=== PATIENT | female | born 1970 | race Caucasian/White ===

== ENCOUNTER 2016-02-07 12:02 | Inpatient (IN) | payer MEDICARE, OTHER ==
[2016-02-07] VITALS (11 sets, daily range): BP systolic 103–125; BP diastolic 61–77; PULSE 104–144; RESP 18–30; TEMP 98.4–98.8; O2SAT 91–100
[~2016-02-07] VITALS: Ht 157.5 cm; Wt 61.4 kg
[~2016-02-07 12:02] MED LIST: BENZ100 PO; CLIN1CAP6 PO; FENO200C PO; GUAI100S5 PO; LEVO88TA2 PO; NEXI40CA PO; OXYGENTANK NAS.CANULA; PROM2INJ IVP; TOPA100T11 PO; XARE20TA PO
[2016-02-07] MEDS ORDERED: SODIUM CHLOR 0.9% 1000 ML INJ 100 ML IV ONE (12:12)
[2016-02-07] MEDS ORDERED: SODIUM CHLOR 0.9% 1000 ML INJ 1,000 ML IV ONE ×2 (12:12)
[2016-02-07] MEDS ORDERED: metroNIDAZOLE 500 MG INJ 100 ML IV STA (12:32)
[2016-02-07] MEDS ORDERED: VANCOMYCIN INJ 1,000 MG in SODIUM CHLOR 0.9% 250 ML INJ 250 ML IV STA (12:32)
[2016-02-07] MEDS ORDERED: AZTREONAM INJ 2,000 MG in SODIUM CHLORIDE 0.9% INJ 100 ML IV STA (12:32)
[2016-02-07] MEDS ORDERED: diphenhydrAMINE HCL 50 MG/ML VIAL IV PUSH ONE ×2 (12:45→16:15)
[2016-02-07 12:54] LABS: BLOOD GAS BASE EXCESS -4.5 mmol/L (-2-2); BLOOD GAS HCO3 19 mmol/L (22-26); BLOOD GAS METHEMOGLOBIN 1.6 % (0-2); BLOOD GAS O2 HGB SATURATION 95 % (90-100); BLOOD GAS OXYGEN CONTENT 16.7 Vol % (12.0-20.0); BLOOD GAS PCO2 29 mmHg (38-42); BLOOD GAS PO2 132 mmHG (61-120); BLOOD GAS TOTAL HGB 12.3 G/DL (12.0-16.0); CRITICAL VALUE NO; TEMP CORR TO 98.6
[2016-02-07 12:55] LABS: DRAW SITE RT RADIAL; LITER FLOW 15 L/M; NUMBER OF ARTERIAL PUNCTURES 1; OXYGEN DEVICE NON REBREATHER; STAT YES
[2016-02-07 13:16] LABS: AUTOMATED NEUTROPHIL # 6.9 TH/MM3 (1.8-7.7); BASOPHIL # 0.1 TH/MM3 (0-0.2); BASOPHIL % 0.6 % (0.0-2.0); EOSINOPHIL # 0.9 TH/MM3 (0-0.4); EOSINOPHIL % 9.3 % (0.0-4.0); HEMATOCRIT 36.6 % (35.0-46.0); HEMO FLAGS DIFF FINAL; LYMPH % 10.7 % (9.0-44.0); MEAN CORPUSCULAR HEMOGLOBIN 30.4 PG (27.0-34.0); MEAN CORPUSCULAR HGB CONC 33.7 % (32.0-36.0); MONO % 7.5 % (0.0-8.0); NEUT % 71.9 % (16.0-70.0); PLATELET COUNT 134 TH/MM3 (150-450); RED BLOOD COUNT 4.07 MIL/MM3 (4.00-5.30); RED CELL DISTRIBUTION WIDTH 15.7 % (11.6-17.2); WHITE BLOOD COUNT 9.6 TH/MM3 (4.0-11.0)
--- NOTE | 2016-02-07 13:21 | RADRPT ---
EXAM DATE/TIME: 02/07/2016 12:38 [facility] COMPARISON: CHEST SINGLE AP, January 11, 2016, 17:02. INDICATIONS : Shortness of breath, with sudden weakness MEDICAL HISTORY : Sepsis. Cardiovascular disease. Hypertension. Lupus SURGICAL HISTORY : Tonsillectomy. Tubal ligation. Hysterectomy ENCOUNTER: Initial ACUITY: 1 day PAIN SCORE: 4/10 LOCATION: Bilateral chest FINDINGS: Single portable frontal view of the chest were by breathing motion artifact. Groundglass parenchymal opacity is suspected within the left lung base. Right lung is clear. No effusions. Heart normal size. Right-sided PICC line observed. CONCLUSION: Limited study. Questionable left lower lobe infiltrate. Rogelio Bhakta Jr., MD on February 07, 2016 at 13:16 Board Certified Radiologist. This report was verified electronically.
[2016-02-07 13:26] LABS: ANION GAP 10 MEQ/L (5-15); AST (GOT) 16 U/L (15-37); BICARBONATE 18.8 MEQ/L (21.0-32.0); BLOOD UREA NITROGEN 9 MG/DL (7-18); CHLORIDE 110 MEQ/L (98-107); GLOMERULAR FILTRATION RATE 90 ML/MIN (>89); SODIUM (NA) 139 MEQ/L (136-145)
[2016-02-07 13:31] LABS: ALKALINE PHOSPHATASE 60 U/L (45-117); ALT (GPT) 16 U/L (10-53); TOTAL BILIRUBIN ADULT 0.6 MG/DL (0.2-1.0)
--- NOTE | 2016-02-07 14:15 | PD ---
HPI Chief Complaint: Respiratory Distress Time Seen by Provider: 12:10 Travel History International Travel<30 days: No Contact w/Intl Traveler<30days: No Traveled to known affect area: No History of Present Illness HPI Patient is a 45-year-old female with history of lupus, A. fib, DVT/PE with indwelling IVC filter, pneumonia, recent MSSA bacteremia, gastroparesis with PEG tube here with complaint of shortness of breath, generalized weakness and syncopal episode. Patient states that over the course the last several days she 's been increasingly generally weak and fatigued. More and more short of breath at her baseline. After her most recent hospital stay with MSSA bacteremia patient went on home O2. When paramedics arrived patient's O2 saturations were 70% on 2 L home O2. Patient also had a brief syncopal episode at home with some shaking, non-rhythmic that was brief. Patient notes chronic pain but nothing acute. She has been compliant with her anticoagulation for DVT /PE. She currently has a right upper extremity PICC line that she is using for Phenergan, is no longer on any antibiotics. Patient was seen here in our emergency department yesterday for a small pustule over her ex-planted left chest wall port. Given a dose of clindamycin and discharged her home after normal workup. PFSH Past Medical History Hx Anticoagulant Therapy: Yes Arthritis: Yes (RHEUMATOID) Asthma: No Atrial Fibrillation: Yes Autoimmune Disease: Yes (SHINGLES) Anxiety: Yes Depression: No Cancer: No Cardiovascular Problems: Yes (AFIB) High Cholesterol: Yes Chemotherapy: Yes (LUPUS) Chest Pain: Yes Congestive Heart Failure: No COPD: No Cerebrovascular Accident: Yes Diabetes: No Diminished Hearing: Yes ([facility]AR) Deep Vein Thrombosis: Yes Endocrine: No Fibromyalgia: Yes Gastrointestinal Disorders: Yes (BILIARY PROBLEMS, GASTROPARESIS) GERD: Yes Genitourinary: No Headaches: No Hepatitis: No Hiatal Hernia: No Hypertension: Yes Immune Disorder: Yes (LUPUS) Implanted Vascular Access Dvce: Yes (PORT REMOVED) Kidney Stones: No Medical other: Yes (sars, lupus) Musculoskeletal: Yes (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, ) Neurologic: Yes Psychiatric: Yes Reproductive: No Respiratory: Yes (sirs) Immunizations Current: Yes Migraines: Yes (TEMPORAL ARTHRITIS ) Renal Failure: No Seizures: No Sleep Apnea: No Thyroid Disease: Yes (GINA'S) PNEUMOCCOCAL Vaccine (Year): 3 ?: Not : 4 Para: 3 Miscarriage: 1 Ovarian Cysts: Yes ((R) REMOVED) Tubal Ligation: Yes Past Surgical History Abdominal Surgery: Yes (G-J TUBE INSERTION, ) AICD: No Body Medical Devices: IVC FILTER Cardiac Surgery: No Section: Yes Cholecystectomy: Yes Ear Surgery: No Eye Surgery: No Genitourinary Surgery: No Gynecologic Surgery: Yes (PARTIAL HYSTERECTOMY, BREAST REDUCTION) Hysterectomy: Yes Joint Replacement: No Neurologic Surgery: No Oral Surgery: No Pacemaker: No Thoracic Surgery: No Tonsillectomy: Yes (1981) Other Surgery: Yes ( RECTAL SURGERY, BREAST REDUCTION, GREENFILED FILTER) Social History Alcohol Use: No Tobacco Use: No Substance Use: No Allergies-Medications (Allergen,Severity, Reaction): Coded Allergies: Contrast Media (Verified Allergy, Severe, Swelling, 02/06/16) Demerol (Verified Allergy, Severe, Hives, 02/06/16) Keflex (Verified Allergy, Severe, hives, 02/06/16) Levaquin (Verified Allergy, Severe, ARM AT SITE RED AND THEN HIVES ALL OVER BODY, 02/06/16) Morphine (Verified Allergy, Severe, severe hives, 02/06/16) Bactrim (Verified Allergy, Intermediate, Hives, 02/06/16) Fentanyl (Verified Allergy, Intermediate, HIVES, 02/06/16) Zyvox (Verified Allergy, Intermediate, Itching, 02/06/16) develops hives and itching Ancef (Verified Allergy, Mild, HIVES, 02/06/16) Sulfa (Verified Allergy, Unknown, 02/06/16) SEVERE ITCHING Vancomycin (Verified Adverse Reaction, Severe, HIVES, 02/07/16) does ok with benadryl premedicaiton Reported Meds & Prescriptions Reported Meds & Active Scripts Active Clindamycin (Clindamycin HCl) 300 Mg Cap 300 Mg PO Q6H 7 Days Tessalon Perles (Benzonatate) 100 Mg Cap 100 Mg PO TID Guaifenesin-Codeine Liq 100-10 Mg/5 Ml Soln 10 Ml PO Q6H PRN Xarelto (Rivaroxaban) 20 Mg Tab 20 Mg PO DAILY 30 Days Oxygen tank (Oxygen) 1 Ea Tank 2 Liter BETSY.CANULA CONTINUOUS Oxygen Concentrator Portable Gaseous 2 L/min via Nasal Cannula Continuous For 3 months- for extention follow with PCP Reported Topamax (Topiramate) 100 Mg Tab 100 Mg PO BID Phenergan Inj (Promethazine HCl) 25 Mg/Ml Inj 25 Mg IVP Q6HR PRN Nexium (Esomeprazole DR) 40 Mg Capdr 40 Mg PO DAILY Levothyroxine (Levothyroxine Sodium) 88 Mcg Tab 88 Mcg PO DAILY Fenofibrate Micronized 200 Mg Cap 200 Mg PO DAILY Review of Systems Except as stated in HPI: all other systems reviewed are Neg Physical Exam Narrative GENERAL: Chronically ill appearing adult female in mild respiratory distress SKIN: Warm and dry. HEAD: Normocephalic. EYES: No scleral icterus. No injection or drainage. ENT: Mucous membranes pink and moist. NECK: Supple CARDIOVASCULAR: Tachycardic with heart rate in the 150s, regular rhythm. No murmur appreciated. RESPIRATORY: Mild respiratory distress with decreased breath sounds throughout, particularly in the right base. GASTROINTESTINAL: Abdomen soft, non-tender, nondistended. PEG tube left upper quadrant MUSCULOSKELETAL: No edema. NEUROLOGICAL: Awake and alert. Normal speech. PSYCHIATRIC: Slightly anxious Data Data Last Documented VS Vital Signs Date Time Temp Pulse Resp B/P Pulse Ox O2 Delivery O2 Flow Rate FiO2 02/07/16 14:52 100 Non-Rebreather 15 02/07/16 14:51 129 18 125/70 02/07/16 12:07 98.7 Orders Electrocardiogram (02/07/16 12:12) Complete Blood Count With Diff (02/07/16 12:12) Comprehensive Metabolic Panel (02/07/16 12:12) Lactic Acid Sepsis Protocol (02/07/16 12:12) Lipase (02/07/16 12:12) Troponin I (02/07/16 12:12) Urinalysis - C+S If Indicated (02/07/16 12:12) Blood Culture (02/07/16 12:12) Arterial Blood Gas (Abg) (02/07/16 12:12) Ecg Monitoring (02/07/16 12:12) Iv Access Insert/Monitor (02/07/16 12:12) Oximetry (02/07/16 12:12) Oxygen Administration (02/07/16 12:12) Sodium Chlor 0.9% 1000 Ml Inj (Ns 1000 M (02/07/16 12:12) Sodium Chlor 0.9% 1000 Ml Inj (Ns 1000 M (02/07/16 12:12) Sodium Chlor 0.9% 1000 Ml Inj (Ns 1000 M (02/07/16 12:12) B-Type Natriuretic Peptide (02/07/16 12:12) Chest, Single Ap (02/07/16 12:12) Ventilation & Perfusion Scan (02/07/16 12:12) Consult Infectious Disease (02/07/16 ) Vancomycin Inj (Vancomycin Inj) (02/07/16 12:32) Aztreonam Inj (Azactam Inj) (02/07/16 12:32) Metronidazole 500 Mg Inj (Flagyl 500 Mg (02/07/16 12:32) Diphenhydramine Inj (Benadryl Inj) (02/07/16 12:45) Echo 2d Comp W/Dopp(Routine) (02/07/16 ) Consult Vascular Access Team (02/07/16 ) Us Arm Venous Doppler (02/07/16 ) (Hub Use Only)Inp Phy Cons/Ref (02/07/16 ) Vascular Poc Ultrasound (02/07/16 ) Cathflo Activase Inj (Cathflo Activase I (02/07/16 14:45) Blood Culture (02/07/16 14:32) Labs Laboratory Tests Test 02/07/16 02/07/16 02/07/16 12:12 12:49 12:56 White Blood Count 9.6 TH/MM3 Red Blood Count 4.07 MIL/MM3 Hemoglobin 12.4 GM/DL Hematocrit 36.6 % Mean Corpuscular Volume 90.0 FL Mean Corpuscular Hemoglobin 30.4 PG Mean Corpuscular Hemoglobin 33.7 % Concent Red Cell Distribution Width 15.7 % Platelet Count 134 TH/MM3 Mean Platelet Volume 7.5 FL Neutrophils (%) (Auto) 71.9 % Lymphocytes (%) (Auto) 10.7 % Monocytes (%) (Auto) 7.5 % Eosinophils (%) (Auto) 9.3 % Basophils (%) (Auto) 0.6 % Neutrophils # (Auto) 6.9 TH/MM3 Lymphocytes # (Auto) 1.0 TH/MM3 Monocytes # (Auto) 0.7 TH/MM3 Eosinophils # (Auto) 0.9 TH/MM3 Basophils # (Auto) 0.1 TH/MM3 CBC Comment DIFF FINAL Differential Comment Blood Gas Puncture Site RT RADIAL Blood Gas Patient Temperature 98.6 Blood Gas HCO3 19 mmol/L Blood Gas Base Excess -4.5 mmol/L Blood Gas Oxygen Saturation 95 % Arterial Blood pH 7.43 Arterial Blood Partial 29 mmHg Pressure CO2 Arterial Blood Partial 132 mmHG Pressure O2 Arterial Blood Oxygen Content 16.7 Vol % Arterial Blood 3.0 % Carboxyhemoglobin Arterial Blood Methemoglobin 1.6 % Blood Gas Hemoglobin 12.3 G/DL Oxygen Delivery Device NON REBREATHER Blood Gas Liter Flow 15 L/M Sodium Level 139 MEQ/L Potassium Level 4.0 MEQ/L Chloride Level 110 MEQ/L Carbon Dioxide Level 18.8 MEQ/L Anion Gap 10 MEQ/L Blood Urea Nitrogen 9 MG/DL Creatinine 0.70 MG/DL Estimat Glomerular Filtration 90 ML/MIN Rate Random Glucose 137 MG/DL Lactic Acid Level 1.4 mmol/L Calcium Level 8.7 MG/DL Total Bilirubin 0.6 MG/DL Aspartate Amino Transf 16 U/L (AST/SGOT) Alanine Aminotransferase 16 U/L (ALT/SGPT) Alkaline Phosphatase 60 U/L Troponin I 0.75 NG/ML B-Type Natriuretic Peptide 394 PG/ML Total Protein 6.6 GM/DL Albumin 3.2 GM/DL Lipase 63 U/L MDM Medical Decision Making Medical Screen Exam Complete: Yes Emergency Medical Condition: Yes Medical Record Reviewed: Yes Differential Diagnosis 45-year-old female with history of lupus, A. fib, DVT/PE with indwelling IVC filter, pneumonia, recent MSSA bacteremia, gastroparesis with PEG tube here with several days of worsening shortness of breath, generalized weakness and presyncopal episode with significant hypoxia per EMS. Differential includes pulmonary embolism failed anticoagulation and IVC filter, pneumonia, septic pulmonary emboli, endocarditis, sepsis, methemoglobinemia, arrhythmia, symptomatic anemia, new onset heart failure, ACS. Narrative Course Patient placed on monitor, supplemental oxygen. Patient has difficult IV access that unfortunately her PICC line would not draw any blood. Given her respiratory symptoms my concern is that she could have a DVT surrounding her PICC line. Therefore blood culture could not be obtained from her PICC line. Peripheral IV was established, blood obtained. Told lead EKG shows sinus tachycardia, rate [address] abnormalities, normal intervals. Patient was given 30 mg/kg normal saline bolus. I spoke with infectious disease , Dr. Gabriel regarding antibiotic choices, who agrees with Azactam, Flagyl, vancomycin. Patient has a history of vancomycin allergy but states that she previously tolerated with Benadryl premedication without difficulty. This was ordered. Portable chest x-ray shows questionable left lower lobe infiltrate. Unfortunately given her contrast dye allergy we are not able to perform pulmonary angiogram, patient cites a true anaphylactic allergy. Therefore a VQ scan was ordered. ABG shows pH 7.43, PCO2 29, PO2 132, bicarbonate 19. CBC, CMP, lipase, lactate, troponin, urinalysis, blood cultures, BNP obtained and notable for troponin 0.75, BNP 394. Suspect that this is likely demand ischemia from her underlying presumably septic versus pulmonary embolism dysfunction. There again are not any ischemic changes on her EKG.. Dr. Gabriel also had concerns for endocarditis and wanted stat echocardiogram. I spoke with Dr. victoria of cardiology who approved this to be performed. Duplex ultrasound of the right upper extremity showed no evidence of DVT surrounding patient's PICC line. Cathflo Activase was ordered to unclog the PICC line as well as a third set of blood cultures to be drawn from the PICC line. VQ scan showed low probability for PE. Stat echocardiogram is pending. Patient will be admitted for further management with underwriting support manager. Critical Care Narrative Aggregate critical care time was 85 minutes. Time to perform other separately billable procedures was not included in the critical care time. My time did not include minutes spent treating any other patients simultaneously or on activities that did not directly contribute to the patient's treatment. The services I provided to this patient were to treat and/or prevent clinically significant deterioration that could result in: Cardiopulmonary decompensation, , disability I provided critical care services requiring my management, as noted below: Chart data review, documentation time, medication orders and management, vital sign assessments/reviewing monitor data, ordering and reviewing lab tests, ordering and interpreting/reviewing x-rays and diagnostic studies, care of the patient and discussion of the patient with the admitting physicians. Sepsis Criteria SIRS Criteria (2 or more): Heart rate over 90, RR > 20 or PaCO2 < 32 Sepsis Criteria (SIRS+source): Infect source susp/known Criteria Outcome: Meets SIRS criteria, Meets sepsis criteria Diagnosis Primary Impression: Sepsis Qualified Code: A41.9 - Sepsis, due to unspecified organism Additional Impressions: Acute respiratory failure with hypoxia Syncope Qualified Code: R55 - Syncope, unspecified syncope type Elevated troponin Admitting Information Admitting Physician Requests: Admit Mindi Laurent MD Feb 07, 2016 14:15
--- NOTE | 2016-02-07 14:28 | RADRPT ---
EXAM DATE/TIME: 02/07/2016 13:35 [facility] COMPARISON: No previous studies available for comparison. INDICATIONS : Right arm pain. MEDICAL HISTORY : Hypercholesterolemia. Hypertension. Deep venous thrombosis. Scott's thyroiditis. arthritis. antic oagulant therapy. atrial fibrillation. gastroparesis. gerd. lupus. SURGICAL HISTORY : Tonsillectomy. Cholecystectomy. Tubal ligation. G-J tube placement. Partial hysterectomy. Breast red uction. Hysterectomy. section. Left hand nerve repair. Spinal surgery. Rectal surgery. Green feild filter. ENCOUNTER: Initial ACUITY: 1 day PAIN SCORE: 1/10 LOCATION: Right arm. FINDINGS: There is spontaneous flow documented in the brachial, basilic, cephalic, axillary, and subclavian vei ns. The vessels are compressible and augmentation response is documented. No filling defects are se en. The flow is phasic with respiration. Direction of flow in the jugular vein is caudal. Left PIC C line is in place CONCLUSION: Left vascular catheter in place. No evidence of DVT Tremaine Dumont MD on February 07, 2016 at 14:26 Board Certified Radiologist. This report was verified electronically.
[2016-02-07] MEDS ORDERED: ALTEPLASE RECOMBINANT 2 MG VIAL INTRACATH PRN (14:45)
--- NOTE | 2016-02-07 14:45 | RADRPT ---
EXAM DATE/TIME: 02/07/2016 14:14 [facility] COMPARISON: CHEST SINGLE AP, February 07, 2016, 12:38. LUNG VENTILATION & PERFUSION SCAN, December 25, 2015, 8:3 1. INDICATIONS : Dyspnea with chest pain. DOSE: 7.4 mCi Tc99m MAA IV 0.7 mCi Tc99m DTPA aerosol MEDICAL HISTORY : Hypertension. Deep venous thrombosis. Hypercholesterolemia. Hashimotos, temporal arthritis, atrial fi brillation, and fibromyalgia. SURGICAL HISTORY : Cholecystectomy. Hysterectomy. Tonsillectomy. Back surgery and breast reduction. ENCOUNTER: Initial ACUITY: 1 day PAIN SCALE: 4/10 LOCATION: Left chest TECHNIQUE: Following five minutes of tidal breathing of DTPA aerosol, planar images of the lungs were performed in eight projections. The patient was then injected with MAA, and eight-view perfusion scan was perf ormed. FINDINGS: There is a homogeneous pattern of aerosol delivery to the periphery of both lungs. No focal ventilat ory defects are seen. The perfusion lung scan demonstrates a homogenous pattern of uptake in both lungs. No segmental or s ubsegmental defects are seen. The previously noted 2 wedge-shaped vascular perfusion defects on the p rior study have resolved. CONCLUSION: Unremarkable VQ scan. This is a low probability for PE. Yonatan Mccullough MD on February 07, 2016 at 14:42 Board Certified Radiologist. This report was verified electronically.
[2016-02-07] MEDS ORDERED: HYDROmorphone HCL PF 1 MG/ML VIAL IV PUSH ONE (15:15)
[2016-02-07] MEDS ORDERED: methylPREDNISolone SOD SUCC 125 MG/2 ML VIAL IV PUSH ONE (16:15)
--- NOTE | 2016-02-07 16:18 | PD.ID.CON ---
History of Present Illness Service Infectious Disease Consult Requested By Dr.Evens EDUARDA GARCIA. Reason for Consult Evaluation and Mment of patient with pt with possible septic emboli who was recently treated for MSSA endocarditis. Primary Care Physician Gregg Correia MD Diagnoses: History of Present Illness is a patient known to me from a prior visit for MSSA bacteremia when I was cross covering for . is a 45 y/o CF unfortunate young lady with a multitude of medical problems such as lupus, RA, Raynauds phenomenon, Afib, DVT/PE with indwelling IVC filter, pneumonia, recent MSSA pneumonia, gastroparesis with PEG tube. Patients PMHx is also significant for multiple admissions for sepsis since 2010. In 2010 she was admitted with port infection (Clary lambica and Staph epidermidis) she underwent removal of port and treatment with antimicrobials. More recently, in Nov 2015, patient was admitted with port related MSSA bacteremia possible endocarditis (TTE negative, but due to lung emboli was treated with IV Nafcillin for Probable Endocarditis, STEFANI not performed as low grade bacteremia and patient was clinically improving). Patient developed GI intolerance (nausea vomiting presumed to be due to Nafcillin and was readmitted and s/b ). Patient was switched to IV Teflaro which she tolerated well during hospitalization when I saw her and she was discharged home with PICC line RUE and Teflaro with home health. 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 With this background patient has been admitted with complaints of shortness of breath, generalized weakness and syncopal episode. Patient states that over the course the last several days she's been increasingly generally weak and fatigued with worsening shortness of breath compared to her baseline. After her most recent hospital stay with MSSA bacteremia patient went on home O2 2L. When paramedics arrived patient's O2 saturations were 70% on 2 L home O2. Patient also had a brief syncopal episode at home with some shaking, non- rhythmic that was brief. Patient notes chronic pain but nothing acute. She has been compliant with her anticoagulation for DVT/PE. She currently has a right upper extremity PICC line that she is using for Phenergan, is no longer on any antibiotics. Patient was seen here in our emergency department yesterday for a small pustule over her ex-planted left chest wall port. Given a dose of clindamycin and discharged her home after normal workup. Pertinent positives and negatives: Patient reports being compliant with meds. She reports ongoing nausea and vomiting. On further questioning she is not sure if she had any pills in her vomitus. She reports night sweats She reports increasing fatigue and worsening shortness of breath on minimal exertion. ID consulted for evaluation and Mment of possible septic emboli in patient recently treated for MSSA bacteremia. Review of Systems Constitutional: COMPLAINS OF: Diaphoretic episodes, Fatigue, Dizziness, Night Sweats, DENIES: Fever, Weight gain, Weight loss, Chills, Change in appetite Endocrine: DENIES: Abnorml menstrual pattern, Heat/cold intolerance, Polydipsia , Polyuria, Polyphagia Eyes: COMPLAINS OF: Blurred vision (during syncopal episode.), DENIES: Diplopia, Eye inflammation, Eye pain, Vision loss, Photosensitivity, Double Vision Ears, nose, mouth, throat: DENIES: Tinnitus, Hearing loss, Vertigo, Nasal discharge, Oral lesions, Throat pain, Hoarseness, Ear Pain, Running Nose, Epistaxis, Sinus Pain, Toothache, Odynophagia Respiratory: COMPLAINS OF: Shortness of breath, DENIES: Apneas, Cough, Snoring , Wheezing, Hemoptysis, Sputum production Cardiovascular: COMPLAINS OF: Chest pain, Dyspnea on Exertion, Orthopnea, DENIES: Palpitations, Syncope, PND, Lower Extremity Edema, Claudication Gastrointestinal: COMPLAINS OF: Nausea, Vomiting, DENIES: Abdominal pain, Black stools, Bloody stools, Constipation, Diarrhea, Difficulty Swallowing, Anorexia Genitourinary: DENIES: Abnormal vaginal bleeding, Dysmenorrhea, Dyspareunia, Sexual dysfunction, Urinary frequency, Urinary incontinence, Urgency, Hematuria , Dysuria, Nocturia, Vaginal discharge Musculoskeletal: DENIES: Joint pain, Muscle aches, Stiffness, Joint Swelling, Back pain, Neck pain Integumentary: DENIES: Abnormal pigmentation, Pruritus, Rash, Nail changes, Breast masses, Breast skin changes, Nipple discharge Hematologic/lymphatic: DENIES: Bruising, Lymphadenopathy Immunologic/allergic: DENIES: Eczema, Urticaria Neurologic: DENIES: Abnormal gait, Headache, Localized weakness, Paresthesias, Seizures, Speech Problems, Tremor, Poor Balance Psychiatric: DENIES: Anxiety, Confusion, Mood changes, Depression, Hallucinations, Agitation, Suicidal Ideation, Homicidal Ideation, Delusions Past Family Social History Allergies: Coded Allergies: Contrast Media (Verified Allergy, Severe, Swelling, 02/06/16) Demerol (Verified Allergy, Severe, Hives, 02/06/16) Keflex (Verified Allergy, Severe, hives, 02/07/16) Premedication does not cause hives. Levaquin (Verified Allergy, Severe, ARM AT SITE RED AND THEN HIVES ALL OVER BODY, 02/06/16) Morphine (Verified Allergy, Severe, severe hives, 02/06/16) Bactrim (Verified Allergy, Intermediate, Hives, 02/06/16) Fentanyl (Verified Allergy, Intermediate, HIVES, 02/06/16) Zyvox (Verified Allergy, Intermediate, Itching, 02/06/16) develops hives and itching Ancef (Verified Allergy, Mild, HIVES, 02/07/16) Premedication does not cause hives. Sulfa (Verified Allergy, Unknown, 02/06/16) SEVERE ITCHING Vancomycin (Verified Adverse Reaction, Severe, HIVES, 02/07/16) does ok with benadryl premedicaiton Past Medical History SLE. Rheumatoid arthritis. Raynaud's syndrome. Hypothyroidism. Irritable bowel syndrome. Gastroparesis. GERD Chronic nausea. Scott's thyroiditis. Fibromyalgia. History of DVT currently on Xarelto. Pneumonia. Endocarditis. Previous port infection 2010, and more recently in Nov 2015 s/p port removal. Past Surgical History IVC filter. Hand surgery. Back surgery for T11 through T12. Partial hysterectomy. 2 C-sections. Breast reduction. Rectal polyp removed. Previous port removal, removal 2010 New port placed Oct 2015 PICC RUE Nov 2015. Reported Medications Reported Meds & Active Scripts Active Clindamycin (Clindamycin HCl) 300 Mg Cap 300 Mg PO Q6H 7 Days Tessalon Perles (Benzonatate) 100 Mg Cap 100 Mg PO TID Guaifenesin-Codeine Liq 100-10 Mg/5 Ml Soln 10 Ml PO Q6H PRN Xarelto (Rivaroxaban) 20 Mg Tab 20 Mg PO DAILY 30 Days Oxygen tank (Oxygen) 1 Ea Tank 2 Liter BETSY.CANULA CONTINUOUS Oxygen Concentrator Portable Gaseous 2 L/min via Nasal Cannula Continuous For 3 months- for extention follow with PCP Reported Topamax (Topiramate) 100 Mg Tab 100 Mg PO BID Phenergan Inj (Promethazine HCl) 25 Mg/Ml Inj 25 Mg IVP Q6HR PRN Nexium (Esomeprazole DR) 40 Mg Capdr 40 Mg PO DAILY Levothyroxine (Levothyroxine Sodium) 88 Mcg Tab 88 Mcg PO DAILY Fenofibrate Micronized 200 Mg Cap 200 Mg PO DAILY Active Ordered Medications Current Medications Medications (Trade) Dose Ordered Sig/Ronny Route Start Time Stop Time Status Last Admin (Cathflo Activase Inj) 2 mg Q2H PRN INTRACATH 02/07/16 14:45 02/07/16 15:14 (D50w (Vial) Inj) 25 ml UNSCH PRN IV PUSH 02/07/16 16:30 Insulin Human Regular 1 1 Q6HR SQ 02/07/16 18:00 Epinephrine HCl 2 mg/Dextrose 250 ml @ 0 mls/hr TITRATE IV 02/07/16 18:30 Cefepime HCl 2000 mg/Sodium Chloride 100 ml @ 200 mls/hr Q8H IV 02/07/16 17:00 Pharmacy Profile Note 0 ml @ 0 mls/hr UNSCH OTHER 02/07/16 16:30 (Mycamine Inj/NS Inj) 100 ml @ 100 mls/hr Q24H IV 02/07/16 17:00 Family History Mother breast cancer Father DM2: adopted Sister with no medical problems. Social History Occ alcohol. Denies drugs or smoking. Physical Exam Vital Signs Vital Signs Date Time Temp Pulse Resp B/P Pulse Ox O2 Delivery O2 Flow Rate FiO2 02/07/16 15:46 125 18 121/66 100 Non-Rebreather 15 02/07/16 14:52 100 Non-Rebreather 15 02/07/16 14:51 129 18 125/70 100 Non-Rebreather 15 02/07/16 12:17 97 Non-Rebreather 15 02/07/16 12:11 144 24 103/61 95 Non-Rebreather 15 02/07/16 12:11 24 95 Non-Rebreather 15 02/07/16 12:07 98.7 144 24 103/61 91 Physical Exam GENERAL: This is a well-nourished, well-developed patient, in mild respiratory distress. SKIN: No rashes, ecchymoses or lesions. Cool and dry. HEAD: Atraumatic. Normocephalic. No temporal or scalp tenderness. EYES: Pupils equal round and reactive. Extraocular motions intact. No scleral icterus. No injection or drainage. ENT: non rebreather. NECK: Trachea midline. Supple, nontender, no meningeal signs. CARDIOVASCULAR: HS audible. No murmur appreciated. RESPIRATORY: Clear to auscultation. Breath sounds diminished bilaterally in bases. GASTROINTESTINAL: Abdomen soft, non-tender, nondistended. MUSCULOSKELETAL: Extremities without clubbing, cyanosis, or edema. No joint tenderness, effusion, or edema noted. No calf tenderness. Negative Homans sign bilaterally. NEUROLOGICAL: Awake and alert. Grossly non focal Psych: cooperative IV line sites with no e.o infection PICC RUE with no e/o infection. Prior port site with scab but no active discharge noted. Laboratory Laboratory Tests Test 02/07/16 02/07/16 02/07/16 12:12 12:49 12:56 White Blood Count 9.6 Red Blood Count 4.07 Hemoglobin 12.4 Hematocrit 36.6 Mean Corpuscular Volume 90.0 Mean Corpuscular Hemoglobin 30.4 Mean Corpuscular Hemoglobin 33.7 Concent Red Cell Distribution Width 15.7 Platelet Count 134 Mean Platelet Volume 7.5 Neutrophils (%) (Auto) 71.9 Lymphocytes (%) (Auto) 10.7 Monocytes (%) (Auto) 7.5 Eosinophils (%) (Auto) 9.3 Basophils (%) (Auto) 0.6 Neutrophils # (Auto) 6.9 Lymphocytes # (Auto) 1.0 Monocytes # (Auto) 0.7 Eosinophils # (Auto) 0.9 Basophils # (Auto) 0.1 CBC Comment DIFF FINAL Differential Comment Blood Gas Puncture Site RT RADIAL Blood Gas Patient Temperature 98.6 Blood Gas HCO3 19 Blood Gas Base Excess -4.5 Blood Gas Oxygen Saturation 95 Arterial Blood pH 7.43 Arterial Blood Partial 29 Pressure CO2 Arterial Blood Partial 132 Pressure O2 Arterial Blood Oxygen Content 16.7 Arterial Blood 3.0 Carboxyhemoglobin Arterial Blood Methemoglobin 1.6 Blood Gas Hemoglobin 12.3 Oxygen Delivery Device NON REBREATHER Blood Gas Liter Flow 15 Sodium Level 139 Potassium Level 4.0 Chloride Level 110 Carbon Dioxide Level 18.8 Anion Gap 10 Blood Urea Nitrogen 9 Creatinine 0.70 Estimat Glomerular Filtration 90 Rate Random Glucose 137 Lactic Acid Level 1.4 Calcium Level 8.7 Total Bilirubin 0.6 Aspartate Amino Transf 16 (AST/SGOT) Alanine Aminotransferase 16 (ALT/SGPT) Alkaline Phosphatase 60 Troponin I 0.75 B-Type Natriuretic Peptide 394 Total Protein 6.6 Albumin 3.2 Lipase 63 Date/Time Procedure Status Source Growth 02/07/16 12:58 Aerobic Blood Culture Received Blood Peripheral Pending 02/07/16 12:58 Anaerobic Blood Culture Received Blood Peripheral Pending Result Diagram: 02/07/16 1212 02/07/16 1256 Imaging Last Impressions Lung Scan-VQ Nuclear Medicine 02/07/16 1212 Signed Impressions: Service Date/Time: Sunday, February 07, 2016 14:14 - CONCLUSION: Unremarkable VQ scan. This is a low probability for PE. Yonatan Mccullough MD Chest X-Ray 02/07/16 1212 Signed Impressions: Service Date/Time: Sunday, February 07, 2016 12:38 - CONCLUSION: Limited study. Questionable left lower lobe infiltrate. Rogelio Bhakta Jr., MD Upper Extremity Ultrasound 02/07/16 0000 Signed Impressions: Service Date/Time: Sunday, February 07, 2016 13:35 - CONCLUSION: Left vascular catheter in place. No evidence of DVT Tremaine Dumont MD Assessment and Plan Assessment and Plan Possible Sepsis (recently treated with antibiotics and immune compromised status on steroids recently) Acute hypoxic respiratory failure: high probability clinically of acute PE on top of chronic pulm PE. Acute PE possible Pneumonia (atypical vs HCAP) Miliary pattern on CTA: DDX: Fungal/PCP, AFB, Hypersensitivity pneumonitis, Sarcoidosis. Immune compromised status (multiple rheumatological conditions) MSSA endocarditis recently completed treatment 1 week back s/p PICC left in place for chronic nausea related benadryl needs pending port placement. Suspect PICC line infection. Multiple antibiotic allergies (but reports tolerates them once premedicated, has tolerated Keflex and Teflaro with premedication) Contrast allergy: anaphylaxis. Recs: Start Cefepime IV (pt made aware that since she tolerated Vanco and Cefepime in past with premedication I would prefer this regimen over Azactam) Start Vanco IV (target 15-20 PNA and Bacteremia suspected) Start Micafungin IV (suspect PICC line infection) Start Pentamidine IV (possible PCP pending LDH test and fungal cultures) Check G6PD deficiency test (to consider primaquine as alternative with Clindamycin or Atovaquone). D./w need for monitoring blood glucose, electrolytes and QT interval while on Pentamidine IV) Start Doxy IV (Levaquin and Azithro have drug interactions with Pentamidine) Doppler RUE at PICC site negative. PICC line blocked non functional: DC PICC line and send PICC line tip for culture as blood cultures could not be drawn and suspected PICC line infection. 2D ECHO with bubble study to look for septal defects in view of syncopal episode. CTA with contrast with Holistic Nutritionist standby with Epinephrine to look for acute saddle PE to aid in medical management given high risk of bleed. MRI brain in next day or two depending on clinical progression to look for e/o septic emboli to brain. Suspect hypoxia related syncope at this time. Will get GI on board once resp issues stabilized given chronic nausea and vomiting as it could be affecting effective delivery of medications celia Xarelto from oral route. Sputum for bacterial, fungal and AFB cultures PPD test. Quantiferon gold TB test. If sputum collected will send MTB PCR. AFB blood culture Fungal blood cultures. Check CRP. Check HIV antibody (RN to consent prior to lab draw) d/w Dr.Aneja Mera he will see patient today. Lady.w and . 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 Time spent in excess of 80 mins, critical thinking, decision making, reviewed labs, micro, radiology from prior admissions. D.w Pharmacist about allergies and clarification with update of allergies tab. Shanta Gabriel MD Feb 07, 2016 16:18
[2016-02-07] MEDS ORDERED: EPINEPHrine HCL (1:1000) 1 MG/ML VIAL ONE (16:28)
[2016-02-07] MEDS ORDERED: EPINEPHrine HCL (1:10,000) 1 MG/10 ML SYRINGE ONE (16:29)
[2016-02-07] MEDS ORDERED: Vancomycin Consult Pharmacy 1 EA OTHER SCH (16:30)
[2016-02-07] MEDS ORDERED: DEXTROSE 50% IN WATER 50 ML VIAL(D50) IV PUSH PRN (16:30)
--- NOTE | 2016-02-07 16:47 | EC ---
Study Study Date:02/07/2016 STUDY CONCLUSIONS SUMMARY - Left ventricle: The cavity size was normal. Wall thickness was normal. Systolic function was normal. The estimated ejection fraction was 55%. Wall motion was normal; there were no regional wall motion abnormalities. - Right ventricle: The cavity size was dilated. Wall thickness was normal. RV hypokinesis. - Right atrium: The atrium was dilated. - Atrial septum: No defect or patent foramen ovale was identified. - Tricuspid valve: Moderate regurgitation. - Pulmonary arteries: Systolic pressure was severely increased. PA peak pressure: 80mm Hg (S). If LV function is below 40, please consider prescribing an ACEI or ARB or document rationale for non-use. PROCEDURE DATA STUDY STATUS: Elective. Procedure: Transthoracic echocardiography. Image quality was good. Scanning was performed from the parasternal, apical, and subcostal acoustic windows. Study completion: The patient tolerated the procedure well. Transthoracic echocardiography. M-mode, complete 2D, complete spectral Doppler, and color Doppler. Patient status: Inpatient. CARDIAC ANATOMY LEFT VENTRICLE: The cavity size was normal. Wall thickness was normal. Systolic function was normal. The estimated ejection fraction was 55%. Wall motion was normal; there were no regional wall motion abnormalities. AORTIC VALVE: Trileaflet; normal thickness leaflets. Doppler: Transvalvular velocity was within the normal range. There was no stenosis. No regurgitation. AORTA: Aortic root: The aortic root was normal in size. MITRAL VALVE: Structurally normal valve. Doppler: Transvalvular velocity was within the normal range. There was no evidence for stenosis. No regurgitation. LEFT ATRIUM: The atrium was normal in size. ATRIAL SEPTUM: No defect or patent foramen ovale was identified. RIGHT VENTRICLE: The cavity size was dilated. Wall thickness was normal. RV hypokinesis. PULMONIC VALVE: Doppler: Transvalvular velocity was within the normal range. There was no evidence for stenosis. No regurgitation. TRICUSPID VALVE: Structurally normal valve. Doppler: Transvalvular velocity was within the normal range. Moderate regurgitation. PULMONARY ARTERY: The main pulmonary artery was normal-sized. Systolic pressure was severely increased. RIGHT ATRIUM: The atrium was dilated. PERICARDIUM: There was no pericardial effusion. SYSTEMIC VEINS: Inferior vena cava: The vessel was normal in size. BASIC MEASUREMENTS ADULT NORMAL Left ventricle LV internal dimension, ED, chordal level, *35.1 mm 43-52 PLAX LV posterior wall thickness, ED 7.37 mm IVS/LVPW ratio, ED 1.19 <1.3 Ventricular septum Septal thickness, ED 8.74 mm Aortic valve Leaflet separation 19 mm 15-26 Right ventricle RV internal dimension, ED, PLAX 30 mm 19-38 BASIC MEASUREMENTS ADULT NORMAL Aortic valve Leaflet separation 19 mm 15-26 Aorta Root diameter, ED 27 mm 20-37 DOPPLER MEASUREMENTS ADULT NORMAL Main pulmonary artery Pressure, S *80 mm Hg =30 Mitral valve Peak E-wave velocity 42.4 cm/s Peak A-wave velocity 67.1 cm/s Peak E/A ratio 0.6 Tricuspid valve Regurgitant peak velocity 418 cm/s Peak RV-RA gradient, S 70 mm Hg Maximal regurgitant velocity 418 cm/s Systemic veins Estimated CVP 10 mm Hg Right ventricle RV pressure, S *80 mm Hg <30 LEGEND: Mean values are shown as u=mean value. Asterisk (*) ren values outside specified normal range. Amended Solange Agustin [id number]
[2016-02-07] MEDS ORDERED: CEFEPIME INJ 2,000 MG in SODIUM CHLORIDE 0.9% INJ 100 ML IV SCH (17:00)
[2016-02-07] MEDS ORDERED: IOHEXOL 350 MG/ML 10 ML VIAL (for RAD DIAG) IV ONE (17:09)
--- NOTE | 2016-02-07 17:26 | RADRPT ---
EXAM DATE/TIME: 02/07/2016 17:01 [facility] COMPARISON: No previous studies available for comparison. INDICATIONS : Increased shortness of breath; evaluate for pulmonary embolism. IV CONTRAST: 65 cc Omnipaque 350 (iohexol) IV RADIATION DOSE: 23.22 CTDIvol (mGy) MEDICAL HISTORY : Cardiovascular disease. Lupus. Deep venous thrombosis.Hypertension SURGICAL HISTORY : Hysterectomy. ENCOUNTER: Initial ACUITY: 1 day PAIN SCALE: 0/10 LOCATION: chest TECHNIQUE: Volumetric scanning of the chest was performed using a pulmonary embolism protocol MIP images were re constructed. Using automated exposure control and adjustment of the mA and/or kV according to patien t size, radiation dose was kept as low as reasonably achievable to obtain optimal diagnostic quality images. FINDINGS: PULMONARY ARTERIES: No filling defects are seen in the pulmonary arteries through the segmental level. LUNGS: Numerous tiny nodular densities are scattered throughout both lungs. These are less than 3 mm in diam eter respectively. An area of more dense consolidation is seen involving the posterior basilar segmen t of the right lower lobe. Central airways are patent. PLEURAE: There is no pleural thickening or pleural effusion. MEDIASTINUM: A few small lymph nodes are seen within the anterior mediastinum. The largest lymph node is subcarina l in nature within the middle mediastinum measuring 2.5 x 1.5 cm. The heart is normal in size. No per icardial effusion. Aorta and pulmonary arteries are normal in caliber. MUSCULOSKELETAL: Within normal limits for patient age. MISCELLANEOUS: The spleen is mildly enlarged measuring 12.4 cm. Bilateral breast implants noted. Right hemilaminecto my changes are seen involving one lower thoracic vertebra potentially T11 or T12. CONCLUSION: 1. No pulmonary emboli. 2. Miliary type pattern to the lung parenchyma. Differential diagnostic considerations are quite broa d. These include multiple infectious etiologies including atypical infection such as tuberculosis and fungal infections. It can also be seen in non-infectious etiology such as sarcoidosis and hypersensi tivity pneumonitis. 3. Splenomegaly. 4. Mildly enlarged mediastinal lymph nodes. Rogelio Bhakta Jr., MD on February 07, 2016 at 17:13 Board Certified Radiologist. This report was verified electronically.
[2016-02-07] MEDS: INSULIN NovoLIN REGULAR SUPPLEMENTAL SCALE SQ SCH ×2 (18:00→23:42)
[2016-02-07] MEDS ORDERED: CHLORHEXIDINE GLUCONATE 2 % 1 PACK (2 CLOTHS)(extra cloths) TOP PRN (18:15)
[2016-02-07] MEDS ORDERED: EPINEPHrine (1:1000) INJ 2 MG in DEXTROSE 5% IN WATER INJ 248 ML IV SCH ×2 (18:30)
[2016-02-07] MEDS ORDERED: RESP: ALBUTEROL 2.5 MG/IPRATROPIUM 0.5 MG NEB (PRN) INH (19:00)
[2016-02-07] MEDS ORDERED: ACETAMINOPHEN 325 MG TAB PO PRN (19:00)
[2016-02-07] MEDS ORDERED: MISCELLANEOUS NURSING INFORMATION XX SCH (19:00)
[2016-02-07] MEDS ORDERED: CHLORHEXIDINE GLUCONATE 2 % 1 PACK (2 CLOTHS) TOP PRN (19:00)
[2016-02-07] MEDS: HYDROmorphone HCL PF 1 MG/ML VIAL IV PRN ×2 (19:15→23:08)
[2016-02-07] MEDS: DOXYCYCLINE INJ 100 MG in SODIUM CHLORIDE 0.9% INJ 100 ML IV SCH (19:16)
[2016-02-07] MEDS: PENTAMIDINE INJ 300 MG in DEXTROSE 5% IN WATER INJ 250 ML IV SCH ×4 (19:16→20:30)
--- NOTE | 2016-02-07 19:28 | HHI.HP ---
[facility] Service Critical Care Medicine Primary Care Physician Gregg Correia MD Admission Diagnosis sepsis, pneumonia, rule out line infection, hypoxemia Diagnosis: Chief Complaint: syncope Travel History International Travel<30 Days: No Contact w/Intl Traveler <30 Da: No Traveled to Known Affected Are: No History of Present Illness This is a 45-year-old female with a very complex past medical history which includes lupus, 5 prior pulmonary embolisms with an IVC filter and on home Xarelto which she is compliant with, recent hospital admission for MSSA bacteremia which she completed a 6 week course of IV antibiotics. She presents with acute syncopal episode and hypoxia. She states she felt very dizzy at home today and passed out, a family member called 911 and she was brought in. When she went to the ED, her sats were in the 50s. She was placed on a partial nonrebreather mask. Of note, she was recently in the emergency department a few days prior for purulent drainage out of her small left anterior chest incision where her prior port was. She has a history of gastroparesis, but she' s been tolerating J-tube feeds without any increase in nausea. She denies fever , chills. She denies chest pain. In emergency department, labs were drawn which demonstrated an elevated troponin of 0.8, and elevated BNP of 300. Given her acute hypoxemia and history suggestive of recurrent pulmonary embolisms, critical care medicine consult to evaluate and management of her hypoxemic respiratory failure, her cardiac strain. Review of Systems ROS Limitations: Clinical Condition (dyspnea) Constitutional: COMPLAINS OF: Diaphoretic episodes, Fatigue, DENIES: Fever, Weight gain, Chills, Dizziness, Night Sweats Respiratory: COMPLAINS OF: Shortness of breath, DENIES: Apneas, Cough, Wheezing, Hemoptysis, Sputum production Cardiovascular: COMPLAINS OF: Syncope, Dyspnea on Exertion, DENIES: Chest pain , Palpitations, PND, Lower Extremity Edema, Orthopnea Gastrointestinal: DENIES: Abdominal pain, Constipation, Diarrhea, Nausea, Vomiting Neurologic: DENIES: Headache, Localized weakness Past Family Social History Allergies: Coded Allergies: Contrast Media (Verified Allergy, Severe, Swelling, 02/06/16) Demerol (Verified Allergy, Severe, Hives, 02/06/16) Keflex (Verified Allergy, Severe, hives, 02/07/16) Premedication does not cause hives. Levaquin (Verified Allergy, Severe, ARM AT SITE RED AND THEN HIVES ALL OVER BODY, 02/06/16) Morphine (Verified Allergy, Severe, severe hives, 02/06/16) Bactrim (Verified Allergy, Intermediate, Hives, 02/06/16) Fentanyl (Verified Allergy, Intermediate, HIVES, 02/06/16) Zyvox (Verified Allergy, Intermediate, Itching, 02/06/16) develops hives and itching Ancef (Verified Allergy, Mild, HIVES, 02/07/16) Premedication does not cause hives. Sulfa (Verified Allergy, Unknown, 02/06/16) SEVERE ITCHING Vancomycin (Verified Adverse Reaction, Severe, HIVES, 02/07/16) does ok with benadryl premedicaiton Past Medical History SLE. Rheumatoid arthritis. Raynaud's syndrome. Hypothyroidism. Irritable bowel syndrome. Gastroparesis. GERD Chronic nausea. Scott's thyroiditis. Fibromyalgia. History of DVT currently on Xarelto. Pneumonia. Endocarditis. Previous port infection 2010, and more recently in Nov 2015 s/p port removal. Past Surgical History IVC filter. Hand surgery. Back surgery for T11 through T12. Partial hysterectomy. 2 C-sections. Breast reduction. Rectal polyp removed. Previous port removal, removal 2010 New port placed Oct 2015 PICC RUE Nov 2015. Reported Medications Tessalon Perles (Benzonatate) 100 Mg Cap 100 Mg PO TID Guaifenesin-Codeine Liq 100-10 Mg/5 Ml Soln 10 Ml PO Q6H PRN Xarelto (Rivaroxaban) 20 Mg Tab 20 Mg PO DAILY 30 Days Topamax (Topiramate) 100 Mg Tab 100 Mg PO BID Phenergan Inj (Promethazine HCl) 25 Mg/Ml Inj 25 Mg IVP Q6HR PRN Nexium (Esomeprazole DR) 40 Mg Capdr 40 Mg PO DAILY Levothyroxine (Levothyroxine Sodium) 88 Mcg Tab 88 Mcg PO DAILY Fenofibrate Micronized 200 Mg Cap 200 Mg PO DAILY Active Ordered Medications See MAR Family History Patient's family history was reviewed and found to be noncontributory to her acute illness. Social History intermittent etoh. denies doa, tob. Physical Exam Vital Signs Vital Signs Date Time Temp Pulse Resp B/P Pulse Ox O2 Delivery O2 Flow Rate FiO2 02/07/16 16:19 133 18 125/77 99 Non-Rebreather 15 02/07/16 15:46 125 18 121/66 100 Non-Rebreather 15 02/07/16 14:52 100 Non-Rebreather 15 02/07/16 14:51 129 18 125/70 100 Non-Rebreather 15 02/07/16 12:17 97 Non-Rebreather 15 02/07/16 12:11 144 24 103/61 95 Non-Rebreather 15 02/07/16 12:11 24 95 Non-Rebreather 15 02/07/16 12:07 98.7 144 24 103/61 91 Physical Exam GENERAL: Middle-aged female, sitting up in bed, moderate distress due to dyspnea HEENT: Pupils equal, round, reactive, conjugate. Normocephalic. Atraumatic. Her mucous membranes are moist NECK: Trachea is midline. There is no JVD. CHEST: Tachypneic. Labored. Partial nonrebreather. SPO2 96%. No wheezing or rhonchi noted. Clear to auscultation. CARDIOVASCULAR: Cardiac rate, regular rhythm. Loud P2. Otherwise no murmurs. ABDOMEN: Obese, soft, nontender, nondistended. There is a gastric tube in the left upper quadrant without signs of erythema or drainage. No guarding. MUSCULOSKELETAL: Peripheral edema. There is a right arm PICC line site is clean without signs of erythema. Distal pulses are 2+. NEUROLOGICAL: RASS 0. Follows commands in all 4 extremities. Laboratory Laboratory Tests Test 02/07/16 02/07/16 02/07/16 12:12 12:49 12:56 White Blood Count 9.6 Red Blood Count 4.07 Hemoglobin 12.4 Hematocrit 36.6 Mean Corpuscular Volume 90.0 Mean Corpuscular Hemoglobin 30.4 Mean Corpuscular Hemoglobin 33.7 Concent Red Cell Distribution Width 15.7 Platelet Count 134 Mean Platelet Volume 7.5 Neutrophils (%) (Auto) 71.9 Lymphocytes (%) (Auto) 10.7 Monocytes (%) (Auto) 7.5 Eosinophils (%) (Auto) 9.3 Basophils (%) (Auto) 0.6 Neutrophils # (Auto) 6.9 Lymphocytes # (Auto) 1.0 Monocytes # (Auto) 0.7 Eosinophils # (Auto) 0.9 Basophils # (Auto) 0.1 CBC Comment DIFF FINAL Differential Comment Blood Gas Puncture Site RT RADIAL Blood Gas Patient Temperature 98.6 Blood Gas HCO3 19 Blood Gas Base Excess -4.5 Blood Gas Oxygen Saturation 95 Arterial Blood pH 7.43 Arterial Blood Partial 29 Pressure CO2 Arterial Blood Partial 132 Pressure O2 Arterial Blood Oxygen Content 16.7 Arterial Blood 3.0 Carboxyhemoglobin Arterial Blood Methemoglobin 1.6 Blood Gas Hemoglobin 12.3 Oxygen Delivery Device NON REBREATHER Blood Gas Liter Flow 15 Sodium Level 139 Potassium Level 4.0 Chloride Level 110 Carbon Dioxide Level 18.8 Anion Gap 10 Blood Urea Nitrogen 9 Creatinine 0.70 Estimat Glomerular Filtration 90 Rate Random Glucose 137 Lactic Acid Level 1.4 Calcium Level 8.7 Total Bilirubin 0.6 Aspartate Amino Transf 16 (AST/SGOT) Alanine Aminotransferase 16 (ALT/SGPT) Alkaline Phosphatase 60 Troponin I 0.75 C-Reactive Protein 2.47 B-Type Natriuretic Peptide 394 Total Protein 6.6 Albumin 3.2 Lipase 63 Date/Time Procedure Status Source Growth 02/07/16 17:20 Wound Culture Received Catheter Tip Other Pending 02/07/16 17:00 Fungal Culture Received Catheter Tip Other Pending 02/07/16 12:58 Aerobic Blood Culture Received Blood Peripheral Pending 02/07/16 12:58 Anaerobic Blood Culture Received Blood Peripheral Pending Result Diagram: 02/07/16 1212 02/07/16 1256 Assessment and Plan Assessment and Plan Assessment: This is a 45-year-old female with multiple medical problems including a recent admission for MSSA bacteremia and multiple prior pulmonary emboli who is been well-controlled on Xarelto until now presents with an acute syncopal episode and acute hypoxic respiratory failure. Certainly, her story is very significant for a possible acute PE. I performed a bedside critical care ultrasound which demonstrates hyperdynamic LV function, severe RV dysfunction, my RVSP estimated was proximally 60 based on the moderate TR I can see. This prompted me to order a stat formal echocardiogram which agrees with my findings of acute RV dysfunction. The official transthoracic echocardiogram estimates the RVSP at 80. I discussed this case at length with Dr. Gabriel and Dr. Bonilla in the emergency department. We believe that the patient is at very high risk for acute PE. In addition, her biomarker evidence of cardiac strain given elevated troponins and BNP as well as hypoxemia all. Not only very high risk for sudden cardiac in the next 2 weeks if she did have a PE, but also at very high risk of chronic thromboembolic pulmonary hypertension if left untreated with thrombolytics. However, the patient has been well-controlled on Xarelto it has been very compliant with this. The bleeding risk of thrombolytics in the setting of ongoing active full anticoagulation is also very high in this 45-year-old female. She has a documented anaphylactic reaction to IV contrast dye. We have spoken to radiology Department as far as options to confirm the diagnosis of PE. Together with the radiologist, almost agree that we feel that the risk of and appeared thrombolytics outweighs the risk of bleeding, however if we could confirm PE, the benefits of thrombolytics in this 45-year-old female for outweighs the risk of conservative management. We all agree that the best course of action is to proceed very cautiously with CT pulmonary angiography. I will remain at bedside with epinephrine for the duration of the CT pulmonary angiography, and we'll then follow the patient at bedside to the ICU where she will be monitored with an epinephrine drip on standby. In addition we will pretreat her with steroids, Benadryl. In addition to all this, infectious etiologies and endocarditis can also not be ruled out. Dr. Gabriel will assist in appropriate antibiotic therapy and cultures. Certainly her PICC line will be removed. For now, the patient remained that very high risk for decompensation . Her acute hypoxia is concerning, and if we needed to pursue intubation mechanical ventilation, in the setting of acute RV dysfunction, her mortality rate would be very high. She is critically ill this time. Active problems Acute hypoxic respiratory failure Acute right ventricular dysfunction Possible pulmonary embolism Acute right ventricular strain Acute protein calorie malnutritionmild Possible endocarditis Possible bacteremia Plan: CT pulmonary angiogram. Epinephrine on standby. Pretreat with Benadryl, steroids. We will hold off on thrombolytics until radiographic proof of PE Trend troponins every 8 hours Wean oxygen as tolerated for goal SPO2 greater than 92% Antibiotics per infectious disease. Remove PICC line. Culture tip of PICC line Sputum cultures, blood cultures, urine culture Restart home tube feeds: Jevity 1.5, 300cc bolus feeds q6h. Clear liquid diet --Daily BMP, CBC --Continue home Xarelto Xarelto, SCDs for DVT prophylaxis Omeprazole is a home med. We will use this for GI prophylaxis Home Synthroid This patient remains critically ill with one or more organ systems which are or may become a threat to life. I have spent in excess of 82 minutes discontinuously in the care and management of this patient. This time is exclusive of procedures, and includes, but is not limited to, evaluation of the patient, review of the medical record, discussions with family, consultants, nursing staff, or respiratory therapy, and documentation in the medical record. Code Status Full Code Discussed Condition With Dr. Bonilla (ER), Dr. Gabriel (ID), Dr. Bhakta (radiologist), ER bedside RN, ICU bedside RN, ICU charge nurse. Shaun Nguyễn MD Feb 07, 2016 19:28
[2016-02-07] MEDS ORDERED: AZITHROMYCIN INJ 500 MG in SODIUM CHLOR 0.9% 250 ML INJ 250 ML IV SCH (20:00)
[2016-02-07] MEDS: diphenhydrAMINE HCL 50 MG CAP PO PRN (20:29)
[2016-02-07] MEDS: MICAFUNGIN INJ 150 MG in SODIUM CHLORIDE 0.9% INJ 100 ML IV SCH (20:29)
[2016-02-07] MEDS: SODIUM CHLORIDE 0.9% FLUSH 5 ML FLUSH IV FLUSH SCH (20:30)
[2016-02-07] MEDS: TOPIRAMATE 100 MG TAB PO SCH (20:30)
[2016-02-07] MEDS: methylPREDNISolone SOD SUCC 125 MG/2 ML VIAL IV PUSH SCH (20:31)
[2016-02-07] MEDS: CEFEPIME INJ 2,000 MG in SODIUM CHLORIDE 0.9% INJ 100 ML IV SCH (20:31)
--- NOTE | 2016-02-07 20:33 | MB ---
cc: RADHA OBANDO DATE OF CONSULTATION 02/07/[address] Shanta Gabriel REASON FOR CONSULTATION Lung infiltrate. HISTORY OF THE PRESENT ILLNESS Ms. Michaels is a pleasant 45-year-old female with history of multiple rheumatologic problems including lupus, Raynaud's disease, rheumatoid arthritis. The patient was getting Imuran before. She follows with Dr. Miguelito Zuniga and her immunosuppressive therapy has been off. The patient has multiple admissions to the hospital. She was recently admitted in the hospital with MSSA pneumonia, endocarditis. She had a Clary and staph epi infection recently, she was taking nafcillin IV at home. The patient came to the hospital with generalized weakness and her heart rate was high at 140 and she passed out. She does not remember being transported to the hospital. She was evaluated in the hospital and she was found to be hypoxic. Now she is on partial rebreather mask and saturating well. She did have fever at home. Denies any cough or sputum production. No fever, chills. No night sweats. She had a workup done in the hospital. Her VQ scan is low probability for pulmonary embolism. She had a CTA of the chest which shows no pulmonary emboli. It shows medullary pattern in the lung parenchyma. Differential includes infectious disease, atypical infection, tuberculosis, fungal infection or sarcoidosis. Her CBC shows WBC count 9.6, hemoglobin 12.4, hematocrit 36.6, MCV 90, platelet count 134. Sodium 113, potassium 4.0, chloride 110, CO2 19, BUN 9, creatinine 0.70. Blood gas on non-rebreather mask pH 7.4, pCO2 29, pO2 132, bicarbonate 19. PAST MEDICAL HISTORY Significant for: 1. History of lupus. 2. Rheumatoid arthritis. 3. Raynaud's disease. 4. History of DVT and pulmonary embolism status post IVC filter placement. 5. History of atrial fibrillation. 6. History of multiple sclerosis. 7. History of pneumonia. 8. History of gastroparesis status post PEG tube placement. 9. History of endocarditis. 10. History of gastroesophageal reflux disease. 11. Scott's thyroiditis. 12. Fibromyalgia. 13. IVC filter placement. 14. Partial hysterectomy. 15. Back surgery. 16. Breast reduction. MEDICATIONS She is currently takin. Solu-Medrol 125 mg q.6 h. 2. Zithromax 500 milligrams a day. 3. Dilaudid p.r.n. 4. Cefepime 2 grams q.8-hour. 5. Micafungin 150 mcg q. 24-hour. ALLERGIES ALLERGIC TO ANCEF, BACTRIM, IV CONTRAST, DEMEROL, FENTANYL, KEFLEX, LEVAQUIN, MORPHINE, SULFA, VANCOMYCIN AND ZYVOX. SOCIAL HISTORY She is . She has a boyfriend. She lives with her mother. She has three children. 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 REVIEW OF SYSTEMS Normally she is up, around. Has been feeling very weak. Uses a wheelchair. Uses oxygen at home. No seizure, stroke or epilepsy. PHYSICAL EXAMINATION GENERAL: Well-developed, well-nourished female in mild to moderate short of breath. VITAL SIGNS: Blood pressure 125/77, heart rate 110, respirations 18, temperature 98.8. HEENT: Pupils are equal and reactive to light. Oral mucosa, nasal mucosa normal. NECK: Supple. JVP not raised. CHEST: Air entry equal bilaterally. She has a few scattered rales. CARDIOVASCULAR: S1, S2 normal. ABDOMEN: Soft, nondistended. Bowel sounds are present. She has a PEG tube in place. EXTREMITIES: No edema. No calf tenderness. CENTRAL NERVOUS SYSTEM: She is alert and oriented times three. No focal deficits. IMPRESSION 1. Milliary pattern infiltrate in the lung, possible infectious process, need to rule out sarcoidosis and other etiology. 2. History of endocarditis. 3. Rheumatologic disorders including rheumatoid arthritis, lupus and Raynaud's disease. 4. Gastroparesis status post PEG tube placement. 5. History of endocarditis. 6. DVT and pulmonary embolism status post IVC filter placement. 7. Pulmonary embolism. PLAN I discussed with the patient and her mother at the bedside we will wean her oxygen, put her on a simple mask. Continue antibiotics as per ID recommendation. When she is more stable she will need bronchoscopy and biopsy. Further treatment will depend on the course in the hospital. Thank you Dr. Shine for this consultation. MD NATHALIE Cornell/SHANTI /6:56 PM /7:58 PM NIRU
--- NOTE | 2016-02-07 22:33 | MB ---
cc: TELMA ARMSTRONG M.D. DATE OF CONSULTATION 02/07/[address] Gabriel REASON FOR CONSULTATION Hematology is consulted to render opinion regarding patient with history of recurrent thromboembolic episode and possible pulmonary embolism. HISTORY OF PRESENT ILLNESS The patient is a very pleasant 45-year-old female with complex medical history who presented with increased shortness of breath and syncopal episode. She had a history of recurrent lower extremity venous thrombosis and multiple pulmonary embolism in the past. She had IVC filter placement in 2007. She has been on Coumadin for a long time. It was difficult to titrate. She was then switched to Xarelto about a year and a half ago. On presentation, she was found to have O2 saturation around 70%. She was then admitted to the intensive care unit. Initial VQ scan showed low probability. Echocardiogram however showed LV dysfunction with increased pulmonary artery pressure suspicious for pulmonary embolism. Hematology was consulted for further evaluation. The patient stated she has been taking Xarelto and has been compliant with taking the drug. She denies any lower extremity edema. She had right upper extremity PICC line which was just removed today. She denies any fever or chill. She denies any hemoptysis. She has chronic nausea due to gastroparesis, denies any abdominal pain. PAST MEDICAL HISTORY 1. Lupus, 2. Rheumatoid arthritis, 3. Atrial fibrillation 4. Multiple right lower extremity DVT. 5. Multiple pulmonary embolism 6. Pneumonia. 7. MSSA bacteremia 8. Gastroparesis 9. Anxiety 10. Hyperlipidemia. 11. Gastroesophageal reflux disease. 12. Hypertension PAST SURGICAL HISTORY 1. IVC filter placement. 2. G tube placement 3. PICC line placement, 4. Cholecystectomy, 5. 6. Partial hysterectomy, 7. Breast reduction 8. Rectal surgery, 9. Tonsillectomy. SOCIAL HISTORY No tobacco or alcohol use. FAMILY HISTORY Noncontributory. ALLERGIES NSAIDs BACTRIM CONTRAST MEDIA DEMEROL FENTANYL KEFLEX LEVAQUIN MORPHINE SULFA VANCOMYCIN ZYVOX MEDICATIONS Current, 1. Tricor 2. Xarelto 3. Protonix 4. Synthroid. 5. Solu-Medrol. 6. Doxycycline. 7. Topamax 8. Pentamidine 9. Cefepime 10. Micafungin. REVIEW OF SYSTEMS CONSTITUTIONAL: Denies fever, chills, night sweat, weight loss. EYES: Denies any blurry vision, double vision. ENT: Denies mouth sores or voice changes. CARDIOVASCULAR: Denies chest pain or palpitation. RESPIRATORY: As above. GI: Has chronic nausea, denies abdominal pain. : Denies any dysuria, hematuria. MUSCULOSKELETAL: Denies any bone pain, muscle pain HEMATOLOGIC: As above. ENDOCRINE: Negative DERMATOLOGIC: Negative. PSYCHIATRIC: Negative. NEUROLOGIC: Negative. PHYSICAL EXAMINATION VITAL SIGNS: Temperature 98.7, blood pressure 125/77, pulse 133 O2 saturation 95% on non-rebreather mask. GENERAL: She is alert and oriented x3 in no acute distress. HEENT: Atraumatic, normocephalic. Pupils equal, round and reactive to light. Extraocular muscles intact. No scleral icterus. Oropharynx dry mucosa. No lesion. NECK: No thyromegaly. No palpable masses. LYMPHATIC: No palpable cervical, clavicular, axillary lymph node CARDIOVASCULAR: Regular S1-S2 no murmur. LUNGS: Clear to auscultation anteriorly. ABDOMEN: Soft, nontender. I could not palpate liver or spleen. EXTREMITIES: No cyanosis or clubbing or edema. No calf sounds. BACK: No paravertebral tenderness. SKIN: No rash or petechiae. NEUROLOGIC: Nonfocal. LABORATORY DATA Reviewed ASSESSMENT 1. Thrombophilia. She has history of multiple lower extremity deep venous thrombosis and pulmonary embolism. She had IVC filter placement in 2007. She has been on Coumadin for many years which was difficult to titrate. She was switched to Xarelto about a year and a half ago. She presented today with increased shortness of breath and hypoxemia with syncopal episode. Echocardiogram showed RV dysfunction with increased pulmonary artery pressure suspicious for pulmonary embolism. However, the VQ scan was low probability for pulmonary embolism. She also had a CT angiogram which did not show evidence of pulmonary embolism. She has no lower extremity edema. She had a PICC line in the right upper extremity but ultrasound of the right upper extremity did not show any deep venous thrombosis. She has no evidence of a thrombosis event at this time. I Recommend that she continue with Xarelto. 2. Respiratory distress. CT angiogram showed miliary type pattern in the lung parenchyma which could be an infectious etiology. She had been started on antibiotics per infectious disease. 3. Lupus and rheumatoid arthritis. She is currently being followed by rheumatology 4. Gastroparesis with chronic nausea RECOMMENDATIONS 1. Continue Xarelto as the patient has no evidence of recurrent thromboembolic event at this time. 2. Discussed with the patient and her family. Their questions were answered. Thank you Dr. Gabriel for asking me to see this patient. MD GABY Leal/ /7:40 PM /10:06 PM NIRU
[2016-02-08] VITALS (14 sets, daily range): BP systolic 99–133; BP diastolic 65–82; PULSE 80–109; RESP 16–31; TEMP 97.6–98.4; O2SAT 91–100
[2016-02-08] MEDS: CEFEPIME INJ 2,000 MG in SODIUM CHLORIDE 0.9% INJ 100 ML IV SCH ×3 (01:52→18:00)
[2016-02-08] MEDS: diphenhydrAMINE HCL 50 MG CAP PO PRN ×3 (01:52→16:36)
[2016-02-08 03:10] LABS: HEMATOCRIT 35.4 % (35.0-46.0); MEAN CELL VOLUME 90.5 FL (80.0-100.0); MEAN CORPUSCULAR HEMOGLOBIN 31.1 PG (27.0-34.0); MEAN CORPUSCULAR HGB CONC 34.3 % (32.0-36.0); PLATELET COUNT 165 TH/MM3 (150-450); RED BLOOD COUNT 3.91 MIL/MM3 (4.00-5.30); RED CELL DISTRIBUTION WIDTH 15.8 % (11.6-17.2); REVIEW FLAG FINAL; WHITE BLOOD COUNT 5.4 TH/MM3 (4.0-11.0)
[2016-02-08] MEDS: VANCOMYCIN INJ 850 MG in SODIUM CHLOR 0.9% 250 ML INJ 250 ML IV SCH ×2 (03:13→16:36)
[2016-02-08] MEDS: methylPREDNISolone SOD SUCC 125 MG/2 ML VIAL IV PUSH SCH ×4 (03:13→20:36)
[2016-02-08] MEDS: CHLORHEXIDINE GLUCONATE 2 % 1 PACK (2 CLOTHS) TOP SCH (04:00)
[2016-02-08] MEDS ORDERED: CHLORHEXIDINE GLUCONATE 2 % 1 PACK (2 CLOTHS)(taper/protocol) TOP SCH (04:00)
[2016-02-08 04:37] LABS: POTASSIUM 4.2 MEQ/L (3.5-5.1)
[2016-02-08 04:46] LABS: BICARBONATE 19.3 MEQ/L (21.0-32.0)
[2016-02-08] MEDS: LEVOTHYROXINE SODIUM 88 MCG TAB PO SCH (05:50)
[2016-02-08] MEDS: INSULIN NovoLIN REGULAR SUPPLEMENTAL SCALE SQ SCH ×4 (05:51→23:12)
[2016-02-08] MEDS: TOPIRAMATE 100 MG TAB PO SCH ×2 (08:10→20:36)
[2016-02-08] MEDS: FENOFIBRATE 145 MG TAB PO SCH (08:10)
[2016-02-08] MEDS: SODIUM CHLORIDE 0.9% FLUSH 5 ML FLUSH IV FLUSH SCH ×2 (08:10→20:35)
[2016-02-08] MEDS: PANTOPRAZOLE SOD 40 MG DELAYED RELEASE TAB PO SCH (08:10)
[2016-02-08] MEDS: RIVAROXABAN 20 MG TAB PO SCH (08:10)
[2016-02-08] MEDS: DOXYCYCLINE INJ 100 MG in SODIUM CHLORIDE 0.9% INJ 100 ML IV SCH ×2 (08:10→20:36)
[2016-02-08] MEDS: HYDROmorphone HCL PF 1 MG/ML VIAL IV PRN ×3 (08:12→18:45)
[2016-02-08] MEDS ORDERED: NON-FORMULARY DRUG (Esomeprazole DR (Nexium) 40 MG) PO SCH (09:00)
--- NOTE | 2016-02-08 12:37 | HHI.IDPN ---
Subjective Subjective Remarks is a 45 y/o CF unfortunate young lady with a multitude of medical problems such as lupus, RA, Raynauds phenomenon, Afib, DVT/PE with indwelling IVC filter, pneumonia, recent MSSA pneumonia and MSSA bacteremia, gastroparesis with PEG tube. Admitted with SOB, syncope. On admission ECHO showed PA pressures elevated. 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 Overnight events reviewed Now on PR. S/p Pentamidine and high dose steroids: pending LDH and review of steroid use and Immune suppressants. s/p PICC line removal, cultures and cath tip cultures pending/ No fever No rash No diarrhea Talking in complete sentences, reports breathing much better today. Antibiotics Pentamidine IV Steroids. Micafungin IV for possible PICC line infection. Cefepime IV Vanco IV Doxy IV. Lines Line sites with no e/o infection. Past Medical History reviewed Allergies: Coded Allergies: Contrast Media (Verified Allergy, Severe, Swelling, 02/06/16) Demerol (Verified Allergy, Severe, Hives, 02/06/16) Keflex (Verified Allergy, Severe, hives, 02/07/16) Premedication does not cause hives. Levaquin (Verified Allergy, Severe, ARM AT SITE RED AND THEN HIVES ALL OVER BODY, 02/06/16) Morphine (Verified Allergy, Severe, severe hives, 02/06/16) Bactrim (Verified Allergy, Intermediate, Hives, 02/06/16) Fentanyl (Verified Allergy, Intermediate, HIVES, 02/06/16) Zyvox (Verified Allergy, Intermediate, Itching, 02/06/16) develops hives and itching Ancef (Verified Allergy, Mild, HIVES, 02/07/16) Premedication does not cause hives. Sulfa (Verified Allergy, Unknown, 02/06/16) SEVERE ITCHING Vancomycin (Verified Adverse Reaction, Severe, HIVES, 02/07/16) does ok with benadryl premedicaiton Objective . Vital Signs Date Time Temp Pulse Resp B/P Pulse Ox O2 Delivery O2 Flow Rate FiO2 02/08/16 10:00 94 02/08/16 08:00 80 02/08/16 08:00 97.6 80 23 100/65 100 02/08/16 07:40 100 Nasal Cannula 3.00 02/08/16 06:00 83 02/08/16 04:00 98.1 87 20 99/67 91 02/08/16 04:00 87 02/08/16 02:00 89 02/08/16 00:00 98.2 109 31 104/74 98 02/08/16 00:00 109 02/07/16 22:46 97 Nasal Cannula 3.00 02/07/16 22:00 104 02/07/16 20:00 129 02/07/16 20:00 98.4 129 30 105/75 98 02/07/16 19:31 95 Venturi Mask 6.00 40 02/07/16 18:00 98.8 117 20 103/74 100 02/07/16 18:00 117 02/07/16 16:19 133 18 125/77 99 Non-Rebreather 15 02/07/16 15:46 125 18 121/66 100 Non-Rebreather 15 02/07/16 14:52 100 Non-Rebreather 15 02/07/16 14:51 129 18 125/70 100 Non-Rebreather 15 02/07/16 02/07/16 02/08/16 14:59 22:59 06:59 Intake Total 860 ml 1210 ml Output Total 900 ml 150 ml Balance -40 ml 1060 ml Intake Oral 480 ml 480 ml IV Total 380 ml 730 ml Output Urine Total 900 ml 150 ml # Voids 2 1 # Bowel Movements 0 0 . Laboratory Tests Test 02/07/16 02/08/16 12:12 02:49 White Blood Count 9.6 TH/MM3 5.4 TH/MM3 Red Blood Count 4.07 MIL/MM3 3.91 MIL/MM3 Hemoglobin 12.4 GM/DL 12.2 GM/DL Hematocrit 36.6 % 35.4 % Mean Corpuscular Volume 90.0 FL 90.5 FL Mean Corpuscular Hemoglobin 30.4 PG 31.1 PG Mean Corpuscular Hemoglobin 33.7 % 34.3 % Concent Red Cell Distribution Width 15.7 % 15.8 % Platelet Count 134 TH/MM3 165 TH/MM3 Mean Platelet Volume 7.5 FL 7.7 FL Neutrophils (%) (Auto) 71.9 % Lymphocytes (%) (Auto) 10.7 % Monocytes (%) (Auto) 7.5 % Eosinophils (%) (Auto) 9.3 % Basophils (%) (Auto) 0.6 % Neutrophils # (Auto) 6.9 TH/MM3 Lymphocytes # (Auto) 1.0 TH/MM3 Monocytes # (Auto) 0.7 TH/MM3 Eosinophils # (Auto) 0.9 TH/MM3 Basophils # (Auto) 0.1 TH/MM3 CBC Comment DIFF FINAL Differential Comment Laboratory Tests Test 02/07/16 02/07/16 02/08/16 02/08/16 12:56 22:40 02:49 11:17 Sodium Level 139 MEQ/L 141 MEQ/L Potassium Level 4.0 MEQ/L 4.2 MEQ/L Chloride Level 110 MEQ/L 110 MEQ/L Carbon Dioxide Level 18.8 MEQ/L 19.3 MEQ/L Anion Gap 10 MEQ/L 12 MEQ/L Blood Urea Nitrogen 9 MG/DL 9 MG/DL Creatinine 0.70 MG/DL 0.92 MG/DL Estimat Glomerular Filtration 90 ML/MIN 66 ML/MIN Rate Random Glucose 137 MG/DL 164 MG/DL Lactic Acid Level 1.4 mmol/L Calcium Level 8.7 MG/DL 8.5 MG/DL Total Bilirubin 0.6 MG/DL Aspartate Amino Transf 16 U/L (AST/SGOT) Alanine Aminotransferase 16 U/L (ALT/SGPT) Alkaline Phosphatase 60 U/L Troponin I 0.75 NG/ML 1.17 NG/ML 0.92 NG/ML C-Reactive Protein 2.47 MG/DL B-Type Natriuretic Peptide 394 PG/ML Total Protein 6.6 GM/DL Albumin 3.2 GM/DL Lipase 63 U/L Lactate Dehydrogenase 230 U/L Microbiology Date/Time Procedure Status Source Growth 02/07/16 12:48 Aerobic Blood Culture - Preliminary Resulted Blood Peripheral NO GROWTH IN 1 DAY 02/07/16 12:48 Anaerobic Blood Culture - Preliminary Resulted Blood Peripheral NO GROWTH IN 1 DAY 02/07/16 12:58 Aerobic Blood Culture - Preliminary Resulted Blood Peripheral NO GROWTH IN 1 DAY 02/07/16 12:58 Anaerobic Blood Culture - Preliminary Resulted Blood Peripheral NO GROWTH IN 1 DAY 02/07/16 17:00 Fungal Culture Received Catheter Tip Other Pending 02/07/16 17:20 Wound Culture Received Catheter Tip Other Pending 02/07/16 22:10 Mycobacterial Culture Received Blood Peripheral Pending 02/07/16 22:40 Blood Fungal Culture Received Blood Peripheral Pending 02/07/16 22:40 Blood Fungal Culture Received Blood Peripheral Pending 02/07/16 22:45 Aerobic Blood Culture - Preliminary Resulted Blood Line NO GROWTH IN 1 DAY 02/07/16 22:45 Anaerobic Blood Culture - Preliminary Resulted Blood Line NO GROWTH IN 1 DAY Imaging Last Impressions CT Angiography 02/07/16 1604 Signed Impressions: Service Date/Time: Sunday, February 07, 2016 17:01 - CONCLUSION: 1. No pulmonary emboli. 2. Miliary type pattern to the lung parenchyma. Differential diagnostic considerations are quite broad. These include multiple infectious etiologies including atypical infection such as tuberculosis and fungal infections. It can also be seen in non-infectious etiology such as sarcoidosis and hypersensitivity pneumonitis. 3. Splenomegaly. 4. Mildly enlarged mediastinal lymph nodes. Rogelio Bhakta Jr., MD Lung Scan-VQ Nuclear Medicine 02/07/16 1212 Signed Impressions: Service Date/Time: Sunday, February 07, 2016 14:14 - CONCLUSION: Unremarkable VQ scan. This is a low probability for PE. Yonatan Mccullough MD Chest X-Ray 02/07/16 1212 Signed Impressions: Service Date/Time: Sunday, February 07, 2016 12:38 - CONCLUSION: Limited study. Questionable left lower lobe infiltrate. Rogelio Bhakta Jr., MD Upper Extremity Ultrasound 02/07/16 0000 Signed Impressions: Service Date/Time: Sunday, February 07, 2016 13:35 - CONCLUSION: Left vascular catheter in place. No evidence of DVT Tremaine Dumont MD Physical Exam GENERAL: This is a well-nourished, well-developed patient, in mild respiratory distress. SKIN: No rashes, ecchymoses or lesions. Cool and dry. HEAD: Atraumatic. Normocephalic. No temporal or scalp tenderness. EYES: Pupils equal round and reactive. Extraocular motions intact. No scleral icterus. No injection or drainage. ENT: non rebreather. NECK: Trachea midline. Supple, nontender, no meningeal signs. CARDIOVASCULAR: HS audible. No murmur appreciated. RESPIRATORY: Clear to auscultation. Breath sounds diminished bilaterally in bases. GASTROINTESTINAL: Abdomen soft, non-tender, nondistended. MUSCULOSKELETAL: Extremities without clubbing, cyanosis, or edema. No joint tenderness, effusion, or edema noted. No calf tenderness. Negative Homans sign bilaterally. NEUROLOGICAL: Awake and alert. Grossly non focal Psych: cooperative IV line sites with no e.o infection PICC RUE with no e/o infection. Prior port site with scab but no active discharge noted. Assessment & Plan Remarks Possible Sepsis (recently treated with antibiotics and immune compromised status on steroids recently) Acute hypoxic respiratory failure: high probability clinically of acute PE on top of chronic pulm PE. Acute PE possible Pneumonia (atypical vs HCAP) Miliary pattern on CTA: DDX: Fungal/PCP, AFB, Hypersensitivity pneumonitis, Sarcoidosis. Immune compromised status (multiple rheumatological conditions) MSSA endocarditis recently completed treatment 1 week back s/p PICC left in place for chronic nausea related benadryl needs pending port placement. Suspect PICC line infection. Multiple antibiotic allergies (but reports tolerates them once premedicated, has tolerated Keflex and Teflaro with premedication) Contrast allergy: anaphylaxis. Recs: Continue Cefepime IV Continue Vanco IV (target 15-20 PNA and Bacteremia suspected) Continue Micafungin IV (suspect PICC line infection, once regular blood cultures back as negative ok to stop. No need to wait for fungal blood cultures as those are for other fungi such as Blasto histo etc.) Patient lived in [place] in the past which is a fungal belt. Continue Doxy IV (once able to tolerate ok to change to oral) DC Pentamidine IV (reviewed steroid use for 1 week or so, no prolonged use, not on any other immune suppressing agents) Follow G6PD test in case PCP needs to be treated after bronch results. Doppler RUE at PICC site negative. MRI brain in next day or two depending on clinical progression to look for e/o septic emboli to brain. Suspect hypoxia related syncope at this time. Follow PPD and Quantiferon gold TB test. If sputum collected will send MTB PCR. Follow AFB blood culture and Fungal blood cultures. Follow HIV antibody Would recommend keeping her in ICU overnight off pentamidine and follow clinically. d/w Shanta Morton MD Feb 08, 2016 12:37
--- NOTE | 2016-02-08 17:08 | PD.ONC.PN ---
Subjective Subjective Remarks Feeling better. SOB improved. Objective Data Date Time Temp Pulse Resp B/P Pulse Ox O2 Delivery O2 Flow Rate FiO2 02/08/16 16:00 93 02/08/16 16:00 97.6 93 16 113/72 98 02/08/16 14:00 93 02/08/16 12:00 98.2 80 21 111/70 97 02/08/16 12:00 80 02/08/16 10:00 94 02/08/16 08:00 80 02/08/16 08:00 97.6 80 23 100/65 100 02/08/16 07:40 100 Nasal Cannula 3.00 02/08/16 06:00 83 02/08/16 04:00 98.1 87 20 99/67 91 02/08/16 04:00 87 02/08/16 02:00 89 02/08/16 00:00 98.2 109 31 104/74 98 02/08/16 00:00 109 02/07/16 22:46 97 Nasal Cannula 3.00 02/07/16 22:00 104 02/07/16 20:00 129 02/07/16 20:00 98.4 129 30 105/75 98 02/07/16 19:31 95 Venturi Mask 6.00 40 02/07/16 18:00 98.8 117 20 103/74 100 02/07/16 18:00 117 02/08/16 02/08/16 02/08/16 07:00 15:00 23:00 Intake Total 1210 ml 903 ml Output Total 150 ml 900 ml Balance 1060 ml 3 ml Result Diagram: 02/08/16 0249 02/08/16 0249 Laboratory Results Laboratory Tests Test 02/07/16 02/07/16 02/08/16 02/08/16 20:00 22:40 02:49 11:17 Nasal Screen MRSA (PCR) NEGATIVE Lactate Dehydrogenase 230 U/L HIV (1&2) Antibody NEGATIVE White Blood Count 5.4 TH/MM3 Red Blood Count 3.91 MIL/MM3 Hemoglobin 12.2 GM/DL Hematocrit 35.4 % Mean Corpuscular Volume 90.5 FL Mean Corpuscular Hemoglobin 31.1 PG Mean Corpuscular Hemoglobin 34.3 % Concent Red Cell Distribution Width 15.8 % Platelet Count 165 TH/MM3 Mean Platelet Volume 7.7 FL Sodium Level 141 MEQ/L Potassium Level 4.2 MEQ/L Chloride Level 110 MEQ/L Carbon Dioxide Level 19.3 MEQ/L Anion Gap 12 MEQ/L Blood Urea Nitrogen 9 MG/DL Creatinine 0.92 MG/DL Estimat Glomerular Filtration 66 ML/MIN Rate Random Glucose 164 MG/DL Calcium Level 8.5 MG/DL Troponin I 1.17 NG/ML 0.92 NG/ML Culture Results Microbiology Date/Time Procedure Status Source Growth 02/07/16 12:48 Aerobic Blood Culture - Preliminary Resulted Blood Peripheral NO GROWTH IN 1 DAY 02/07/16 12:48 Anaerobic Blood Culture - Preliminary Resulted Blood Peripheral NO GROWTH IN 1 DAY 02/07/16 12:58 Aerobic Blood Culture - Preliminary Resulted Blood Peripheral NO GROWTH IN 1 DAY 02/07/16 12:58 Anaerobic Blood Culture - Preliminary Resulted Blood Peripheral NO GROWTH IN 1 DAY 02/07/16 17:00 Fungal Culture Received Catheter Tip Other Pending 02/07/16 17:20 Wound Culture - Preliminary Resulted Catheter Tip Other NO GROWTH IN 24 HOURS. 02/07/16 22:10 Mycobacterial Culture Received Blood Peripheral Pending 02/07/16 22:40 Blood Fungal Culture Received Blood Peripheral Pending 02/07/16 22:40 Blood Fungal Culture Received Blood Peripheral Pending 02/07/16 22:45 Aerobic Blood Culture - Preliminary Resulted Blood Line NO GROWTH IN 1 DAY 02/07/16 22:45 Anaerobic Blood Culture - Preliminary Resulted Blood Line NO GROWTH IN 1 DAY Administered Medications Medications (Trade) Dose Ordered Sig/Ronny Route PRN Reason Start Time Stop Time Status Last Admin Dose Admin Alteplase, Recombinant (Cathflo Activase Inj) 2 mg Q2H PRN INTRACATH CLOGGED LINE 02/07/16 14:45 02/07/16 15:14 Insulin Human Regular 1 1 Q6HR SQ 02/07/16 18:00 02/08/16 05:51 Micafungin Sodium 150 mg/Sodium Chloride 100 ml @ 100 mls/hr Q24H IV 02/07/16 17:00 02/07/16 20:29 Cefepime HCl/ Sodium Chloride (Maxipime Inj/NS Inj) 100 ml @ 200 mls/hr Q8H IV 02/07/16 18:00 02/08/16 09:57 Hydromorphone HCl (Dilaudid Pf Inj) 0.5 mg Q4H PRN IV PAIN SCALE GREATER THAN 3 02/07/16 18:15 02/08/16 13:14 Methylprednisolone Sodium Succinate 125 mg 125 mg Q6H IV PUSH 02/07/16 22:00 02/08/16 16:36 Doxycycline Hyclate/Sodium Chloride (Vibramycin Inj/ NS Inj) 100 ml @ 100 mls/hr Q12H IV 02/07/16 21:00 02/08/16 08:10 IV Flush (NS Flush) 2 ml BID IV FLUSH 02/07/16 21:00 02/08/16 08:10 Chlorhexidine Gluconate (Chlorhexidine 2% Cloth) 3 pack Taper DAILY@04 TOP 02/08/16 04:00 02/03/17 03:59 02/08/16 04:00 Fenofibrate (Tricor) 145 mg DAILY PO 02/08/16 09:00 02/08/16 08:10 Levothyroxine Sodium (Synthroid) 88 mcg DAILY@06 PO 02/08/16 06:00 02/08/16 05:50 Rivaroxaban (Xarelto) 20 mg DAILY PO 02/08/16 09:00 02/08/16 08:10 Topiramate (Topamax) 100 mg BID PO 02/07/16 21:00 02/08/16 08:10 Pantoprazole Sodium (Protonix) 40 mg DAILY PO 02/08/16 09:00 02/08/16 08:10 Diphenhydramine HCl 50 mg 50 mg Q6H PRN PO Allergy 02/07/16 20:15 02/08/16 16:36 Vancomycin HCl/ Sodium Chloride (Vancomycin Inj/ NS 250 ml Inj) 258.5 ml @ 250 mls/hr Q12H IV 02/08/16 04:00 02/08/16 16:36 Objective Remarks GENERAL: Well-nourished, well-developed patient. SKIN: Warm and dry. HEAD: Normocephalic. EYES: No scleral icterus. No injection or drainage. NECK: Supple, trachea midline. No JVD or lymphadenopathy. LYMPHATIC: No adenopathy. CARDIOVASCULAR: Regular rate and rhythm without murmurs. RESPIRATORY: Breath sounds equal bilaterally. No accessory muscle use. GASTROINTESTINAL: Abdomen soft, non-tender, nondistended. EXTREMITIES: No cyanosis, or edema. MUSCULOSKELETAL: Adequate muscle tone. NEUROLOGICAL: No obvious focal deficit. Awake, alert, and oriented x3. PSYCHIATRIC: Appropriate mood and affect; insight and judgment normal. Assessment/Plan Assessment 1. Thrombophilia. She has history of multiple lower extremity deep venous thrombosis and pulmonary embolism. She had IVC filter placement in 2007. She has been on Coumadin for many years which was difficult to titrate. She was switched to Xarelto about a year and a half ago. She presented with increased shortness of breath and hypoxemia with syncopal episode. Echocardiogram showed RV dysfunction with increased pulmonary artery pressure suspicious for pulmonary embolism. However, the VQ scan was low probability for pulmonary embolism. CT angiogram which did not show evidence of pulmonary embolism. She has no lower extremity edema. She had a PICC line in the right upper extremity but ultrasound of the right upper extremity did not show any deep venous thrombosis. She has no evidence of a thrombosis event at this time. She will continue Xarelto. 2. Respiratory distress. CT angiogram showed miliary type pattern in the lung parenchyma which could be an infectious etiology. She had been started on antibiotics per infectious disease. 3. Lupus and rheumatoid arthritis. She is currently being followed by rheumatology 4. Gastroparesis with chronic nausea Plan Plan: 1. Continue Xarelto. 2. No further hematology recommendation at this time. I will sign off. Jerry Huizar MD Feb 08, 2016 17:08
[2016-02-08] MEDS: MICAFUNGIN INJ 150 MG in SODIUM CHLORIDE 0.9% INJ 100 ML IV SCH (18:36)
[2016-02-08 19:54] LABS: POTASSIUM 3.9 MEQ/L (3.5-5.1)
--- NOTE | 2016-02-08 20:28 | HHI.PR ---
Subjective Remarks 45 YOWF with RA,Lupus,Endocarditis, has bilt Milliary infilt Feels much better Weaned to NC Had Pentemidine treatment Objective Vital Signs Vital Signs Date Time Temp Pulse Resp B/P Pulse Ox O2 Delivery O2 Flow Rate FiO2 02/08/16 18:00 91 02/08/16 16:00 93 02/08/16 16:00 97.6 93 16 113/72 98 02/08/16 14:00 93 02/08/16 12:00 98.2 80 21 111/70 97 02/08/16 12:00 80 02/08/16 10:00 94 02/08/16 08:00 80 02/08/16 08:00 97.6 80 23 100/65 100 02/08/16 07:40 100 Nasal Cannula 3.00 02/08/16 06:00 83 02/08/16 04:00 98.1 87 20 99/67 91 02/08/16 04:00 87 02/08/16 02:00 89 02/08/16 00:00 98.2 109 31 104/74 98 02/08/16 00:00 109 02/07/16 22:46 97 Nasal Cannula 3.00 02/07/16 22:00 104 I/O 02/07/16 02/07/16 02/07/16 02/08/16 02/08/16 02/08/16 07:00 15:00 23:00 07:00 15:00 23:00 Intake Total 860 ml 1210 ml 903 ml Output Total 900 ml 150 ml 900 ml Balance -40 ml 1060 ml 3 ml Intake Oral 480 ml 480 ml 320 ml IV Total 380 ml 730 ml 583 ml Output Urine Total 900 ml 150 ml 900 ml # Voids 2 1 2 # Bowel Movements 0 0 0 Result Diagram: 02/08/16 0249 02/08/16 1827 Objective Remarks GENERAL: MBMN WF, weak, mild sob SKIN: Warm and dry. HEAD: Normocephalic. EYES: No scleral icterus. No injection or drainage. NECK: Supple, trachea midline. No JVD or lymphadenopathy. CARDIOVASCULAR: Regular rate and rhythm without murmurs, gallops, or rubs. RESPIRATORY: Breath sounds equal bilaterally. No accessory muscle use. GASTROINTESTINAL: Abdomen soft, non-tender, nondistended. MUSCULOSKELETAL: No cyanosis, or edema. BACK: Nontender without obvious deformity. No CVA tenderness. A/P Assessment and Plan Bilat Milliary infilt, ? Etiology Resp insuff and Hypoxia PE and DVT RA Lupus Gastroparesis H/O Endocarditis PHTN PLAN Abx Per ID Wean 02 Check Sp AFB IV Solumedrol Cont Xarelto If not albina, will need bronch Richard Phillips MD Feb 08, 2016 20:28
--- NOTE | 2016-02-08 21:08 | HHI.CCPN ---
Subjective Remarks/Hospital Course Hospital Course: This is a 45-year-old female with a very complex past medical history which includes lupus, 5 prior pulmonary embolisms with an IVC filter and on home Xarelto which she is compliant with, recent hospital admission for MSSA bacteremia which she completed a 6 week course of IV antibiotics. She presents with acute syncopal episode and hypoxia. She states she felt very dizzy at home today and passed out, a family member called 911 and she was brought in. When she went to the ED, her sats were in the 50s. She was placed on a partial nonrebreather mask. Of note, she was recently in the emergency department a few days prior for purulent drainage out of her small left anterior chest incision where her prior port was. She has a history of gastroparesis, but she' s been tolerating J-tube feeds without any increase in nausea. She denies fever , chills. She denies chest pain. In emergency department, labs were drawn which demonstrated an elevated troponin of 0.8, and elevated BNP of 300. Given her acute hypoxemia and history suggestive of recurrent pulmonary embolisms, critical care medicine consult to evaluate and management of her hypoxemic respiratory failure, her cardiac strain. Subjective: 02/07: subjectively feels much better. wants to add some oral pain meds. tolerating clear liquid diet and home tube feed regimen. o2 down to 4L NC. Objective Vital Signs Date Time Temp Pulse Resp B/P Pulse Ox O2 Delivery O2 Flow Rate FiO2 02/08/16 18:00 91 02/08/16 16:00 97.6 16 113/72 98 02/08/16 07:40 Nasal Cannula 3.00 02/07/16 19:31 40 Intake and Output 02/07/16 02/07/16 02/08/16 08:00 16:00 00:00 Intake Total 860 ml Output Total 900 ml Balance -40 ml Result Diagram: 02/08/16 0249 02/08/16 1827 Objective Remarks GENERAL: Middle-aged female, sitting up in bed HEENT: Pupils equal, round, reactive, conjugate. Normocephalic. Atraumatic. Her mucous membranes are moist NECK: Trachea is midline. There is no JVD. CHEST: equal chest rise. NC o2. No wheezing or rhonchi noted. Clear to auscultation. CARDIOVASCULAR: tachycardic rate, regular rhythm. Loud P2. Otherwise no murmurs. ABDOMEN: soft, nontender, nondistended. There is a gastric tube in the left upper quadrant without signs of erythema or drainage. No guarding. MUSCULOSKELETAL: Peripheral edema. Distal pulses are 2+. NEUROLOGICAL: RASS 0. Follows commands in all 4 extremities. A/P Assessment and Plan Assessment: This is a 45-year-old female with acute syncope and acute hypoxic respiratory failure, found to have miliary interstitial pulmonary infiltrates and acute RV dysfunction with near-systemic pulmonary hypertension. Plan by systems: Neurologic: Acute on chronic pain Continue Dilaudid 0.5 mg IV every 4 hours when necessary Add oxycodone 10 mg by mouth every 4 hours when necessary Respiratory: Acute hypoxic respiratory failure Miliary pulmonary infiltrates Pulmonary, Dr. Phillips, following --Likely will need diagnostic bronch soon --wean o2 for goal spo2 > 92%. Cardiovascular: Sinus tachycardia Near systemic pulmonary hypertension Acute RV dysfunction Pulmonary hypertension is likely secondary to her acute or subacute lung disease in a WHO class III manner. If we find a reversible causes for her lung disease, she will need repeat echo in 3 months. She will likely need follow-up at a tertiary referral center for her pulmonary hypertension long-term She is a good candidate for sildenafil, however her systemic pressures are borderline hypotensive, and I do not think she is ready hemodynamically for sildenafil. Renal: Strict I's and O's Does not require a García at this time FEN/GI: Gastroparesis Continue home tube feed regimens: Jevity 1.5, 300cc q6h bolus Tube feeds --advance to full liquid diet as tolerated (this is her home diet regimen) --daily BMP --bowel reg with colace (this works well for her) Heme/ID: Miliary pulmonary infiltrates History of pulmonary embolism ID on board --Continue methyl Pred 125 every 6 for now. Await culture data --Abx per ID. Continue Xarelto Endocrine: Hyperglycemia of critical illness Possible hypoglycemia associated with pentamadine --Initially was on every 2 hours Accu-Cheks. We will liberalize this to every 6 now. Prophylaxis: GI Prophylaxis Protonix 40 mg daily. Home meds DVT Prophylaxis -- SCDs Xarelto, home med for history of DVT/PE Lines: Peripheral IVs Dispo: Remain in the ICU. She is still a very high risk for acute decompensation given her lung disease and right ventricular dysfunction. Given her degree of hypoxia, any worsening hypoxia could acutely worsen her right ventricular dysfunction and lead to cardiovascular collapse. She remains critically ill despite modest improvements in hemodynamics and hypoxemia. This patient remains critically ill with one or more organ systems which are or may become a threat to life. I have spent in excess of 31 minutes discontinuously in the care and management of this patient. This time is exclusive of procedures, and includes, but is not limited to, evaluation of the patient, review of the medical record, discussions with family, consultants, nursing staff, or respiratory therapy, and documentation in the medical record. Shaun Nguyễn MD Feb 08, 2016 21:08
--- NOTE | 2016-02-08 23:26 | EKG ---
Date Performed: 02/07/2016 Time Performed: 13:57:10 PTAGE: 45 years EKG: SINUS TACHYCARDIA BORDERLINE LEFT AXIS DEVIATION INCOMPLETE RIGHT BUNDLE BRANCH BLOCK NONSP ECIFIC ST & T-WAVE ABNORMALITY ABNORMAL RHYTHM ECG PREVIOUS TRACING : 01/11/2016 18.07 DOCTOR: Teresa Wolff Interpretating Date/Time 02/08/2016 23:18:18
[2016-02-09] VITALS (12 sets, daily range): BP systolic 114–150; BP diastolic 59–87; PULSE 70–121; RESP 16–25; TEMP 97.9–98.4; O2SAT 97–99
[2016-02-09] MEDS: diphenhydrAMINE HCL 50 MG CAP PO PRN ×3 (01:44→20:41)
[2016-02-09] MEDS: HYDROmorphone HCL PF 1 MG/ML VIAL IV PRN ×6 (01:44→17:58)
[2016-02-09] MEDS: CEFEPIME INJ 2,000 MG in SODIUM CHLORIDE 0.9% INJ 100 ML IV SCH ×2 (01:44→10:00)
[2016-02-09] MEDS: CHLORHEXIDINE GLUCONATE 2 % 1 PACK (2 CLOTHS) TOP SCH (03:25)
[2016-02-09] MEDS: methylPREDNISolone SOD SUCC 125 MG/2 ML VIAL IV PUSH SCH ×3 (03:26→20:42)
[2016-02-09] MEDS ORDERED: PHARMACY ORDERED LAB XX ONE (03:45)
[2016-02-09] MEDS: VANCOMYCIN INJ 850 MG in SODIUM CHLOR 0.9% 250 ML INJ 250 ML IV SCH (05:14)
[2016-02-09] MEDS: LEVOTHYROXINE SODIUM 88 MCG TAB PO SCH (05:14)
[2016-02-09] MEDS: INSULIN NovoLIN REGULAR SUPPLEMENTAL SCALE SQ SCH ×3 (05:24→17:56)
[2016-02-09 06:08] LABS: HEMATOCRIT 32.6 % (35.0-46.0); MEAN CELL VOLUME 91.2 FL (80.0-100.0); MEAN CORPUSCULAR HEMOGLOBIN 29.8 PG (27.0-34.0); MEAN CORPUSCULAR HGB CONC 32.7 % (32.0-36.0); PLATELET COUNT 186 TH/MM3 (150-450); RED BLOOD COUNT 3.57 MIL/MM3 (4.00-5.30); RED CELL DISTRIBUTION WIDTH 15.9 % (11.6-17.2); REVIEW FLAG FINAL; WHITE BLOOD COUNT 15.9 TH/MM3 (4.0-11.0)
[2016-02-09 06:21] LABS: BICARBONATE 20.3 MEQ/L (21.0-32.0); POTASSIUM 4.1 MEQ/L (3.5-5.1)
[2016-02-09 06:22] LABS: VANCOMYCIN TROUGH 7.9 MCG/ML (5.0-10.0)
[2016-02-09] MEDS: TOPIRAMATE 100 MG TAB PO SCH ×2 (08:16→20:39)
[2016-02-09] MEDS: PANTOPRAZOLE SOD 40 MG DELAYED RELEASE TAB PO SCH (08:16)
[2016-02-09] MEDS: RIVAROXABAN 20 MG TAB PO SCH (08:16)
[2016-02-09] MEDS: DOCUSATE SODIUM 100 MG/10 ML UDC PO SCH (08:16)
[2016-02-09] MEDS: FENOFIBRATE 145 MG TAB PO SCH (08:16)
[2016-02-09] MEDS: DOXYCYCLINE INJ 100 MG in SODIUM CHLORIDE 0.9% INJ 100 ML IV SCH ×2 (09:00→20:42)
[2016-02-09] MEDS: SODIUM CHLORIDE 0.9% FLUSH 5 ML FLUSH IV FLUSH SCH ×2 (09:00→20:42)
--- NOTE | 2016-02-09 11:12 | HHI.IDPN ---
Subjective Subjective Remarks is a 45 y/o CF unfortunate young lady with a multitude of medical problems such as lupus, RA, Raynauds phenomenon, Afib, DVT/PE with indwelling IVC filter, pneumonia, recent MSSA pneumonia and MSSA bacteremia, gastroparesis with PEG tube. Admitted with SOB, syncope. On admission ECHO showed PA pressures elevated. 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 Overnight events reviewed Now on NC. No fever No diarrhea Complains of rash after cefepime infusion. Antibiotics Steroids. Micafungin IV for possible PICC line infection. Cefepime IV Vanco IV Doxy IV. Lines Line sites with no e/o infection. Past Medical History reviewed Allergies: Coded Allergies: Contrast Media (Verified Allergy, Severe, Swelling, 02/06/16) Demerol (Verified Allergy, Severe, Hives, 02/06/16) Keflex (Verified Allergy, Severe, hives, 02/07/16) Premedication does not cause hives. Levaquin (Verified Allergy, Severe, ARM AT SITE RED AND THEN HIVES ALL OVER BODY, 02/06/16) Morphine (Verified Allergy, Severe, severe hives, 02/06/16) Bactrim (Verified Allergy, Intermediate, Hives, 02/06/16) Fentanyl (Verified Allergy, Intermediate, HIVES, 02/06/16) Zyvox (Verified Allergy, Intermediate, Itching, 02/06/16) develops hives and itching Ancef (Verified Allergy, Mild, HIVES, 02/07/16) Premedication does not cause hives. Sulfa (Verified Allergy, Unknown, 02/06/16) SEVERE ITCHING Vancomycin (Verified Adverse Reaction, Severe, HIVES, 02/07/16) does ok with benadryl premedicaiton Objective . Vital Signs Date Time Temp Pulse Resp B/P Pulse Ox O2 Delivery O2 Flow Rate FiO2 02/09/16 10:00 77 02/09/16 08:00 77 02/09/16 08:00 98.4 82 22 150/87 98 02/09/16 06:00 77 02/09/16 04:00 98.2 76 25 114/72 98 02/09/16 04:00 76 02/09/16 02:00 79 02/09/16 00:00 98.0 76 16 118/68 97 02/09/16 00:00 70 02/08/16 22:00 82 02/08/16 20:00 85 02/08/16 20:00 98.4 85 26 133/82 98 02/08/16 19:30 97 Nasal Cannula 3.00 02/08/16 18:00 91 02/08/16 16:00 93 02/08/16 16:00 97.6 93 16 113/72 98 02/08/16 14:00 93 02/08/16 12:00 98.2 80 21 111/70 97 02/08/16 12:00 80 02/08/16 02/08/16 02/09/16 15:00 23:00 07:00 Intake Total 903 ml 1210 ml 795 ml Output Total 900 ml 350 ml 450 ml Balance 3 ml 860 ml 345 ml Intake Oral 320 ml 480 ml 240 ml IV Total 583 ml 320 ml 230 ml Tube Feeding 350 ml 325 ml Other 60 ml Output Urine Total 900 ml 350 ml 450 ml # Voids 2 1 # Bowel Movements 0 0 0 . Laboratory Tests Test 02/07/16 02/08/16 02/09/16 12:12 02:49 04:28 White Blood Count 9.6 TH/MM3 5.4 TH/MM3 15.9 TH/MM3 Red Blood Count 4.07 MIL/MM3 3.91 MIL/MM3 3.57 MIL/MM3 Hemoglobin 12.4 GM/DL 12.2 GM/DL 10.7 GM/DL Hematocrit 36.6 % 35.4 % 32.6 % Mean Corpuscular Volume 90.0 FL 90.5 FL 91.2 FL Mean Corpuscular Hemoglobin 30.4 PG 31.1 PG 29.8 PG Mean Corpuscular Hemoglobin 33.7 % 34.3 % 32.7 % Concent Red Cell Distribution Width 15.7 % 15.8 % 15.9 % Platelet Count 134 TH/MM3 165 TH/MM3 186 TH/MM3 Mean Platelet Volume 7.5 FL 7.7 FL 8.2 FL Neutrophils (%) (Auto) 71.9 % Lymphocytes (%) (Auto) 10.7 % Monocytes (%) (Auto) 7.5 % Eosinophils (%) (Auto) 9.3 % Basophils (%) (Auto) 0.6 % Neutrophils # (Auto) 6.9 TH/MM3 Lymphocytes # (Auto) 1.0 TH/MM3 Monocytes # (Auto) 0.7 TH/MM3 Eosinophils # (Auto) 0.9 TH/MM3 Basophils # (Auto) 0.1 TH/MM3 CBC Comment DIFF FINAL Differential Comment Laboratory Tests Test 02/07/16 02/07/16 02/08/16 02/08/16 12:56 22:40 02:49 11:17 Sodium Level 139 MEQ/L 141 MEQ/L Potassium Level 4.0 MEQ/L 4.2 MEQ/L Chloride Level 110 MEQ/L 110 MEQ/L Carbon Dioxide Level 18.8 MEQ/L 19.3 MEQ/L Anion Gap 10 MEQ/L 12 MEQ/L Blood Urea Nitrogen 9 MG/DL 9 MG/DL Creatinine 0.70 MG/DL 0.92 MG/DL Estimat Glomerular Filtration 90 ML/MIN 66 ML/MIN Rate Random Glucose 137 MG/DL 164 MG/DL Lactic Acid Level 1.4 mmol/L Calcium Level 8.7 MG/DL 8.5 MG/DL Total Bilirubin 0.6 MG/DL Aspartate Amino Transf 16 U/L (AST/SGOT) Alanine Aminotransferase 16 U/L (ALT/SGPT) Alkaline Phosphatase 60 U/L Troponin I 0.75 NG/ML 1.17 NG/ML 0.92 NG/ML C-Reactive Protein 2.47 MG/DL B-Type Natriuretic Peptide 394 PG/ML Total Protein 6.6 GM/DL Albumin 3.2 GM/DL Lipase 63 U/L Lactate Dehydrogenase 230 U/L Test 02/08/16 02/09/16 18:27 04:28 Sodium Level 141 MEQ/L 142 MEQ/L Potassium Level 3.9 MEQ/L 4.1 MEQ/L Chloride Level 111 MEQ/L 112 MEQ/L Carbon Dioxide Level 21.0 MEQ/L 20.3 MEQ/L Anion Gap 9 MEQ/L 10 MEQ/L Blood Urea Nitrogen 11 MG/DL 12 MG/DL Creatinine 0.78 MG/DL 0.68 MG/DL Estimat Glomerular Filtration 80 ML/MIN 93 ML/MIN Rate Random Glucose 172 MG/DL 155 MG/DL Calcium Level 8.8 MG/DL 8.6 MG/DL Troponin I 0.82 NG/ML Microbiology Date/Time Procedure Status Source Growth 02/07/16 12:48 Aerobic Blood Culture - Preliminary Resulted Blood Peripheral NO GROWTH IN 1 DAY 02/07/16 12:48 Anaerobic Blood Culture - Preliminary Resulted Blood Peripheral NO GROWTH IN 1 DAY 02/07/16 12:58 Aerobic Blood Culture - Preliminary Resulted Blood Peripheral NO GROWTH IN 1 DAY 02/07/16 12:58 Anaerobic Blood Culture - Preliminary Resulted Blood Peripheral NO GROWTH IN 1 DAY 02/07/16 17:00 Fungal Culture Received Catheter Tip Other Pending 02/07/16 17:20 Wound Culture - Preliminary Resulted Catheter Tip Other NO GROWTH IN 24 HOURS. 02/07/16 22:10 Mycobacterial Culture Received Blood Peripheral Pending 02/07/16 22:40 Blood Fungal Culture Received Blood Peripheral Pending 02/07/16 22:40 Blood Fungal Culture Received Blood Peripheral Pending 02/07/16 22:45 Aerobic Blood Culture - Preliminary Resulted Blood Line NO GROWTH IN 1 DAY 02/07/16 22:45 Anaerobic Blood Culture - Preliminary Resulted Blood Line NO GROWTH IN 1 DAY Imaging Last Impressions CT Angiography 02/07/16 1604 Signed Impressions: Service Date/Time: Sunday, February 07, 2016 17:01 - CONCLUSION: 1. No pulmonary emboli. 2. Miliary type pattern to the lung parenchyma. Differential diagnostic considerations are quite broad. These include multiple infectious etiologies including atypical infection such as tuberculosis and fungal infections. It can also be seen in non-infectious etiology such as sarcoidosis and hypersensitivity pneumonitis. 3. Splenomegaly. 4. Mildly enlarged mediastinal lymph nodes. Rogelio Bhakta Jr., MD Lung Scan-VQ Nuclear Medicine 02/07/16 1212 Signed Impressions: Service Date/Time: Sunday, February 07, 2016 14:14 - CONCLUSION: Unremarkable VQ scan. This is a low probability for PE. Yonatan Mccullough MD Chest X-Ray 02/07/16 1212 Signed Impressions: Service Date/Time: Sunday, February 07, 2016 12:38 - CONCLUSION: Limited study. Questionable left lower lobe infiltrate. Rogelio Bhakta Jr., MD Upper Extremity Ultrasound 02/07/16 0000 Signed Impressions: Service Date/Time: Sunday, February 07, 2016 13:35 - CONCLUSION: Left vascular catheter in place. No evidence of DVT Tremaine Dumont MD Physical Exam GENERAL: This is a well-nourished, well-developed patient, in mild respiratory distress. SKIN: No rashes, ecchymoses or lesions. Cool and dry. HEAD: Atraumatic. Normocephalic. No temporal or scalp tenderness. EYES: Pupils equal round and reactive. Extraocular motions intact. No scleral icterus. No injection or drainage. ENT: non rebreather. NECK: Trachea midline. Supple, nontender, no meningeal signs. CARDIOVASCULAR: HS audible. No murmur appreciated. RESPIRATORY: Clear to auscultation. Breath sounds diminished bilaterally in bases. Occ creps right base. GASTROINTESTINAL: Abdomen soft, non-tender, nondistended. MUSCULOSKELETAL: Extremities without clubbing, cyanosis, or edema. No joint tenderness, effusion, or edema noted. No calf tenderness. Negative Homans sign bilaterally. NEUROLOGICAL: Awake and alert. Grossly non focal Psych: cooperative IV line sites with no e.o infection PICC RUE with no e/o infection. Prior port site with scab but no active discharge noted. Assessment & Plan Remarks Possible Sepsis (recently treated with antibiotics and immune compromised status on steroids recently) Acute hypoxic respiratory failure: high probability clinically of acute PE on top of chronic pulm PE. Acute PE possible Pneumonia (atypical vs HCAP) Miliary pattern on CTA: DDX: Fungal/PCP, AFB, Hypersensitivity pneumonitis, Sarcoidosis. Immune compromised status (multiple rheumatological conditions) MSSA endocarditis recently completed treatment 1 week back s/p PICC left in place for chronic nausea related benadryl needs pending port placement. Suspect PICC line infection. Multiple antibiotic allergies (but reports tolerates them once premedicated, has tolerated Keflex and Teflaro with premedication) Contrast allergy: anaphylaxis. Recs: Continue Doxy IV (once able to tolerate ok to change to oral) DC Cefepime IV DC Vanco IV (target 15-20 PNA and Bacteremia suspected) DC Micafungin IV Follow PPD and Quantiferon gold TB test. If sputum collected will send MTB PCR. Follow AFB blood culture and Fungal blood cultures. Follow HIV antibody d/w d/w patient that due her excellent overnight response to steroids suspect this is a hypersensitivity pneumonitis or Sarcoidosis or chronic infections likely not acute bacterial. I will be OOT 02/10/16 to 02/29/16. and other ID MDs to cover this patient. Shanta Gabriel MD Feb 09, 2016 11:12
--- NOTE | 2016-02-09 12:05 | HHI.CCPN ---
Subjective Remarks/Hospital Course Hospital Course: This is a 45-year-old female with a very complex past medical history which includes lupus, 5 prior pulmonary embolisms with an IVC filter and on home Xarelto which she is compliant with, recent hospital admission for MSSA bacteremia which she completed a 6 week course of IV antibiotics. She presents with acute syncopal episode and hypoxia. She states she felt very dizzy at home today and passed out, a family member called 911 and she was brought in. When she went to the ED, her sats were in the 50s. She was placed on a partial nonrebreather mask. Of note, she was recently in the emergency department a few days prior for purulent drainage out of her small left anterior chest incision where her prior port was. She has a history of gastroparesis, but she' s been tolerating J-tube feeds without any increase in nausea. She denies fever , chills. She denies chest pain. In emergency department, labs were drawn which demonstrated an elevated troponin of 0.8, and elevated BNP of 300. Given her acute hypoxemia and history suggestive of recurrent pulmonary embolisms, critical care medicine consult to evaluate and management of her hypoxemic respiratory failure, her cardiac strain. Subjective: 02/07: subjectively feels much better. wants to add some oral pain meds. tolerating clear liquid diet and home tube feed regimen. o2 down to 4L NC. 02/08: stable overnight. bp improved. pain better controlled. wbc elevated to 15 today, but afebrile. did experience some night sweats overnight. Objective Vital Signs Date Time Temp Pulse Resp B/P Pulse Ox O2 Delivery O2 Flow Rate FiO2 02/09/16 10:00 77 02/09/16 08:00 98.4 22 150/87 98 02/08/16 19:30 Nasal Cannula 3.00 02/07/16 19:31 40 Intake and Output 02/08/16 02/08/16 02/08/16 07:59 15:59 23:59 Intake Total 1210 ml 903 ml 1210 ml Output Total 150 ml 900 ml 350 ml Balance 1060 ml 3 ml 860 ml Result Diagram: 02/09/16 0428 02/09/16 0428 Other Results Microbiology Date/Time Procedure Status Source Growth 02/07/16 17:20 Wound Culture - Final Complete Catheter Tip Other NO GROWTH IN 48 HOURS. Objective Remarks GENERAL: Middle-aged female, sitting up in bed HEENT: Pupils equal, round, reactive, conjugate. Normocephalic. Atraumatic. Her mucous membranes are moist NECK: Trachea is midline. There is no JVD. CHEST: equal chest rise. NC o2. No wheezing or rhonchi noted. Clear to auscultation. CARDIOVASCULAR: tachycardic rate, regular rhythm. Loud P2. Otherwise no murmurs. ABDOMEN: soft, nontender, nondistended. There is a gastric tube in the left upper quadrant without signs of erythema or drainage. No guarding. MUSCULOSKELETAL: Peripheral edema. Distal pulses are 2+. NEUROLOGICAL: RASS 0. Follows commands in all 4 extremities. A/P Assessment and Plan Assessment: This is a 45-year-old female with acute syncope and acute hypoxic respiratory failure, found to have miliary interstitial pulmonary infiltrates and acute RV dysfunction with near-systemic pulmonary hypertension. Plan by systems: Neurologic: Acute on chronic pain History of seizures Continue Dilaudid 0.5 mg IV every 4 hours when necessary oxycodone 10 mg by mouth every 4 hours when necessary --continue home Topamax Respiratory: Acute hypoxic respiratory failure Miliary pulmonary infiltrates Pulmonary, Dr. Phillips, following --Likely will need diagnostic bronch soon --wean o2 for goal spo2 > 92%. Cardiovascular: Sinus tachycardia Near systemic pulmonary hypertension Acute RV dysfunction Pulmonary hypertension is likely secondary to her acute or subacute lung disease in a WHO class III manner. If we find a reversible causes for her lung disease, she will need repeat echo in 3 months. She will likely need follow-up at a tertiary referral center for her pulmonary hypertension long-term will start low-dose sildenafil 10mg po q8h. we will continue to follow her in the ICU while we start sildenafil to make sure she remains hemodynamically stable with this. Renal: Strict I's and O's Does not require a García at this time FEN/GI: Gastroparesis Continue home tube feed regimens: Jevity 1.5, 300cc q6h bolus Tube feeds --advance to full liquid diet as tolerated (this is her home diet regimen) --daily BMP --bowel reg with colace (this works well for her) Heme/ID: Miliary pulmonary infiltrates History of pulmonary embolism ID on board --Continue methyl Pred 125 every 6 for now. Await culture data --Abx per ID. discontinuing cefepime. keeping doxycycline for now. Continue Xarelto Endocrine: Hyperglycemia of critical illness Possible hypoglycemia associated with pentamadine- resolved. --continue accuchecks q6h. Prophylaxis: GI Prophylaxis Protonix 40 mg daily. Home meds DVT Prophylaxis -- SCDs Xarelto, home med for history of DVT/PE Lines: Peripheral IVs Dispo: Remain in the ICU. I want to monitor her closely while we start and titrate her sildenafil. if she remains stable, she could be discharged to floor possibly tomorrow. Her near systemic PA pressures are still quite life- threatening right now, and with her active pulmonary problem, she is at risk of decompensation. Shaun Nguyễn MD Feb 09, 2016 12:05
[2016-02-09] MEDS: SILDENAFIL CITRATE 20 MG TAB PO SCH ×2 (12:40→20:39)
[2016-02-09] MEDS ORDERED: PILL SPLITTER OTHER PRN (14:00)
--- NOTE | 2016-02-09 18:25 | HHI.PR ---
Subjective Remarks 45 YOWF with RA,Lupus,Endocarditis, has bilt Milliary infilt Feels much better Weaned to NC Denies sob Objective Vital Signs Vital Signs Date Time Temp Pulse Resp B/P Pulse Ox O2 Delivery O2 Flow Rate FiO2 02/09/16 16:00 77 02/09/16 14:00 77 02/09/16 12:00 98.4 72 22 148/76 98 02/09/16 12:00 77 02/09/16 10:00 77 02/09/16 08:00 77 02/09/16 08:00 98.4 82 22 150/87 98 02/09/16 06:00 77 02/09/16 04:00 98.2 76 25 114/72 98 02/09/16 04:00 76 02/09/16 02:00 79 02/09/16 00:00 98.0 76 16 118/68 97 02/09/16 00:00 70 02/08/16 22:00 82 02/08/16 20:00 85 02/08/16 20:00 98.4 85 26 133/82 98 02/08/16 19:30 97 Nasal Cannula 3.00 I/O 02/08/16 02/08/16 02/08/16 02/09/16 02/09/16 02/09/16 06:59 14:59 22:59 06:59 14:59 22:59 Intake Total 1210 ml 903 ml 1210 ml 795 ml 1285 ml Output Total 150 ml 900 ml 350 ml 450 ml 425 ml Balance 1060 ml 3 ml 860 ml 345 ml 860 ml Intake Oral 480 ml 320 ml 480 ml 240 ml 480 ml IV Total 730 ml 583 ml 320 ml 230 ml 150 ml Tube Feeding 350 ml 325 ml 535 ml Other 60 ml 120 ml Output Urine Total 150 ml 900 ml 350 ml 450 ml 425 ml # Voids 1 2 1 # Bowel Movements 0 0 0 0 Result Diagram: 02/09/1642702/09/16427 Objective Remarks GENERAL: MBMN WF, weak, mild sob SKIN: Warm and dry. HEAD: Normocephalic. EYES: No scleral icterus. No injection or drainage. NECK: Supple, trachea midline. No JVD or lymphadenopathy. CARDIOVASCULAR: Regular rate and rhythm without murmurs, gallops, or rubs. RESPIRATORY: Breath sounds equal bilaterally. No accessory muscle use. GASTROINTESTINAL: Abdomen soft, non-tender, nondistended. MUSCULOSKELETAL: No cyanosis, or edema. BACK: Nontender without obvious deformity. No CVA tenderness. A/P Assessment and Plan Bilat Milliary infilt, ? Etiology Resp insuff and Hypoxia PE and DVT RA Lupus Gastroparesis H/O Endocarditis PHTN PLAN Abx Per ID Wean 02 Check Sp AFB IV Solumedrol Cont Xarelto Improving clinically Richard Phillips MD Feb 09, 2016 18:25
[2016-02-09] MEDS: diphenhydrAMINE HCL 50 MG/ML VIAL IV PRN (22:34)
[2016-02-09 23:54] LABS: G-6-PD 10.8 U/g Hgb (4.6-13.5)
[2016-02-10] VITALS (13 sets, daily range): BP systolic 103–131; BP diastolic 61–79; PULSE 64–87; RESP 14–28; TEMP 98–98.8; O2SAT 96–98
[2016-02-10] MEDS: CHLORHEXIDINE GLUCONATE 2 % 1 PACK (2 CLOTHS) TOP SCH (04:00)
[2016-02-10] MEDS: SILDENAFIL CITRATE 20 MG TAB PO SCH ×3 (05:02→21:33)
[2016-02-10] MEDS: HYDROmorphone HCL PF 1 MG/ML VIAL IV PRN ×6 (05:03→21:34)
[2016-02-10] MEDS: methylPREDNISolone SOD SUCC 125 MG/2 ML VIAL IV PUSH SCH ×4 (05:03→21:33)
[2016-02-10] MEDS: LEVOTHYROXINE SODIUM 88 MCG TAB PO SCH (05:31)
[2016-02-10] MEDS: INSULIN NovoLIN REGULAR SUPPLEMENTAL SCALE SQ SCH ×4 (06:00→18:45)
[2016-02-10 06:14] LABS: MEAN CELL VOLUME 90.4 FL (80.0-100.0); MEAN CORPUSCULAR HEMOGLOBIN 30.1 PG (27.0-34.0); MEAN CORPUSCULAR HGB CONC 33.3 % (32.0-36.0); PLATELET COUNT 212 TH/MM3 (150-450); RED BLOOD COUNT 3.65 MIL/MM3 (4.00-5.30); RED CELL DISTRIBUTION WIDTH 15.3 % (11.6-17.2); REVIEW FLAG FINAL; WHITE BLOOD COUNT 10.4 TH/MM3 (4.0-11.0)
[2016-02-10 06:46] LABS: BICARBONATE 24.7 MEQ/L (21.0-32.0); POTASSIUM 4.2 MEQ/L (3.5-5.1)
--- NOTE | 2016-02-10 08:40 | HHI.CCPN ---
Subjective Remarks/Hospital Course Hospital Course: This is a 45-year-old female with a very complex past medical history which includes lupus, 5 prior pulmonary embolisms with an IVC filter and on home Xarelto which she is compliant with, recent hospital admission for MSSA bacteremia which she completed a 6 week course of IV antibiotics. She presents with acute syncopal episode and hypoxia. She states she felt very dizzy at home today and passed out, a family member called 911 and she was brought in. When she went to the ED, her sats were in the 50s. She was placed on a partial nonrebreather mask. Of note, she was recently in the emergency department a few days prior for purulent drainage out of her small left anterior chest incision where her prior port was. She has a history of gastroparesis, but she' s been tolerating J-tube feeds without any increase in nausea. She denies fever , chills. She denies chest pain. In emergency department, labs were drawn which demonstrated an elevated troponin of 0.8, and elevated BNP of 300. Given her acute hypoxemia and history suggestive of recurrent pulmonary embolisms, critical care medicine consult to evaluate and management of her hypoxemic respiratory failure, her cardiac strain. Subjective: 02/07: subjectively feels much better. wants to add some oral pain meds. tolerating clear liquid diet and home tube feed regimen. o2 down to 4L NC. 02/08: stable overnight. bp improved. pain better controlled. wbc elevated to 15 today, but afebrile. did experience some night sweats overnight. 02/09: stable overnight. tolerated sildenafil 10 q8 without any side effects. wbc downtrending to 10. afebrile. asked for PICC line because she has had 3 ivs by iv therapy, is a known difficult stick. Objective Vital Signs Date Time Temp Pulse Resp B/P Pulse Ox O2 Delivery O2 Flow Rate FiO2 02/10/16 07:51 98 Nasal Cannula 2.00 02/10/16 06:00 67 02/10/16 05:31 16 02/10/16 04:00 98.2 103/63 02/07/16 19:31 40 Intake and Output 02/09/16 02/09/16 02/09/16 07:59 15:59 23:59 Intake Total 795 ml 1285 ml 1029 ml Output Total 450 ml 425 ml 1000 ml Balance 345 ml 860 ml 29 ml Result Diagram: 02/10/16 0443 02/10/16 0443 Other Results Microbiology Date/Time Procedure Status Source Growth 02/07/16 17:00 Fungal Culture - Final Complete Catheter Tip Other 02/07/16 17:20 Wound Culture - Final Complete Catheter Tip Other NO GROWTH IN 48 HOURS. Objective Remarks GENERAL: Middle-aged female, sitting up in bed HEENT: Pupils equal, round, reactive, conjugate. Normocephalic. Atraumatic. Her mucous membranes are moist NECK: Trachea is midline. There is no JVD. CHEST: equal chest rise. NC o2. No wheezing or rhonchi noted. Clear to auscultation. CARDIOVASCULAR: tachycardic rate, regular rhythm. Loud P2. Otherwise no murmurs. ABDOMEN: soft, nontender, nondistended. There is a gastric tube in the left upper quadrant without signs of erythema or drainage. No guarding. MUSCULOSKELETAL: Peripheral edema. Distal pulses are 2+. NEUROLOGICAL: RASS 0. Follows commands in all 4 extremities. A/P Assessment and Plan Assessment: This is a 45-year-old female with acute syncope and acute hypoxic respiratory failure, found to have miliary interstitial pulmonary infiltrates and acute RV dysfunction with near-systemic pulmonary hypertension. Plan by systems: Neurologic: Acute on chronic pain History of seizures Continue Dilaudid 0.5 mg IV every 4 hours when necessary oxycodone 10 mg by mouth every 4 hours when necessary --continue home Topamax Respiratory: Acute hypoxic respiratory failure Miliary pulmonary infiltrates Pulmonary, Dr. Phillips, following --Likely will need diagnostic bronch soon --wean o2 for goal spo2 > 92%. Cardiovascular: Sinus tachycardia Near systemic pulmonary hypertension Acute RV dysfunction Pulmonary hypertension is likely secondary to her acute or subacute lung disease in a WHO class III manner. If we find a reversible causes for her lung disease, she will need repeat echo in 3 months. She will likely need follow-up at a tertiary referral center for her pulmonary hypertension long-term increase sildenafil to 20mg po q8h. if she tolerates this well, we can transfer her out of the ICU. --will dose lasix 10mg iv x 1 to maintain euvolemia and prevent right ventricular failure/cor pulmonale. Renal: Strict I's and O's Does not require a García at this time --single dose lasix 10mg iv x 1 for net euvolemia. FEN/GI: Gastroparesis Continue home tube feed regimens: Jevity 1.5, 300cc q6h bolus Tube feeds --advance to full liquid diet as tolerated (this is her home diet regimen) --daily BMP --bowel reg with colace (this works well for her) Heme/ID: Miliary pulmonary infiltrates History of pulmonary embolism ID on board --Continue methyl Pred 125 every 6 for now. Await culture data --Abx per ID. doxycycline for now. Hold Xarelto, Lovenox 1.5mg/kg as bridging. Endocrine: Hyperglycemia of critical illness Possible hypoglycemia associated with pentamadine- resolved. --continue accuchecks q6h. Prophylaxis: GI Prophylaxis Protonix 40 mg daily. Home meds DVT Prophylaxis -- SCDs Lovenox 1.5mg/kg (100mg) for h/o DVT/PE, bridging for bronch. home Xarelto on hold. Lines: Peripheral IVs Dispo: will consult hospitalist group. likely can transition out of ICU if she tolerates her increased dose of sildenafil. Shaun Nguyễn MD Feb 10, 2016 08:40
[2016-02-10] MEDS ORDERED: FUROSEMIDE 20 MG/2 ML VIAL IV PUSH ONE (08:45)
[2016-02-10] MEDS: DOCUSATE SODIUM 100 MG/10 ML UDC PO SCH (09:08)
[2016-02-10] MEDS: diphenhydrAMINE HCL 50 MG/ML VIAL IV PRN ×2 (09:09→21:33)
[2016-02-10] MEDS: SODIUM CHLORIDE 0.9% FLUSH 5 ML FLUSH IV FLUSH SCH ×2 (09:10→11:27)
[2016-02-10] MEDS: TOPIRAMATE 100 MG TAB PO SCH ×2 (09:10→21:46)
[2016-02-10] MEDS: ENOXAPARIN SODIUM 100 MG/ML SYRINGE SQ SCH (09:10)
[2016-02-10] MEDS: PANTOPRAZOLE SOD 40 MG DELAYED RELEASE TAB PO SCH (09:10)
[2016-02-10] MEDS: FENOFIBRATE 145 MG TAB PO SCH (09:10)
--- NOTE | 2016-02-10 10:41 | HHI.IDPN ---
Subjective Subjective Remarks ID COVERAGE Chart reviewed is a 45 y/o CF unfortunate young lady with a multitude of medical problems such as lupus, RA, Raynauds phenomenon, Afib, DVT/PE with indwelling IVC filter, pneumonia, recent MSSA pneumonia and MSSA bacteremia, gastroparesis with PEG tube. Admitted with SOB, syncope. On admission ECHO showed PA pressures elevated. 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 No fever Breathing continues to improve Has cough, but not able to bring up any phlegm No CP No N/V No diarrhea HIV negative TB quantiferon pending Rash better Venous access has been a problem Antibiotics Steroids. Doxy IV. Lines Line sites with no e/o infection. Past Medical History reviewed Allergies: Coded Allergies: Contrast Media (Verified Allergy, Severe, Swelling, 02/06/16) Demerol (Verified Allergy, Severe, Hives, 02/06/16) Keflex (Verified Allergy, Severe, hives, 02/07/16) Premedication does not cause hives. Levaquin (Verified Allergy, Severe, ARM AT SITE RED AND THEN HIVES ALL OVER BODY, 02/06/16) Morphine (Verified Allergy, Severe, severe hives, 02/06/16) Bactrim (Verified Allergy, Intermediate, Hives, 02/06/16) Fentanyl (Verified Allergy, Intermediate, HIVES, 02/06/16) Zyvox (Verified Allergy, Intermediate, Itching, 02/06/16) develops hives and itching Ancef (Verified Allergy, Mild, HIVES, 02/07/16) Premedication does not cause hives. Sulfa (Verified Allergy, Unknown, 02/06/16) SEVERE ITCHING Vancomycin (Verified Adverse Reaction, Severe, HIVES, 02/07/16) does ok with benadryl premedicaiton Objective . Vital Signs Date Time Temp Pulse Resp B/P Pulse Ox O2 Delivery O2 Flow Rate FiO2 02/10/16 07:51 98 Nasal Cannula 2.00 02/10/16 06:00 67 02/10/16 05:31 16 02/10/16 04:00 98.2 80 20 103/63 98 02/10/16 04:00 80 02/10/16 02:00 68 02/10/16 00:00 72 02/10/16 00:00 98.0 72 15 125/74 98 02/09/16 22:00 73 02/09/16 21:33 98 Nasal Cannula 3.00 02/09/16 20:00 97.9 121 17 114/59 99 02/09/16 20:00 121 02/09/16 16:00 77 02/09/16 14:00 77 02/09/16 12:00 98.4 72 22 148/76 98 02/09/16 12:00 77 02/09/16 02/09/16 02/10/16 15:00 23:00 07:00 Intake Total 1285 ml 1029 ml 680 ml Output Total 425 ml 1000 ml Balance 860 ml 29 ml 680 ml Intake Oral 480 ml 500 ml 240 ml IV Total 150 ml 105 ml Tube Feeding 535 ml 424 ml 440 ml Other 120 ml Output Urine Total 425 ml 1000 ml # Voids 0 # Bowel Movements 0 0 . Laboratory Tests Test 02/09/16 02/10/16 04:28 04:43 White Blood Count 15.9 TH/MM3 10.4 TH/MM3 Red Blood Count 3.57 MIL/MM3 3.65 MIL/MM3 Hemoglobin 10.7 GM/DL 11.0 GM/DL Hematocrit 32.6 % 33.0 % Mean Corpuscular Volume 91.2 FL 90.4 FL Mean Corpuscular Hemoglobin 29.8 PG 30.1 PG Mean Corpuscular Hemoglobin 32.7 % 33.3 % Concent Red Cell Distribution Width 15.9 % 15.3 % Platelet Count 186 TH/MM3 212 TH/MM3 Mean Platelet Volume 8.2 FL 7.7 FL Laboratory Tests Test 02/08/16 02/08/16 02/09/16 02/10/16 11:17 18:27 04:28 04:43 Troponin I 0.92 NG/ML 0.82 NG/ML Sodium Level 141 MEQ/L 142 MEQ/L 142 MEQ/L Potassium Level 3.9 MEQ/L 4.1 MEQ/L 4.2 MEQ/L Chloride Level 111 MEQ/L 112 MEQ/L 108 MEQ/L Carbon Dioxide Level 21.0 MEQ/L 20.3 MEQ/L 24.7 MEQ/L Anion Gap 9 MEQ/L 10 MEQ/L 9 MEQ/L Blood Urea Nitrogen 11 MG/DL 12 MG/DL 14 MG/DL Creatinine 0.78 MG/DL 0.68 MG/DL 0.69 MG/DL Estimat Glomerular Filtration 80 ML/MIN 93 ML/MIN 92 ML/MIN Rate Random Glucose 172 MG/DL 155 MG/DL 157 MG/DL Calcium Level 8.8 MG/DL 8.6 MG/DL 9.0 MG/DL Microbiology Date/Time Procedure Status Source Growth 02/07/16 12:48 Aerobic Blood Culture - Preliminary Resulted Blood Peripheral NO GROWTH IN 2 DAYS 02/07/16 12:48 Anaerobic Blood Culture - Preliminary Resulted Blood Peripheral NO GROWTH IN 2 DAYS 02/07/16 12:58 Aerobic Blood Culture - Preliminary Resulted Blood Peripheral NO GROWTH IN 2 DAYS 02/07/16 12:58 Anaerobic Blood Culture - Preliminary Resulted Blood Peripheral NO GROWTH IN 2 DAYS 02/07/16 17:00 Fungal Culture - Final Complete Catheter Tip Other 02/07/16 17:20 Wound Culture - Final Complete Catheter Tip Other NO GROWTH IN 48 HOURS. 02/07/16 22:10 Mycobacterial Culture Received Blood Peripheral Pending 02/07/16 22:40 Blood Fungal Culture Received Blood Peripheral Pending 02/07/16 22:40 Blood Fungal Culture Received Blood Peripheral Pending 02/07/16 22:45 Aerobic Blood Culture - Preliminary Resulted Blood Line NO GROWTH IN 2 DAYS 02/07/16 22:45 Anaerobic Blood Culture - Preliminary Resulted Blood Line NO GROWTH IN [address] Angiography 02/07/16 1604 Signed Impressions: Service Date/Time: Sunday, February 07, 2016 17:01 - CONCLUSION: 1. No pulmonary emboli. 2. Miliary type pattern to the lung parenchyma. Differential diagnostic considerations are quite broad. These include multiple infectious etiologies including atypical infection such as tuberculosis and fungal infections. It can also be seen in non-infectious etiology such as sarcoidosis and hypersensitivity pneumonitis. 3. Splenomegaly. 4. Mildly enlarged mediastinal lymph nodes. Rogelio Bhakta Jr., MD Lung Scan-VQ Nuclear Medicine 02/07/16 1212 Signed Impressions: Service Date/Time: Sunday, February 07, 2016 14:14 - CONCLUSION: Unremarkable VQ scan. This is a low probability for PE. Yonatan Mccullough MD Chest X-Ray 02/07/16 1212 Signed Impressions: Service Date/Time: Sunday, February 07, 2016 12:38 - CONCLUSION: Limited study. Questionable left lower lobe infiltrate. Rogelio Bhakta Jr., MD Upper Extremity Ultrasound 02/07/16 0000 Signed Impressions: Service Date/Time: Sunday, February 07, 2016 13:35 - CONCLUSION: Left vascular catheter in place. No evidence of DVT Tremaine Dumont MD Physical Exam GENERAL: Awake and alert, comfortable at rest SKIN: No rashes, ecchymoses or lesions. Cool and dry. HEAD: Atraumatic. Normocephalic. No temporal or scalp tenderness. EYES: [place] conjunctiva, no petechia or hemorrhage. No scleral icterus. No injection or drainage. ENT: Moist oral mucosa, no nasal dsicharge, no sinus tenderness NECK: Trachea midline. Supple, nontender, no meningeal signs. CARDIOVASCULAR: HS audible. No murmur appreciated. RESPIRATORY: Clear to auscultation. Breath sounds diminished bilaterally in bases. GASTROINTESTINAL: Abdomen soft, non-tender, nondistended. PEG site ok MUSCULOSKELETAL: Extremities without clubbing, cyanosis, or edema. No joint tenderness, effusion, or edema noted. No calf tenderness. Negative Homans sign bilaterally. NEUROLOGICAL: Awake and alert. Grossly non focal Psych: cooperative IV line sites with no evidence infection Assessment & Plan Remarks Possible Sepsis (recently treated with antibiotics and immune compromised status on steroids recently) Acute hypoxic respiratory failure: high probability clinically of acute PE on top of chronic pulm PE. Acute PE possible Pneumonia (atypical vs HCAP) Miliary pattern on CTA: DDX: Fungal/PCP, AFB, Hypersensitivity pneumonitis, Sarcoidosis. Immune compromised status (multiple rheumatological conditions) MSSA endocarditis recently completed treatment 1 week back s/p PICC left in place for chronic nausea related benadryl needs pending port placement. Suspect PICC line infection. Multiple antibiotic allergies (but reports tolerates them once premedicated, has tolerated Keflex and Teflaro with premedication) Contrast allergy: anaphylaxis. Recs: Continue Doxy IV (once able to tolerate ok to change to oral) Follow PPD and Quantiferon gold TB test. If sputum collected will send MTB PCR. Follow AFB blood culture and Fungal blood cultures. Monitor progress Dr Hickman available if needed this weekend I will check patient again on Saturday Diya Malhotra MD Feb 10, 2016 10:41
[2016-02-10] MEDS: DOXYCYCLINE INJ 100 MG in SODIUM CHLORIDE 0.9% INJ 100 ML IV SCH ×2 (11:27→21:34)
[2016-02-10 14:08] LABS: MITOGEN MINUS NIL RESULT 3.73 IU/mL (()); NIL RESULT 0.02 IU/mL (()); QUANTIFERON TB GOLD RESULT Negative (Negative)
--- NOTE | 2016-02-10 19:01 | HHI.PR ---
Subjective Remarks 45 YOWF with RA,Lupus,Endocarditis, has bilt Milliary infilt Feels much better Weaned to NC Denies sob Takes clear liq and G_tube feeding Objective Vital Signs Vital Signs Date Time Temp Pulse Resp B/P Pulse Ox O2 Delivery O2 Flow Rate FiO2 02/10/16 16:00 98.8 82 22 115/68 96 02/10/16 16:00 82 02/10/16 14:00 87 02/10/16 12:00 98.5 80 14 131/79 96 02/10/16 12:00 64 02/10/16 10:00 74 02/10/16 08:00 98.3 69 17 127/61 97 02/10/16 08:00 69 02/10/16 07:51 98 Nasal Cannula 2.00 02/10/16 06:00 67 02/10/16 05:31 16 02/10/16 04:00 98.2 80 20 103/63 98 02/10/16 04:00 80 02/10/16 02:00 68 02/10/16 00:00 72 02/10/16 00:00 98.0 72 15 125/74 98 02/09/16 22:00 73 02/09/16 21:33 98 Nasal Cannula 3.00 02/09/16 20:00 97.9 121 17 114/59 99 02/09/16 20:00 121 I/O 02/09/16 02/09/16 02/09/16 02/10/16 02/10/16 02/10/16 06:59 14:59 22:59 06:59 14:59 22:59 Intake Total 795 ml 1285 ml 1029 ml 680 ml 755 ml Output Total 450 ml 425 ml 1000 ml Balance 345 ml 860 ml 29 ml 680 ml 755 ml Intake Oral 240 ml 480 ml 500 ml 240 ml 240 ml IV Total 230 ml 150 ml 105 ml 115 ml Tube Feeding 325 ml 535 ml 424 ml 440 ml 400 ml Other 120 ml Output Urine Total 450 ml 425 ml 1000 ml # Voids 0 3 # Bowel Movements 0 0 0 0 Result Diagram: 02/10/1644202/10/16442 Objective Remarks GENERAL: MBMN WF, weak, mild sob SKIN: Warm and dry. HEAD: Normocephalic. EYES: No scleral icterus. No injection or drainage. NECK: Supple, trachea midline. No JVD or lymphadenopathy. CARDIOVASCULAR: Regular rate and rhythm without murmurs, gallops, or rubs. RESPIRATORY: Breath sounds equal bilaterally. No accessory muscle use. GASTROINTESTINAL: Abdomen soft, non-tender, nondistended. MUSCULOSKELETAL: No cyanosis, or edema. BACK: Nontender without obvious deformity. No CVA tenderness. A/P Assessment and Plan Bilat Milliary infilt, ? Etiology Resp insuff and Hypoxia PE and DVT RA Lupus Gastroparesis H/O Endocarditis PHTN PLAN Abx Per ID Wean 02 Check Sp AFB IV Solumedrol Improving clinically DW , will need bronch, Cardiology clearance due to severe PHTN Richard Phillips MD Feb 10, 2016 19:01
[2016-02-11] VITALS (12 sets, daily range): BP systolic 106–130; BP diastolic 63–80; PULSE 67–88; RESP 18–23; TEMP 98.1–98.5; O2SAT 96–100
[2016-02-11] MEDS: INSULIN NovoLIN REGULAR SUPPLEMENTAL SCALE SQ SCH ×5 (00:30→23:41)
[2016-02-11] MEDS: SODIUM CHLORIDE 0.9% FLUSH 5 ML FLUSH IV FLUSH PRN (02:15)
[2016-02-11] MEDS: HYDROmorphone HCL PF 1 MG/ML VIAL IV PRN ×5 (02:15→21:21)
[2016-02-11] MEDS: CHLORHEXIDINE GLUCONATE 2 % 1 PACK (2 CLOTHS) TOP SCH (04:00)
[2016-02-11] MEDS: SILDENAFIL CITRATE 20 MG TAB PO SCH ×3 (04:06→21:21)
[2016-02-11] MEDS: methylPREDNISolone SOD SUCC 125 MG/2 ML VIAL IV PUSH SCH ×4 (04:06→21:21)
[2016-02-11 05:27] LABS: HEMATOCRIT 36.4 % (35.0-46.0); MEAN CELL VOLUME 89.9 FL (80.0-100.0); MEAN CORPUSCULAR HEMOGLOBIN 29.9 PG (27.0-34.0); MEAN CORPUSCULAR HGB CONC 33.3 % (32.0-36.0); PLATELET COUNT 224 TH/MM3 (150-450); RED BLOOD COUNT 4.05 MIL/MM3 (4.00-5.30); RED CELL DISTRIBUTION WIDTH 15.2 % (11.6-17.2); REVIEW FLAG FINAL; WHITE BLOOD COUNT 9.6 TH/MM3 (4.0-11.0)
[2016-02-11 05:40] LABS: BICARBONATE 27.8 MEQ/L (21.0-32.0); POTASSIUM 3.9 MEQ/L (3.5-5.1)
[2016-02-11] MEDS: LEVOTHYROXINE SODIUM 88 MCG TAB PO SCH (06:14)
[2016-02-11] MEDS: diphenhydrAMINE HCL 50 MG/ML VIAL IV PRN ×2 (08:58→21:19)
[2016-02-11] MEDS: DOCUSATE SODIUM 100 MG/10 ML UDC PO SCH (08:59)
[2016-02-11] MEDS: SODIUM CHLORIDE 0.9% FLUSH 5 ML FLUSH IV FLUSH SCH ×2 (09:00→21:22)
[2016-02-11] MEDS: PANTOPRAZOLE SOD 40 MG DELAYED RELEASE TAB PO SCH (09:00)
[2016-02-11] MEDS: FENOFIBRATE 145 MG TAB PO SCH (09:05)
[2016-02-11] MEDS: TOPIRAMATE 100 MG TAB PO SCH ×2 (09:05→21:21)
[2016-02-11] MEDS: ENOXAPARIN SODIUM 100 MG/ML SYRINGE SQ SCH (09:06)
[2016-02-11] MEDS: DOXYCYCLINE INJ 100 MG in SODIUM CHLORIDE 0.9% INJ 100 ML IV SCH ×2 (09:44→21:21)
--- NOTE | 2016-02-11 11:18 | HHI.PR ---
Subjective Remarks This is a 45-year-old female transferred from the intensive care service on , with a very complex past medical history which includes lupus, 5 prior pulmonary embolisms with an IVC filter and on home Xarelto which she is compliant with, recent hospital admission for MSSA bacteremia which she completed a 6 week course of IV antibiotics. She presents with acute syncopal episode and hypoxia. She states she felt very dizzy at home today and passed out, a family member called 911 and she was brought in. When she went to the ED , her sats were in the 50s. She was placed on a partial nonrebreather mask. Of note, she was recently in the emergency department a few days prior for purulent drainage out of her small left anterior chest incision where her prior port was. She has a history of gastroparesis, but she's been tolerating J-tube feeds without any increase in nausea. She denies fever, chills. She denies chest pain. In emergency department, labs were drawn which demonstrated an elevated troponin of 0.8, and elevated BNP of 300. Given her acute hypoxemia and history suggestive of recurrent pulmonary embolisms, critical care medicine consult to evaluate and management of her hypoxemic respiratory failure, her cardiac strain. Today 02/10: patient laying comfortably in bed, denied chest pain , breathing is stable, afebrile Objective Vitals Vital Signs Date Time Temp Pulse Resp B/P Pulse Ox O2 Delivery O2 Flow Rate FiO2 02/11/16 06:00 67 02/11/16 04:00 85 02/11/16 04:00 98.4 85 23 117/71 96 02/11/16 02:00 75 02/11/16 00:00 98.5 73 21 125/69 97 02/11/16 00:00 73 02/10/16 22:00 80 02/10/16 21:13 98 Nasal Cannula 2.00 02/10/16 20:00 86 02/10/16 20:00 98.3 86 28 118/69 97 02/10/16 16:00 98.8 82 22 115/68 96 02/10/16 16:00 82 02/10/16 14:00 87 02/10/16 12:00 98.5 80 14 131/79 96 02/10/16 12:00 64 I/O 12/30/16 1202/10/16 02/11/16 02/11/16 02/11/16 07:00 15:00 23:00 07:00 15:00 23:00 Intake Total 680 ml 2232 ml 914 ml Balance 680 ml 2232 ml 914 ml Intake Oral 240 ml 480 ml 300 ml IV Total 388 ml 220 ml Tube Feeding 440 ml 1364 ml 394 ml # Voids 0 5 1 # Bowel Movements 0 1 0 Result Diagram: 02/11/16 0401 02/11/[address] Angiography 02/07/16 1604 Signed Impressions: Service Date/Time: Sunday, February 07, 2016 17:01 - CONCLUSION: 1. No pulmonary emboli. 2. Miliary type pattern to the lung parenchyma. Differential diagnostic considerations are quite broad. These include multiple infectious etiologies including atypical infection such as tuberculosis and fungal infections. It can also be seen in non-infectious etiology such as sarcoidosis and hypersensitivity pneumonitis. 3. Splenomegaly. 4. Mildly enlarged mediastinal lymph nodes. Rogelio Bhakta Jr., MD Lung Scan-VQ Nuclear Medicine 02/07/16 1212 Signed Impressions: Service Date/Time: Sunday, February 07, 2016 14:14 - CONCLUSION: Unremarkable VQ scan. This is a low probability for PE. Yonatan Mccullough MD Chest X-Ray 02/07/162 Signed Impressions: Service Date/Time: Sunday, February 07, 2016 12:38 - CONCLUSION: Limited study. Questionable left lower lobe infiltrate. Rogelio Bhakta Jr., MD Upper Extremity Ultrasound 02/07/16 0000 Signed Impressions: Service Date/Time: Sunday, February 07, 2016 13:35 - CONCLUSION: Left vascular catheter in place. No evidence of DVT Tremaine Dumont MD Objective Remarks GENERAL: Middle-aged y/o female, in nad in bed HEENT: Pupils equal, round, reactive, conjugate. Normocephalic. Atraumatic. Her mucous membranes are moist NECK: Trachea is midline. There is no JVD. CHEST: No wheezing or rhonchi noted. fair air entry CARDIOVASCULAR: tachycardic rate, regular rhythm. Loud P2. no murmurs. ABDOMEN: soft, nt, nd. G tube in place MUSCULOSKELETAL: LEs +Peripheral edema. Distal pulses are 2+. NEUROLOGICAL: AA Follows commands , moved all extremities. A/P Assessment and Plan Assessment: This is a 45-year-old female with acute syncope and acute hypoxic respiratory failure, found to have miliary interstitial pulmonary infiltrates and acute RV dysfunction with near-systemic pulmonary hypertension. Acute on chronic pain History of seizures Continue Dilaudid 0.5 mg IV every 4 hours when necessary oxycodone 10 mg by mouth every 4 hours when necessary --continue home Topamax Acute hypoxic respiratory failure Miliary pulmonary infiltrates Pulmonary, Dr. Phillips, following --Likely will need diagnostic bronch soon --wean o2 for goal spo2 > 92%. Sinus tachycardia Near systemic pulmonary hypertension Acute RV dysfunction Pulmonary hypertension is likely secondary to her acute or subacute lung disease in a WHO class III manner. If we find a reversible causes for her lung disease, she will need repeat echo in 3 months. She will likely need follow-up at a tertiary referral center for her pulmonary hypertension long-term increase sildenafil to 20mg po q8h. if she tolerates this well, we can transfer her out of the ICU. Strict I's and O's Does not require a García at this time --single dose lasix 10mg iv x 1 for net euvolemia. Gastroparesis Continue home tube feed regimens: Jevity 1.5, 300cc q6h bolus Tube feeds --advance to full liquid diet as tolerated (this is her home diet regimen) --daily BMP --bowel reg with colace (this works well for her) Miliary pulmonary infiltrates History of pulmonary embolism ID on board --Continue methyl Pred 125 every 6 for now. Await culture data --Abx per ID. doxycycline for now. Hold Xarelto, Lovenox 1.5mg/kg as bridging. Hyperglycemia of critical illness Possible hypoglycemia associated with pentamadine- resolved. --continue accuchecks q6h. Prophylaxis: GI Prophylaxis Protonix 40 mg daily. Home meds DVT Prophylaxis -- SCDs Lovenox 1.5mg/kg (100mg) for h/o DVT/PE, bridging for bronch. home Xarelto on hold. Lines: Peripheral IVs Nano Bales MD Feb 11, 2016 11:18
--- NOTE | 2016-02-11 16:09 | HHI.PR ---
Subjective Remarks 45 YOWF with RA,Lupus,Endocarditis, has bilt Milliary infilt Feels much better Weaned to NC Denies sob Takes clear liq and G_tube feeding Seen by Dr.Minor INES Harris, rpt Echo showes decresed RVSP 45 Objective Vital Signs Vital Signs Date Time Temp Pulse Resp B/P Pulse Ox O2 Delivery O2 Flow Rate FiO2 02/11/16 07:41 98 Nasal Cannula 2.00 02/11/16 06:00 67 02/11/16 04:00 85 02/11/16 04:00 98.4 85 23 117/71 96 02/11/16 02:00 75 02/11/16 00:00 98.5 73 21 125/69 97 02/11/16 00:00 73 02/10/16 22:00 80 02/10/16 21:13 98 Nasal Cannula 2.00 02/10/16 20:00 86 02/10/16 20:00 98.3 86 28 118/69 97 I/O 02/10/16 02/10/16 02/10/16 02/11/16 02/11/16 02/11/16 07:00 15:00 23:00 07:00 15:00 23:00 Intake Total 680 ml 2232 ml 914 ml Balance 680 ml 2232 ml 914 ml Intake Oral 240 ml 480 ml 300 ml IV Total 388 ml 220 ml Tube Feeding 440 ml 1364 ml 394 ml # Voids 0 5 1 # Bowel Movements 0 1 0 Result Diagram: 02/11/16 0401 02/11/16 0401 Objective Remarks GENERAL: MBMN WF, weak, mild sob SKIN: Warm and dry. HEAD: Normocephalic. EYES: No scleral icterus. No injection or drainage. NECK: Supple, trachea midline. No JVD or lymphadenopathy. CARDIOVASCULAR: Regular rate and rhythm without murmurs, gallops, or rubs. RESPIRATORY: Breath sounds equal bilaterally. No accessory muscle use. GASTROINTESTINAL: Abdomen soft, non-tender, nondistended. MUSCULOSKELETAL: No cyanosis, or edema. BACK: Nontender without obvious deformity. No CVA tenderness. A/P Assessment and Plan Bilat Milliary infilt, ? Etiology Resp insuff and Hypoxia PE and DVT RA Lupus Gastroparesis H/O Endocarditis PHTN PLAN Abx Per ID Wean 02 Check Sp AFB IV Solumedrol Improving clinically DW , will need bronch,prob Saturday Richard Phillips MD Feb 11, 2016 16:09
--- NOTE | 2016-02-11 17:14 | MB ---
cc: GURPREET PERRY MD DATE OF CONSULTATION 02/11/16 REASON FOR CONSULTATION Preoperative clearance HISTORY OF PRESENT ILLNESS This is a very nice 45-year-old female who has a complicated past medical history with prior venous thrombosis and multiple pulmonary emboli status post IVC filter back in 2007 on long-term anticoagulation. On presentation, she was quite short of breath. Oxygen saturation was severely depressed. She was admitted directly to the intensive care unit. They did do a workup for pulmonary embolism including a VQ scan and CT scan which did not reveal recurrent embolus. Echocardiogram showed significant pulmonary hypertension with RV dilatation and hypokinesis. This appeared to be a relatively new finding. Pulmonology was involved. She was started on a pulmonary vasodilator with improvement in the pulmonary pressures. She is anticipating bronchoscopy for tissue diagnosis as it is felt that her pulmonary hypertension is secondary to some sort of interstitial lung process which may be related to her inflammatory disease. PAST MEDICAL HISTORY 1. Lupus, 2. Rheumatoid arthritis 3. Atrial fibrillation 4. Right lower extremity DVT 5. Multiple pulmonary emboli 6. Gastroparesis 7. Hyperlipidemia, 8. Gastroesophageal reflux disease, 9. Hypertension SOCIAL HISTORY Denies any alcohol, tobacco or drug use. FAMILY HISTORY Denies any family history of early coronary disease or sudden cardiac . ALLERGIES Multiple, see med reconciliation. MEDICATIONS See med reconciliation. REVIEW OF SYSTEMS A 12-point review of systems was performed negative unless otherwise noted in history of present illness. PHYSICAL EXAMINATION VITAL SIGNS: Pulse 67, blood pressure is 117/71 mmHg. GENERAL: Alert and oriented x3 in no acute distress. HEENT: Pupils reactive to light and accommodation. Extraocular movements are intact. No elevation in jugular venous distension. No thyromegaly or lymphadenopathy. No carotid bruits. LUNGS: Clear to auscultation bilaterally with fine coarse crackles at the bases. CARDIOVASCULAR: Regular rate and rhythm without murmurs, rubs or gallops. ABDOMEN: Nontender, nondistended. Good bowel sounds, no hepatosplenomegaly. EXTREMITIES: No clubbing, cyanosis or edema. Good peripheral pulses. Cranial nerves intact. 2/6 systolic murmur. LABORATORY DATA WBC 9.6, hemoglobin 12.1, platelet count 224, INR is 142, potassium 2.9, chloride 106, bicarb 27, BUN 15, creatinine 0.71, troponin 0.82. ASSESSMENT 1. Severe pulmonary hypertension 2. Atrial fibrillation, DVT, pulmonary embolism, elevated troponin. PLAN The patient otherwise prior to this had good functional capacity with greater than four metabolic equivalents. Pulmonary pressures and right-sided function is improved. From a cardiovascular perspective, I do not feel strongly that we need to proceed with an ischemic workup given her relative lack of symptoms. I think her intermediate to mildly elevated troponin is probably due to right heart strain. Although she is intermediate risk perioperatively due to her current respiratory condition, she is cleared from a cardiovascular perspective to proceed. Risks, benefits and alternatives were discussed. The patient understands. Please call with any further questions. MD GENOVEVA Sandoval/ /2:53 PM /5:00 PM
[2016-02-12] VITALS (14 sets, daily range): BP systolic 99–135; BP diastolic 58–75; PULSE 56–87; RESP 14–22; TEMP 97.9–98.9; O2SAT 95–98
[2016-02-12] MEDS: HYDROmorphone HCL PF 1 MG/ML VIAL IV PRN ×3 (00:50→08:57)
[2016-02-12] MEDS: CHLORHEXIDINE GLUCONATE 2 % 1 PACK (2 CLOTHS) TOP SCH (04:00)
[2016-02-12] MEDS: LEVOTHYROXINE SODIUM 88 MCG TAB PO SCH (05:07)
[2016-02-12] MEDS: methylPREDNISolone SOD SUCC 125 MG/2 ML VIAL IV PUSH SCH ×2 (05:08→09:55)
[2016-02-12] MEDS: INSULIN NovoLIN REGULAR SUPPLEMENTAL SCALE SQ SCH ×2 (05:08→12:00)
[2016-02-12] MEDS: SILDENAFIL CITRATE 20 MG TAB PO SCH ×3 (05:08→21:10)
[2016-02-12 06:43] LABS: BICARBONATE 28.2 MEQ/L (21.0-32.0)
[2016-02-12 07:10] LABS: HEMATOCRIT 34.5 % (35.0-46.0); MEAN CELL VOLUME 89.7 FL (80.0-100.0); MEAN CORPUSCULAR HEMOGLOBIN 30.6 PG (27.0-34.0); MEAN CORPUSCULAR HGB CONC 34.1 % (32.0-36.0); PLATELET COUNT 250 TH/MM3 (150-450); RED BLOOD COUNT 3.85 MIL/MM3 (4.00-5.30); REVIEW FLAG FINAL; WHITE BLOOD COUNT 11.2 TH/MM3 (4.0-11.0)
[2016-02-12] MEDS: ENOXAPARIN SODIUM 100 MG/ML SYRINGE SQ SCH (08:10)
[2016-02-12] MEDS: PANTOPRAZOLE SOD 40 MG DELAYED RELEASE TAB PO SCH (08:10)
[2016-02-12] MEDS: FENOFIBRATE 145 MG TAB PO SCH (08:10)
[2016-02-12] MEDS: DOCUSATE SODIUM 100 MG/10 ML UDC PO SCH (08:10)
[2016-02-12] MEDS: TOPIRAMATE 100 MG TAB PO SCH ×2 (08:10→21:10)
[2016-02-12] MEDS: SODIUM CHLORIDE 0.9% FLUSH 5 ML FLUSH IV FLUSH SCH ×2 (08:11→21:00)
--- NOTE | 2016-02-12 08:47 | HHI.PR ---
Subjective Remarks Follow-up for respiratory failure, pulmonary hypertension. Ms. Michaels is currently doing well on nasal cannula. Denies any chest pain, shortness of breath, fever or chills. She is tolerating tube feed well. Objective Vitals Vital Signs Date Time Temp Pulse Resp B/P Pulse Ox O2 Delivery O2 Flow Rate FiO2 02/12/16 06:00 56 02/12/16 04:00 63 02/12/16 04:00 98.2 63 15 135/75 96 02/12/16 02:00 74 02/12/16 00:05 97 Nasal Cannula 2.00 02/12/16 00:00 98.2 76 22 108/64 97 02/12/16 00:00 76 02/11/16 22:00 73 02/11/16 20:00 98.3 70 21 130/75 100 02/11/16 20:00 70 02/11/16 18:00 73 02/11/16 16:00 86 02/11/16 16:00 86 21 117/75 99 02/11/16 12:00 98.1 87 22 115/80 97 02/11/16 12:00 87 02/11/16 10:00 88 I/O 02/11/16 02/11/16 02/11/16 02/12/16 02/12/16 02/12/16 07:00 15:00 23:00 07:00 15:00 23:00 Intake Total 914 ml 360 ml 354 ml 612 ml Balance 914 ml 360 ml 354 ml 612 ml Intake Oral 300 ml 360 ml 240 ml 100 ml IV Total 220 ml 10 ml 62 ml Tube Feeding 394 ml 104 ml 450 ml # Voids 1 2 3 1 # Bowel Movements 0 1 0 Result Diagram: 02/12/16 0457 02/12/16 [address] Angiography 02/07/16 1604 Signed Impressions: Service Date/Time: Sunday, February 07, 2016 17:01 - CONCLUSION: 1. No pulmonary emboli. 2. Miliary type pattern to the lung parenchyma. Differential diagnostic considerations are quite broad. These include multiple infectious etiologies including atypical infection such as tuberculosis and fungal infections. It can also be seen in non-infectious etiology such as sarcoidosis and hypersensitivity pneumonitis. 3. Splenomegaly. 4. Mildly enlarged mediastinal lymph nodes. Rogelio Bhakta Jr., MD Lung Scan-VQ Nuclear Medicine 02/07/16 1212 Signed Impressions: Service Date/Time: Sunday, February 07, 2016 14:14 - CONCLUSION: Unremarkable VQ scan. This is a low probability for PE. Yonatan Mccullough MD Chest X-Ray 02/07/16 1212 Signed Impressions: Service Date/Time: Sunday, February 07, 2016 12:38 - CONCLUSION: Limited study. Questionable left lower lobe infiltrate. Rogelio Bhakta Jr., MD Upper Extremity Ultrasound 02/07/16 0000 Signed Impressions: Service Date/Time: Sunday, February 07, 2016 13:35 - CONCLUSION: Left vascular catheter in place. No evidence of DVT Tremaine Dumont MD Objective Remarks GENERAL: Alert, oriented 3, NAD. SKIN: Warm and dry. HEAD: Normocephalic. EYES: No scleral icterus. No injection or drainage. NECK: Supple, trachea midline. No JVD or lymphadenopathy. CARDIOVASCULAR: Regular rate and rhythm without murmurs, gallops, or rubs. RESPIRATORY: Breath sounds equal bilaterally. No accessory muscle use. GASTROINTESTINAL: Abdomen soft, non-tender, nondistended. MUSCULOSKELETAL: No cyanosis, or edema. BACK: Nontender without obvious deformity. No CVA tenderness. Procedures Echo Study Date:02/07/2016 - Left ventricle: The cavity size was normal. Wall thickness was normal. Systolic function was normal. The estimated ejection fraction was 55%. Wall motion was normal; there were no regional wall motion abnormalities. - Right ventricle: The cavity size was dilated. Wall thickness was normal. RV hypokinesis. - Right atrium: The atrium was dilated. - Atrial septum: No defect or patent foramen ovale was identified. - Tricuspid valve: Moderate regurgitation. - Pulmonary arteries: Systolic pressure was severely increased. PA peak pressure: 80mm Hg (S). A/P Problem List: (1) Acute respiratory failure with hypoxia ICD Code: J96.01 Status: Acute (2) Pulmonary hypertension ICD Code: I27.2 Status: Acute (3) Miliary lesions present on imaging of chest ICD Code: R91.8 Status: Acute (4) SLE (systemic lupus erythematosus) ICD Code: M32.9 Status: Chronic (5) Gastroparesis ICD Code: K31.84 Status: Acute Assessment and Plan Ms. Michaels is a 45 year old female with a history of lupus, PE with IVC filter placement, on Xarelto, recent MSSA bacteremia who was admitted to the hospital on 02/07/2016 due to acute hypoxic respiratory failure and syncope. In the ED, her O2 sat was in the 50s. Her troponin was 0.8 and BNP was 300. Critical care was consulted. Echo shows RV dysfunction and significant pulmonary hypertension. CT PE was performed which showed no PE but showed milliary infiltrates in the lung parenchyma. Infectious disease started patient on Cefepime, Vancomycin, micafungin, Pentamidine as well as IV Doxycycline. ID later discontinued Cefepime, Vanco and micafungin and continued Doxycycline. Acute respiratory failure with hypoxia Bilateral pulmonary Milliary lesions on chest CT Continue supplemental oxygen via nasal cannula to keep oxygen saturation above 90% Continue DuoNeb, doxycycline Continue Solu Medrol 125 mg IV every 6 hours. Pulmonary and infectious disease following. Possible bronchoscopy on 2016. Blood cultures negative so far. Blood fungal culture and mycobacterial culture pending. Quantiferon Gold TB test, HIV negative. Pulmonary hypertension Elevated troponins Continue sildenafil 20 mg by mouth every 8 hours. Elevated troponins likely due to right heart strain. Cardiology evaluated patient and no ischemic workup was recommended at this point SLE Gastroparesis Patient has been on to feeding for a long time. Continue Jevity 1.5. Continue full liquid diet as tolerated. History of multiple pulmonary embolism status post IVC filter and was on Xarelto Full code. Lovenox 1.5 mg/mg (100mg) [id number]. Oscar Martinez DO Feb 12, 2016 08:47
[2016-02-12] MEDS: DOXYCYCLINE INJ 100 MG in SODIUM CHLORIDE 0.9% INJ 100 ML IV SCH (08:51)
[2016-02-12] MEDS: diphenhydrAMINE HCL 50 MG/ML VIAL IV PRN ×2 (09:55→21:15)
--- NOTE | 2016-02-12 14:02 | HHI.PR ---
Subjective Remarks 45 YOWF with RA,Lupus,Endocarditis, has bilt Milliary infilt Feels much better Weaned to NC Denies sob Takes clear liq and G_tube feeding Seen by DW , Rpt Echo showes decresed RVSP 49 Objective Vital Signs Vital Signs Date Time Temp Pulse Resp B/P Pulse Ox O2 Delivery O2 Flow Rate FiO2 02/12/16 09:00 97 Nasal Cannula 2.00 02/12/16 06:00 56 02/12/16 04:00 63 02/12/16 04:00 98.2 63 15 135/75 96 02/12/16 02:00 74 02/12/16 00:05 97 Nasal Cannula 2.00 02/12/16 00:00 98.2 76 22 108/64 97 02/12/16 00:00 76 02/11/16 22:00 73 02/11/16 20:00 98.3 70 21 130/75 100 02/11/16 20:00 70 02/11/16 18:00 73 02/11/16 16:00 86 02/11/16 16:00 86 21 117/75 99 I/O 02/11/16 02/11/16 02/11/16 02/12/16 02/12/16 02/12/16 07:00 15:00 23:00 07:00 15:00 23:00 Intake Total 914 ml 360 ml 354 ml 612 ml Balance 914 ml 360 ml 354 ml 612 ml Intake Oral 300 ml 360 ml 240 ml 100 ml IV Total 220 ml 10 ml 62 ml Tube Feeding 394 ml 104 ml 450 ml # Voids 1 2 3 1 # Bowel Movements 0 1 0 Result Diagram: 02/12/16 0457 02/12/16 0451 Objective Remarks GENERAL: MBMN WF, weak, mild sob SKIN: Warm and dry. HEAD: Normocephalic. EYES: No scleral icterus. No injection or drainage. NECK: Supple, trachea midline. No JVD or lymphadenopathy. CARDIOVASCULAR: Regular rate and rhythm without murmurs, gallops, or rubs. RESPIRATORY: Breath sounds equal bilaterally. No accessory muscle use. GASTROINTESTINAL: Abdomen soft, non-tender, nondistended. MUSCULOSKELETAL: No cyanosis, or edema. BACK: Nontender without obvious deformity. No CVA tenderness. A/P Assessment and Plan Bilat Milliary infilt, ? Etiology Resp insuff and Hypoxia PE and DVT RA Lupus Gastroparesis H/O Endocarditis PHTN PLAN Abx Per ID Wean 02 Check Sp AFB IV Solumedrol Improving clinically DW , Hold Lovenox Bronch tommorrow Richard Phillips MD Feb 12, 2016 14:02
[2016-02-12 15:19] LABS: APTT (PATIENT) 23.8 SEC (24.3-30.1)
[2016-02-12] MEDS: HYDROmorphone HCL 4 MG TAB PO PRN ×2 (15:37→21:10)
--- NOTE | 2016-02-12 17:16 | ECHLIM ---
Study Study Date:02/12/2016 STUDY CONCLUSIONS SUMMARY Pulmonary arteries: PA peak pressure: 49mm Hg (S). If LV function is below 40, please consider prescribing an ACEI or ARB or document rationale for non-use. PROCEDURE DATA Procedure: Transthoracic echocardiography. Image quality was good. Scanning was performed from the parasternal, apical, and subcostal acoustic windows. Study completion: The patient tolerated the procedure well. Transthoracic echocardiography. M-mode, limited 2D, limited spectral Doppler, and color Doppler. CARDIAC ANATOMY DOPPLER MEASUREMENTS ADULT NORMAL Main pulmonary artery Pressure, S *49 mm Hg =30 Tricuspid valve Regurgitant peak velocity 287 cm/s Peak RV-RA gradient, S 33 mm Hg Maximal regurgitant velocity 287 cm/s Systemic veins Estimated CVP 10 mm Hg Right ventricle RV pressure, S *49 mm Hg <30 LEGEND: Mean values are shown as u=mean value. Asterisk (*) ren values outside specified normal range. Prepared and signed by Zuly Del Cid [id number]
[2016-02-12] MEDS: predniSONE 10 MG TAB PO SCH (21:11)
[2016-02-12] MEDS: DOXYCYCLINE HYCLATE 100 MG CAP PO SCH (21:11)
[2016-02-13] VITALS (13 sets, daily range): BP systolic 95–127; BP diastolic 52–81; PULSE 58–80; RESP 13–24; TEMP 98–98.4; O2SAT 97–99
[2016-02-13] MEDS: HYDROmorphone HCL 4 MG TAB PO PRN ×5 (00:54→19:43)
[2016-02-13] MEDS: CHLORHEXIDINE GLUCONATE 2 % 1 PACK (2 CLOTHS) TOP SCH (04:00)
[2016-02-13] MEDS: LEVOTHYROXINE SODIUM 88 MCG TAB PO SCH (05:13)
[2016-02-13] MEDS: SILDENAFIL CITRATE 20 MG TAB PO SCH ×3 (05:13→19:44)
[2016-02-13] MEDS: INSULIN NovoLIN REGULAR SUPPLEMENTAL SCALE SQ SCH ×4 (06:00→17:50)
[2016-02-13 06:50] LABS: HEMATOCRIT 38.3 % (35.0-46.0); MEAN CELL VOLUME 89.9 FL (80.0-100.0); MEAN CORPUSCULAR HEMOGLOBIN 29.6 PG (27.0-34.0); MEAN CORPUSCULAR HGB CONC 32.9 % (32.0-36.0); PLATELET COUNT 273 TH/MM3 (150-450); RED BLOOD COUNT 4.26 MIL/MM3 (4.00-5.30); RED CELL DISTRIBUTION WIDTH 15.2 % (11.6-17.2); REVIEW FLAG FINAL; WHITE BLOOD COUNT 9.7 TH/MM3 (4.0-11.0)
[2016-02-13 06:53] LABS: BICARBONATE 25.9 MEQ/L (21.0-32.0)
[2016-02-13] MEDS: SODIUM CHLORIDE 0.9% FLUSH 5 ML FLUSH IV FLUSH SCH ×2 (09:00→19:41)
[2016-02-13] MEDS: ENOXAPARIN SODIUM 100 MG/ML SYRINGE SQ SCH (10:28)
[2016-02-13] MEDS: predniSONE 10 MG TAB PO SCH ×2 (10:28→19:43)
[2016-02-13] MEDS: DOCUSATE SODIUM 100 MG/10 ML UDC PO SCH (10:29)
[2016-02-13] MEDS: TOPIRAMATE 100 MG TAB PO SCH ×2 (10:29→19:42)
[2016-02-13] MEDS: FENOFIBRATE 145 MG TAB PO SCH (10:29)
[2016-02-13] MEDS: PANTOPRAZOLE SOD 40 MG DELAYED RELEASE TAB PO SCH (10:29)
[2016-02-13] MEDS: DOXYCYCLINE HYCLATE 100 MG CAP PO SCH ×2 (10:30→19:42)
--- NOTE | 2016-02-13 10:35 | HHI.PR ---
Subjective Remarks Follow-up for respiratory failure, pulmonary hypertension. Ms. Michaels is doing well. Denies any chest pain, shortness of breath, fever or chills. She is scheduled for bronch today. Tolerating tube feed well. Objective Vitals Vital Signs Date Time Temp Pulse Resp B/P Pulse Ox O2 Delivery O2 Flow Rate FiO2 02/13/16 08:04 98 Nasal Cannula 2.00 02/13/16 08:00 65 02/13/16 06:00 61 02/13/16 04:00 58 02/13/16 04:00 98.1 61 14 117/70 98 02/13/16 02:00 65 02/13/16 00:00 98.2 62 13 127/72 97 02/13/16 00:00 62 02/12/16 22:00 68 02/12/16 20:00 75 02/12/16 20:00 98.1 75 17 110/62 98 02/12/16 18:00 74 02/12/16 16:00 97.9 87 19 99/58 95 02/12/16 16:00 82 02/12/16 14:00 75 02/12/16 12:00 67 02/12/16 12:00 98.1 67 22 121/74 97 I/O 02/12/16 02/12/16 02/12/16 02/13/16 02/13/16 02/13/16 06:59 14:59 22:59 06:59 14:59 22:59 Intake Total 612 ml 630 ml 240 ml 480 ml Balance 612 ml 630 ml 240 ml 480 ml Intake Oral 100 ml 300 ml 240 ml 480 ml IV Total 62 ml 120 ml Tube Feeding 450 ml 210 ml # Voids 1 1 1 2 # Bowel Movements 0 0 Result Diagram: 02/13/16 0605 02/13/16 [address] Angiography 02/07/16 1604 Signed Impressions: Service Date/Time: Sunday, February 07, 2016 17:01 - CONCLUSION: 1. No pulmonary emboli. 2. Miliary type pattern to the lung parenchyma. Differential diagnostic considerations are quite broad. These include multiple infectious etiologies including atypical infection such as tuberculosis and fungal infections. It can also be seen in non-infectious etiology such as sarcoidosis and hypersensitivity pneumonitis. 3. Splenomegaly. 4. Mildly enlarged mediastinal lymph nodes. Rogelio Bhakta Jr., MD Lung Scan-VQ Nuclear Medicine 02/07/16 1212 Signed Impressions: Service Date/Time: Sunday, February 07, 2016 14:14 - CONCLUSION: Unremarkable VQ scan. This is a low probability for PE. Yonatan Mccullough MD Chest X-Ray 02/07/16 1212 Signed Impressions: Service Date/Time: Sunday, February 07, 2016 12:38 - CONCLUSION: Limited study. Questionable left lower lobe infiltrate. Rogelio Bhakta Jr., MD Upper Extremity Ultrasound 02/07/16 0000 Signed Impressions: Service Date/Time: Sunday, February 07, 2016 13:35 - CONCLUSION: Left vascular catheter in place. No evidence of DVT Tremaine Dumont MD Objective Remarks GENERAL: Alert, oriented 3, NAD. SKIN: Warm and dry. HEAD: Normocephalic. EYES: No scleral icterus. No injection or drainage. NECK: Supple, trachea midline. No JVD or lymphadenopathy. CARDIOVASCULAR: Regular rate and rhythm without murmurs, gallops, or rubs. RESPIRATORY: Breath sounds equal bilaterally. No accessory muscle use. GASTROINTESTINAL: Abdomen soft, non-tender, nondistended. MUSCULOSKELETAL: No cyanosis, or edema. BACK: Nontender without obvious deformity. No CVA tenderness. Procedures Echo Study Date:02/07/2016 - Left ventricle: The cavity size was normal. Wall thickness was normal. Systolic function was normal. The estimated ejection fraction was 55%. Wall motion was normal; there were no regional wall motion abnormalities. - Right ventricle: The cavity size was dilated. Wall thickness was normal. RV hypokinesis. - Right atrium: The atrium was dilated. - Atrial septum: No defect or patent foramen ovale was identified. - Tricuspid valve: Moderate regurgitation. - Pulmonary arteries: Systolic pressure was severely increased. PA peak pressure: 80mm Hg (S). A/P Problem List: (1) Acute respiratory failure with hypoxia ICD Code: J96.01 Status: Acute (2) Pulmonary hypertension ICD Code: I27.2 Status: Acute (3) Miliary lesions present on imaging of chest ICD Code: R91.8 Status: Acute (4) SLE (systemic lupus erythematosus) ICD Code: M32.9 Status: Chronic (5) Gastroparesis ICD Code: K31.84 Status: Acute Assessment and Plan Ms. Michaels is a 45 year old female with a history of lupus, PE with IVC filter placement, on Xarelto, recent MSSA bacteremia who was admitted to the hospital on 02/07/2016 due to acute hypoxic respiratory failure and syncope. In the ED, her O2 sat was in the 50s. Her troponin was 0.8 and BNP was 300. Critical care was consulted. Echo shows RV dysfunction and significant pulmonary hypertension. CT PE was performed which showed no PE but showed milliary infiltrates in the lung parenchyma. Infectious disease started patient on Cefepime, Vancomycin, micafungin, Pentamidine as well as IV Doxycycline. ID later discontinued Cefepime, Vanco and micafungin and continued Doxycycline. Acute respiratory failure with hypoxia Bilateral pulmonary Milliary lesions on chest CT Continue supplemental oxygen via nasal cannula to keep oxygen saturation above 90% Continue DuoNeb, doxycycline Continue Solu Medrol 125 mg IV every 6 hours. Pulmonary and infectious disease following. bronchoscopy on 02/13/2016. Blood cultures negative so far. Blood fungal culture and mycobacterial culture pending. Quantiferon Gold TB test, HIV negative. If patient remains stable after bronchoscopy we can transfer her to the floor today or tomorrow. Will discuss with Dr. Phillips (Pulm) regarding long-term plan and possible discharge. Pulmonary hypertension Elevated troponins Continue sildenafil 20 mg by mouth every 8 hours. Elevated troponins likely due to right heart strain. Cardiology evaluated patient and no ischemic workup was recommended at this point SLE Gastroparesis Patient has been on to feeding for a long time. Currently NPO for the anticipated bronch. History of multiple pulmonary embolism status post IVC filter and was on Xarelto Full code. Lovenox 1.5 mg/mg (100mg) [id number]. Oscar Martinez DO Feb 13, 2016 10:35 am
[2016-02-13] MEDS ORDERED: SODIUM CHLORIDE 0.9% 20 ML VIAL ONE (14:25)
[2016-02-13] MEDS ORDERED: EPINEPHrine HCL (1:1000) 1 MG/ML VIAL ONE (14:25)
[2016-02-13] MEDS ORDERED: LIDOCAINE HCL 2% PF SOLN 10 ML VIAL ONE (14:26)
[2016-02-13] MEDS: diphenhydrAMINE HCL 50 MG/ML VIAL IV PRN (17:02)
[2016-02-13] MEDS: SODIUM CHLORIDE 0.9% FLUSH 5 ML FLUSH IV FLUSH PRN (17:03)
--- NOTE | 2016-02-13 17:19 | HHI.PR ---
Subjective Remarks 45 YOWF with RA,Lupus,Endocarditis, has bilt Milliary infilt Feels much better Weaned to NC Denies sob Takes clear liq and G_tube feeding bronch cancelled as pt had Lovenox Objective Vital Signs Vital Signs Date Time Temp Pulse Resp B/P Pulse Ox O2 Delivery O2 Flow Rate FiO2 02/13/16 11:29 14 02/13/16 10:00 69 02/13/16 08:04 98 Nasal Cannula 2.00 02/13/16 08:00 98.4 65 14 113/71 97 02/13/16 08:00 65 02/13/16 06:00 61 02/13/16 04:00 58 02/13/16 04:00 98.1 61 14 117/70 98 02/13/16 02:00 65 02/13/16 00:00 98.2 62 13 127/72 97 02/13/16 00:00 62 02/12/16 22:00 68 02/12/16 20:00 75 02/12/16 20:00 98.1 75 17 110/62 98 02/12/16 18:00 74 I/O 02/12/16 02/12/16 02/12/16 02/13/16 02/13/16 02/13/16 07:00 15:00 23:00 07:00 15:00 23:00 Intake Total 612 ml 630 ml 240 ml 480 ml Balance 612 ml 630 ml 240 ml 480 ml Intake Oral 100 ml 300 ml 240 ml 480 ml IV Total 62 ml 120 ml Tube Feeding 450 ml 210 ml # Voids 1 1 1 2 # Bowel Movements 0 0 Result Diagram: 02/13/16 0605 02/13/16 0605 Objective Remarks GENERAL: MBMN WF, weak, mild sob SKIN: Warm and dry. HEAD: Normocephalic. EYES: No scleral icterus. No injection or drainage. NECK: Supple, trachea midline. No JVD or lymphadenopathy. CARDIOVASCULAR: Regular rate and rhythm without murmurs, gallops, or rubs. RESPIRATORY: Breath sounds equal bilaterally. No accessory muscle use. GASTROINTESTINAL: Abdomen soft, non-tender, nondistended. MUSCULOSKELETAL: No cyanosis, or edema. BACK: Nontender without obvious deformity. No CVA tenderness. A/P Assessment and Plan Bilat Milliary infilt, ? Etiology Resp insuff and Hypoxia PE and DVT RA Lupus Gastroparesis H/O Endocarditis PHTN PLAN Abx Per ID Wean 02 Check Sp AFB Improving clinically DW , Hold Lovenox PO pred Bronch tommorrow Richard Phillips MD Feb 13, 2016 17:19
[2016-02-13 18:11] LABS: COCCIDIOIDES COMPLEMENT Negative (Negative); COCCIDIOIDES IMMUNO IGG Negative (Negative); COCCIDIOIDES IMMUNO IGM Negative (Negative)
[2016-02-13] MEDS: ONDANSETRON HCL 4 MG/2 ML VIAL IV PRN (21:35)
[2016-02-14] VITALS (13 sets, daily range): BP systolic 100–117; BP diastolic 58–79; PULSE 57–88; RESP 13–22; TEMP 97.6–98.7; O2SAT 98–100
[2016-02-14] MEDS: HYDROmorphone HCL 4 MG TAB PO PRN ×4 (00:41→20:14)
[2016-02-14] MEDS: diphenhydrAMINE HCL 50 MG/ML VIAL IV PRN ×2 (02:52→20:43)
[2016-02-14] MEDS: ONDANSETRON HCL 4 MG/2 ML VIAL IV PRN (02:52)
[2016-02-14] MEDS: CHLORHEXIDINE GLUCONATE 2 % 1 PACK (2 CLOTHS) TOP SCH (04:00)
[2016-02-14] MEDS: LEVOTHYROXINE SODIUM 88 MCG TAB PO SCH (04:40)
[2016-02-14] MEDS: SILDENAFIL CITRATE 20 MG TAB PO SCH ×3 (04:40→20:13)
[2016-02-14] MEDS: INSULIN NovoLIN REGULAR SUPPLEMENTAL SCALE SQ SCH ×4 (06:00→18:00)
[2016-02-14 06:49] LABS: HEMATOCRIT 38.9 % (35.0-46.0); MEAN CORPUSCULAR HEMOGLOBIN 30.6 PG (27.0-34.0); PLATELET COUNT 318 TH/MM3 (150-450); RED BLOOD COUNT 4.32 MIL/MM3 (4.00-5.30); RED CELL DISTRIBUTION WIDTH 14.9 % (11.6-17.2); REVIEW FLAG FINAL; WHITE BLOOD COUNT 9.2 TH/MM3 (4.0-11.0)
[2016-02-14 06:58] LABS: BICARBONATE 28.6 MEQ/L (21.0-32.0); POTASSIUM 3.6 MEQ/L (3.5-5.1)
[2016-02-14] MEDS: DOXYCYCLINE HYCLATE 100 MG CAP PO SCH ×2 (09:00→20:13)
[2016-02-14] MEDS: SODIUM CHLORIDE 0.9% FLUSH 5 ML FLUSH IV FLUSH SCH ×2 (09:00→20:12)
[2016-02-14] MEDS: predniSONE 10 MG TAB PO SCH ×2 (09:00→20:13)
[2016-02-14] MEDS: FENOFIBRATE 145 MG TAB PO SCH (09:00)
[2016-02-14] MEDS: DOCUSATE SODIUM 100 MG/10 ML UDC PO SCH (09:00)
[2016-02-14] MEDS: TOPIRAMATE 100 MG TAB PO SCH ×2 (09:00→20:13)
[2016-02-14] MEDS: PANTOPRAZOLE SOD 40 MG DELAYED RELEASE TAB PO SCH (09:00)
[2016-02-14] MEDS ORDERED: ONDANSETRON HCL 4 MG/2 ML VIAL IV PUSH ONE (09:18)
[2016-02-14] MEDS ORDERED: PROPOFOL 200 MG/20 ML AMP IV ONE (09:18)
[2016-02-14] MEDS ORDERED: LIDOCAINE HCL 2% PF SOLN 10 ML VIAL ONE (09:57)
[2016-02-14] MEDS ORDERED: EPINEPHrine HCL (1:1000) 30 MG/30 ML VIAL ONE (09:57)
[2016-02-14] MEDS ORDERED: LIDOCAINE 2% JELLY 30 ML TUBE ONE (09:58)
[2016-02-14] MEDS ORDERED: SODIUM CHLORIDE 0.9% 20 ML VIAL ONE (09:59)
[2016-02-14] MEDS ORDERED: MIDAZOLAM HCL 2 MG/2 ML VIAL ONE ×2 (10:21→11:51)
[2016-02-14] MEDS ORDERED: RESP: LIDOCAINE HCL 4% PF 5 ML NEB ONE (10:39)
[2016-02-14] MEDS ORDERED: RESP: ALBUTEROL CONC 2.5 MG/0.5 ML NEB ONE (10:39)
[2016-02-14] MEDS ORDERED: RESP: ALBUTEROL 2.5 MG/3 ML NEB (PRN) NEB (11:45)
[2016-02-14] MEDS ORDERED: DO NOT ADM ANY ANTICOAGULANT DRUGS XX PRN (12:15)
--- NOTE | 2016-02-14 12:17 | RADRPT ---
EXAM DATE/TIME: 02/14/2016 11:51 [facility] COMPARISON: CHEST SINGLE AP, February 07, 2016, 12:38. INDICATIONS : Post bronchoscopy. MEDICAL HISTORY : hx of blood clots, hypertension SURGICAL HISTORY : Hysterectomy. IVC filter placement. ENCOUNTER: Initial ACUITY: 1 week PAIN SCORE: 0/10 LOCATION: Bilateral chest FINDINGS: Status post bronchoscopy. No evidence of pneumothorax. Mild bibasilar atelectasis. Heart size is stab le. No definite pleural effusions. The bony structures are grossly intact. CONCLUSION: No pneumothorax. Yonatan Mccullough MD on February 14, 2016 at 12:15 Board Certified Radiologist. This report was verified electronically.
--- NOTE | 2016-02-14 15:13 | HHI.IDPN ---
Subjective Subjective Remarks ID COVERAGE Notes reviewed Had bronch done today Temps ok Breathing is good TB quantiferon negative HIV negative Cocci negative Blasto pending No CP No N/V No diarrhea is a 45 y/o CF unfortunate young lady with a multitude of medical problems such as lupus, RA, Raynauds phenomenon, Afib, DVT/PE with indwelling IVC filter, pneumonia, recent MSSA pneumonia and MSSA bacteremia, gastroparesis with PEG tube. Admitted with SOB, syncope. On admission ECHO showed PA pressures elevated. 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 Antibiotics Steroids. Doxy IV. Lines Line sites with no e/o infection. Past Medical History reviewed Allergies: Coded Allergies: Contrast Media (Verified Allergy, Severe, Swelling, 02/06/16) Demerol (Verified Allergy, Severe, Hives, 02/06/16) Keflex (Verified Allergy, Severe, hives, 02/07/16) Premedication does not cause hives. Levaquin (Verified Allergy, Severe, ARM AT SITE RED AND THEN HIVES ALL OVER BODY, 02/06/16) Morphine (Verified Allergy, Severe, severe hives, 02/06/16) Bactrim (Verified Allergy, Intermediate, Hives, 02/06/16) Fentanyl (Verified Allergy, Intermediate, HIVES, 02/06/16) Zyvox (Verified Allergy, Intermediate, Itching, 02/06/16) develops hives and itching Ancef (Verified Allergy, Mild, HIVES, 02/07/16) Premedication does not cause hives. Sulfa (Verified Allergy, Unknown, 02/06/16) SEVERE ITCHING Vancomycin (Verified Adverse Reaction, Severe, HIVES, 02/07/16) does ok with benadryl premedicaiton Objective . Vital Signs Date Time Temp Pulse Resp B/P Pulse Ox O2 Delivery O2 Flow Rate FiO2 02/14/16 12:00 98.0 88 16 127/88 99 Nasal Cannula 3 02/14/16 11:49 98.0 98 16 92/56 90 Nasal Cannula 3 02/14/16 07:17 97.8 57 14 109/75 99 02/14/16 06:00 61 02/14/16 04:00 98.2 62 13 112/74 99 02/14/16 04:00 62 02/14/16 02:00 61 02/14/16 00:00 75 02/14/16 00:00 98.2 75 22 100/58 98 02/13/16 22:00 74 02/13/16 20:00 80 02/13/16 20:00 98.3 80 23 97/63 97 02/13/16 19:35 99 Nasal Cannula 2.00 02/13/16 18:00 67 02/13/16 16:00 71 24 115/81 99 02/13/16 16:00 71 02/13/16 02/13/16 02/14/16 15:00 23:00 07:00 Intake Total 60 ml Balance 60 ml Intake Oral 60 ml # Voids 2 1 2 # Bowel Movements 0 . Laboratory Tests Test 02/13/16 02/14/16 06:05 05:31 White Blood Count 9.7 TH/MM3 9.2 TH/MM3 Red Blood Count 4.26 MIL/MM3 4.32 MIL/MM3 Hemoglobin 12.6 GM/DL 13.2 GM/DL Hematocrit 38.3 % 38.9 % Mean Corpuscular Volume 89.9 FL 90.0 FL Mean Corpuscular Hemoglobin 29.6 PG 30.6 PG Mean Corpuscular Hemoglobin 32.9 % 34.0 % Concent Red Cell Distribution Width 15.2 % 14.9 % Platelet Count 273 TH/MM3 318 TH/MM3 Mean Platelet Volume 7.4 FL 7.4 FL Laboratory Tests Test 02/13/16 02/14/16 06:05 05:31 Sodium Level 140 MEQ/L 137 MEQ/L Potassium Level 4.0 MEQ/L 3.6 MEQ/L Chloride Level 103 MEQ/L 99 MEQ/L Carbon Dioxide Level 25.9 MEQ/L 28.6 MEQ/L Anion Gap 11 MEQ/L 9 MEQ/L Blood Urea Nitrogen 21 MG/DL 22 MG/DL Creatinine 0.82 MG/DL 0.81 MG/DL Estimat Glomerular Filtration 75 ML/MIN 76 ML/MIN Rate Random Glucose 112 MG/DL 111 MG/DL Calcium Level 9.4 MG/DL 9.1 MG/DL Microbiology Date/Time Procedure Status Source Growth 02/14/16 11:35 Gram Stain Received Bronchial Washings Right Lower Lobe Pending 02/14/16 11:35 Bronchial Culture Received Bronchial Washings Right Lower Lobe Pending 02/14/16 11:35 Acid Fast Stain Received Bronchial Washings Right Lower Lobe Pending 02/14/16 11:35 Mycobacterial Culture Received Bronchial Washings Right Lower Lobe Pending 02/14/16 11:35 Fungal Smear Received Bronchial Washings Right Lower Lobe Pending 02/14/16 11:35 Fungal Culture Received Bronchial Washings Right Lower Lobe Pending Imaging CT Angiography 02/07/16 1604 Signed Impressions: Service Date/Time: Sunday, February 07, 2016 17:01 - CONCLUSION: 1. No pulmonary emboli. 2. Miliary type pattern to the lung parenchyma. Differential diagnostic considerations are quite broad. These include multiple infectious etiologies including atypical infection such as tuberculosis and fungal infections. It can also be seen in non-infectious etiology such as sarcoidosis and hypersensitivity pneumonitis. 3. Splenomegaly. 4. Mildly enlarged mediastinal lymph nodes. Rogelio Bhakta Jr., MD Lung Scan-VQ Nuclear Medicine 02/07/16 1212 Signed Impressions: Service Date/Time: Sunday, February 07, 2016 14:14 - CONCLUSION: Unremarkable VQ scan. This is a low probability for PE. Yonatan Mccullough MD Chest X-Ray 02/07/16 1212 Signed Impressions: Service Date/Time: Sunday, February 07, 2016 12:38 - CONCLUSION: Limited study. Questionable left lower lobe infiltrate. Rogelio Bhakta Jr., MD Upper Extremity Ultrasound 02/07/16 0000 Signed Impressions: Service Date/Time: Sunday, February 07, 2016 13:35 - CONCLUSION: Left vascular catheter in place. No evidence of DVT Tremaien Dumont MD Physical Exam GENERAL: Awake and alert, comfortable at rest SKIN: No rashes. Cool and dry. HEENT: [place] conjunctiva, no petechia or hemorrhage. No scleral icterus. No injection or drainage. Moist oral mucosa, no nasal discharge, no sinus tenderness NECK: Trachea midline. Supple, nontender, no meningeal signs. CARDIOVASCULAR: HS audible. No murmur appreciated. RESPIRATORY: Clear to auscultation. Breath sounds diminished bilaterally in bases. GASTROINTESTINAL: Abdomen soft, non-tender, nondistended. PEG site ok MUSCULOSKELETAL: Extremities without clubbing, cyanosis, or edema. No joint tenderness, effusion, or edema noted. No calf tenderness. NEUROLOGICAL: Awake and alert. Grossly non focal Psych: cooperative IV line sites with no evidence infection Assessment & Plan Remarks Possible Sepsis (recently treated with antibiotics and immune compromised status on steroids recently) Acute hypoxic respiratory failure: high probability clinically of acute PE on top of chronic pulm PE. Acute PE possible Pneumonia (atypical vs HCAP) Miliary pattern on CTA: DDX: Fungal/PCP, AFB, Hypersensitivity pneumonitis, Sarcoidosis. Immune compromised status (multiple rheumatological conditions) MSSA endocarditis recently completed treatment 1 week back s/p PICC left in place for chronic nausea related benadryl needs pending port placement. Suspect PICC line infection. Multiple antibiotic allergies (but reports tolerates them once premedicated, has tolerated Keflex and Teflaro with premedication) Contrast allergy: anaphylaxis. Recs: Continue Doxy Follow bronch results Monitor progress D/W Diya Dugan MD Feb 14, 2016 15:13
--- NOTE | 2016-02-14 15:55 | HHI.PR ---
Subjective Remarks Follow-up for respiratory failure, pulmonary hypertension. Ms. Michaels is doing well. Denies any chest pain, shortness of breath, fever or chills. Her G-tube is not functional at this point. She underwent bronchoscopy today. Objective Vitals Vital Signs Date Time Temp Pulse Resp B/P Pulse Ox O2 Delivery O2 Flow Rate FiO2 02/14/16 12:00 98.0 88 16 127/88 99 Nasal Cannula 3 02/14/16 11:49 98.0 98 16 92/56 90 Nasal Cannula 3 02/14/16 07:17 97.8 57 14 109/75 99 02/14/16 06:00 61 02/14/16 04:00 98.2 62 13 112/74 99 02/14/16 04:00 62 02/14/16 02:00 61 02/14/16 00:00 75 02/14/16 00:00 98.2 75 22 100/58 98 02/13/16 22:00 74 02/13/16 20:00 80 02/13/16 20:00 98.3 80 23 97/63 97 02/13/16 19:35 99 Nasal Cannula 2.00 02/13/16 18:00 67 02/13/16 16:00 71 24 115/81 99 02/13/16 16:00 71 I/O 02/13/16 02/13/16 02/13/16 02/14/16 02/14/16 02/14/16 07:00 15:00 23:00 07:00 15:00 23:00 Intake Total 480 ml 60 ml 850 ml Balance 480 ml 60 ml 850 ml Intake Oral 480 ml 60 ml IV Total 50 ml Other 800 ml # Voids 2 2 1 2 # Bowel Movements 0 Result Diagram: 02/14/16 0531 02/14/16 0531 Imaging Last Impressions Chest X-Ray 02/14/16 0000 Signed Impressions: Service Date/Time: Sunday, February 14, 2016 11:51 - CONCLUSION: No pneumothorax. Yonatan Mccullough MD CT Angiography 02/07/16 1604 Signed Impressions: Service Date/Time: Sunday, February 07, 2016 17:01 - CONCLUSION: 1. No pulmonary emboli. 2. Miliary type pattern to the lung parenchyma. Differential diagnostic considerations are quite broad. These include multiple infectious etiologies including atypical infection such as tuberculosis and fungal infections. It can also be seen in non-infectious etiology such as sarcoidosis and hypersensitivity pneumonitis. 3. Splenomegaly. 4. Mildly enlarged mediastinal lymph nodes. Rogelio Bhakta Jr., MD Lung Scan-VQ Nuclear Medicine 02/07/16 1212 Signed Impressions: Service Date/Time: Sunday, February 07, 2016 14:14 - CONCLUSION: Unremarkable VQ scan. This is a low probability for PE. Yonatan Mccullough MD Upper Extremity Ultrasound 02/07/16 0000 Signed Impressions: Service Date/Time: Sunday, February 07, 2016 13:35 - CONCLUSION: Left vascular catheter in place. No evidence of DVT Tremaine Dumont MD Objective Remarks GENERAL: Alert, oriented 3, NAD. SKIN: Warm and dry. HEAD: Normocephalic. EYES: No scleral icterus. No injection or drainage. NECK: Supple, trachea midline. No JVD or lymphadenopathy. CARDIOVASCULAR: Regular rate and rhythm without murmurs, gallops, or rubs. RESPIRATORY: Breath sounds equal bilaterally. No accessory muscle use. GASTROINTESTINAL: Abdomen soft, non-tender, nondistended. MUSCULOSKELETAL: No cyanosis, or edema. BACK: Nontender without obvious deformity. No CVA tenderness. Procedures Echo Study Date:02/07/2016 - Left ventricle: The cavity size was normal. Wall thickness was normal. Systolic function was normal. The estimated ejection fraction was 55%. Wall motion was normal; there were no regional wall motion abnormalities. - Right ventricle: The cavity size was dilated. Wall thickness was normal. RV hypokinesis. - Right atrium: The atrium was dilated. - Atrial septum: No defect or patent foramen ovale was identified. - Tricuspid valve: Moderate regurgitation. - Pulmonary arteries: Systolic pressure was severely increased. PA peak pressure: 80mm Hg (S). A/P Problem List: (1) Acute respiratory failure with hypoxia ICD Code: J96.01 Status: Acute (2) Pulmonary hypertension ICD Code: I27.2 Status: Acute (3) Miliary lesions present on imaging of chest ICD Code: R91.8 Status: Acute (4) SLE (systemic lupus erythematosus) ICD Code: M32.9 Status: Chronic (5) Gastroparesis ICD Code: K31.84 Status: Acute Assessment and Plan Ms. Michaels is a 45 year old female with a history of lupus, PE with IVC filter placement, on Xarelto, recent MSSA bacteremia who was admitted to the hospital on 02/07/2016 due to acute hypoxic respiratory failure and syncope. In the ED, her O2 sat was in the 50s. Her troponin was 0.8 and BNP was 300. Critical care was consulted. Echo shows RV dysfunction and significant pulmonary hypertension. CT PE was performed which showed no PE but showed milliary infiltrates in the lung parenchyma. Infectious disease started patient on Cefepime, Vancomycin, micafungin, Pentamidine as well as IV Doxycycline. ID later discontinued Cefepime, Vanco and micafungin and continued Doxycycline. Acute respiratory failure with hypoxia Bilateral pulmonary Milliary lesions on chest CT Continue supplemental oxygen via nasal cannula to keep oxygen saturation above 90% Continue DuoNeb, doxycycline Continue Prednisone PO Pulmonary and infectious disease following. Status post bronchoscopy on 2016. Blood cultures negative so far. Blood fungal culture and mycobacterial culture pending. Quantiferon Gold TB test, HIV negative. Pulmonary hypertension Elevated troponins Continue sildenafil 20 mg by mouth every 8 hours. Elevated troponins likely due to right heart strain. Cardiology evaluated patient and no ischemic workup was recommended at this point SLE Gastroparesis Patient has been on to feeding for a long time. Currently NPO for the anticipated bronch. Discussed with interventional radiologist Dr. Ivan Martin regarding patient's G-tube. Dr. Martin's family with this patient and was kind enough to send a nurse to check on the G-tube. If needed he will evaluate patient's G-tube tomorrow. We also talked about port placement. Currently patient does not need any intravenous access. Since a port placement would pose a risk for bacteremia or line infection, we agreed not to proceed with port placement at this point in time. History of multiple pulmonary embolism status post IVC filter and was on Xarelto Transfer patient to the floor. Likely discharge home on 02/15/2016. Full code. Lovenox 1.5 mg/mg (100mg) [id number]. Oscar Martinez DO Feb 14, 2016 3:54 pm
[2016-02-14 16:11] LABS: HISTOPLASMA ANTIGEN UR RESULT Negative (Negative)
--- NOTE | 2016-02-14 19:27 | HHI.PR ---
Subjective Remarks 45 YOWF with RA,Lupus,Endocarditis, has bilt Milliary infilt Feels much better Weaned to NC Denies sob Takes clear liq and G_tube feeding had bronch, no secretions or inflamation Objective Vital Signs Vital Signs Date Time Temp Pulse Resp B/P Pulse Ox O2 Delivery O2 Flow Rate FiO2 02/14/16 16:00 83 02/14/16 16:00 98.7 81 20 115/71 100 02/14/16 14:00 79 02/14/16 13:00 76 02/14/16 12:00 98.0 88 16 127/88 99 Nasal Cannula 3 02/14/16 11:49 98.0 98 16 92/56 90 Nasal Cannula 3 02/14/16 09:30 65 02/14/16 07:17 97.8 57 14 109/75 99 02/14/16 06:00 61 02/14/16 04:00 98.2 62 13 112/74 99 02/14/16 04:00 62 02/14/16 02:00 61 02/14/16 00:00 75 02/14/16 00:00 98.2 75 22 100/58 98 02/13/16 22:00 74 02/13/16 20:00 80 02/13/16 20:00 98.3 80 23 97/63 97 02/13/16 19:35 99 Nasal Cannula 2.00 I/O 02/13/16 02/13/16 02/13/16 02/14/16 02/14/16 02/14/16 07:00 15:00 23:00 07:00 15:00 23:00 Intake Total 480 ml 60 ml 970 ml Balance 480 ml 60 ml 970 ml Intake Oral 480 ml 60 ml 120 ml IV Total 50 ml Other 800 ml # Voids 2 2 1 2 2 # Bowel Movements 0 Result Diagram: 02/14/16 0531 02/14/16 0531 Objective Remarks GENERAL: MBMN WF, weak, mild sob SKIN: Warm and dry. HEAD: Normocephalic. EYES: No scleral icterus. No injection or drainage. NECK: Supple, trachea midline. No JVD or lymphadenopathy. CARDIOVASCULAR: Regular rate and rhythm without murmurs, gallops, or rubs. RESPIRATORY: Breath sounds equal bilaterally. No accessory muscle use. GASTROINTESTINAL: Abdomen soft, non-tender, nondistended. MUSCULOSKELETAL: No cyanosis, or edema. BACK: Nontender without obvious deformity. No CVA tenderness. A/P Assessment and Plan Bilat Milliary infilt, ? Etiology Resp insuff and Hypoxia PE and DVT RA Lupus Gastroparesis H/O Endocarditis PHTN PLAN Abx Per ID Wean 02 Check Sp AFB Improving clinically PO pred Check bronch results Richard Phillips MD Feb 14, 2016 19:27
[2016-02-14] MEDS: diphenhydrAMINE HCL 50 MG CAP PO PRN (21:37)
[2016-02-15] VITALS (7 sets, daily range): BP systolic 100–155; BP diastolic 52–96; PULSE 68–100; RESP 16–18; TEMP 96.5–98.1; O2SAT 88–99
[2016-02-15] MEDS: HYDROmorphone HCL 4 MG TAB PO PRN ×4 (00:33→22:32)
[2016-02-15] MEDS: CHLORHEXIDINE GLUCONATE 2 % 1 PACK (2 CLOTHS) TOP SCH (04:00)
[2016-02-15] MEDS: SILDENAFIL CITRATE 20 MG TAB PO SCH ×3 (04:52→20:35)
[2016-02-15] MEDS: LEVOTHYROXINE SODIUM 88 MCG TAB PO SCH (04:53)
[2016-02-15] MEDS: INSULIN NovoLIN REGULAR SUPPLEMENTAL SCALE SQ SCH ×3 (06:00→11:13)
[2016-02-15] MEDS: PANTOPRAZOLE SOD 40 MG DELAYED RELEASE TAB PO SCH (08:04)
[2016-02-15] MEDS: predniSONE 10 MG TAB PO SCH ×2 (08:04→20:35)
[2016-02-15] MEDS: FENOFIBRATE 145 MG TAB PO SCH (08:04)
[2016-02-15] MEDS: DOCUSATE SODIUM 100 MG/10 ML UDC PO SCH (08:04)
[2016-02-15] MEDS: DOXYCYCLINE HYCLATE 100 MG CAP PO SCH (08:04)
[2016-02-15] MEDS: SODIUM CHLORIDE 0.9% FLUSH 5 ML FLUSH IV FLUSH SCH ×2 (08:05→20:29)
[2016-02-15] MEDS: TOPIRAMATE 100 MG TAB PO SCH ×2 (08:10→20:29)
[2016-02-15] MEDS: diphenhydrAMINE HCL 50 MG/ML VIAL IV PRN (08:11)
--- NOTE | 2016-02-15 09:07 | HHI.PR ---
Subjective Remarks Follow-up for respiratory failure, pulmonary hypertension. Patient is currently doing well. No fever or chills. Denies any chest pain, shortness of breath. She is very oriented to go home without any IV access due to any need for acute treatment. Patient reports she is allergic to multiple medications including multiple antibiotics. In fact while she has been on doxycycline she started to develop pruritus. Objective Vitals Vital Signs Date Time Temp Pulse Resp B/P Pulse Ox O2 Delivery O2 Flow Rate FiO2 02/15/16 05:00 96.5 72 16 115/74 99 02/15/16 01:00 97.9 74 16 112/72 99 02/14/16 22:30 97.6 88 16 117/79 98 02/14/16 22:18 98 Nasal Cannula 2.00 02/14/16 22:00 82 02/14/16 20:00 82 02/14/16 20:00 97.7 82 18 112/68 100 02/14/16 16:00 83 02/14/16 16:00 98.7 81 20 115/71 100 02/14/16 14:00 79 02/14/16 13:00 76 02/14/16 12:00 98.0 88 16 127/88 99 Nasal Cannula 3 02/14/16 11:49 98.0 98 16 92/56 90 Nasal Cannula 3 02/14/16 09:30 65 I/O 02/14/16 02/14/16 02/14/16 02/15/16 02/15/16 02/15/16 07:00 15:00 23:00 07:00 15:00 23:00 Intake Total 970 ml 240 ml Balance 970 ml 240 ml Intake Oral 120 ml 240 ml IV Total 50 ml 0 ml Tube Feeding 0 ml Other 800 ml # Voids 2 2 1 2 # Bowel Movements 0 Result Diagram: 02/14/16 0531 02/14/16 0531 Imaging Last Impressions Chest X-Ray 02/14/16 0000 Signed Impressions: Service Date/Time: Sunday, February 14, 2016 11:51 - CONCLUSION: No pneumothorax. Yonatan Mccullough MD CT Angiography 02/07/16 1604 Signed Impressions: Service Date/Time: Sunday, February 07, 2016 17:01 - CONCLUSION: 1. No pulmonary emboli. 2. Miliary type pattern to the lung parenchyma. Differential diagnostic considerations are quite broad. These include multiple infectious etiologies including atypical infection such as tuberculosis and fungal infections. It can also be seen in non-infectious etiology such as sarcoidosis and hypersensitivity pneumonitis. 3. Splenomegaly. 4. Mildly enlarged mediastinal lymph nodes. Rogelio Bhakta Jr., MD Lung Scan-VQ Nuclear Medicine 02/07/16 1212 Signed Impressions: Service Date/Time: Sunday, February 07, 2016 14:14 - CONCLUSION: Unremarkable VQ scan. This is a low probability for PE. Yonatan Mccullough MD Upper Extremity Ultrasound 02/07/16 0000 Signed Impressions: Service Date/Time: Sunday, February 07, 2016 13:35 - CONCLUSION: Left vascular catheter in place. No evidence of DVT Tremaine Dumont MD Objective Remarks GENERAL: Alert, oriented 3, NAD. SKIN: Warm and dry. HEAD: Normocephalic. EYES: No scleral icterus. No injection or drainage. NECK: Supple, trachea midline. No JVD or lymphadenopathy. CARDIOVASCULAR: Regular rate and rhythm without murmurs, gallops, or rubs. RESPIRATORY: Breath sounds equal bilaterally. No accessory muscle use. GASTROINTESTINAL: Abdomen soft, non-tender, nondistended. MUSCULOSKELETAL: No cyanosis, or edema. BACK: Nontender without obvious deformity. No CVA tenderness. Procedures Echo Study Date:02/07/2016 - Left ventricle: The cavity size was normal. Wall thickness was normal. Systolic function was normal. The estimated ejection fraction was 55%. Wall motion was normal; there were no regional wall motion abnormalities. - Right ventricle: The cavity size was dilated. Wall thickness was normal. RV hypokinesis. - Right atrium: The atrium was dilated. - Atrial septum: No defect or patent foramen ovale was identified. - Tricuspid valve: Moderate regurgitation. - Pulmonary arteries: Systolic pressure was severely increased. PA peak pressure: 80mm Hg (S). A/P Problem List: (1) Acute respiratory failure with hypoxia ICD Code: J96.01 Status: Acute (2) Pulmonary hypertension ICD Code: I27.2 Status: Acute (3) Miliary lesions present on imaging of chest ICD Code: R91.8 Status: Acute (4) SLE (systemic lupus erythematosus) ICD Code: M32.9 Status: Chronic (5) Gastroparesis ICD Code: K31.84 Status: Acute Assessment and Plan Ms. Michaels is a 45 year old female with a history of lupus, PE with IVC filter placement, on Xarelto, recent MSSA bacteremia who was admitted to the hospital on 02/07/2016 due to acute hypoxic respiratory failure and syncope. In the ED, her O2 sat was in the 50s. Her troponin was 0.8 and BNP was 300. Critical care was consulted. Echo shows RV dysfunction and significant pulmonary hypertension. CT PE was performed which showed no PE but showed milliary infiltrates in the lung parenchyma. Infectious disease started patient on Cefepime, Vancomycin, micafungin, Pentamidine as well as IV Doxycycline. ID later discontinued Cefepime, Vanco and micafungin and continued Doxycycline. Acute respiratory failure with hypoxia Bilateral pulmonary Milliary lesions on chest CT Continue supplemental oxygen via nasal cannula to keep oxygen saturation above 90% Continue DuoNeb. Doxycycline discontinued today 02/15/2016. Continue Prednisone PO Pulmonary and infectious disease following. Status post bronchoscopy on 2016. Blood cultures negative so far. Blood fungal culture and mycobacterial culture pending. Quantiferon Gold TB test, HIV negative. Right upper extremity superficial vein (Basillic Vein) Patient was found to have right upper extremity swelling noticed by patient' s RN. Ultrasound shows occlusive basilic vein And location has been on hold due to procedures. Will give patient 1 dose of 65 mg of Lovenox today. - Patient will be continued on Xarelto on discharge for other indication, not for right upper extremity superficial vein thrombosis. Pulmonary hypertension Elevated troponins Continue sildenafil 20 mg by mouth every 8 hours. Elevated troponins likely due to right heart strain. Cardiology evaluated patient and no ischemic workup was recommended at this point SLE Gastroparesis Patient has been on to feeding for a long time. Currently NPO for the anticipated bronch. Discussed with interventional radiologist Dr. Ivan Martin regarding patient's G-tube. Dr. Martin's family with this patient and was kind enough to send a nurse to check on the G-tube. If needed he will evaluate patient's G-tube tomorrow. We also talked about port placement. Currently patient does not need any intravenous access. Since a port placement would pose a risk for bacteremia or line infection, we agreed not to proceed with port placement at this point in time. History of multiple pulmonary embolism status post IVC filter and was on Xarelto which will be continued on discharge. Full code. Received Lovenox 65mg today. Oscar Martinez DO Feb 15, 2016 9:07 am
[2016-02-15] MEDS ORDERED: IOHEXOL 350 MG/ML 50 ML BTL (for RAD DIAG) G-TUBE ONE (10:15)
--- NOTE | 2016-02-15 10:22 | PD.RAD ---
Post Procedure Progress Note Pre Procedure Diagnosis: (1) Gastroparesis (2) GJ tube damaged Post Procedure Diagnosis: (1) GJ tube damaged (2) Gastroparesis Procedure Date: Feb 15, 2016 Supervising Radiologist: David Martin Anesthesia: Local Plan of Activity Patient to Unit: Nursing Unit Patient Condition: Poor Additional Comments: Transgastric J tube exchanged without difficulty. New tube in good position and OK for use. See PACS Report for procedural detail/treatment David Martin MD Feb 15, 2016 10:22
--- NOTE | 2016-02-15 11:28 | MR ---
cc: RADHA OBANDO MD DATE 02/14/2016 PROCEDURE PERFORMED Bronchoscopy PREOPERATIVE DIAGNOSIS Miliary lung infiltrate POSTOPERATIVE DIAGNOSIS No endobronchial lesions seen. PROCEDURE Informed consent was obtained from the patient. The procedure and the complications including complication of anesthesia, pneumothorax requiring chest tube, bleeding complication due to blood vessels, lungs, nerves, arrhythmia, hypoxia explained. She consented for the procedure. Patient was brought to the operating room and under MAC anesthesia bronchoscopy was done. Vocal cords are normal. Trachea is normal. The main gabrielle is sharp. Bronchoscope advanced to the left upper lingula, lower lobe orifices visualized. There was no endobronchial mucosal lesion seen. Then the bronchoscope pulled back and advanced to the right lung, right upper, middle and lower lobes were visualized. No endobronchial lesion was seen. No secretions were seen. Right lower lobe brushing, washing and biopsy was done and biopsy was sent for pathology, brushings sent for cytology. Washing sent for routine culture, AFB fungal culture and cytology. She tolerated the procedure well. Postprocedure chest x-ray was ordered. MD NATHALIE Cornell/MARIELLA /11:36 AM /11:27 AM
[2016-02-15 13:11] LABS: BLASTOMYCES ABS NEGATIVE
--- NOTE | 2016-02-15 15:54 | RADRPT ---
EXAM DATE/TIME: 02/15/2016 09:49 [facility] COMPARISON: CHANGE OF GJ-TUBE CATHETER, January 07, 2012, 11:07. CHANGE OF GJ-TUBE CATHETER, December 02, 2015, 8:30. INDICATIONS : Occluded transgastric J-tube. 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 Fluoroscopically guided gastrojejunostomy tube exchange. 2. Conscious sedation with continuous EKG and oximetry monitoring. The risks, benefits and alternatives to the procedure were explained and verbal and written consent w as obtained. The site was prepped in sterile fashion. Full sterile technique was used, including ca p, mask, sterile gloves and gown and a large sterile sheet. Hand hygiene and 2% chlorhexidine and/or betadine/alcohol prep was utilized per protocol for cutaneous antisepsis. The site around the cathet er insertion site was treated with a copious amount of viscous lidocaine. This was allowed to dwell f or approximately 15 minutes. With fluoroscopic guidance a guidewire was passed through the previous gastrojejunostomy tube and a f resh tube was placed over the guidewire. The balloon was inflated with appropriate volume of saline. Injection of positive contrast demonstrates good position of the gastric and jejunal lumens of the tube. Conscious sedation was performed with the prescribed dosages and duration as above. The patient rachel ated the procedure well and there were no complications. EKG and oximetry remained stable throughout the procedure. The patient was sent to post anesthesia recovery in stable condition. CONCLUSION: Uncomplicated gastrojejunostomy tube exchange as above. David Martin MD on February 15, 2016 at 15:50 Board Certified Radiologist. This report was verified electronically.
[2016-02-15] MEDS ORDERED: ENOXAPARIN SODIUM 80 MG/0.8 ML SYRINGE SQ ONE (18:00)
[2016-02-15] MEDS: diphenhydrAMINE HCL 50 MG CAP PO PRN (18:03)
--- NOTE | 2016-02-15 18:32 | RADRPT ---
EXAM DATE/TIME: 02/15/2016 16:04 [facility] COMPARISON: US ARM RIGHT VENOUS DOPPLER, February 07, 2016, 13:35. INDICATIONS : Right upper extremity edema. MEDICAL HISTORY : Hypercholesterolemia. Hypertension. Deep venous thrombosis. Scott's. cerebrovascular accident. sy ncope. migraines. temporal arteritis. afib. leg numbness. hyperlipidemia. dyspnea. sirs. gastroparesi s. gerd. ovarian cysts. c6-c7 bulging discs. fibromyalgia. rheumatoid arthritis. hypothyroidism. lup us. shingles. substance use. anticoagulant therapy. SURGICAL HISTORY : Tonsillectomy. Cholecystectomy. Tubal ligation. GJ tube. Partial hysterectomy. Breast reduction. C/S . Left hand digital nerve repair. Orthopedic surgery, T11-T12 impingement. Rectal surgery. Blood cortez sfusions. Chemotherapy. ENCOUNTER: Subsequent ACUITY: 1 day PAIN SCORE: 2/10 LOCATION: Right arm. FINDINGS: There is spontaneous flow documented in the brachial, cephalic, axillary, and subclavian veins. Occlu sive thrombus in the basilic vein extending distally. CONCLUSION: Occlusive thrombus in the basilic vein. Anthony Syed MD on February 15, 2016 at 18:30 Board Certified Radiologist. This report was verified electronically.
--- NOTE | 2016-02-15 18:37 | HHI.PR ---
Subjective Remarks 45 YOWF with RA,Lupus,Endocarditis, has bilt Milliary infilt Feels much better Weaned to NC Denies sob Takes clear liq and G_tube feeding had bronch, no secretions or inflamation Had Feeeding tube changed Bronchial cultures neg Objective Vital Signs Vital Signs Date Time Temp Pulse Resp B/P Pulse Ox O2 Delivery O2 Flow Rate FiO2 02/15/16 18:17 98 Nasal Cannula 21 02/15/16 16:00 98.1 79 16 122/78 98 02/15/16 13:08 Nasal Cannula 2.00 02/15/16 12:00 97.4 74 18 101/71 99 02/15/16 08:00 98.1 68 18 100/52 99 02/15/16 05:00 96.5 72 16 115/74 99 02/15/16 01:00 97.9 74 16 112/72 99 02/14/16 22:30 97.6 88 16 117/79 98 02/14/16 22:18 98 Nasal Cannula 2.00 02/14/16 22:00 82 02/14/16 20:00 82 02/14/16 20:00 97.7 82 18 112/68 100 I/O 02/14/16 02/14/16 02/14/16 02/15/16 02/15/16 02/15/16 07:00 15:00 23:00 07:00 15:00 23:00 Intake Total 970 ml 240 ml 240 ml Balance 970 ml 240 ml 240 ml Intake Oral 120 ml 240 ml 240 ml IV Total 50 ml 0 ml Tube Feeding 0 ml Other 800 ml # Voids 2 2 1 2 3 # Bowel Movements 0 Result Diagram: 02/14/16 0531 02/14/16 0531 Objective Remarks GENERAL: MBMN WF, weak, mild sob SKIN: Warm and dry. HEAD: Normocephalic. EYES: No scleral icterus. No injection or drainage. NECK: Supple, trachea midline. No JVD or lymphadenopathy. CARDIOVASCULAR: Regular rate and rhythm without murmurs, gallops, or rubs. RESPIRATORY: Breath sounds equal bilaterally. No accessory muscle use. GASTROINTESTINAL: Abdomen soft, non-tender, nondistended. MUSCULOSKELETAL: No cyanosis, or edema. BACK: Nontender without obvious deformity. No CVA tenderness. A/P Assessment and Plan Bilat Milliary infilt, ? Etiology Resp insuff and Hypoxia PE and DVT RA Lupus Gastroparesis H/O Endocarditis PHTN PLAN Abx Per ID Wean 02 Check Sp AFB Improving clinically PO pred Check bronch results On Lovenox Check Path, cytology Richard Phillips MD Feb 15, 2016 18:37
[2016-02-16] VITALS (11 sets, daily range): BP systolic 113–146; BP diastolic 64–88; PULSE 68–105; RESP 16–20; TEMP 96.5–98.1; O2SAT 94–99
[2016-02-16] MEDS: CHLORHEXIDINE GLUCONATE 2 % 1 PACK (2 CLOTHS) TOP SCH (03:23)
[2016-02-16] MEDS: HYDROmorphone HCL 4 MG TAB PO PRN ×3 (03:24→23:59)
[2016-02-16] MEDS: diphenhydrAMINE HCL 50 MG CAP PO PRN ×2 (03:24→15:09)
[2016-02-16] MEDS: SILDENAFIL CITRATE 20 MG TAB PO SCH ×3 (05:17→20:25)
[2016-02-16] MEDS: LEVOTHYROXINE SODIUM 88 MCG TAB PO SCH (05:18)
[2016-02-16] MEDS: DOCUSATE SODIUM 100 MG/10 ML UDC PO SCH (07:45)
[2016-02-16] MEDS: FENOFIBRATE 145 MG TAB PO SCH (07:45)
[2016-02-16] MEDS: predniSONE 10 MG TAB PO SCH ×2 (07:45→20:24)
[2016-02-16] MEDS: SODIUM CHLORIDE 0.9% FLUSH 5 ML FLUSH IV FLUSH SCH ×2 (07:45→20:24)
[2016-02-16] MEDS: PANTOPRAZOLE SOD 40 MG DELAYED RELEASE TAB PO SCH (07:45)
[2016-02-16] MEDS: TOPIRAMATE 100 MG TAB PO SCH ×2 (07:45→20:25)
[2016-02-16] MEDS ORDERED: ceFAZolin 2 GM PREMIX 50 ML IV SCH (09:15)
[2016-02-16] MEDS ORDERED: diphenhydrAMINE HCL 50 MG/ML VIAL IV ONE (09:15)
[2016-02-16] MEDS ORDERED: HYDROmorphone HCL PF 2 MG/ML VIAL ONE ×2 (09:27→11:09)
[2016-02-16] MEDS ORDERED: MIDAZOLAM HCL 5 MG/5 ML VIAL ONE (09:27)
[2016-02-16] MEDS ORDERED: LIDOCAINE 1%/EPINEPHrine 1:100,000 SOLN 20 ML VIAL ONE (10:44)
--- NOTE | 2016-02-16 11:24 | PD.RAD ---
Post Procedure Progress Note Pre Procedure Diagnosis: (1) SLE (systemic lupus erythematosus) (2) Pulmonary hypertension Post Procedure Diagnosis: (1) SLE (systemic lupus erythematosus) (2) Pulmonary hypertension Procedure Date: Feb 16, 2016 Supervising Radiologist: David Martin Plan of Activity Patient to Unit: [facility] Patient Condition: Good Additional Comments: Port placed via the right IJ. catheter in good position OK for use See PACS Report for procedural detail/treatment David Martin MD Feb 16, 2016 11:24
[2016-02-16] MEDS ORDERED: SODIUM CHLORIDE 0.9% FLUSH 5 ML FLUSH IVF PRN (11:30)
[2016-02-16] MEDS: diphenhydrAMINE HCL 50 MG/ML VIAL IV PRN (11:46)
--- NOTE | 2016-02-16 16:49 | RADRPT ---
EXAM DATE/TIME: 02/16/2016 09:37 [facility] COMPARISON: CHANGE OF GJ-TUBE CATHETER, February 15, 2016, 9:49. INDICATIONS : Patient is in need of placement of an Infusaport for venous access for medication administration. MEDICAL HISTORY : History of lupus, port pocket infection, gastroparesis, recurrent PE, DVT, hypothyroidism, Scott' s thyroiditis, rheumatoid arthritis, IBS, pulmonary hypertension, endocarditis, pneumonia, CVA, shing les, CVA, hyperlipidemia. SURGICAL HISTORY : History of left port placement, and removal, G-J tube exchanges, IVC filter, hand surgery, T11/T12 cullen rgery, c-sections, rectal polyp removal, breast reduction, tubal ligation, partial hysterectomy, ovar lauren cyst removal, cholecystectomy. ENCOUNTER: Initial ACUITY: 1 week PAIN SCORE: 0/10 FLUORO TIME: 0.6 minutes SEDATION TIME: 30 minutes ACCESS: Left basilic vein SEDATION: 1.) 5 mg midazolam (Versed) IV 2.) 3 mg hydromorphone (Dilaudid) IV Prophylactic antibiotics were administered with appropriate pre-procedure timing. Vancomycin within 2 hours of procedure, Ancef (or alternative) within 1 hour of procedure. DEVICE: 1. 8 Tuvaluan Bard Power Port PROCEDURE : 1. Continuous pulse oximetry and EKG monitoring. 2. Intravenous conscious sedation. 3. Ultrasound guidance for venous access. 4. Fluoroscopic guided implantable central venous port placement. The patient was placed supine. The neck was prepped in sterile fashion. Full sterile technique was u sed, including cap, mask, sterile gloves and gown, and a large sterile sheet. Hand hygiene and 2% ch lorhexidine Betadine was utilized per protocol for cutaneous antisepsis with appropriate dry time for site. The skin and subcutaneous tissues were infiltrated with local anesthetic solution. Under direct ultrasound guidance, central venous access was accomplished in the targeted vessel. The ultrasound images depicting access guidance were stored and saved to PACS for permanent record. A s ubcutaneous pocket was created using blunt dissection. The port was introduced to the pocket. The c atheter tubing was fed through a subcutaneous tunnel to the venotomy site. The catheter tubing was c ut to a suitable length and then was introduced through a valved Peel-Away sheath and positioned with catheter tubing tip at the cavo-atrial junction level. The pocket incision was closed with subcutic ular Vicryl suture. Steri-Strips were applied. The port was flushed and locked with heparin solutio n per protocol. Sterile dressing was applied to the site. The patient tolerated the procedure well. Conscious sedation was performed with the prescribed dosages and duration as above. The patient rachel ated the procedure well and there were no complications. EKG and oximetry remained stable throughout the procedure. The patient was sent to post anesthesia recovery in stable condition. CONCLUSION: Uncomplicated ultrasound and fluoroscopic guided implanted central venous port catheter placement as described in detail above. An 8 Tuvaluan Power port was placed. David Martin MD on February 16, 2016 at 16:47 Board Certified Radiologist. This report was verified electronically.
--- NOTE | 2016-02-16 16:49 | RADRPT ---
EXAM DATE/TIME: 02/16/2016 09:53 [facility] COMPARISON: [id number] PLCMT, POWERPORT, W US, RIGHT, February 16, 2016, 9:37. INDICATIONS : Patient is in need of placement of a 3/4 dilator for IV access due to infiltration of existing right arm IV site. MEDICAL HISTORY : History of lupus, port pocket infection, gastroparesis, recurrent PE, DVT, hypothyropidism, Scott 's thyroiditis, rheumatoid arthritis, IBS, pulmonary hypertension, endocarditis, pneumonia, CVA, page gles, CVA, hyperlipidemia. SURGICAL HISTORY : History of left port placement, and removal, G-J tube exchanges, IVC filter, hand surgery, T11/T12 cullen rgery, c-sections, rectal polyp removal, breast reduction, tubal ligation, partial hysterectomy, ovar lauren cyst removal, cholecystectomy. ENCOUNTER: Initial ACUITY: 1 week PAIN SCORE: 0/10 ACCESS: Left basilic vein DEVICE(S): 1.) 3/4 Faroese Dilator PROCEDURE : 1. Ultrasound guided venous access. The risks, benefits and alternatives to the procedure were explained and verbal and written consent w as obtained. The site was prepped in sterile fashion. Full sterile technique was used, including ca p, mask, sterile gloves and gown and a large sterile sheet. Hand hygiene and 2% chlorhexidine and/or betadine/alcohol prep was utilized per protocol for cutaneous antisepsis. The skin and subcutaneous tissues were infiltrated with local anesthetic solution. With ultrasound guidance the prescribed vein was punctured for venous access. A 4 Faroese dilator was placed and was flushed and locked with heparin. The patient tolerated procedure well and there were n o complications. CONCLUSION: Uncomplicated ultrasound guided venous access. David Martin MD on February 16, 2016 at 16:47 Board Certified Radiologist. This report was verified electronically.
--- NOTE | 2016-02-16 18:26 | HHI.PR ---
Subjective Remarks 45 YOWF with RA,Lupus,Endocarditis, has bilt Milliary infilt Feels much better Weaned to NC had bronch, no secretions or inflamation Had Feeeding tube changed Bronchial cultures neg Br bx and Cytology negative, denuded cells Objective Vital Signs Vital Signs Date Time Temp Pulse Resp B/P Pulse Ox O2 Delivery O2 Flow Rate FiO2 02/16/16 15:30 98.0 91 20 146/86 97 02/16/16 13:15 77 18 116/72 96 02/16/16 12:45 82 18 117/72 97 02/16/16 12:15 90 18 121/71 95 02/16/16 11:45 105 16 113/67 94 02/16/16 11:30 98.1 104 16 121/64 99 02/16/16 07:42 99 Nasal Cannula 2.00 02/16/16 07:18 96.6 78 20 136/80 99 02/16/16 04:00 97.1 68 16 119/65 99 02/16/16 00:00 97.1 84 16 124/70 99 02/15/16 20:30 96.9 100 18 155/96 88 I/O 02/15/16 02/15/16 02/15/16 02/16/16 02/16/16 02/16/16 07:00 15:00 23:00 07:00 15:00 23:00 Intake Total 240 ml 240 ml 0 ml Balance 240 ml 240 ml 0 ml Intake Oral 240 ml 240 ml 0 ml # Voids 2 3 2 1 1 # Bowel Movements 0 Result Diagram: 02/14/1631 02/14/16 0531 Objective Remarks GENERAL: MBMN WF, weak, mild sob SKIN: Warm and dry. HEAD: Normocephalic. EYES: No scleral icterus. No injection or drainage. NECK: Supple, trachea midline. No JVD or lymphadenopathy. CARDIOVASCULAR: Regular rate and rhythm without murmurs, gallops, or rubs. RESPIRATORY: Breath sounds equal bilaterally. No accessory muscle use. GASTROINTESTINAL: Abdomen soft, non-tender, nondistended. MUSCULOSKELETAL: No cyanosis, or edema. BACK: Nontender without obvious deformity. No CVA tenderness. A/P Assessment and Plan Bilat Milliary infilt, ? Etiology Resp insuff and Hypoxia PE and DVT RA Lupus Gastroparesis H/O Endocarditis PHTN PLAN Abx Per ID Wean 02 Check Sp AFB Improving clinically PO pred On Lovenox DW Pt bronch results Will need Rpt CT chest in 4 weeks and monitor lung infilterates Richard Phillips MD Feb 16, 2016 18:26
--- NOTE | 2016-02-16 18:30 | HHI.PR ---
Subjective Remarks Follow-up for respiratory failure, pulmonary hypertension. Ms. Michaels is doing well. She returned from IR after a port placement. Denies any fever, chills. Discussed at length regarding use of port. Advised patient that typically only healthcare professionals should access her port for any appropriate need. She understands that accessing the port exposes her to the possibility of infection. Objective Vitals Vital Signs Date Time Temp Pulse Resp B/P Pulse Ox O2 Delivery O2 Flow Rate FiO2 02/16/16 15:30 98.0 91 20 146/86 97 02/16/16 13:15 77 18 116/72 96 02/16/16 12:45 82 18 117/72 97 02/16/16 12:15 90 18 121/71 95 02/16/16 11:45 105 16 113/67 94 02/16/16 11:30 98.1 104 16 121/64 99 02/16/16 07:42 99 Nasal Cannula 2.00 02/16/16 07:18 96.6 78 20 136/80 99 02/16/16 04:00 97.1 68 16 119/65 99 02/16/16 00:00 97.1 84 16 124/70 99 02/15/16 20:30 96.9 100 18 155/96 88 I/O 02/15/16 02/15/16 02/15/16 02/16/16 02/16/16 02/16/16 07:00 15:00 23:00 07:00 15:00 23:00 Intake Total 240 ml 240 ml 0 ml Balance 240 ml 240 ml 0 ml Intake Oral 240 ml 240 ml 0 ml # Voids 2 3 2 1 1 # Bowel Movements 0 Result Diagram: 02/14/16 0531 02/14/16 0531 Imaging Last Impressions Port Line Insertion 02/16/16 0000 Signed Impressions: Service Date/Time: February 09:37 - CONCLUSION: Uncomplicated ultrasound and fluoroscopic guided implanted central venous port catheter placement as described in detail above. An 8 Polish Power port was placed. David Martin MD [facility] Interventional Procedure 02/16/16 0000 Signed Impressions: Service Date/Time: February 09:53 - CONCLUSION: Uncomplicated ultrasound guided venous access. David Martin MD Upper Extremity Ultrasound 02/15/16 0000 Signed Impressions: Service Date/Time: Monday, February 15, 2016 16:04 - CONCLUSION: Occlusive thrombus in the basilic vein. Anthony Syed MD Tube Change 02/15/16 0000 Signed Impressions: Service Date/Time: Monday, February 15, 2016 09:49 - CONCLUSION: Uncomplicated gastrojejunostomy tube exchange as above. David Martin MD Chest X-Ray 02/14/16 0000 Signed Impressions: Service Date/Time: Sunday, February 14, 2016 11:51 - CONCLUSION: No pneumothorax. Yonatan Mccullough MD CT Angiography 02/07/16 1604 Signed Impressions: Service Date/Time: Sunday, February 07, 2016 17:01 - CONCLUSION: 1. No pulmonary emboli. 2. Miliary type pattern to the lung parenchyma. Differential diagnostic considerations are quite broad. These include multiple infectious etiologies including atypical infection such as tuberculosis and fungal infections. It can also be seen in non-infectious etiology such as sarcoidosis and hypersensitivity pneumonitis. 3. Splenomegaly. 4. Mildly enlarged mediastinal lymph nodes. Rogelio Bhakta Jr., MD Lung Scan-VQ Nuclear Medicine 02/07/16 1212 Signed Impressions: Service Date/Time: Sunday, February 07, 2016 14:14 - CONCLUSION: Unremarkable VQ scan. This is a low probability for PE. Yonatan Mccullough MD Objective Remarks GENERAL: Alert, oriented 3, NAD. SKIN: Warm and dry. HEAD: Normocephalic. EYES: No scleral icterus. No injection or drainage. NECK: Supple, trachea midline. No JVD or lymphadenopathy. CARDIOVASCULAR: Regular rate and rhythm without murmurs, gallops, or rubs. RESPIRATORY: Breath sounds equal bilaterally. No accessory muscle use. GASTROINTESTINAL: Abdomen soft, non-tender, nondistended. MUSCULOSKELETAL: No cyanosis, or edema. BACK: Nontender without obvious deformity. No CVA tenderness. Procedures Echo Study Date:02/07/2016 - Left ventricle: The cavity size was normal. Wall thickness was normal. Systolic function was normal. The estimated ejection fraction was 55%. Wall motion was normal; there were no regional wall motion abnormalities. - Right ventricle: The cavity size was dilated. Wall thickness was normal. RV hypokinesis. - Right atrium: The atrium was dilated. - Atrial septum: No defect or patent foramen ovale was identified. - Tricuspid valve: Moderate regurgitation. - Pulmonary arteries: Systolic pressure was severely increased. PA peak pressure: 80mm Hg (S). A/P Problem List: (1) Acute respiratory failure with hypoxia ICD Code: J96.01 Status: Acute (2) Pulmonary hypertension ICD Code: I27.2 Status: Acute (3) Miliary lesions present on imaging of chest ICD Code: R91.8 Status: Acute (4) SLE (systemic lupus erythematosus) ICD Code: M32.9 Status: Chronic (5) Gastroparesis ICD Code: K31.84 Status: Acute Assessment and Plan Ms. Michaels is a 45 year old female with a history of lupus, PE with IVC filter placement, on Xarelto, recent MSSA bacteremia who was admitted to the hospital on 02/07/2016 due to acute hypoxic respiratory failure and syncope. In the ED, her O2 sat was in the 50s. Her troponin was 0.8 and BNP was 300. Critical care was consulted. Echo shows RV dysfunction and significant pulmonary hypertension. CT PE was performed which showed no PE but showed milliary infiltrates in the lung parenchyma. Infectious disease started patient on Cefepime, Vancomycin, micafungin, Pentamidine as well as IV Doxycycline. ID later discontinued Cefepime, Vanco and micafungin and continued Doxycycline. Acute respiratory failure with hypoxia Bilateral pulmonary Milliary lesions on chest CT Continue supplemental oxygen via nasal cannula to keep oxygen saturation above 90% Continue DuoNeb. Doxycycline discontinued on 02/15/2016. Continue Prednisone PO Pulmonary and infectious disease following. Status post bronchoscopy on 2016. Blood cultures negative so far. AFB negative. Quantiferon Gold TB test, HIV negative. Right upper extremity superficial vein (Basillic Vein) Patient was found to have right upper extremity swelling noticed by patient' s RN. Ultrasound shows occlusive basilic vein And location has been on hold due to procedures. Will give patient 1 dose of 65 mg of Lovenox today 02/16/2016 - Start Xarelto on 02/17/2016. Pulmonary hypertension Elevated troponins Continue sildenafil 20 mg by mouth every 8 hours. Elevated troponins likely due to right heart strain. Cardiology evaluated patient and no ischemic workup was recommended at this point SLE Gastroparesis - Continue tube feed. History of multiple pulmonary embolism status post IVC filter and was on Xarelto which will be continued on discharge. Full code. Received Lovenox 65mg today. sOcar Martinez DO Feb 16, 2016 18:30
[2016-02-16] MEDS ORDERED: ENOXAPARIN SODIUM 80 MG/0.8 ML SYRINGE SQ ONE (19:00)
[2016-02-17] VITALS: BP 123/71; PULSE 75; RESP 18; TEMP 96.5; O2SAT 99
[2016-02-17] MEDS: diphenhydrAMINE HCL 50 MG CAP PO PRN ×2 (03:06→09:35)
[2016-02-17 04:00] VITALS: BP 136/69; PULSE 73; RESP 18; TEMP 97.5; O2SAT 99
[2016-02-17] MEDS: CHLORHEXIDINE GLUCONATE 2 % 1 PACK (2 CLOTHS) TOP SCH (04:00)
[2016-02-17] MEDS: LEVOTHYROXINE SODIUM 88 MCG TAB PO SCH (07:32)
[2016-02-17] MEDS: SILDENAFIL CITRATE 20 MG TAB PO SCH (07:33)
[2016-02-17] MEDS: PANTOPRAZOLE SOD 40 MG DELAYED RELEASE TAB PO SCH (07:36)
[2016-02-17] MEDS: FENOFIBRATE 145 MG TAB PO SCH (07:36)
[2016-02-17] MEDS: SODIUM CHLORIDE 0.9% FLUSH 5 ML FLUSH IV FLUSH SCH (07:37)
[2016-02-17] MEDS: predniSONE 10 MG TAB PO SCH (07:38)
[2016-02-17] MEDS: TOPIRAMATE 100 MG TAB PO SCH (07:50)
[2016-02-17 08:00] VITALS: BP 133/78; PULSE 70; RESP 18; TEMP 96.8; O2SAT 99
[2016-02-17] MEDS ORDERED: RIVAROXABAN 20 MG TAB PO SCH (09:00)
[2016-02-17] MEDS: DOCUSATE SODIUM 100 MG/10 ML UDC PO SCH (09:42)
[2016-02-17] MEDS ORDERED: DOCUSATE SODIUM 100 MG CAP PO SCH (10:00)
--- NOTE | 2016-02-17 11:34 | HHI.FF ---
Face to Face Verification Diagnosis: (1) Miliary lesions present on imaging of chest (2) Acute respiratory failure with hypoxia (3) SLE (systemic lupus erythematosus) (4) GJ tube damaged (5) Gastroparesis (6) DVT (deep venous thrombosis) Physical Therapy Order: Evaluate and Treat, Improve ambulation, Strength and gait training Home Health Nursing Order: Medical education Signs/symptoms of disease process Oxygen administration education Nursing assessment with vital signs I have seen patient Nevaeh Michaels on 02/17/16. My clinical findings support the need for the requested home health care services because: Ltd mobility - disease progression Patient has SOB Deconditioned w/ increased weakness Limited ability to care for self Need for psychosocial assistance High risk of falls Infection w/ risk of complications I certify that my clinical findings support that this patient is homebound because: Impaired cognitive ability/safety Unsteady gait/balance Unsafe to leave home unassisted Unable to use public transportation Oscar Martinez DO Feb 17, 2016 11:34 am
[2016-02-17] MEDS ORDERED: EPIP0.3I IM (11:46)
[2016-02-17] MEDS ORDERED: PRED10PA2 PO (11:46)
--- NOTE | 2016-02-17 11:51 | HHI.DS ---
Discharge Summary Admission Date Feb 07, 2016 at 3:08 pm Discharge Date: Feb 17, 2016 Admitting Diagnosis sepsis, pneumonia, rule out line infection, hypoxemia (1) Acute respiratory failure with hypoxia ICD Code: J96.01 Diagnosis: Principal (2) Pulmonary hypertension ICD Code: I27.2 Diagnosis: Principal (3) Miliary lesions present on imaging of chest ICD Code: R91.8 (4) SLE (systemic lupus erythematosus) ICD Code: M32.9 (5) Gastroparesis ICD Code: K31.84 Procedures Echo Study Date:02/07/2016 - Left ventricle: The cavity size was normal. Wall thickness was normal. Systolic function was normal. The estimated ejection fraction was 55%. Wall motion was normal; there were no regional wall motion abnormalities. - Right ventricle: The cavity size was dilated. Wall thickness was normal. RV hypokinesis. - Right atrium: The atrium was dilated. - Atrial septum: No defect or patent foramen ovale was identified. - Tricuspid valve: Moderate regurgitation. - Pulmonary arteries: Systolic pressure was severely increased. PA peak pressure: 80mm Hg (S). Brief History - From Admission This is a 45-year-old female with a very complex past medical history which includes lupus, 5 prior pulmonary embolisms with an IVC filter and on home Xarelto which she is compliant with, recent hospital admission for MSSA bacteremia which she completed a 6 week course of IV antibiotics. She presents with acute syncopal episode and hypoxia. She states she felt very dizzy at home today and passed out, a family member called 911 and she was brought in. When she went to the ED, her sats were in the 50s. She was placed on a partial nonrebreather mask. Of note, she was recently in the emergency department a few days prior for purulent drainage out of her small left anterior chest incision where her prior port was. She has a history of gastroparesis, but she' s been tolerating J-tube feeds without any increase in nausea. She denies fever , chills. She denies chest pain. In emergency department, labs were drawn which demonstrated an elevated troponin of 0.8, and elevated BNP of 300. Given her acute hypoxemia and history suggestive of recurrent pulmonary embolisms, critical care medicine consult to evaluate and management of her hypoxemic respiratory failure, her cardiac strain. CBC/BMP: 02/14/16 0531 02/14/16 0531 Imaging Last Impressions Port Line Insertion 02/16/16 0000 Signed Impressions: Service Date/Time: February 09:37 - CONCLUSION: Uncomplicated ultrasound and fluoroscopic guided implanted central venous port catheter placement as described in detail above. An 8 Irish Power port was placed. David Martin MD [facility] [place] 02/16/16 0000 Signed Impressions: Service Date/Time: February 09:53 - CONCLUSION: Uncomplicated ultrasound guided venous access. David Martin MD Upper Extremity Ultrasound 02/15/16 0000 Signed Impressions: Service Date/Time: Monday, February 15, 2016 16:04 - CONCLUSION: Occlusive thrombus in the basilic vein. Anthony Syed MD Tube Change 02/15/16 0000 Signed Impressions: Service Date/Time: Monday, February 15, 2016 09:49 - CONCLUSION: Uncomplicated gastrojejunostomy tube exchange as above. David Martin MD Chest X-Ray 02/14/16 0000 Signed Impressions: Service Date/Time: Sunday, February 14, 2016 11:51 - CONCLUSION: No pneumothorax. Yonatan Mccullough MD CT Angiography 02/07/16 1604 Signed Impressions: Service Date/Time: Sunday, February 07, 2016 17:01 - CONCLUSION: 1. No pulmonary emboli. 2. Miliary type pattern to the lung parenchyma. Differential diagnostic considerations are quite broad. These include multiple infectious etiologies including atypical infection such as tuberculosis and fungal infections. It can also be seen in non-infectious etiology such as sarcoidosis and hypersensitivity pneumonitis. 3. Splenomegaly. 4. Mildly enlarged mediastinal lymph nodes. Rogelio Bhakta Jr., MD Lung Scan-VQ Nuclear Medicine 02/07/16 1212 Signed Impressions: Service Date/Time: Sunday, February 07, 2016 14:14 - CONCLUSION: Unremarkable VQ scan. This is a low probability for PE. Yonatan Mccullough MD PE at Discharge GENERAL: Alert, oriented 3, NAD. SKIN: Warm and dry. HEAD: Normocephalic. EYES: No scleral icterus. No injection or drainage. NECK: Supple, trachea midline. No JVD or lymphadenopathy. CARDIOVASCULAR: Regular rate and rhythm without murmurs, gallops, or rubs. RESPIRATORY: Breath sounds equal bilaterally. No accessory muscle use. GASTROINTESTINAL: Abdomen soft, non-tender, nondistended. MUSCULOSKELETAL: No cyanosis, or edema. BACK: Nontender without obvious deformity. No CVA tenderness. Pt update on day of discharge Ms. Michaels is doing well. No acute concerns. Denies any CP, SOB, fever, chills. Hospital Course Ms. Michaels is a 45 year old female with a history of lupus, PE with IVC filter placement, on Xarelto, recent MSSA bacteremia who was admitted to the hospital on 02/07/2016 due to acute hypoxic respiratory failure and syncope. In the ED, her O2 sat was in the 50s. Her troponin was 0.8 and BNP was 300. Critical care was consulted. Echo shows RV dysfunction and significant pulmonary hypertension. CT PE was performed which showed no PE but showed milliary infiltrates in the lung parenchyma. Infectious disease started patient on Cefepime, Vancomycin, micafungin, Pentamidine as well as IV Doxycycline. ID later discontinued Cefepime, Vanco and micafungin and continued Doxycycline which was later discontinued. Acute respiratory failure with hypoxia Bilateral pulmonary Milliary lesions on chest CT Continue supplemental oxygen via nasal cannula to keep oxygen saturation above 90% Continue DuoNeb. Doxycycline discontinued on 02/15/2016. Continue Prednisone PO. Taper off on discharge Pulmonary and infectious disease following. Status post bronchoscopy on 2016. Blood cultures negative so far. AFB negative. Quantiferon Gold TB test, HIV negative. Right upper extremity superficial vein (Basillic Vein) Patient was found to have right upper extremity swelling noticed by patient' s RN. Ultrasound shows occlusive basilic vein - Start Xarelto on 02/17/2016. Pulmonary hypertension Elevated troponins Continue sildenafil 20 mg by mouth every 8 hours. Elevated troponins likely due to right heart strain. Cardiology evaluated patient and no ischemic workup was recommended at this point SLE Gastroparesis - Continue tube feed. History of multiple pulmonary embolism status post IVC filter and was on Xarelto which will be continued on discharge. A port was placed on 02/16/2016. Patient continued to do well clinically. We discharged patient on 02/17/2016. Patient was advised to follow up with PCP and Senior Accounting Clerk. Pt Condition on Discharge: Good Discharge Disposition: Disch w/ Home Health Serv Discharge Time: > 30 minutes Discharge Instructions DIET: Follow Instructions for: On Tube Feeding Activities you can perform: Regular-No Restrictions Follow up Referrals: PCP Follow-up - 1 Week Pulmonology - 2 Weeks with Richard Phillips MD New Medications: Epinephrine Inj (Epipen 2-Irvin Inj) 0.3 Mg/0.3 Ml Pfpen 0.3 MG IM ONCE PRN ALLERGIC REACTION #1 Ref 0 PACK Prednisone (48) 10 mg tab Dose Pack (Prednisone (48) 10 mg tab Dose Pack) 10 Mg Dspk 10 MG PO DIRECTED Inflammation #1 Ref 0 DSPK Hydromorphone (Dilaudid) 4 Mg Tab 4 MG PO Q6HR PRN Pain #12 TAB Continued Medications: Benzonatate (Tessalon Perles) 100 Mg Cap 100 MG PO TID cough #[address] (Nexium) 40 Mg Capdr 40 MG PO DAILY Ref 0 CAP Fenofibrate Micronized (Fenofibrate Micronized) 200 Mg Cap 200 MG PO DAILY #30 Ref 0 CAP Guaifenesin-Codeine Liq (Guaifenesin-Codeine Liq) 100-10 Mg/5 Ml Soln 10 ML PO Q6H PRN COUGH #200 ML Levothyroxine (Levothyroxine) 88 Mcg Tab 88 MCG PO DAILY Thyroid #30 Ref 0 TAB Promethazine Inj (Phenergan Inj) 25 Mg/Ml Inj 25 MG IVP Q6HR PRN NAUSEA OR VOMITING #1 VIAL Rivaroxaban (Xarelto) 20 Mg Tab 20 MG PO DAILY pulmonary emboli Days 30 TAB Topiramate (Topamax) 100 Mg Tab 100 MG PO BID Control Seizures #60 Ref 0 TAB Discontinued Medications: Clindamycin (Clindamycin) 300 Mg Cap 300 MG PO Q6H Infection Days 7 Ref 0 CAP Oscar Martinez DO Feb 17, 2016 11:51
[2016-02-17 12:00] VITALS: BP 140/65; PULSE 75; RESP 16; TEMP 98.9; O2SAT 99
[2016-02-17] MEDS ORDERED: DILA4TAB2 PO (13:06)
[2016-03-20] MEDS ORDERED: CEPH-460 PO (13:48)
[2016-03-21] MEDS ORDERED: SILD20TA11 PO (14:12)
[2016-03-21] MEDS ORDERED: DILT120T PO (14:12)
[2016-03-21] MEDS ORDERED: OXYC1CAP PO (15:43)
[2016-03-23] MEDS ORDERED: CLIN1CAP6 PO (16:11)
[2016-07-10] MEDS ORDERED: PROM1SUP9 RECTAL (13:14)
[2016-07-10] MEDS ORDERED: NITR0.4S SL (13:14)
[2016-07-10] MEDS ORDERED: CHOL4POW3 PO (13:14)
[2016-07-10] MEDS ORDERED: HEPA100I16 IV (13:14)
[2016-07-10] MEDS ORDERED: NORM0.9I4 IV (13:14)
[2016-07-10] MEDS ORDERED: SYNT88TA PO (13:14)
[2016-07-10] MEDS ORDERED: PROM6.254 PO (13:14)
[2016-07-10] MEDS ORDERED: PROTPAK PO (13:14)
== END 2016-02-17 14:36 | disposition home health service (06) | DRG 871 ==
LOC: NEPA 12:02 → NEDA 15:08 → HIME 17:15 → HOCB 02-14 22:28
PROVIDERS: ADMIT Hospitalist; ATTEND Hospitalist
PROC: 0BB68ZX Excision of Right Lower Lobe Bronchus, Via Natural or Artificial Opening Endoscopic, Diagnostic (ICD-10-PCS; principal; 2016-02-14 10:53)
PROC: 0D2DXUZ Change Feeding Device in Lower Intestinal Tract, External Approach (ICD-10-PCS; 2016-02-15)
PROC: 02HV33Z Insertion of Infusion Device into Superior Vena Cava, Percutaneous Approach (ICD-10-PCS; 2016-02-16)
DX: A41.9 Sepsis, unspecified organism (principal); J96.01 Acute respiratory failure with hypoxia; E44.1 Mild protein-calorie malnutrition; I27.2 Other secondary pulmonary hypertension; I82.611 Acute embolism and thrombosis of superficial veins of right upper extremity; K94.13 Enterostomy malfunction; I48.91 Unspecified atrial fibrillation; R55 Syncope and collapse; I10 Essential (primary) hypertension; L03.818 Cellulitis of other sites; J98.4 Other disorders of lung; M32.9 Systemic lupus erythematosus, unspecified; R56.9 Unspecified convulsions; K31.84 Gastroparesis; M06.9 Rheumatoid arthritis, unspecified; I73.00 Raynaud's syndrome without gangrene; E06.3 Autoimmune thyroiditis; E78.5 Hyperlipidemia, unspecified; G89.29 Other chronic pain; R73.9 Hyperglycemia, unspecified; K21.9 Gastro-esophageal reflux disease without esophagitis; M79.7 Fibromyalgia; Z86.711 Personal history of pulmonary embolism; Z86.718 Personal history of other venous thrombosis and embolism; Z79.01 Long term (current) use of anticoagulants; Z86.73 Personal history of transient ischemic attack (TIA), and cerebral infarction without residual deficits; Z88.5 Allergy status to narcotic agent; Z88.2 Allergy status to sulfonamides; Z88.8 Allergy status to other drugs, medicaments and biological substances; Z88.1 Allergy status to other antibiotic agents; Z91.041 Radiographic dye allergy status; Z68.24 Body mass index [BMI] 24.0-24.9, adult
CPT/HCPCS: 36410; 36561; 36600; 49452; 71010; 71101; 71275; 76937; 77001; 78582; 80048; 80053; 80202; 82164; 82805; 82948; 82955; 83605; 83615; 83690; 83880; 84484; 85025; 85027; 85610; 85730; 86140; 86480; 86612; 86635; 86703; 87015; 87040; 87070; 87071; 87102; 87103; 87116; 87205; 87206; 87385; 87641; 88112; 88305; 93005; 93306; 93308; 93971; 94664; 96361; 96365; 96374; 96375; 99152; 99153; 99292; A9540; A9567; C1769; C1788; J0171; J0690; J0692; J1170; J1200; J1642; J1650; J1885; J1940; J2248; J2250; J2405; J2930; J2997; J3370; J7030; J7050; J7060; J7512; J7611; Q0163; Q9967

== ENCOUNTER 2016-03-19 16:02 | Emergency (ER) | payer MEDICARE, OTHER ==
[~2016-03-19] VITALS: Ht 157.5 cm; Wt 67.0 kg
[~2016-03-19 16:02] MED LIST changes: -CLIN1CAP6 PO; +DILA4TAB2 PO; +EPIP0.3I IM; +PRED10PA2 PO
[2016-03-19 16:32] VITALS: BP 131/79; PULSE 98; RESP 16; TEMP 98.7; O2SAT 99
--- NOTE | 2016-03-19 17:09 | RADHPO ---
EXAM DATE/TIME: 03/19/2016 16:54 [facility] COMPARISON: No previous studies available for comparison. INDICATIONS : Slammed first digit right hand in door. Complains of pain. MEDICAL HISTORY : None. SURGICAL HISTORY : None. ENCOUNTER: Initial ACUITY: 1 day PAIN SCORE: 6/10 LOCATION: Right hand, first digit FINDINGS: There is no fracture of the distal TUFT of the first digit that does not extend intra-articular. CONCLUSION: Fracture as described above. Micky Martin MD FACR on March 19, 2016 at 17:07 Board Certified Radiologist. This report was verified electronically.
--- NOTE | 2016-03-19 18:26 | PD ---
HPI Chief Complaint: Injury Time Seen by Provider: 18:22 Travel History International Travel<30 days: No Contact w/Intl Traveler<30days: No Traveled to known affect area: No History of Present Illness HPI Patient is a 45-year-old female who presents emergency department for evaluation of right thumb pain. Patient states she slammed her right thumb in the car door, she states she was unable to get her finger out and had to throw the groceries at the garage door to get her kids attention. She rates her pain a 6 out of 10. She denies any numbness or tingling. Patient has lupus, sarcoidosis, pulmonary embolisms, MSSA bacteremia recently treated. PFSH Past Medical History Hx Anticoagulant Therapy: Yes (Xarelto) Arthritis: Yes (RHEUMATOID) Asthma: No Atrial Fibrillation: Yes Autoimmune Disease: Yes (Lupus, sarcoidosis) Anxiety: Yes Depression: No Cancer: No Cardiovascular Problems: Yes (AF, RVH) High Cholesterol: Yes Chemotherapy: Yes Chest Pain: Yes Congestive Heart Failure: No COPD: No Cerebrovascular Accident: Yes Diabetes: No Diminished Hearing: Yes ([place] RIGHT EAR) Deep Vein Thrombosis: Yes Endocrine: No Fibromyalgia: Yes Gastrointestinal Disorders: Yes (BILIARY PROBLEMS, GASTROPARESIS) GERD: Yes Genitourinary: No Headaches: No Hepatitis: No Hiatal Hernia: No Hypertension: Yes Implanted Vascular Access Dvce: Yes Kidney Stones: No Musculoskeletal: Yes (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, ) Neurologic: Yes Psychiatric: Yes Reproductive: No Respiratory: Yes (Sarcoidosis ) Immunizations Current: Yes Migraines: Yes (TEMPORAL ARTHRITIS ) Renal Failure: No Seizures: No Sleep Apnea: No Thyroid Disease: Yes (GINA'S) PNEUMOCCOCAL Vaccine (Year): 3 ?: Not : 4 Para: 3 Miscarriage: 1 Ovarian Cysts: Yes ((R) REMOVED) Tubal Ligation: Yes Past Surgical History Abdominal Surgery: Yes (G-J TUBE INSERTION, ) AICD: No Body Medical Devices: IVC FILTER Cardiac Surgery: No Section: Yes Cholecystectomy: Yes Ear Surgery: No Eye Surgery: No Genitourinary Surgery: No Gynecologic Surgery: Yes (PARTIAL HYSTERECTOMY, BREAST REDUCTION) Hysterectomy: Yes (Partial) Joint Replacement: No Neurologic Surgery: No Oral Surgery: No Pacemaker: No Thoracic Surgery: No Tonsillectomy: Yes (1981) Other Surgery: Yes ( RECTAL SURGERY, BREAST REDUCTION, GREENFILED FILTER) Social History Alcohol Use: No Tobacco Use: No Substance Use: Yes Allergies-Medications (Allergen,Severity, Reaction): Coded Allergies: Contrast Media (Verified Allergy, Severe, Swelling, 03/19/16) Demerol (Verified Allergy, Severe, Hives, 03/19/16) Keflex (Verified Allergy, Severe, hives, 03/19/16) Premedication does not cause hives. Levaquin (Verified Allergy, Severe, ARM AT SITE RED AND THEN HIVES ALL OVER BODY, 03/19/16) Morphine (Verified Allergy, Severe, severe hives, 03/19/16) Bactrim (Verified Allergy, Intermediate, Hives, 03/19/16) Fentanyl (Verified Allergy, Intermediate, HIVES, 03/19/16) Zyvox (Verified Allergy, Intermediate, Itching, 03/19/16) develops hives and itching Ancef (Verified Allergy, Mild, HIVES, 03/19/16) Premedication does not cause hives. Sulfa (Verified Allergy, Unknown, 03/19/16) SEVERE ITCHING Vancomycin (Verified Adverse Reaction, Severe, HIVES, 03/19/16) does ok with benadryl premedicaiton Reported Meds & Prescriptions Reported Meds & Active Scripts Active Percocet (Oxycodone-Acetaminophen) 5-325 mg Tab 1 Tab PO Q4H PRN Dilaudid (Hydromorphone HCl) 4 Mg Tab 4 Mg PO Q6HR PRN Epipen 2-Irvin Inj (Epinephrine) 0.3 Mg/0.3 Ml Pfpen 0.3 Mg IM ONCE PRN Guaifenesin-Codeine Liq 100-10 Mg/5 Ml Soln 10 Ml PO Q6H PRN Xarelto (Rivaroxaban) 20 Mg Tab 20 Mg PO DAILY 30 Days Oxygen tank (Oxygen) 1 Ea Tank 2 Liter BETSY.CANULA CONTINUOUS Oxygen Concentrator Portable Gaseous 2 L/min via Nasal Cannula Continuous For 3 months- for extention follow with PCP Reported Topamax (Topiramate) 100 Mg Tab 100 Mg PO BID Phenergan Inj (Promethazine HCl) 25 Mg/Ml Inj 25 Mg IVP Q6HR PRN Nexium (Esomeprazole DR) 40 Mg Capdr 40 Mg PO DAILY Levothyroxine (Levothyroxine Sodium) 88 Mcg Tab 88 Mcg PO DAILY Fenofibrate Micronized 200 Mg Cap 200 Mg PO DAILY Review of Systems Except as stated in HPI: all other systems reviewed are Neg Musculoskeletal: Positive: Myalgias, Arthralgias, Pain Physical Exam Narrative GENERAL: Well-nourished, well-developed patient. SKIN: Warm and dry. HEAD: Normocephalic. EYES: No scleral icterus. No injection or drainage. NECK: Supple, trachea midline. No JVD or lymphadenopathy. CARDIOVASCULAR: Regular rate and rhythm without murmurs, gallops, or rubs. RESPIRATORY: Breath sounds equal bilaterally. No accessory muscle use. GASTROINTESTINAL: Abdomen soft, non-tender, nondistended. MUSCULOSKELETAL: No cyanosis, edema and ecchymosis noted to the right thumb from the DIP joint distally. Positive radial pulse, brisk less than 3 second capillary refill. Full range of motion with flexion and extension of finger. The nail of the right thumb was pushed/crushed into the nailbed, the tissue under the nailbed pushed over the top of the nail itself. BACK: Nontender without obvious deformity. No CVA tenderness. Data Data Last Documented VS Vital Signs Date Time Temp Pulse Resp B/P Pulse Ox O2 Delivery O2 Flow Rate FiO2 03/19/16 16:32 98.7 98 16 131/79 99 Orders Finger ([id number]) (03/19/16 ) Bupivacaine Pf 0.5% Inj (Marcaine Pf 0.5 (03/19/16 18:30) Diphenhydramine (Benadryl) (03/19/16 19:45) Cephalexin (Keflex) (03/19/16 19:45) Finger ([id number]) (03/19/16 ) Povidone Iodine 10% Oint (Betadine 10% O (03/19/16 21:45) MDM Medical Decision Making Medical Screen Exam Complete: Yes Emergency Medical Condition: Yes Interpretation(s) Vital Signs Date Time Temp Pulse Resp B/P Pulse Ox O2 Delivery O2 Flow Rate FiO2 03/19/16 16:32 98.7 98 16 131/79 99 Differential Diagnosis Fracture versus contusion versus open fracture versus dislocation versus nail avulsion versus other Narrative Course Patient is a 45 old female who presented to him for evaluation of right thumb pain after closing in her truck door this afternoon. Imaging revealed a distal tuft fracture, the nail of the right thumb was pushed into the nailbed, the tissue under the nailbed pushed over the top of the nail itself. Digital block was performed to the right first finger with 0.5% bupivacaine after finger was thoroughly cleaned with Betadine and normal saline. When finger was adequately anesthetized, the fingernail was dislodged from the nailbed with tweezers and scissors. Swelling improved almost immediately after nail was dislodged. Patient remains neurovascularly intact. Patient tolerated the procedure well, sterile dressing applied. Imaging we ordered to assess for further placement of fracture after nail manipulation. Patient has multiple medication allergies. I spoke with her mother who is a nurse regarding her reactions. I also reviewed her medical records, per her last admission note she was able to tolerate Keflex if it was given with Benadryl. Keflex did cause hives but did not cause an anaphylactic reaction. She was given Benadryl and Keflex in the emergency department, we will monitor for any adverse reaction. Patient had no adverse reaction to Keflex. Attending physician assessed finger after the nail was debrided. Patient remains neurovascularly intact with brisk capillary refill. Wound was dressed with povidone iodine, nonadherent dressing, and sterile gauze. Patient was referred to Dr. Eli for follow-up, she was advised to call the office in the morning to schedule a follow-up appointment. She was encouraged to return to emergency department immediately for any new or worsening symptoms of infection. She verbalized understanding of these instructions. Patient stable for discharge. Diagnosis Primary Impression: Open fracture of tuft of distal phalanx of thumb Qualified Code: S62.521B - Open fracture of tuft of distal phalanx of thumb, right, initial encounter Additional Impression: Traumatic avulsion of nail plate of finger Qualified Code: S61.309A - Traumatic avulsion of nail plate of finger, initial encounter Referrals: Philippe Eli III, MD 1 day Call for appointment in the morning Patient Instructions: Finger Fracture (ED), General Instructions, Nail Avulsion (ED) Additional Instructions: Follow-up with Dr. Eli in 1 day Return to emergency department medially for any new or worsening symptoms or concerns or signs of infection Take medications as directed Follow-up with her primary doctor Med/Other Pt SpecificInfo: Prescription(s) given Scripts Diphenhydramine 25 Mg Cap50 Mg PO Q12H 10 Days Ref 0 take 30 minutes prior to keflex Prov:Concepción Duran 03/19/16 Cephalexin (Keflex)500 Mg Sth356 Mg PO Q12H 10 Days Ref 0 Prov:Concepción Duran 03/19/16 Oxycodone-Acetaminophen (Percocet)5-325 mg Tab1 Tab PO Q4H PRN (PAIN) #20 TAB Ref 0 Prov:Sylvester Jay MD 03/19/16 Disposition: 01 DISCHARGE HOME Condition: Stable Concepción Duran Mar 19, 2016 18:26
[2016-03-19] MEDS ORDERED: BUPIVACAINE HCL PF 0.5% 10 ML VIAL INFIL ONE (18:30)
[2016-03-19] MEDS ORDERED: CEPHALEXIN MONOHYDRATE 500 MG CAP PO ONE (19:45)
[2016-03-19] MEDS ORDERED: diphenhydrAMINE HCL 50 MG CAP PO ONE (19:45)
--- NOTE | 2016-03-19 20:45 | RADHPO ---
EXAM DATE/TIME: 03/19/2016 20:11 [facility] COMPARISON: No previous studies available for comparison. INDICATIONS : Slammed thumb in car door, post image due to holding pressure on thumb to stop bleeding. MEDICAL HISTORY : None. SURGICAL HISTORY : None. ENCOUNTER: Subsequent ACUITY: 1 day PAIN SCORE: 6/10 LOCATION: Right hand, first digit FINDINGS: There is a mildly displaced fracture of the distal phalanx of the thumb. No dislocation. No other fra ctures are seen. CONCLUSION: 1. Mildly displaced fracture of distal phalanx right thumb. Solomon Lowery MD on March 19, 2016 at 20:42 Board Certified Radiologist. This report was verified electronically.
[2016-03-19] MEDS ORDERED: PERC5TAB12 PO (21:26)
[2016-03-19] MEDS ORDERED: POVIDONE IODINE 10% OINT 30 GM TUBE TOPICAL ONE (21:45)
[2016-03-19] MEDS ORDERED: DIPH25CA PO (22:02)
[2016-03-19] MEDS ORDERED: CEPH-460 PO (22:02)
[2016-03-19 22:20] VITALS: BP 120/88
[2016-03-20] MEDS ORDERED: CEPH-460 PO (13:48)
[2016-03-21] MEDS ORDERED: DILT120T PO (14:12)
[2016-03-21] MEDS ORDERED: SILD20TA11 PO (14:12)
[2016-03-21] MEDS ORDERED: OXYC1CAP PO (15:43)
[2016-03-23] MEDS ORDERED: CLIN1CAP6 PO (16:11)
[2016-07-10] MEDS ORDERED: NORM0.9I4 IV (13:14)
[2016-07-10] MEDS ORDERED: SYNT88TA PO (13:14)
[2016-07-10] MEDS ORDERED: PROM6.254 PO (13:14)
[2016-07-10] MEDS ORDERED: PROM1SUP9 RECTAL (13:14)
[2016-07-10] MEDS ORDERED: HEPA100I16 IV (13:14)
[2016-07-10] MEDS ORDERED: PROTPAK PO (13:14)
[2016-07-10] MEDS ORDERED: CHOL4POW3 PO (13:14)
[2016-07-10] MEDS ORDERED: NITR0.4S SL (13:14)
== END 2016-03-19 22:23 | disposition home or self-care (01) ==
LOC: PHED 16:02 → PHEFT 22:23
DX: S62.521B Displaced fracture of distal phalanx of right thumb, initial encounter for open fracture (principal); S61.111A Laceration without foreign body of right thumb with damage to nail, initial encounter; I48.91 Unspecified atrial fibrillation; E78.00 Pure hypercholesterolemia, unspecified; I10 Essential (primary) hypertension; E06.3 Autoimmune thyroiditis; M79.7 Fibromyalgia; Z79.01 Long term (current) use of anticoagulants; Z86.718 Personal history of other venous thrombosis and embolism; W23.0XXA Caught, crushed, jammed, or pinched between moving objects, initial encounter; Y93.89 Activity, other specified; Y92.007 Garden or yard of unspecified non-institutional (private) residence as the place of occurrence of the external cause
CPT/HCPCS: 11730; 73140; 99283; Q0163

== ENCOUNTER → 2016-03-21 | Day surgery (SDC) | payer MEDICARE, OTHER ==
[~2016-03-21] VITALS: Ht 157.5 cm; Wt 66.0 kg
[~2016-03-21] MED LIST changes: +*HYDROmorphone PF 1 MG VIAL PERIprocedural Use ONLY ONE; +*diphenhydrAMINE HCL 50 MG/ML VIAL PERIprocedural Use ONLY ONE; +BACITRACIN TOP OINT 15 GM TUBE ONE; -BENZ100 PO; +BUPIVACAINE HCL PF 0.5% 30 ML VIAL ONE; +CEPH-460 PO; +CHOL4POW3 PO; +CLIN1CAP5 PO; +CLIN1CAP6 PO; +CLINDAMYCIN PHOS 600 MG/4 ML VIAL ONE; +DILT120T PO; +DIPH25CA PO; +HEPA100I16 IV; +HYDR-3533 PO; +INSULIN HUMAN REGULAR 1,000 UNITS/10 ML VIAL SQ PRN; +Infusaport/Implanted VAD PRN NS Lock Flush IVF; +LACTATED RINGER'S 1000 ML IV SCH; +LIDOCAINE HCL 2% 50 ML VIAL ONE; +METOPROLOL TARTRATE 25 MG TAB PO PRN; +MIDAZOLAM HCL 5 MG/5 ML VIAL ONE; +NALOXONE HCL 0.4 MG/ML AMP IV ONE; +NEOMYCIN/POLYMYXIN 1 ML G.U. IRRIGANT IR ONE; +NITR0.4S SL; +NORM0.9I4 IV; +ONDANSETRON HCL 4 MG/2 ML VIAL IV PUSH ONE; +OXYC1CAP PO; +PERC5TAB12 PO; +PHENYLEPH/NS 1000 MCG/10 ML SYR IV ONE; -PRED10PA2 PO; +PROM1SUP9 RECTAL; +PROM6.254 PO; +PROPOFOL 200 MG/20 ML AMP IV ONE; +PROTPAK PO; +SILD20TA11 PO; +SODIUM CHLORID 0.9% 500 ML IV SCH; +SODIUM CHLORIDE 0.9% INJ 100 ML ONE; +SUFentanil INJ 250 MCG/5 ML AMP ONE; +SYNT88TA PO
[2016-03-21 14:15] VITALS: BP 118/93; PULSE 88; RESP 20; TEMP 98.1; O2SAT 96
[2016-03-21 14:49] LABS: AUTOMATED NEUTROPHIL # 2.8 TH/MM3 (1.8-7.7); BASOPHIL # 0.1 TH/MM3 (0-0.2); BASOPHIL % 0.9 % (0.0-2.0); EOSINOPHIL # 0.1 TH/MM3 (0-0.4); EOSINOPHIL % 2.3 % (0.0-4.0); HEMO FLAGS DIFF FINAL; LYMPHOCYTE # 2.3 TH/MM3 (1.0-4.8); MEAN CELL VOLUME 87.3 FL (80.0-100.0); MEAN CORPUSCULAR HEMOGLOBIN 29.8 PG (27.0-34.0); MEAN CORPUSCULAR HGB CONC 34.2 % (32.0-36.0); MONO % 9.9 % (0.0-8.0); NEUT % 47.9 % (16.0-70.0); PLATELET COUNT 230 TH/MM3 (150-450); RED BLOOD COUNT 4.24 MIL/MM3 (4.00-5.30); RED CELL DISTRIBUTION WIDTH 13.5 % (11.6-17.2); WHITE BLOOD COUNT 5.9 TH/MM3 (4.0-11.0)
--- NOTE | 2016-03-21 16:09 | HHI.PR ---
Immediate Post Op Note Procedure Date: Mar 21, 2016 Pre Op Diagnosis: (1) Open fracture of tuft of distal phalanx of thumb Post Op Diagnosis: Surgeon: Philippe Eli III [place] Naturalist(s): doretha Procedure: Right thumb open reduction and pinning distal phalanx Debridement of skin and bone w open fracture, right thumb Right thumb nailbed repair Use of image intensifier Specimen(s) removed: cultures right thumb Anesthesia: General, Local Drains: None IVF Patient to: PACU Patient Condition: Good Philippe Eli III, MD Mar 21, 2016 16:09
[2016-03-21 18:05] VITALS: BP 121/69; PULSE 85; RESP 16; TEMP 97.7; O2SAT 97
--- NOTE | 2016-03-22 12:18 | MP ---
cc: PHILIPPE ELI III, M.D. DATE OF SURGERY 03/21/2016 PREOPERATIVE DIAGNOSIS Right thumb open fracture. PROCEDURE 1. Right thumb distal phalanx open reduction and pinning. 2. Debridement of skin, subcutaneous tissue, nail bed and bone associated with open fracture. 3. Right thumb nail bed repair. 4. Use of image intensifier. SURGEON Philippe Eli III, MD PROCEDURE The patient was brought to the operating room and placed supine on the operating room table. After the correct site and side of the surgery were verified by members of each team in the room multiple times including the patient and myself and after adequate preoperative markings and preoperative written consent were verified by everyone and after adequate preoperative time-out was performed to everyone's satisfaction, after adequate general anesthesia had been achieved, the right upper extremity was prepped and draped in the traditional sterile surgical fashion. A 50/50 mixture of 2% plain lidocaine and 0.5% plain Marcaine was infiltrated into the skin and deep to create a first digital block at the metacarpal level. The limb was then elevated and a highly placed, well-padded axillary tourniquet was inflated to 200 mmHg for a total of 21 minutes. The fingernail of the thumb was examined. The fingernail was found to be elevated off and the nail bed was found be injured deep to this. The fingernail was debrided and then ultimately removed. The bone was cultured, passed off the field as a specimen. Clot within the open fracture was then thoroughly irrigated and debrided. Any devitalized tissue was debrided sharply. Using two separate 0.035-cm K-wires under mini C-arm fluoroscopic guidance, they were advanced, securing complete reduction of the distal phalanx. The pins were tailored to length, cut and bent. Jurgan's balls were applied. Thorough irrigation was performed again. The nail bed was then repaired using interrupted 5-0 chromic sutures. The fingernail plate was used as a nail bed splint. Bacitracin ointment was applied. The splint was held in place with 5-0 chromic sutures. Xeroform was applied around the pin sites and over the nail bed. The hand and arm were thoroughly cleansed and dried. The well-molded thumb spica splint was made in the usual fashion. The axillary tourniquet was released prior to the placement of any splint. There was no evidence of any bleeding. Hemostasis was present. The patient tolerated the procedure well. Splint was made. She was awakened from anesthesia and transported to the Post-Anesthesia Care Unit awake and in stable condition. Sponge, needle and instrument counts were correct at the end of the case as reported by the nurses in the room. MD SANJEEV Roman III/GARY /4:56 PM /12:00 PM
== END | disposition home or self-care (01) ==
LOC: HSDC 13:15
PROVIDERS: ATTEND Orthopaedic Surgery Hand Surgery
DX: S62.522B Displaced fracture of distal phalanx of left thumb, initial encounter for open fracture (principal); W23.1XXA Caught, crushed, jammed, or pinched between stationary objects, initial encounter
CPT/HCPCS: 01830; 11012; 11760; 26765; 76000; 85025; J1170; J1200; J2250; J2310; J2370; J2405; L3808

== ENCOUNTER 2016-03-26 13:54 | Emergency (ER) | payer MEDICARE, MEDICAID ==
[~2016-03-26] VITALS: Ht 157.5 cm; Wt 66.0 kg
[~2016-03-26 13:54] MED LIST changes: -*HYDROmorphone PF 1 MG VIAL PERIprocedural Use ONLY ONE; -*diphenhydrAMINE HCL 50 MG/ML VIAL PERIprocedural Use ONLY ONE; -BACITRACIN TOP OINT 15 GM TUBE ONE; -BUPIVACAINE HCL PF 0.5% 30 ML VIAL ONE; -CHOL4POW3 PO; -CLIN1CAP5 PO; -CLINDAMYCIN PHOS 600 MG/4 ML VIAL ONE; -DILA4TAB2 PO; -GUAI100S5 PO; -HEPA100I16 IV; -HYDR-3533 PO; -INSULIN HUMAN REGULAR 1,000 UNITS/10 ML VIAL SQ PRN; -Infusaport/Implanted VAD PRN NS Lock Flush IVF; -LACTATED RINGER'S 1000 ML IV SCH; -LIDOCAINE HCL 2% 50 ML VIAL ONE; -METOPROLOL TARTRATE 25 MG TAB PO PRN; -MIDAZOLAM HCL 5 MG/5 ML VIAL ONE; -NALOXONE HCL 0.4 MG/ML AMP IV ONE; -NEOMYCIN/POLYMYXIN 1 ML G.U. IRRIGANT IR ONE; -NITR0.4S SL; -NORM0.9I4 IV; -ONDANSETRON HCL 4 MG/2 ML VIAL IV PUSH ONE; -PHENYLEPH/NS 1000 MCG/10 ML SYR IV ONE; -PROM1SUP9 RECTAL; -PROM6.254 PO; -PROPOFOL 200 MG/20 ML AMP IV ONE; -PROTPAK PO; -SODIUM CHLORID 0.9% 500 ML IV SCH; -SODIUM CHLORIDE 0.9% INJ 100 ML ONE; -SUFentanil INJ 250 MCG/5 ML AMP ONE; -SYNT88TA PO
[2016-03-26 14:28] VITALS: BP 116/79; PULSE 103; RESP 16; TEMP 99.4; O2SAT 97
--- NOTE | 2016-03-26 16:16 | PD ---
HPI Chief Complaint: Injury Time Seen by Provider: 16:16 Travel History International Travel<30 days: No Contact w/Intl Traveler<30days: No Traveled to known affect area: No History of Present Illness HPI 45-year-old female presents to the emergency department for evaluation of right thumb pain. The patient sustained a distal phalanx fracture of her right thumb one week ago and was seen in our emergency department. She also had a nail bed injury. She followed up with hand surgeon Dr. lEi in office and had open reduction and pinning of the fracture 5 days ago. States that she's had pain in the right hand surgery and she tried to take the Percocet she was prescribed but had an allergic reaction to this medication. States that she took all of her antibiotics as prescribed finishing them yesterday. States that this weekend she felt as though she might of had a fever and then this morning when her home health nurse came she took her temperature and noted that her temperature was 100.6F. She denies any cough or cold symptoms, nausea, vomiting, diarrhea, dysuria. She has appointment with Dr. Eli in office tomorrow but was concerned about having worsening pain and fever. No other complaints. PFSH Past Medical History Hx Anticoagulant Therapy: Yes Arthritis: Yes (RHEUMATOID) Asthma: No Atrial Fibrillation: Yes Autoimmune Disease: Yes (Lupus, sarcoidosis) Anxiety: Yes Depression: No Cancer: No Cardiovascular Problems: Yes High Cholesterol: Yes Chemotherapy: Yes Chest Pain: Yes Congestive Heart Failure: No COPD: No Diabetes: No Diminished Hearing: Yes ([place] RIGHT EAR) Deep Vein Thrombosis: Yes Endocrine: No Fibromyalgia: Yes Gastrointestinal Disorders: Yes (BILIARY PROBLEMS, GASTROPARESIS) GERD: Yes Genitourinary: No Headaches: No Hepatitis: No Hiatal Hernia: No Hypertension: Yes Implanted Vascular Access Dvce: Yes Kidney Stones: No Musculoskeletal: Yes (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, ) Neurologic: Yes Psychiatric: Yes Reproductive: No Respiratory: Yes (pulmonary htn) Immunizations Current: Yes Migraines: Yes (TEMPORAL ARTHRITIS ) Renal Failure: No Seizures: No Sleep Apnea: No Thyroid Disease: Yes (GINA'S) PNEUMOCCOCAL Vaccine (Year): 3 ?: Not : 4 Para: 3 Miscarriage: 1 Ovarian Cysts: Yes ((R) REMOVED) Tubal Ligation: Yes Past Surgical History Abdominal Surgery: Yes (G-J TUBE INSERTION, cholecystectomy) AICD: No Body Medical Devices: IVC FILTER Cardiac Surgery: No Section: Yes Cholecystectomy: Yes Ear Surgery: No Eye Surgery: No Genitourinary Surgery: No Gynecologic Surgery: Yes (PARTIAL HYSTERECTOMY, BREAST REDUCTION;csection) Hysterectomy: Yes Joint Replacement: No Neurologic Surgery: No Oral Surgery: No Pacemaker: No Thoracic Surgery: No Tonsillectomy: Yes (1981) Other Surgery: Yes ( RECTAL SURGERY, BREAST REDUCTION, GREENFILED FILTER) Social History Alcohol Use: No Tobacco Use: No Substance Use: Yes Allergies-Medications (Allergen,Severity, Reaction): Coded Allergies: Contrast Media (Verified Allergy, Severe, Swelling, 03/26/16) Demerol (Verified Allergy, Severe, Hives, 03/26/16) Keflex (Verified Allergy, Severe, hives, 03/26/16) Premedication does not cause hives. Levaquin (Verified Allergy, Severe, ARM AT SITE RED AND THEN HIVES ALL OVER BODY, 03/26/16) Morphine (Verified Allergy, Severe, severe hives, 03/26/16) Percocet (Verified Allergy, Severe, Hives, 03/26/16) Bactrim (Verified Allergy, Intermediate, Hives, 03/26/16) Fentanyl (Verified Allergy, Intermediate, HIVES, 03/26/16) Zyvox (Verified Allergy, Intermediate, Itching, 03/26/16) develops hives and itching Ancef (Verified Allergy, Mild, HIVES, 03/26/16) Premedication does not cause hives. Sulfa (Verified Allergy, Unknown, 03/26/16) SEVERE ITCHING Vancomycin (Verified Adverse Reaction, Severe, HIVES, 03/26/16) does ok with benadryl premedicaiton Reported Meds & Prescriptions Reported Meds & Active Scripts Active Lortab (Hydrocodone-Acetaminophen) 5-325 Mg Tab 1 Tab PO Q4-6H PRN Keflex (Cephalexin) 500 Mg Cap 500 Mg PO Q6H 3 Days Diphenhydramine (Diphenhydramine HCl) 25 Mg Cap 50 Mg PO Q12H 10 Days take 30 minutes prior to keflex Epipen 2-Irvin Inj (Epinephrine) 0.3 Mg/0.3 Ml Pfpen 0.3 Mg IM ONCE PRN Xarelto (Rivaroxaban) 20 Mg Tab 20 Mg PO DAILY 30 Days Oxygen tank (Oxygen) 1 Ea Tank 2 Liter BETSY.CANULA CONTINUOUS Oxygen Concentrator Portable Gaseous 2 L/min via Nasal Cannula Continuous For 3 months- for extention follow with PCP Reported Sildenafil 20 Mg Tab 20 Mg PO TID Diltiazem (Diltiazem HCl) 120 Mg Tab 120 Mg PO DAILY Topamax (Topiramate) 100 Mg Tab 100 Mg PO BID Phenergan Inj (Promethazine HCl) 25 Mg/Ml Inj 25 Mg IVP Q6HR PRN Nexium (Esomeprazole DR) 40 Mg Capdr 40 Mg PO DAILY Levothyroxine (Levothyroxine Sodium) 88 Mcg Tab 88 Mcg PO DAILY Fenofibrate Micronized 200 Mg Cap 200 Mg PO DAILY Review of Systems Except as stated in HPI: all other systems reviewed are Neg Physical Exam Narrative GENERAL: Well-nourished and well-developed pleasant female patient in no acute distress who is nontoxic appearing. SKIN: Warm and dry. HEAD: Normocephalic and atraumatic. EYES: No injection, drainage, or hyphema noted. PERRLA. EOMI. ENT: No nasal drainage noted. Oropharynx is clear. NECK: Supple and the trachea is midline. CARDIOVASCULAR: Regular rate and rhythm. RESPIRATORY: Breath sounds are equal bilaterally with no accessory muscle use, wheezing, rhonchi, or crackles. EXTREMITY: Right hand thumb with post-op pins, nail bed with nail removed. There is no erythema, warmth, discharge or drainage, swelling of the finger. Distal extremity neurovascularly intact with intact two point discrimination. NEUROLOGICAL: Awake, alert, and oriented. Normal speech and gait. Cranial nerves are grossly intact. Data Data Last Documented VS Vital Signs Date Time Temp Pulse Resp B/P Pulse Ox O2 Delivery O2 Flow Rate FiO2 03/26/16 14:28 99.4 103 16 116/79 97 Orders Splint Or Brace Apply/Monitor (03/26/16 16:38) MDM Medical Decision Making Medical Screen Exam Complete: Yes Emergency Medical Condition: Yes Differential Diagnosis Postop infection versus postop wound versus wound recheck versus wound care Narrative Course 45-year-old female presents to the emergency department for evaluation of right hand thumb pain status post open reduction and fixation of distal phalanx fracture 5 days ago. Patient has a low-grade temperature of 99.4F. Otherwise vital signs are stable. I did remove the splint and the dressing to look at the wound which appears to be healing well with no signs of infection. The patient has not been taking her pain medicine because she had an allergic reaction to it. She has multiple allergies listed on her chart. I asked her if she has taken hydrocodone in the past and she states it has been along time but she does not recall any allergic reaction to hydrocodone and it is not listed on her allergies. We'll give the patient 3 more days of Keflex as she has only taken a week of Keflex and will give her prescription for Lortab. She has an appointment with her hand surgeon tomorrow in office and is instructed to keep his appointment as scheduled. We replaced the splint. Patient verbalizes understanding and agreement with treatment plan. I discussed the case with my attending physician Dr. Flower who is aware of the patients history, physical examination findings, and treatment plan. Diagnosis Primary Impression: Open fracture of tuft of distal phalanx of thumb Qualified Code: S62.521D - Open fracture of tuft of distal phalanx of thumb, right, with routine healing, subsequent encounter Referrals: Philippe Eli III, MD Patient Instructions: Finger Fracture (ED), General Instructions Additional Instructions: Take medications as prescribed. Follow-up with Dr. Eli in office tomorrow. Return to the ED for any acute worsening of symptoms. Med/Other Pt SpecificInfo: Prescription(s) given Scripts Hydrocodone-Acetaminophen (Lortab)5-325 Mg Tab1 Tab PO Q4-6H PRN (PAIN) #15 TAB Ref 0 Prov:Lowell Flower MD 03/26/16 Cephalexin (Keflex)500 Mg [id number] Mg PO Q6H 3 Days Ref 0 Prov:Lowell Flower MD 03/26/16 Disposition: 01 DISCHARGE HOME Condition: Stable Anna Mendez Mar 26, 2016 16:16
[2016-03-26] MEDS ORDERED: CEPH-460 PO (16:37)
[2016-03-26] MEDS ORDERED: HYDR-3533 PO (16:38)
[2016-07-10] MEDS ORDERED: PROM6.254 PO (13:14)
[2016-07-10] MEDS ORDERED: PROM1SUP9 RECTAL (13:14)
[2016-07-10] MEDS ORDERED: SYNT88TA PO (13:14)
[2016-07-10] MEDS ORDERED: NITR0.4S SL (13:14)
[2016-07-10] MEDS ORDERED: PROTPAK PO (13:14)
[2016-07-10] MEDS ORDERED: CHOL4POW3 PO (13:14)
[2016-07-10] MEDS ORDERED: HEPA100I16 IV (13:14)
[2016-07-10] MEDS ORDERED: NORM0.9I4 IV (13:14)
== END 2016-03-26 17:07 | disposition home or self-care (01) ==
LOC: PHED 13:54 → PHEFT 17:07
DX: S62.521D Displaced fracture of distal phalanx of right thumb, subsequent encounter for fracture with routine healing (principal); R50.9 Fever, unspecified; I48.91 Unspecified atrial fibrillation; I10 Essential (primary) hypertension; E07.9 Disorder of thyroid, unspecified; E78.00 Pure hypercholesterolemia, unspecified; X58.XXXD Exposure to other specified factors, subsequent encounter; Z79.01 Long term (current) use of anticoagulants; Z87.39 Personal history of other diseases of the musculoskeletal system and connective tissue; Z86.2 Personal history of diseases of the blood and blood-forming organs and certain disorders involving the immune mechanism; Z86.59 Personal history of other mental and behavioral disorders; Z86.718 Personal history of other venous thrombosis and embolism; Z87.19 Personal history of other diseases of the digestive system; Z86.69 Personal history of other diseases of the nervous system and sense organs; Z87.09 Personal history of other diseases of the respiratory system
CPT/HCPCS: 99283; L3808

== ENCOUNTER 2016-04-04 19:50 | Emergency (ER) | payer MEDICARE, OTHER ==
[~2016-04-04] VITALS: Ht 157.5 cm; Wt 65.0 kg
[~2016-04-04 19:50] MED LIST changes: -CLIN1CAP6 PO; +HYDR-3533 PO; -OXYC1CAP PO; -PERC5TAB12 PO
[2016-04-04 19:54] VITALS: BP 128/88; PULSE 98; RESP 14; TEMP 98.1; O2SAT 94
--- NOTE | 2016-04-04 20:09 | PD ---
HPI Chief Complaint: Skin Problem Time Seen by Provider: 20:09 Travel History International Travel<30 days: No Contact w/Intl Traveler<30days: No Traveled to known affect area: No History of Present Illness HPI 45 year-old female history of lupus, migraine headaches, hypertension, A. fib, and multiple allergies, presents to emergency department at the recommendation of Dr. Correia. Patient states that he has faxed over admission orders. On March 18, patient sustained an open distal tuft fracture of the right thumb. She underwent surgical debridement and pinning by Dr. Eli on the . She was seen and evaluated in the emergency department on the at her Keflex was extended for 3 days. Patient has been experiencing increased pain, subjective fever, chills. She states the pain is now down to the MCP joint of the thumb. Dr. Eli is out of town per the patient and his office recommended she follow-up with her primary care provider and they would go along with whatever her primary care provider recommended. She states after seeing her primary care provider, he advised she come to the emergency department. PFSH Past Medical History Hx Anticoagulant Therapy: Yes Arthritis: Yes (RHEUMATOID) Asthma: No Atrial Fibrillation: Yes Autoimmune Disease: Yes (Lupus, sarcoidosis) Anxiety: Yes Depression: No Cancer: No Cardiovascular Problems: Yes (A FIB) High Cholesterol: Yes Chemotherapy: Yes Chest Pain: Yes Congestive Heart Failure: No COPD: No Diabetes: No Diminished Hearing: Yes ([place] RIGHT EAR) Deep Vein Thrombosis: Yes Endocrine: No Fibromyalgia: Yes Gastrointestinal Disorders: Yes (BILIARY PROBLEMS, GASTROPARESIS) GERD: Yes Genitourinary: No Headaches: No Hepatitis: No Hiatal Hernia: No Hypertension: Yes Implanted Vascular Access Dvce: Yes Kidney Stones: No Musculoskeletal: Yes (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, ) Neurologic: Yes Psychiatric: Yes Reproductive: No Respiratory: Yes (NODULES) Immunizations Current: Yes Migraines: Yes (TEMPORAL ARTHRITIS ) Renal Failure: No Seizures: No Sleep Apnea: No Thyroid Disease: Yes (GINA'S) PNEUMOCCOCAL Vaccine (Year): 3 ?: Not : 4 Para: 3 Miscarriage: 1 Ovarian Cysts: Yes ((R) REMOVED) Tubal Ligation: Yes Past Surgical History Abdominal Surgery: Yes (G-J TUBE INSERTION, cholecystectomy) AICD: No Body Medical Devices: IVC FILTER Cardiac Surgery: No Section: Yes Cholecystectomy: Yes Ear Surgery: No Eye Surgery: No Genitourinary Surgery: No Gynecologic Surgery: Yes (PARTIAL HYSTERECTOMY, BREAST REDUCTION;csection) Hysterectomy: Yes Joint Replacement: No Neurologic Surgery: No Oral Surgery: No Pacemaker: No Thoracic Surgery: No Tonsillectomy: Yes (1981) Other Surgery: Yes ( RECTAL SURGERY, BREAST REDUCTION, GREENFILED FILTER) Social History Alcohol Use: No Tobacco Use: No Substance Use: Yes Allergies-Medications (Allergen,Severity, Reaction): Coded Allergies: Contrast Media (Verified Allergy, Severe, Swelling, 03/27/16) Demerol (Verified Allergy, Severe, Hives, 03/27/16) Keflex (Verified Allergy, Severe, hives, 03/27/16) Premedication does not cause hives. Levaquin (Verified Allergy, Severe, ARM AT SITE RED AND THEN HIVES ALL OVER BODY, 03/27/16) Morphine (Verified Allergy, Severe, severe hives, 03/27/16) Percocet (Verified Allergy, Severe, Hives, 03/27/16) Bactrim (Verified Allergy, Intermediate, Hives, 03/27/16) Fentanyl (Verified Allergy, Intermediate, HIVES, 03/27/16) Zyvox (Verified Allergy, Intermediate, Itching, 03/27/16) develops hives and itching Ancef (Verified Allergy, Mild, HIVES, 03/27/16) Premedication does not cause hives. Augmentin (Verified Allergy, Mild, HIVES AND TONGUE SWELLING, 04/04/16) Nafcillin (Verified Allergy, Mild, HIVES, 04/04/16) Sulfa (Verified Allergy, Unknown, 03/27/16) SEVERE ITCHING Vancomycin (Verified Adverse Reaction, Severe, HIVES, 03/27/16) does ok with benadryl premedicaiton Reported Meds & Prescriptions Reported Meds & Active Scripts Active Lortab (Hydrocodone-Acetaminophen) 5-325 Mg Tab 1 Tab PO Q4-6H PRN Keflex (Cephalexin) 500 Mg Cap 500 Mg PO Q6H 3 Days Diphenhydramine (Diphenhydramine HCl) 25 Mg Cap 50 Mg PO Q12H 10 Days take 30 minutes prior to keflex Epipen 2-Irvin Inj (Epinephrine) 0.3 Mg/0.3 Ml Pfpen 0.3 Mg IM ONCE PRN Xarelto (Rivaroxaban) 20 Mg Tab 20 Mg PO DAILY 30 Days Oxygen tank (Oxygen) 1 Ea Tank 2 Liter BETSY.CANULA CONTINUOUS Oxygen Concentrator Portable Gaseous 2 L/min via Nasal Cannula Continuous For 3 months- for extention follow with PCP Reported Sildenafil 20 Mg Tab 20 Mg PO TID Diltiazem (Diltiazem HCl) 120 Mg Tab 120 Mg PO DAILY Topamax (Topiramate) 100 Mg Tab 100 Mg PO BID Phenergan Inj (Promethazine HCl) 25 Mg/Ml Inj 25 Mg IVP Q6HR PRN Nexium (Esomeprazole DR) 40 Mg Capdr 40 Mg PO DAILY Levothyroxine (Levothyroxine Sodium) 88 Mcg Tab 88 Mcg PO DAILY Fenofibrate Micronized 200 Mg Cap 200 Mg PO DAILY Review of Systems Except as stated in HPI: all other systems reviewed are Neg Physical Exam Narrative GENERAL: Well-nourished female patient, ambulatory and in no acute distress SKIN: Warm and dry. HEAD: Atraumatic. Normocephalic. EYES: Pupils equal and round. No scleral icterus. No injection or drainage. ENT: No nasal bleeding or discharge. Mucous membranes pink and moist. NECK: Trachea midline. No JVD. CARDIOVASCULAR: Elevated rate and rhythm. No murmur appreciated. RESPIRATORY: No accessory muscle use. Clear to auscultation. Breath sounds equal bilaterally. GASTROINTESTINAL: Abdomen soft, non-tender, nondistended. Hepatic and splenic margins not palpable. MUSCULOSKELETAL: No obvious deformities. No clubbing. No cyanosis. No edema. Right upper extremity splint in place. NEUROLOGICAL: Awake and alert. No obvious cranial nerve deficits. Motor grossly within normal limits. Normal speech. PSYCHIATRIC: Appropriate mood and affect; insight and judgment normal. Data Data Last Documented VS Vital Signs Date Time Temp Pulse Resp B/P Pulse Ox O2 Delivery O2 Flow Rate FiO2 04/04/16 19:54 98.1 98 14 128/88 94 Room Air Orders Iv Access Insert/Monitor (04/04/16 20:15) Complete Blood Count With Diff (04/04/16 20:15) Comprehensive Metabolic Panel (04/04/16 20:15) Coag Profile (04/04/16 20:15) Lactic Acid (04/04/16 20:15) Westergren Sedimentation Rate (04/04/16 20:15) Blood Culture (04/04/16 20:15) MDM Medical Decision Making Medical Screen Exam Complete: Yes Emergency Medical Condition: Yes Medical Record Reviewed: Yes Differential Diagnosis Infected wound versus healing wound versus instrumentation rejection versus osteomyelitis versus sepsis Narrative Course 45 year-old female presents to emergency department for evaluation. Workup was initiated in triage. Once a medical bed becomes available, patient will be transferred and care assumed by that provider. Condition: Stable Syeda Kirkpatrick Apr 04, 2016 20:09 Syeda Kirkpatrick Apr 04, 2016 20:09
[2016-04-04 21:34] LABS: AUTOMATED NEUTROPHIL # 4.9 TH/MM3 (1.8-7.7); BASOPHIL # 0.1 TH/MM3 (0-0.2); BASOPHIL % 1.2 % (0.0-2.0); EOSINOPHIL # 0.5 TH/MM3 (0-0.4); EOSINOPHIL % 5.7 % (0.0-4.0); HEMATOCRIT 38.9 % (35.0-46.0); HEMO FLAGS DIFF FINAL; LYMPHOCYTE # 2.6 TH/MM3 (1.0-4.8); MEAN CELL VOLUME 84.8 FL (80.0-100.0); MEAN CORPUSCULAR HEMOGLOBIN 29.1 PG (27.0-34.0); MEAN CORPUSCULAR HGB CONC 34.3 % (32.0-36.0); MONO % 7.8 % (0.0-8.0); NEUT % 56.3 % (16.0-70.0); PLATELET COUNT 298 TH/MM3 (150-450); RED BLOOD COUNT 4.59 MIL/MM3 (4.00-5.30); RED CELL DISTRIBUTION WIDTH 13.2 % (11.6-17.2); WHITE BLOOD COUNT 8.8 TH/MM3 (4.0-11.0)
[2016-04-04 21:40] VITALS: BP 119/58; PULSE 85; RESP 18; O2SAT 97
[2016-04-04 21:45] LABS: APTT (PATIENT) 22.4 SEC (24.3-30.1); INTERNATIONAL NORMALIZED RATIO 0.9 RATIO; PROTHROMBIN TIME - PATIENT 10.2 SEC (9.8-11.6)
[2016-04-04 21:54] LABS: ANION GAP 9 MEQ/L (5-15); AST (GOT) 12 U/L (15-37); BICARBONATE 24.9 MEQ/L (21.0-32.0); BLOOD UREA NITROGEN 21 MG/DL (7-18); CHLORIDE 104 MEQ/L (98-107); GLOMERULAR FILTRATION RATE 84 ML/MIN (>89); POTASSIUM 3.8 MEQ/L (3.5-5.1); SODIUM (NA) 138 MEQ/L (136-145)
[2016-04-04 21:57] LABS: ALKALINE PHOSPHATASE 44 U/L (45-117); ALT (GPT) 20 U/L (10-53); TOTAL BILIRUBIN ADULT 0.2 MG/DL (0.2-1.0)
--- NOTE | 2016-04-04 22:53 | PD ---
Data Data Last Documented VS Vital Signs Date Time Temp Pulse Resp B/P Pulse Ox O2 Delivery O2 Flow Rate FiO2 04/04/16 21:40 85 18 119/58 97 Room Air 04/04/16 19:54 98.1 Orders Iv Access Insert/Monitor (04/04/16 20:15) Complete Blood Count With Diff (04/04/16 20:15) Comprehensive Metabolic Panel (04/04/16 20:15) Coag Profile (04/04/16 20:15) Lactic Acid (04/04/16 20:15) Westergren Sedimentation Rate (04/04/16 20:15) Blood Culture (04/04/16 20:15) Acetamin-Hydrocod 325-5 Mg (Craig 5-325 (04/04/16 23:15) Clindamycin (Cleocin) (04/04/16 23:15) Heparin Central Flush (Heparin Central F (04/04/16 23:15) Heparin Central Flush (Heparin Central F (04/04/16 23:15) Labs Laboratory Tests Test 04/04/16 21:05 White Blood Count 8.8 TH/MM3 Red Blood Count 4.59 MIL/MM3 Hemoglobin 13.4 GM/DL Hematocrit 38.9 % Mean Corpuscular Volume 84.8 FL Mean Corpuscular Hemoglobin 29.1 PG Mean Corpuscular Hemoglobin 34.3 % Concent Red Cell Distribution Width 13.2 % Platelet Count 298 TH/MM3 Mean Platelet Volume 7.1 FL Neutrophils (%) (Auto) 56.3 % Lymphocytes (%) (Auto) 29.0 % Monocytes (%) (Auto) 7.8 % Eosinophils (%) (Auto) 5.7 % Basophils (%) (Auto) 1.2 % Neutrophils # (Auto) 4.9 TH/MM3 Lymphocytes # (Auto) 2.6 TH/MM3 Monocytes # (Auto) 0.7 TH/MM3 Eosinophils # (Auto) 0.5 TH/MM3 Basophils # (Auto) 0.1 TH/MM3 CBC Comment DIFF FINAL Differential Comment Erythrocyte Sedimentation Rate 5 mm/hr Prothrombin Time 10.2 SEC Prothromb Time International 0.9 RATIO Ratio Activated Partial 22.4 SEC Thromboplast Time Sodium Level 138 MEQ/L Potassium Level 3.8 MEQ/L Chloride Level 104 MEQ/L Carbon Dioxide Level 24.9 MEQ/L Anion Gap 9 MEQ/L Blood Urea Nitrogen 21 MG/DL Creatinine 0.74 MG/DL Estimat Glomerular Filtration 84 ML/MIN Rate Random Glucose 103 MG/DL Lactic Acid Level 1.2 mmol/L Calcium Level 9.2 MG/DL Total Bilirubin 0.2 MG/DL Aspartate Amino Transf 12 U/L (AST/SGOT) Alanine Aminotransferase 20 U/L (ALT/SGPT) Alkaline Phosphatase 44 U/L Total Protein 7.3 GM/DL Albumin 3.9 GM/DL [facility] Medical Record Reviewed: Yes Supervised Visit with LISA: Yes Narrative Course CBC & BMP Diagram 04/04/16 21:05 LFTs normal Lactic acid 1.2 Coags 10.2 / 0.9 / 10.2 The case was discussed with Dr. Eli. Presentation is reassuring overall as there is appropriate erythema about the thumb without discharge or any sign of a flexor tenosynovitis or infection otherwise. Per recommendation of Dr. Eli Will apply Xeroform and a clean dressing. Follow-up with him in the office on Saturday. Fortunately the provider who saw the patient about one week ago was able to evaluate the thumb at bedside; appropriate interval healing and no worsening of possible cellulitis/post-op wound infection. Pt states she has follow up in office in two days. I can appreciate no sign of flexor tenosynovitis or potentially digit threatening post-operative wound infection. Diagnosis Primary Impression: Open fracture of tuft of distal phalanx of thumb Qualified Code: S62.521D - Open fracture of tuft of distal phalanx of thumb, right, with routine healing, subsequent encounter Referrals: Philippe Eli III, MD Call office of Dr Eli tomorrow and say Dr Eli wants you to be seen by him in the office on Saturday. Additional Instruction: You have a choice when it comes to health care, and we are glad that you chose [facility]. Hopefully, we have met your expectations on today's visit. You are welcome to return to [facility] at any time, as we are committed to meeting the health care needs of our community. Med/Other Pt SpecificInfo: Prescription(s) given Scripts Clindamycin 150 Mg Vab539 Mg PO Q8HR 10 Days Ref 0 Prov:David Oneill MD 04/04/16 Hydrocodone-Acetaminophen (Lortab)5-325 Mg Tab1-2 Tab PO Q8HR PRN (PAIN) #20 TAB Ref 0 Prov:David Oneill MD 04/04/16 Disposition: 01 DISCHARGE HOME Condition: Stable David Oneill MD Apr 04, 2016 22:53
[2016-04-04] MEDS ORDERED: HYDR-3533 PO (23:08)
[2016-04-04] MEDS ORDERED: CLIN1CAP5 PO (23:08)
[2016-04-04] MEDS ORDERED: ACETAMINOPHEN/HYDROcodone 325 MG/5 MG TAB PO ONE (23:15)
[2016-04-04] MEDS ORDERED: CLINDAMYCIN 150 MG CAP PO ONE (23:15)
[2016-07-10] MEDS ORDERED: PROM1SUP9 RECTAL (13:14)
[2016-07-10] MEDS ORDERED: PROM6.254 PO (13:14)
[2016-07-10] MEDS ORDERED: CHOL4POW3 PO (13:14)
[2016-07-10] MEDS ORDERED: SYNT88TA PO (13:14)
[2016-07-10] MEDS ORDERED: HEPA100I16 IV (13:14)
[2016-07-10] MEDS ORDERED: NITR0.4S SL (13:14)
[2016-07-10] MEDS ORDERED: NORM0.9I4 IV (13:14)
[2016-07-10] MEDS ORDERED: PROTPAK PO (13:14)
== END 2016-04-04 23:50 | disposition home or self-care (01) ==
LOC: NETRI 19:50 → NEPC 23:50
DX: S62.521A Displaced fracture of distal phalanx of right thumb, initial encounter for closed fracture (principal); M32.9 Systemic lupus erythematosus, unspecified; M79.7 Fibromyalgia; I10 Essential (primary) hypertension; I48.91 Unspecified atrial fibrillation; X58.XXXA Exposure to other specified factors, initial encounter; Z79.01 Long term (current) use of anticoagulants
CPT/HCPCS: 80053; 83605; 85025; 85610; 85652; 85730; 87040; 99283; J1642

== ENCOUNTER 2016-04-19 08:29 | Day surgery (SDC) | payer MEDICARE, OTHER ==
[~2016-04-19] VITALS: Ht 157.5 cm; Wt 63.6 kg
[2016-04-19] VITALS (7 sets, daily range): BP systolic 106–146; BP diastolic 59–96; PULSE 59–85; RESP 16–20; TEMP 97.6–98.2; O2SAT 93–99
[~2016-04-19 08:29] MED LIST changes: -CEPH-460 PO; +CLIN1CAP5 PO; -DIPH25CA PO; -HYDR-3533 PO
[2016-04-19] MEDS ORDERED: SILD20TA11 PO (08:49)
[2016-04-19] MEDS ORDERED: HYDROmorphone HCL PF 2 MG/ML VIAL ONE (09:40)
[2016-04-19] MEDS ORDERED: MIDAZOLAM HCL 5 MG/5 ML VIAL ONE (09:40)
[2016-04-19] MEDS ORDERED: IOHEXOL 350 MG/ML 50 ML BTL (for RAD DIAG) G-TUBE ONE (10:32)
[2016-04-19] MEDS ORDERED: diphenhydrAMINE HCL 50 MG/ML VIAL ONE (10:40)
[2016-04-19] MEDS ORDERED: Infusaport/Implanted VAD PRN NS Lock Flush IVF (10:45)
--- NOTE | 2016-04-19 10:45 | PD.RAD ---
Post Procedure Progress Note Pre Procedure Diagnosis: (1) GJ tube dislodgement Post Procedure Diagnosis: (1) GJ tube dislodgement Procedure Date: Apr 19, 2016 Supervising Radiologist: Jaden Land Proceduralist/Assist: Marina Gonzalez, RT(R), Celi Michel RT(R)() Anesthesia: Conscious Sedation Plan of Activity Patient to Unit: ROPU Patient Condition: Good See PACS Report for procedural detail/treatment Feeding Tube Gastro/Jejunostomy Exchange Jaden Ladn MD Apr 19, 2016 10:45
--- NOTE | 2016-04-19 10:48 | RADRPT ---
EXAM DATE/TIME: 04/19/2016 09:48 [facility] COMPARISON: CHANGE OF GJ-TUBE CATHETER, February 15, 2016, 9:49. INDICATIONS : Patient with history of gastroparesis in need of GJ tube exchange. MEDICAL HISTORY : Systemic lupus, HTN, A-Fib, Scott, Migraines, DVT's, Anemia SURGICAL HISTORY : IVC Filter, Gtube, Cholecystectomy, Port placement, Bronchoscopy, Back surgery ENCOUNTER: Subsequent ACUITY: >1 year PAIN SCORE: 0/10 FLUORO TIME: 0.6 minutes IMAGE SERIES: 2 SEDATION TIME: 30 minutes CONTRAST: 10 cc Omnipaque (iohexol) 350 MEDICATION(S): 1.) 3.5 mg midazolam (Versed) IV 2.) 2 mg hydromorphone (Dilaudid) IV DEVICE(S): 1.) 22 Polish Transgastric tube PROCEDURE : 1. Fluoroscopically guided gastrojejunostomy tube exchange. 2. Conscious sedation with continuous EKG and oximetry monitoring. The risks, benefits and alternatives to the procedure were explained and verbal and written consent w as obtained. The site was prepped in sterile fashion. Full sterile technique was used, including ca p, mask, sterile gloves and gown and a large sterile sheet. Hand hygiene and 2% chlorhexidine and/or betadine/alcohol prep was utilized per protocol for cutaneous antisepsis. The skin and subcutaneous tissues were infiltrated with local anesthetic solution. With fluoroscopic guidance a guidewire was passed through the previous gastrojejunostomy tube and a f resh tube was placed over the guidewire. The balloon was inflated with appropriate volume of saline. Injection of positive contrast demonstrates good position of the gastric and jejunal lumens of the tube. Conscious sedation was performed with the prescribed dosages and duration as above in the presence of an independent trained radiology nurse to assist in the monitoring of the patient. EKG and oximetry remained stable throughout the procedure. The patient tolerated the procedure well and there were n o complications. The patient was sent to post anesthesia recovery in stable condition. CONCLUSION: Uncomplicated gastrojejunostomy tube exchange as above. Jaden Land MD on April 19, 2016 at 10:46 Board Certified Radiologist. This report was verified electronically.
[2016-04-19] MEDS ORDERED: diphenhydrAMINE HCL 50 MG/ML VIAL IV ONE ×2 (11:15→11:30)
[2016-04-19] MEDS ORDERED: RESP: RACEPINEPHRINE 2.25% 0.5 ML NEB NEB ONE (12:30)
[2016-04-19] MEDS ORDERED: methylPREDNISolone SOD SUCC 125 MG/2 ML VIAL ONE ×2 (13:07)
[2016-04-19] MEDS ORDERED: methylPREDNISolone SOD SUCC 125 MG/2 ML VIAL IV ONE (13:45)
[2016-07-10] MEDS ORDERED: PROM6.254 PO (13:14)
[2016-07-10] MEDS ORDERED: CHOL4POW3 PO (13:14)
[2016-07-10] MEDS ORDERED: NORM0.9I4 IV (13:14)
[2016-07-10] MEDS ORDERED: SYNT88TA PO (13:14)
[2016-07-10] MEDS ORDERED: NITR0.4S SL (13:14)
[2016-07-10] MEDS ORDERED: HEPA100I16 IV (13:14)
[2016-07-10] MEDS ORDERED: PROM1SUP9 RECTAL (13:14)
[2016-07-10] MEDS ORDERED: PROTPAK PO (13:14)
== END 2016-04-19 14:30 | disposition home or self-care (01) ==
LOC: HROP 08:29 → HRIP 08:30 → HROP 14:30
DX: K94.23 Gastrostomy malfunction (principal); K31.84 Gastroparesis; I48.91 Unspecified atrial fibrillation; I10 Essential (primary) hypertension; M32.9 Systemic lupus erythematosus, unspecified
CPT/HCPCS: 49452; 94664; 99152; 99153; C1769; C1874; J1170; J1200; J1642; J2250; J2930; Q9967

== ENCOUNTER 2016-06-25 08:32 | Day surgery (SDC) | payer MEDICARE, OTHER ==
[~2016-06-25] VITALS: Ht 157.5 cm; Wt 63.2 kg
[~2016-06-25 08:32] MED LIST changes: -CLIN1CAP5 PO
[2016-06-25 08:56] VITALS: BP 125/89; PULSE 65; RESP 20; TEMP 98.2; O2SAT 97
[2016-06-25] MEDS ORDERED: diphenhydrAMINE HCL 50 MG/ML VIAL IV STA (09:27)
[2016-06-25] MEDS ORDERED: HYDROmorphone HCL PF 2 MG/ML VIAL ONE (09:53)
[2016-06-25] MEDS ORDERED: MIDAZOLAM HCL 5 MG/5 ML VIAL ONE (09:53)
--- NOTE | 2016-06-25 10:26 | PD.RAD ---
Post Procedure Progress Note Pre Procedure Diagnosis: (1) GJ tube damaged Post Procedure Diagnosis: (1) GJ tube damaged Procedure Date: June 25, 2016 Supervising Radiologist: Rogelio Bhakta JR Proceduralist/Assist: Trav Wilson RT(R), Velvet Villagomez RT(R)(CV) Anesthesia: Conscious Sedation Plan of Activity Patient to Unit: ROPU Patient Condition: Good See PACS Report for procedural detail/treatment Feeding Tube Gastro/Jejunostomy Exchange Yi: 22 Findings: Original GJ tube replaced secondary to cracked tube. Jr. Yony,Rogelio Salvador MD June 25, 2016 10:26
[2016-06-25 10:30] VITALS: BP 102/67; PULSE 65; RESP 16; TEMP 98; O2SAT 98
[2016-06-25] MEDS ORDERED: IOHEXOL 350 MG/ML 50 ML BTL (for RAD DIAG) OTHER ONE (10:41)
[2016-06-25 10:45] VITALS: BP 115/79; PULSE 56; RESP 18; O2SAT 94
[2016-06-25 11:45] VITALS: BP 109/78; PULSE 74; RESP 18; O2SAT 98
[2016-06-25 12:15] VITALS: BP 126/79; PULSE 62; RESP 16; O2SAT 94
[2016-06-25 12:45] VITALS: BP 129/86; PULSE 56; RESP 18; O2SAT 95
--- NOTE | 2016-06-25 15:28 | RADRPT ---
EXAM DATE/TIME: 06/25/2016 09:36 [facility] COMPARISON: No previous studies available for comparison. INDICATIONS : Patient presents with gastroparesis in need of transgastric tube exchange for nutrition. MEDICAL HISTORY : SLE. Rheumatoid arthritis. Raynaud's syndrome. Hypothyroidism. Irritable bowel syndrome. Gastroparesis. GERD Chronic nausea. Scott's thyroiditis. Fibromyalgia. History of DVT currently on Xarelto. Pneumonia. Endocarditis. Previous port infection 2010, and more recently in Nov 2015 s/p port removal. SURGICAL HISTORY : IVC filter. Hand surgery. Back surgery for T11 through T12. Partial hysterectomy. 2 C-sections. Breast reduction. Rectal polyp removed. Previous port removal, removal 2010 New port placed Oct 2015 PICC RUE Nov 2015. ENCOUNTER: Subsequent ACUITY: >1 year PAIN SCORE: 0/10 LOCATION: N/A FLUORO TIME: 1.1 minutes IMAGE SERIES: 3 SEDATION TIME: 30 minutes CONTRAST: 30 cc Omnipaque (iohexol) 350 MEDICATION(S): 1.) 5 mg midazolam (Versed) IV 2.) 2 mg hydromorphone (Dilaudid) IV DEVICE(S): 1.) 22 Amharic Transgastric tube PROCEDURE : 1. Fluoroscopically guided gastrojejunostomy tube exchange. 2. Conscious sedation with continuous EKG and oximetry monitoring. The risks, benefits and alternatives to the procedure were explained and verbal and written consent w as obtained. The site was prepped in sterile fashion. Full sterile technique was used, including ca p, mask, sterile gloves and gown and a large sterile sheet. Hand hygiene and 2% chlorhexidine and/or betadine/alcohol prep was utilized per protocol for cutaneous antisepsis. The skin and subcutaneous tissues were infiltrated with local anesthetic solution. Fluoroscopic evaluation of the existing GJ tube shows it to be fractured. With fluoroscopic guidance a guidewire was passed through the previous gastrojejunostomy tube and a fresh tube was placed over t he guidewire. The balloon was inflated with appropriate volume of saline. Injection of positive con trast demonstrates good position of the gastric and jejunal lumens of the tube. Conscious sedation was performed with the prescribed dosages and duration as above in the presence of an independent trained radiology nurse to assist in the monitoring of the patient. EKG and oximetry remained stable throughout the procedure. The patient tolerated the procedure well and there were n o complications. The patient was sent to post anesthesia recovery in stable condition. CONCLUSION: Uncomplicated gastrojejunostomy tube exchange as above. The patient has experienced significant itchi ng following the most recent gastrojejunostomy tube exchanges. The presumption is that she is allergi c to some medication although we have systematically stopped using certain medications with no change in her response. Most patients with a mature tract are able to tolerate exchanges of the GJ tube is without conscious sedation. I discussed this with her. She states that she may attempt this at her ne xt visit. Rogelio Bhakta Jr., MD on June 25, 2016 at 15:24 Board Certified Radiologist. This report was verified electronically.
[2016-07-10] MEDS ORDERED: NITR0.4S SL (13:14)
[2016-07-10] MEDS ORDERED: SYNT88TA PO (13:14)
[2016-07-10] MEDS ORDERED: CHOL4POW3 PO (13:14)
[2016-07-10] MEDS ORDERED: PROTPAK PO (13:14)
[2016-07-10] MEDS ORDERED: NORM0.9I4 IV (13:14)
[2016-07-10] MEDS ORDERED: HEPA100I16 IV (13:14)
[2016-07-10] MEDS ORDERED: PROM6.254 PO (13:14)
[2016-07-10] MEDS ORDERED: PROM1SUP9 RECTAL (13:14)
== END 2016-06-25 13:25 | disposition home or self-care (01) ==
LOC: HROP 08:32 → HRIP 08:33 → HROP 13:25
DX: K94.29 Other complications of gastrostomy (principal); K31.84 Gastroparesis; M32.9 Systemic lupus erythematosus, unspecified; M06.9 Rheumatoid arthritis, unspecified; E03.9 Hypothyroidism, unspecified; I73.00 Raynaud's syndrome without gangrene; K58.9 Irritable bowel syndrome, unspecified; K21.9 Gastro-esophageal reflux disease without esophagitis; I48.91 Unspecified atrial fibrillation; I10 Essential (primary) hypertension; M79.7 Fibromyalgia; Z86.718 Personal history of other venous thrombosis and embolism; Y83.1 Surgical operation with implant of artificial internal device as the cause of abnormal reaction of the patient, or of later complication, without mention of misadventure at the time of the procedure; Z79.01 Long term (current) use of anticoagulants
CPT/HCPCS: 49452; 99152; 99153; C1769; C1874; J1170; J1200; J2250; Q9967

== ENCOUNTER 2016-08-27 07:37 | Day surgery (SDC) | payer MEDICARE, OTHER ==
[~2016-08-27] VITALS: Ht 157.5 cm; Wt 63.6 kg
[~2016-08-27 07:37] MED LIST changes: +CHOL4POW3 PO; -EPIP0.3I IM; +HEPA100I16 IV; -LEVO88TA2 PO; +MACR100C2 PO; -NEXI40CA PO; +NITR0.4S SL; +NORM0.9I4 IV; -OXYGENTANK NAS.CANULA; +PROM1SUP9 RECTAL; -PROM2INJ IVP; +PROM6.254 PO; +PROTPAK PO; +SYNT88TA PO
[2016-08-27 07:50] VITALS: BP 138/91; PULSE 79; RESP 20; TEMP 98.6; O2SAT 94
[2016-08-27] MEDS ORDERED: SODIUM CHLORIDE 0.9% 1000 ML IV SCH (08:00)
[2016-08-27] MEDS ORDERED: SODIUM CHLORIDE 0.9% FLUSH 10 ML FLUSH IV FLUSH PRN (08:15)
[2016-08-27] MEDS ORDERED: diphenhydrAMINE HCL 50 MG/ML VIAL ONE (08:26)
[2016-08-27] MEDS ORDERED: MIDAZOLAM HCL 5 MG/5 ML VIAL ONE (08:26)
[2016-08-27 09:15] VITALS: BP 118/77; PULSE 69; RESP 20; TEMP 97.5; O2SAT 94
--- NOTE | 2016-08-27 09:21 | PD.RAD ---
Post Procedure Progress Note Pre Procedure Diagnosis: (1) Gastroparesis (2) GJ tube damaged Post Procedure Diagnosis: (1) Gastroparesis (2) GJ tube damaged Procedure Date: Aug 27, 2016 Supervising Radiologist: Rogelio Bhakta JR Proceduralist/Assist: Trav Wilson, RT(R), Sylvester England, RT(R) Anesthesia: Conscious Sedation Plan of Activity Patient to Unit: ROPU Patient Condition: Good See PACS Report for procedural detail/treatment Feeding Tube Gastro/Jejunostomy Exchange Polish: 22 Findings: Original tube with weakening of the wall and impending rupture of tube. Replaced with new GJ tube. In good position. Plan F/U PRN Jr. Yony,Rogelio Salvador MD Aug 27, 2016 09:21
[2016-08-27] MEDS ORDERED: IOHEXOL 350 MG/ML 100 ML BTL (for RAD DIAG) G-TUBE ONE (09:23)
[2016-08-27 09:30] VITALS: BP 117/84; PULSE 64; RESP 20; O2SAT 95
[2016-08-27 10:00] VITALS: BP 118/83; PULSE 65; RESP 20; O2SAT 95
[2016-08-27 10:30] VITALS: BP 129/70; PULSE 64; RESP 20; O2SAT 95
[2016-08-27] MEDS ORDERED: FAMOTIDINE 20 MG TAB NG ONE (10:30)
[2016-08-27] MEDS ORDERED: PROMETHAZINE INJ 25 MG/ML VIAL IV-CENTRAL ONE (11:30)
--- NOTE | 2016-08-27 11:38 | RADRPT ---
EXAM DATE/TIME: 08/27/2016 08:33 [facility] COMPARISON: No previous studies available for comparison. INDICATIONS : Patient presents with gastroparesis in need of transgastric tube exchange for nutrition. The current tube has a weakening in the wall with ballooning of the tube and impending rupture of the tube. MEDICAL HISTORY : SLE. Rheumatoid arthritis. Raynaud's syndrome. Hypothyroidism. Irritable bowel syndrome. Gastroparesis. GERD Chronic nausea. Scott's thyroiditis. Fibromyalgia. History of DVT currently on Xarelto. Pneumonia. Endocarditis. Previous port infection 2010, and more recently in Nov 2015 s/p port removal. SURGICAL HISTORY : IVC filter. Hand surgery. Back surgery for T11 through T12. Partial hysterectomy. 2 C-sections. Breast reduction. Rectal polyp removed. Previous port removal, removal 2010 New port placed Oct 2015 PIC RUE Nov 2015. ENCOUNTER: Subsequent ACUITY: >1 year PAIN SCORE: 0/10 LOCATION: N/A FLUORO TIME: 1.0 minutes IMAGE SERIES: 4 SEDATION TIME: 15 minutes CONTRAST: 25 cc Omnipaque (iohexol) 350 MEDICATION(S): 1.) 50 mg BENADRYL IV 2.) 4 mg midazolam (Versed) IV DEVICE(S): 1.) 22 Congolese Transgastric tube PROCEDURE : 1. Fluoroscopically guided gastrojejunostomy tube exchange. 2. Conscious sedation with continuous EKG and oximetry monitoring. The risks, benefits and alternatives to the procedure were explained and verbal and written consent w as obtained. The site was prepped in sterile fashion. Full sterile technique was used, including ca p, mask, sterile gloves and gown and a large sterile sheet. Hand hygiene and 2% chlorhexidine and/or betadine/alcohol prep was utilized per protocol for cutaneous antisepsis. The skin and subcutaneous tissues were infiltrated with local anesthetic solution. With fluoroscopic guidance a guidewire was passed through the previous gastrojejunostomy tube and a f resh tube was placed over the guidewire. The balloon was inflated with appropriate volume of saline. Injection of positive contrast demonstrates good position of the gastric and jejunal lumens of the tube. Conscious sedation was performed with the prescribed dosages and duration as above in the presence of an independent trained radiology nurse to assist in the monitoring of the patient. EKG and oximetry remained stable throughout the procedure. The patient tolerated the procedure well and there were n o complications. The patient was sent to post anesthesia recovery in stable condition. CONCLUSION: Uncomplicated gastrojejunostomy tube exchange as above. Rogelio Bhakta Jr., MD on August 27, 2016 at 11:36 Board Certified Radiologist. This report was verified electronically.
== END 2016-08-27 12:10 | disposition home or self-care (01) ==
LOC: HROP 07:37 → HRIP 07:40 → HROP 12:10
DX: Z46.59 Encounter for fitting and adjustment of other gastrointestinal appliance and device (principal); K31.84 Gastroparesis
CPT/HCPCS: 49452; 99152; C1769; C1874; J1200; J1642; J2250; J2550; J7030; Q9967

== ENCOUNTER → 2016-09-18 | Outpatient (CLI) | payer MEDICARE, OTHER ==
[2016-09-18 13:47] LABS: AUTOMATED NEUTROPHIL # 3.8 TH/MM3 (1.8-7.7); BASOPHIL % 0.6 % (0.0-2.0); EOSINOPHIL # 0.3 TH/MM3 (0-0.4); HEMATOCRIT 40.4 % (35.0-46.0); HEMO FLAGS DIFF FINAL; LYMPHOCYTE # 2.1 TH/MM3 (1.0-4.8); MEAN CELL VOLUME 87.3 FL (80.0-100.0); MEAN CORPUSCULAR HGB CONC 33.3 % (32.0-36.0); MONO % 5.4 % (0.0-8.0); PLATELET COUNT 217 TH/MM3 (150-450); RED BLOOD COUNT 4.63 MIL/MM3 (4.00-5.30); WHITE BLOOD COUNT 6.6 TH/MM3 (4.0-11.0)
[2016-09-18 14:15] LABS: WESTERGREN SEDIMENTATION RATE 2 mm/hr (0-20)
[2016-09-18 14:16] LABS: ALT (GPT) 29 U/L (10-53); ANION GAP 6 MEQ/L (5-15); AST (GOT) 21 U/L (15-37); BICARBONATE 29.1 MEQ/L (21.0-32.0); BLOOD UREA NITROGEN 31 MG/DL (7-18); CHLORIDE 105 MEQ/L (98-107); GLOMERULAR FILTRATION RATE 62 ML/MIN (>89); GLUCOSE,FASTING 87 MG/DL (74-99); POTASSIUM 3.5 MEQ/L (3.5-5.1); SODIUM (NA) 140 MEQ/L (136-145)
[2016-09-18 14:18] LABS: ALKALINE PHOSPHATASE 41 U/L (45-117); TOTAL BILIRUBIN ADULT 0.4 MG/DL (0.2-1.0)
== END ==
LOC: CLAB 12:58
PROVIDERS: ATTEND Family Medicine
DX: M32.9 Systemic lupus erythematosus, unspecified (principal); M06.9 Rheumatoid arthritis, unspecified; E67.8 Other specified hyperalimentation; K59.8 Other specified functional intestinal disorders; E86.0 Dehydration
CPT/HCPCS: 36415; 80053; 84207; 85025; 85652; 86140; 96366; 96523; J1642

== ENCOUNTER 2016-10-25 08:03 | Day surgery (SDC) | payer MEDICARE, OTHER ==
[~2016-10-25] VITALS: Ht 157.5 cm; Wt 63.2 kg
[2016-10-25 08:20] VITALS: BP 127/82; PULSE 71; RESP 20; TEMP 98.7; O2SAT 95
[2016-10-25] MEDS ORDERED: SODIUM CHLOR 0.9% 1000 ML INJ 1,000 ML IV SCH (09:00)
[2016-10-25] MEDS ORDERED: DIAZEPAM 5 MG TAB PO ONE (09:45)
[2016-10-25] MEDS ORDERED: INSULIN HUMAN REGULAR 1,000 UNITS/10 ML VIAL SQ PRN (10:15)
[2016-10-25] MEDS ORDERED: CHLORHEXIDINE GLUCONATE 2 % 1 PACK (2 CLOTHS) TOPICAL PRN (10:15)
[2016-10-25] MEDS ORDERED: LACTATED RINGER'S 1000 ML IV PRN (10:15)
[2016-10-25] MEDS ORDERED: LIDOCAINE VISCOUS 2% SOLN 15 ML UDC OTHER ONE (10:15)
[2016-10-25] MEDS ORDERED: POVIDONE IODINE 5% (ANTISEPSIS KIT) 4 APPLICATIONS EACH NARE PRN (10:15)
[2016-10-25] MEDS ORDERED: SODIUM CHLORID 0.9% 500 ML IV PRN (10:15)
[2016-10-25] MEDS ORDERED: METOPROLOL TARTRATE 25 MG TAB PO PRN (10:15)
[2016-10-25] MEDS ORDERED: PROMETHAZINE INJ 25 MG/ML VIAL ONE (10:38)
[2016-10-25 10:59] VITALS: BP 102/72; PULSE 72; RESP 18; TEMP 98.2; O2SAT 99
--- NOTE | 2016-10-25 11:01 | PD.RAD ---
Post Procedure Progress Note Pre Procedure Diagnosis: (1) Nausea & vomiting (2) Gastroparesis Post Procedure Diagnosis: (1) Nausea & vomiting (2) Gastroparesis Procedure Date: Oct 25, 2016 Supervising Radiologist: David Martin Estimated blood loss: None Plan of Activity Patient to Unit: ROPU Patient Condition: Good Additional Comments: G/J tube changed without difficulty. New tube verified to be in good position. Tube OK for use See PACS Report for procedural detail/treatment David Martin MD Oct 25, 2016 11:00
--- NOTE | 2016-10-25 12:47 | RADRPT ---
EXAM DATE/TIME: 10/25/2016 10:40 [facility] COMPARISON: CHANGE OF GJ-TUBE CATHETER, August 27, 2016, 8:33. INDICATIONS : Patient with history of gastroparesis in need of GJ tube exchange. MEDICAL HISTORY : A-Fib, Lupus, DVT, GERD, Fibromyalgia, Hypothyroidism, PE, MSSA bacteremia, Endocarditis SURGICAL HISTORY : IVC filter, Port removal and replacement, T11-T12 surgery, Rectal polyp removed, Partial hysterectomy ENCOUNTER: Subsequent ACUITY: >1 year PAIN SCORE: 0/10 FLUORO TIME: 2.4 minutes IMAGE SERIES: 2 DEVICE(S): 1.) 22 Slovenian Transgastric tube PROCEDURE : 1. Fluoroscopically guided gastrojejunostomy tube exchange. 2. Conscious sedation with continuous EKG and oximetry monitoring. The risks, benefits and alternatives to the procedure were explained and verbal and written consent w as obtained. The site was prepped in sterile fashion. Full sterile technique was used, including ca p, mask, sterile gloves and gown and a large sterile sheet. Hand hygiene and 2% chlorhexidine and/or betadine/alcohol prep was utilized per protocol for cutaneous antisepsis. The patient was given 10 mg of Valium p.o. 45 minutes after the procedure. The tract along the G-tube was anesthetized with viscous lidocaine. With fluoroscopic guidance a guidewire was passed through the previous gastrojejunostomy tube and a f resh tube was placed over the guidewire. The balloon was inflated with appropriate volume of saline. Injection of positive contrast demonstrates good position of the gastric and jejunal lumens of the tube. The case was monitored by an independent trained radiology nurse to assist in the monitoring of the p atient. EKG and oximetry remained stable throughout the procedure. The patient tolerated the proced ure well and there were no complications. The patient was sent to post anesthesia recovery in stable condition. CONCLUSION: Uncomplicated gastrojejunostomy tube exchange as above. David Martin MD on October 25, 2016 at 12:45 Board Certified Radiologist. This report was verified electronically.
== END 2016-10-25 11:30 | disposition home or self-care (01) ==
LOC: HROP 08:03 → HRIP 08:04 → HROP 11:30
DX: Z46.59 Encounter for fitting and adjustment of other gastrointestinal appliance and device (principal); K31.84 Gastroparesis; M79.7 Fibromyalgia; K21.9 Gastro-esophageal reflux disease without esophagitis; E03.9 Hypothyroidism, unspecified; M32.9 Systemic lupus erythematosus, unspecified; I48.91 Unspecified atrial fibrillation; Z86.711 Personal history of pulmonary embolism; Z86.718 Personal history of other venous thrombosis and embolism; Z79.01 Long term (current) use of anticoagulants; Z79.899 Other long term (current) drug therapy
CPT/HCPCS: 49452; C1769; C1874; J1642; J2550; J7030

== ENCOUNTER 2016-12-31 06:42 | Day surgery (SDC) | payer MEDICARE, OTHER ==
[~2016-12-31] VITALS: Ht 157.5 cm; Wt 63.2 kg
[~2016-12-31 06:42] MED LIST changes: -TOPA100T11 PO; +TOPI100 PO
[2016-12-31 06:50] VITALS: BP 152/92; PULSE 68; RESP 20; TEMP 98; O2SAT 97
[2016-12-31] MEDS ORDERED: SODIUM CHLORIDE 0.9% 1000 ML IV SCH (07:15)
[2016-12-31] MEDS ORDERED: PROMETHAZINE INJ 25 MG/ML VIAL ONE (09:36)
--- NOTE | 2016-12-31 10:03 | PD.RAD ---
Post Procedure Progress Note Pre Procedure Diagnosis: (1) GJ tube damaged Post Procedure Diagnosis: (1) GJ tube damaged Procedure Date: Dec 31, 2016 Supervising Radiologist: Rogelio Bhakta JR Proceduralist/Assist: Kaitlin Nicolas, RT(R), Sally Romero RT(R) Anesthesia: Local Plan of Activity Patient to Unit: ROPU Patient Condition: Good See PACS Report for procedural detail/treatment Feeding Tube Gastro/Jejunostomy Exchange Maltese: 22 Findings: Original GJ tube leaking at hub. Replaced with a new tube. In good position. OK to use. Jr. Yony,Rogelio Salvador MD Dec 31, 2016 10:03
[2016-12-31 10:05] VITALS: BP 129/77; PULSE 75; RESP 20; TEMP 98.8; O2SAT 95
[2016-12-31 10:20] VITALS: BP 124/73; PULSE 70; RESP 20; O2SAT 96
--- NOTE | 2016-12-31 10:54 | RADRPT ---
EXAM DATE/TIME: 12/31/2016 09:21 [facility] COMPARISON: No previous studies available for comparison. INDICATIONS : Patient with history of gastroparesis in need of GJ tube exchange. Current tube is leaking around the hub portion. MEDICAL HISTORY : A-Fib, Lupus, DVT, GERD, Fibromyalgia, Hypothyroidism, PE, MSSA bacteremia, Endocarditis SURGICAL HISTORY : IVC filter, Port removal and replacement, T11-T12 surgery, Rectal polyp removed, Partial hysterectomy ENCOUNTER: Subsequent ACUITY: >1 year PAIN SCORE: 0/10 FLUORO TIME: 0.5 minutes IMAGE SERIES: 1 CONTRAST: 20 cc Omnipaque (iohexol) 350 DEVICE(S): 1.) 22 [place] gastrojejunostomy tube PROCEDURE : 1. Fluoroscopically guided gastrojejunostomy tube exchange. The risks, benefits and alternatives to the procedure were explained and verbal and written consent w as obtained. The site was prepped in sterile fashion. Full sterile technique was used, including ca p, mask, sterile gloves and gown and a large sterile sheet. Hand hygiene and 2% chlorhexidine and/or betadine/alcohol prep was utilized per protocol for cutaneous antisepsis. The skin and subcutaneous tissues were infiltrated with local anesthetic solution. With fluoroscopic guidance a guidewire was passed through the previous gastrojejunostomy tube and a f resh tube was placed over the guidewire. The balloon was inflated with appropriate volume of saline. Injection of positive contrast demonstrates good position of the gastric and jejunal lumens of the tube. Lidocaine jelly was used at the access site. The patient tolerated the procedure well and there were no complications. The patient was sent to post anesthesia recovery in stable condition. CONCLUSION: Uncomplicated gastrojejunostomy tube exchange as above. Rogelio Bhakta Jr., MD on December 31, 2016 at 10:51 Board Certified Radiologist. This report was verified electronically.
== END 2016-12-31 10:40 | disposition home or self-care (01) ==
LOC: HROP 06:42 → HRIP 06:45 → HROP 10:40
DX: K94.23 Gastrostomy malfunction (principal); K31.84 Gastroparesis
CPT/HCPCS: 49452; C1769; J2550

== ENCOUNTER 2017-02-14 17:57 | Emergency (ER) | payer MEDICARE, OTHER ==
[~2017-02-14] VITALS: Ht 157.5 cm; Wt 65.0 kg
[~2017-02-14 17:57] MED LIST changes: -HEPA100I16 IV; -MACR100C2 PO; -NORM0.9I4 IV; -PROTPAK PO
[2017-02-14 17:59] VITALS: BP 138/74; PULSE 110; RESP 20; TEMP 102.8; O2SAT 98
[2017-02-14] MEDS ORDERED: SODIUM CHLOR 0.9% 1000 ML INJ 1,000 ML IV ONE ×2 (19:17→21:00)
--- NOTE | 2017-02-14 19:23 | PD ---
HPI Chief Complaint: Fever Time Seen by Provider: 19:16 Travel History International Travel<30 days: No Contact w/Intl Traveler<30days: No Traveled to known affect area: No History of Present Illness HPI 46-year-old female with history of sarcoidosis, Port-A-Cath, pulmonary embolism , pulmonary fibrosis, here for evaluation of fever, generalized malaise, general body aches, cough. Symptoms started a couple weeks ago with a sarcoid flare. The patient was started on a course of prednisone that finished a week ago. Fever started yesterday. Cough is productive of yellowish sputum. No hemoptysis. Patient is also feeling short of breath. She is complaining of generalized body aches. She has also had some episodes of vomiting. No diarrhea. No abdominal pain. Chest discomfort with coughing. Shortness of breath is at rest, worse with exertion. The patient is also noted spots on her face that are consistent with her sarcoid flare. PFSH Past Medical History Hx Anticoagulant Therapy: Yes Arthritis: Yes Asthma: No Atrial Fibrillation: Yes Autoimmune Disease: Yes (LUPUS) Anxiety: Yes Depression: No Heart Rhythm Problems: Yes Cancer: No Cardiovascular Problems: Yes (PVD) High Cholesterol: Yes Chemotherapy: Yes Chest Pain: Yes Congestive Heart Failure: No COPD: No Diabetes: No Diminished Hearing: Yes ([place] RIGHT EAR) Deep Vein Thrombosis: Yes Endocrine: Yes Fibromyalgia: Yes Gastrointestinal Disorders: Yes (BILIARY PROBLEMS, GASTROPARESIS) GERD: Yes Genitourinary: No Headaches: No Hepatitis: No Hiatal Hernia: No Hypertension: Yes Immune Disorder: Yes (LUPUS , SARCOIDOSIS) Implanted Vascular Access Dvce: Yes Kidney Stones: No Musculoskeletal: Yes Neurologic: Yes (PERIPHERAL NEUROPATHY) Psychiatric: No Reproductive: Yes Respiratory: No Immunizations Current: Yes Migraines: Yes (TEMPORAL ARTHRITIS ) Renal Failure: No Seizures: No Sleep Apnea: No Thyroid Disease: Yes PNEUMOCCOCAL Vaccine (Year): 3 : 4 Para: 3 Miscarriage: 1 Ovarian Cysts: Yes ((R) REMOVED) Tubal Ligation: Yes Past Surgical History Abdominal Surgery: Yes (J G TUBE PLACED,CHOLECYSTECTOMY) AICD: No Body Medical Devices: J G TUBE Cardiac Surgery: No Section: Yes Cholecystectomy: Yes Ear Surgery: No Endocrine Surgery: Yes (thyroid) Eye Surgery: No Genitourinary Surgery: No Gynecologic Surgery: Yes (HYSTERECTOMY) Hysterectomy: Yes Joint Replacement: No Neurologic Surgery: No Oral Surgery: No Pacemaker: No Thoracic Surgery: No Tonsillectomy: Yes (1981) Other Surgery: Yes ( RECTAL SURGERY, BREAST REDUCTION, GREENFILED FILTER) Social History Alcohol Use: No Tobacco Use: No Substance Use: No Allergies-Medications (Allergen,Severity, Reaction): Coded Allergies: cefazolin (Verified Allergy, Severe, Rash, 02/14/17) Premedication does not cause hives. cephalexin (Verified Allergy, Severe, hives, 02/14/17) Premedication does not cause hives. diatrizoate meglumine (Verified Allergy, Severe, Swelling, 02/14/17) doxycycline (Verified Allergy, Severe, Rash, 02/14/17) gadobenic acid (Verified Allergy, Severe, Swelling, 02/14/17) gadodiamide (Verified Allergy, Severe, Swelling, 02/14/17) gadoteridol (Verified Allergy, Severe, Swelling, 02/14/17) iodixanol (Verified Allergy, Severe, Swelling, 02/14/17) iohexol (Verified Allergy, Severe, Swelling, 02/14/17) levofloxacin (Verified Allergy, Severe, ARM AT SITE RED AND THEN HIVES ALL OVER BODY, 02/14/17) meperidine (Verified Allergy, Severe, Hives, 02/14/17) morphine (Verified Allergy, Severe, severe hives, 02/14/17) oxycodone (Verified Allergy, Severe, Hives, 02/14/17) penicillin G (Verified Allergy, Severe, Rash, 02/14/17) fentanyl (Verified Allergy, Intermediate, HIVES, 02/14/17) linezolid (Verified Allergy, Intermediate, Itching, 02/14/17) develops hives and itching sulfamethoxazole (Verified Allergy, Intermediate, Hives, 02/14/17) trimethoprim (Verified Allergy, Intermediate, Hives, 02/14/17) amoxicillin (Verified Allergy, Mild, HIVES AND TONGUE SWELLING, 02/14/17) clavulanic acid (Verified Allergy, Mild, HIVES AND TONGUE SWELLING, 02/14/17 ) nafcillin (Verified Allergy, Mild, HIVES, 02/14/17) Sulfa (Sulfonamide Antibiotics) (Verified Allergy, Unknown, 02/14/17) SEVERE ITCHING vancomycin (Verified Adverse Reaction, Severe, HIVES, 02/14/17) does ok with benadryl premedicaiton hydromorphone (Verified Adverse Reaction, Mild, none, 02/14/17) patient states no adverse reaction or allergy to this medication. Reported Meds & Prescriptions Reported Meds & Active Scripts Active Tamiflu (Oseltamivir Phosphate) 75 Mg Cap 75 Mg PO BID 5 Days Xarelto (Rivaroxaban) 20 Mg Tab 20 Mg PO DAILY 30 Days Reported Synthroid (Levothyroxine Sodium) 88 Mcg Tab 88 Mcg PO DAILY Cholestyramine 4 Gm/Dose Powd 4 Gm PO BID 1 level scoopful of powder contains 4 grams of cholestyramine. Nitrostat SL (Nitroglycerin) 0.4 Mg Subl 0.4 Mg SL DIRECTED PRN 1 tablet under the tongue as needed for chest pain. Repeat every 5 minutes for a total of 3 DOSES or call 911 if NO relief. Promethazine Liq (Promethazine HCl) 6.25 Mg/5 Ml Syrp 25 Mg PO Q6H PRN Promethazine Supp (Promethazine HCl) 25 Mg Supp 25 Mg RECTAL Q6H PRN Sildenafil 20 Mg Tab 20 Mg PO TID Diltiazem (Diltiazem HCl) 120 Mg Tab 120 Mg PO DAILY Topamax (Topiramate) 100 Mg Tab 100 Mg PO BID Fenofibrate Micronized 200 Mg Cap 200 Mg PO DAILY Review of Systems Except as stated in HPI: all other systems reviewed are Neg Physical Exam Narrative GENERAL: Well-developed, well-nourished, comfortable, no apparent distress. SKIN: Focused skin assessment warm/dry. Few erythematous papules on face. HEAD: Atraumatic. Normocephalic. EYES: Pupils equal and round. No scleral icterus. No injection or drainage. ENT: Mucous membranes pink and moist. Normal pharynx. NECK: Trachea midline. No JVD. CARDIOVASCULAR: Regular rate and rhythm. RESPIRATORY: No accessory muscle use. Clear to auscultation. Breath sounds equal bilaterally. GASTROINTESTINAL: Abdomen soft, non-tender, nondistended. MUSCULOSKELETAL: No obvious deformities. No clubbing. No cyanosis. No edema. NEUROLOGICAL: Awake and alert. No obvious cranial nerve deficits. Motor grossly within normal limits. Normal speech. PSYCHIATRIC: Appropriate mood and affect; insight and judgment normal. Data Data Last Documented VS Vital Signs Date Time Temp Pulse Resp B/P (MAP) Pulse Ox O2 Delivery O2 Flow Rate FiO2 02/14/17 20:48 96 18 120/66 (84) 97 Nasal Cannula 2.00 02/14/17 17:59 102.8 Orders Orders Sepsis Workup Initiated (02/14/17 ) Electrocardiogram (02/14/17 19:17) Complete Blood Count With Diff (02/14/17 19:17) Comprehensive Metabolic Panel (02/14/17 19:17) Prothrombin Time / Inr (Pt) (02/14/17 19:17) Act Partial Throm Time (Ptt) (02/14/17 19:17) Lactic Acid Sepsis Protocol (02/14/17 19:17) Ckmb (Isoenzyme) Profile (02/14/17 19:17) Troponin I (02/14/17 19:17) Urinalysis - C+S If Indicated (02/14/17 19:17) Influenzae A/B Antigen (02/14/17 19:17) Blood Culture (02/14/17 19:17) Sputum Culture And Gram Stain (02/14/17 19:17) Chest, Single Ap (02/14/17 19:17) Ecg Monitoring (02/14/17 19:17) Iv Access Insert/Monitor (02/14/17 19:17) Oximetry (02/14/17 19:17) Acetaminophen (Tylenol) (02/14/17 19:30) Sodium Chlor 0.9% 1000 Ml Inj (Ns 1000 M (02/14/17 19:17) Beta Hcg (Quant/Titer) (02/14/17 19:17) Oseltamivir (Tamiflu) (02/14/17 20:45) Sodium Chlor 0.9% 1000 Ml Inj (Ns 1000 M (02/14/17 21:00) Ed Discharge Order (02/14/17 20:52) Labs Laboratory Tests Test 02/14/17 19:40 02/14/17 19:42 02/14/17 19:48 White Blood Count 5.5 TH/MM3 Red Blood Count 4.58 MIL/MM3 Hemoglobin 14.0 GM/DL Hematocrit 40.5 % Mean Corpuscular Volume 88.4 FL Mean Corpuscular Hemoglobin 30.5 PG Mean Corpuscular Hemoglobin Concent 34.5 % Red Cell Distribution Width 13.5 % Platelet Count 151 TH/MM3 Mean Platelet Volume 7.5 FL Neutrophils (%) (Auto) 64.1 % Lymphocytes (%) (Auto) 20.0 % Monocytes (%) (Auto) 13.4 % Eosinophils (%) (Auto) 1.9 % Basophils (%) (Auto) 0.6 % Neutrophils # (Auto) 3.5 TH/MM3 Lymphocytes # (Auto) 1.1 TH/MM3 Monocytes # (Auto) 0.7 TH/MM3 Eosinophils # (Auto) 0.1 TH/MM3 Basophils # (Auto) 0.0 TH/MM3 CBC Comment DIFF FINAL Differential Comment Prothrombin Time 11.1 SEC Prothromb Time International Ratio 1.1 RATIO Activated Partial Thromboplast Time 30.6 SEC Blood Urea Nitrogen 9 MG/DL Creatinine 0.75 MG/DL Random Glucose 99 MG/DL Total Protein 7.0 GM/DL Albumin 3.7 GM/DL Calcium Level 8.4 MG/DL Alkaline Phosphatase 50 U/L Aspartate Amino Transf (AST/SGOT) 20 U/L Alanine Aminotransferase (ALT/SGPT) 26 U/L Total Bilirubin 0.3 MG/DL Sodium Level 138 MEQ/L Potassium Level 3.7 MEQ/L Chloride Level 104 MEQ/L Carbon Dioxide Level 25.1 MEQ/L Anion Gap 9 MEQ/L Estimat Glomerular Filtration Rate 83 ML/MIN Total Creatine Kinase 92 U/L Troponin I LESS THAN 0.02 NG/ML Human Chorionic Gonadotropin, Quant 1 MIU/ML Lactic Acid Level 1.0 mmol/L Urine Color YELLOW Urine Turbidity CLEAR Urine pH 7.0 Urine Specific [place] 1.014 Urine Protein NEG mg/dL Urine Glucose (UA) NEG mg/dL Urine Ketones NEG mg/dL Urine Occult Blood NEG Urine Nitrite NEG Urine Bilirubin NEG Urine Urobilinogen LESS THAN 2.0 MG/DL Urine Leukocyte Esterase NEG Urine RBC 1 /hpf Urine Squamous Epithelial Cells <1 /hpf Urine Mucus FEW /lpf Microscopic Urinalysis Comment CATH-CULT NOT IND MDM Medical Decision Making Medical Screen Exam Complete: Yes Emergency Medical Condition: Yes Medical Record Reviewed: Yes Interpretation(s) EKG: Sinus, rate 103, leftward axis, normal intervals, nonspecific T-wave abnormality, no ST segment abnormalities. Differential Diagnosis Influenza, viral illness, pneumonia, bronchitis, PE, sepsis, bacteremia Narrative Course The patient has several listed allergies including IV contrast. She did have a CT pulmonary angiogram in January 2016. I discussed this with the on-call radiologist who recommends if CT pulmonary angiogram is necessary that the patient be properly premedicated with 50 mg of oral prednisone 13 hours, 7 hours , and one hour prior to contrast as well as 50 mg of Benadryl 1 hour prior to contrast. Initial vital signs show heart rate 110, blood pressure 138/74, pulse ox 98% on room air, oral temp of 102.8F. CBC: WBC 5.5, hemoglobin 14, hematocrit 40.5, platelets 151. CMP is unremarkable. Cardiac enzymes are negative. Lactic acid is 1.0. UA is not suggestive of UTI. Influenza A+. Chest x-ray: No acute disease. Patient was given a liter of normal saline IV and oral Tylenol and her heart rate has improved to 98. She will be given another liter of normal saline IV and will be started on Tamiflu. At this point I believe she is stable for discharge home with outpatient follow-up with her primary care physician this week. She would also like to be discharged home if at all possible. I do not believe that her symptoms are consistent with PE and are more consistent with having influenza A, therefore CT pulmonary angiogram will be performed. She was advised on when to return to the emergency department. She verbalizes understanding and agreement with plan. Diagnosis Primary Impression: Influenza A Referrals: Primary Care Physician 1 day Additional Instructions: Follow-up with your primary care physician in the next 1-2 days. Stay hydrated with plenty of fluids. Keep fever under control with Tylenol and ibuprofen. Return to the emergency department for worsening symptoms or any other concerns. Scripts Oseltamivir (Tamiflu) 75 Mg Cap 75 MG PO BID for Mgmt Viral Infection for 5 Days, #10 CAP 0 Refills Prov: Ji Day MD 02/14/17 Disposition: DISCHARGE HOME Condition: Stable Ji Day MD Feb 14, 2017 19:23
[2017-02-14 19:28] VITALS: PULSE 104; RESP 18; O2SAT 0
[2017-02-14] MEDS ORDERED: ACETAMINOPHEN 325 MG TAB PO ONE (19:30)
--- NOTE | 2017-02-14 20:16 | RADRPT ---
EXAM DATE/TIME: 02/14/2017 19:52 [facility] COMPARISON: CHEST SINGLE AP, February 14, 2016, 11:51. INDICATIONS : Cough. MEDICAL HISTORY : Sarcoidosis. SURGICAL HISTORY : Infusaport. ENCOUNTER: Initial ACUITY: 3 days PAIN SCORE: 0/10 LOCATION: Bilateral chest FINDINGS: A single view of the chest demonstrates the lungs to be symmetrically aerated without evidence of mas s, infiltrate or effusion. The cardiomediastinal contours are unremarkable. Osseous structures are intact. Right major catheter is noted and the tip overlies the SVC. CONCLUSION: No acute disease. Todd Sanchez MD on February 14, 2017 at 20:13 Board Certified Radiologist. This report was verified electronically.
[2017-02-14 20:21] LABS: AUTOMATED NEUTROPHIL # 3.5 TH/MM3 (1.8-7.7); BASOPHIL % 0.6 % (0.0-2.0); EOSINOPHIL # 0.1 TH/MM3 (0-0.4); EOSINOPHIL % 1.9 % (0.0-4.0); HEMATOCRIT 40.5 % (35.0-46.0); LYMPHOCYTE # 1.1 TH/MM3 (1.0-4.8); MEAN CELL VOLUME 88.4 FL (80.0-100.0); MEAN CORPUSCULAR HEMOGLOBIN 30.5 PG (27.0-34.0); MEAN CORPUSCULAR HGB CONC 34.5 % (32.0-36.0); MEAN PLATELET VOLUME 7.5 FL (7.0-11.0); MONO % 13.4 % (0.0-8.0); MONOCYTE # 0.7 TH/MM3 (0-0.9); NEUT % 64.1 % (16.0-70.0); PLATELET COUNT 151 TH/MM3 (150-450); RED BLOOD COUNT 4.58 MIL/MM3 (4.00-5.30); RED CELL DISTRIBUTION WIDTH 13.5 % (11.6-17.2); WHITE BLOOD COUNT 5.5 TH/MM3 (4.0-11.0)
[2017-02-14 20:22] LABS: BILIRUBIN, URINE NEG (NEG); BLOOD, URINE NEG (NEG); GLUCOSE,URINE NEG (NEG); KETONE, URINE NEG (NEG); MUCUS URINE FEW /lpf (OCC); NITRITE,URINE NEG (NEG); SQUAMOUS EPITHELIAL CELL URINE <1 /hpf (0-5); URINE COLOR YELLOW (YELLW/STRAW); URINE LEUKOCYTE ESTERASE NEG (NEG)
[2017-02-14 20:33] LABS: INTERNATIONAL NORMALIZED RATIO 1.1 RATIO; PROTHROMBIN TIME - PATIENT 11.1 SEC (9.8-11.6)
[2017-02-14 20:40] LABS: ALBUMIN 3.7 GM/DL (3.4-5.0); ALT (GPT) 26 U/L (10-53); AST (GOT) 20 U/L (15-37); BICARBONATE 25.1 MEQ/L (21.0-32.0); BLOOD UREA NITROGEN 9 MG/DL (7-18); CALCIUM 8.4 MG/DL (8.5-10.1); CHLORIDE 104 MEQ/L (98-107); CREATININE 0.75 MG/DL (0.50-1.00); GLOMERULAR FILTRATION RATE 83 ML/MIN (>89); GLUCOSE,RANDOM 99 MG/DL (74-106); SODIUM (NA) 138 MEQ/L (136-145)
[2017-02-14 20:45] LABS: ALKALINE PHOSPHATASE 50 U/L (45-117); TOTAL BILIRUBIN ADULT 0.3 MG/DL (0.2-1.0); TROPONIN I LESS THAN 0.02 NG/ML (0.02-0.05)
[2017-02-14] MEDS ORDERED: OSELTAMIVIR PHOSPHATE 75 MG CAP PO ONE (20:45)
[2017-02-14 20:48] VITALS: BP 120/66; PULSE 96; RESP 18; O2SAT 97
[2017-02-14] MEDS ORDERED: OSEL75 PO (20:52)
--- NOTE | 2017-02-15 22:43 | EKG ---
Date Performed: 02/14/2017 Time Performed: 19:43:25 PTAGE: 46 years EKG: SINUS TACHYCARDIA BORDERLINE LEFT AXIS DEVIATION NONSPECIFIC T-WAVE ABNORMALITY ABNORMAL RH YT ECG PREVIOUS TRACING : 02/07/2016 13.57 Compared to prior tracing no significant change DOCTOR: Edson Quintanilla Interpretating Date/Time 02/15/2017 22:42:17
== END 2017-02-14 22:17 | disposition home or self-care (01) ==
LOC: NEPC 17:57
DX: J09.X2 Influenza due to identified novel influenza A virus with other respiratory manifestations (principal); D86.9 Sarcoidosis, unspecified; I48.91 Unspecified atrial fibrillation; F41.9 Anxiety disorder, unspecified; I73.9 Peripheral vascular disease, unspecified; I10 Essential (primary) hypertension; E78.00 Pure hypercholesterolemia, unspecified; M32.9 Systemic lupus erythematosus, unspecified; R53.81 Other malaise
CPT/HCPCS: 71045; 80053; 81001; 82550; 83605; 84484; 84702; 85025; 85610; 85730; 87040; 87804; 93005; 96360; 96361; 99285; J7030

== ENCOUNTER 2017-03-31 16:13 | Emergency (ER) | payer MEDICARE, OTHER ==
[~2017-03-31] VITALS: Ht 157.5 cm; Wt 65.0 kg
[~2017-03-31 16:13] MED LIST changes: +OSEL75 PO
[2017-03-31 16:33] VITALS: BP 127/81; PULSE 68; RESP 15; TEMP 98.1; O2SAT 96
[2017-03-31] MEDS ORDERED: PROMETHAZINE HCL 25 MG TAB PO ONE (16:45)
[2017-03-31] MEDS ORDERED: DIATRIZOATE MEGLUM/DIATRIZOATE SOD 9 ML CUP PO ONE (16:45)
[2017-03-31 17:14] VITALS: BP 120/75; PULSE 64; RESP 18; O2SAT 96
--- NOTE | 2017-03-31 17:29 | PD ---
HPI Chief Complaint: [employer]. [employer] Problem Time Seen by Provider: 16:27 Travel History International Travel<30 days: No Contact w/Intl Traveler<30days: No Traveled to known affect area: No History of Present Illness HPI 46-year-old female has a gastric jejunal tube which accidentally was discontinued about an hour prior to ER arrival. Onset sudden. Timing constant. She has no pain. Location enterocutaneous. PFSH Past Medical History Hx Anticoagulant Therapy: Yes Arthritis: Yes Asthma: No Atrial Fibrillation: Yes Autoimmune Disease: Yes (LUPUS) Anxiety: Yes Depression: No Heart Rhythm Problems: Yes Cancer: No Cardiovascular Problems: Yes (PVD, pulmonary embolism) High Cholesterol: Yes Chemotherapy: Yes Chest Pain: Yes Congestive Heart Failure: No COPD: No Cerebrovascular Accident: Yes (htn on meds, a-fib) Diabetes: No Diminished Hearing: Yes ([place] RIGHT EAR) Deep Vein Thrombosis: Yes Endocrine: Yes Fibromyalgia: Yes Gastrointestinal Disorders: Yes (GASTROPERESIS) GERD: Yes Genitourinary: No Headaches: No Hepatitis: No Hiatal Hernia: No Hypertension: Yes Immune Disorder: Yes (LUPUS , SARCOIDOSIS) Kidney Stones: No Medical other: Yes (DVT- right leg/ PE) Musculoskeletal: Yes Neurologic: Yes (PERIPHERAL NEUROPATHY) Psychiatric: No Reproductive: Yes Respiratory: No Immunizations Current: Yes Migraines: Yes (TEMPORAL ARTHRITIS ) Renal Failure: No Seizures: No Sleep Apnea: No Thyroid Disease: Yes Influenza Vaccination: No PNEUMOCCOCAL Vaccine (Year): 3 ?: Not : 4 Para: 3 Miscarriage: 1 Ovarian Cysts: Yes ((R) REMOVED) Tubal Ligation: Yes Past Surgical History Abdominal Surgery: Yes (J G TUBE PLACED,CHOLECYSTECTOMY) AICD: No Arteriovenous Shunt: Yes Body Medical Devices: J G TUBE Cardiac Surgery: No Section: Yes Cholecystectomy: Yes Ear Surgery: No Endocrine Surgery: Yes (thyroid) Eye Surgery: No Genitourinary Surgery: No Gynecologic Surgery: Yes (HYSTERECTOMY) Hysterectomy: Yes Joint Replacement: No Neurologic Surgery: No Oral Surgery: No Pacemaker: No Thoracic Surgery: No Tonsillectomy: Yes (1981) Other Surgery: Yes ( RECTAL SURGERY, BREAST REDUCTION, LINDSEY FILTER) Social History Alcohol Use: Yes (occassional) Tobacco Use: No Substance Use: No Allergies-Medications (Allergen,Severity, Reaction): Coded Allergies: cefazolin (Verified Allergy, Severe, Rash, 03/31/17) Premedication does not cause hives. cephalexin (Verified Allergy, Severe, hives, 03/31/17) Premedication does not cause hives. diatrizoate meglumine (Verified Allergy, Severe, Swelling, 03/31/17) doxycycline (Verified Allergy, Severe, Rash, 03/31/17) gadobenic acid (Verified Allergy, Severe, Swelling, 03/31/17) gadodiamide (Verified Allergy, Severe, Swelling, 03/31/17) gadoteridol (Verified Allergy, Severe, Swelling, 03/31/17) iodixanol (Verified Allergy, Severe, Swelling, 03/31/17) iohexol (Verified Allergy, Severe, Swelling, 03/31/17) levofloxacin (Verified Allergy, Severe, ARM AT SITE RED AND THEN HIVES ALL OVER BODY, 03/31/17) meperidine (Verified Allergy, Severe, Hives, 03/31/17) morphine (Verified Allergy, Severe, severe hives, 03/31/17) oxycodone (Verified Allergy, Severe, Hives, 03/31/17) penicillin G (Verified Allergy, Severe, Rash, 03/31/17) fentanyl (Verified Allergy, Intermediate, HIVES, 03/31/17) linezolid (Verified Allergy, Intermediate, Itching, 03/31/17) develops hives and itching midazolam (Verified Allergy, Intermediate, Hives, 03/31/17) sulfamethoxazole (Verified Allergy, Intermediate, Hives, 03/31/17) trimethoprim (Verified Allergy, Intermediate, Hives, 03/31/17) amoxicillin (Verified Allergy, Mild, HIVES AND TONGUE SWELLING, 03/31/17) clavulanic acid (Verified Allergy, Mild, HIVES AND TONGUE SWELLING, ) nafcillin (Verified Allergy, Mild, HIVES, 03/31/17) Sulfa (Sulfonamide Antibiotics) (Verified Allergy, Unknown, 03/31/17) SEVERE ITCHING vancomycin (Verified Adverse Reaction, Severe, HIVES, 03/31/17) does ok with benadryl premedicaiton hydromorphone (Verified Adverse Reaction, Mild, none, 03/31/17) patient states no adverse reaction or allergy to this medication. Reported Meds & Prescriptions Reported Meds & Active Scripts Active Tamiflu (Oseltamivir Phosphate) 75 Mg Cap 75 Mg PO BID 5 Days Xarelto (Rivaroxaban) 20 Mg Tab 20 Mg PO DAILY 30 Days Reported Synthroid (Levothyroxine Sodium) 88 Mcg Tab 88 Mcg PO DAILY Cholestyramine 4 Gm/Dose Powd 4 Gm PO BID 1 level scoopful of powder contains 4 grams of cholestyramine. Nitrostat SL (Nitroglycerin) 0.4 Mg Subl 0.4 Mg SL DIRECTED PRN 1 tablet under the tongue as needed for chest pain. Repeat every 5 minutes for a total of 3 DOSES or call 911 if NO relief. Promethazine Liq (Promethazine HCl) 6.25 Mg/5 Ml Syrp 25 Mg PO Q6H PRN Promethazine Supp (Promethazine HCl) 25 Mg Supp 25 Mg RECTAL Q6H PRN Sildenafil 20 Mg Tab 20 Mg PO TID Diltiazem (Diltiazem HCl) 120 Mg Tab 120 Mg PO DAILY Topamax (Topiramate) 100 Mg Tab 100 Mg PO BID Fenofibrate Micronized 200 Mg Cap 200 Mg PO DAILY Review of Systems Except as stated in HPI: all other systems reviewed are Neg General / Constitutional: No: Fever, Chills Cardiovascular: No: Palpitations Physical Exam Narrative GENERAL: 46-year-old female pleasant well-nourished well-developed Vital Signs Date Time Temp Pulse Resp B/P (MAP) Pulse Ox O2 Delivery O2 Flow Rate FiO2 03/31/17 17:14 64 18 120/75 (90) 96 Room Air 03/31/17 16:33 98.1 68 15 127/81 (96) 96 Room Air SKIN: Warm and dry. HEAD: Atraumatic. Normocephalic. EYES: Pupils equal and round. No scleral icterus. No injection or drainage. ENT: No nasal bleeding or discharge. Mucous membranes pink and moist. NECK: Trachea midline. No JVD. CARDIOVASCULAR: Regular rate and rhythm. RESPIRATORY: No accessory muscle use. Clear to auscultation. Breath sounds equal bilaterally. GASTROINTESTINAL: Soft. There is a lumen for a gastric jejunal tube in the epigastrium. The abdomen is not tender. MUSCULOSKELETAL: Extremities without clubbing, cyanosis, or edema. No obvious deformities. NEUROLOGICAL: Awake and alert. No obvious cranial nerve deficits. Motor grossly within normal limits. Five out of 5 muscle strength in the arms and legs. Normal speech. PSYCHIATRIC: Appropriate mood and affect; insight and judgment normal. Data Data Last Documented VS Vital Signs Date Time Temp Pulse Resp B/P (MAP) Pulse Ox O2 Delivery O2 Flow Rate FiO2 03/31/17 17:14 64 18 120/75 (90) 96 Room Air 03/31/17 16:33 98.1 Orders Orders Promethazine (Phenergan) (03/31/17 16:45) Diatrizoate Liq ( Gastroview Liq) (03/31/17 16:45) Abdomen, Kub Only (03/31/17 ) Ed Discharge Order (03/31/17 17:36) [facility] Medical Decision Making Medical Screen Exam Complete: Yes Emergency Medical Condition: Yes Medical Record Reviewed: Yes Differential Diagnosis Constipation, Gastritis, Acute Cholecystitis, Biliary Colic, Pancreatitis, CENTENO , Hepatitis, Bowel Obstruction, Cystitis, Mesenteric Ischemia, AAA, Appendicitis , Renal Stone/Hydronephrosis, GERD, perforated viscous Narrative Course A gastric tube, 18 Frisian, was placed at the bedside without difficulty. Post procedural x-ray reveals contrast in the gastric lumen. The patient is ready for discharge. She has follow-up with Dr Canchola. Last 24 hours Impressions Abdomen X-Ray 03/31/17 0000 Signed Impressions: Service Date/Time: Friday, March 31, 2017 17:14 - CONCLUSION: G-tube intraluminal within the stomach. Bowel gas pattern is normal.. Obed Pulido MD Diagnosis Primary Impression: GJ tube dislodgement Referrals: Philippe Russell MD 1 day Disposition: 01 DISCHARGE HOME Condition: Stable David Oneill MD Mar 31, 2017 17:29
--- NOTE | 2017-03-31 17:56 | RADRPT ---
EXAM DATE/TIME: 03/31/2017 17:14 [facility] COMPARISON: ABDOMEN KUB ONLY, December 20, 2015, 14:30. INDICATIONS : Confirm PEG tube placement. MEDICAL HISTORY : GERD, Gastroperesis SURGICAL HISTORY : GJ Tube, Cholecystectomy, J Tube, . ENCOUNTER: Initial ACUITY: 1 day PAIN SCORE: 3/10 LOCATION: Abdomen. FINDINGS: Supine view of the abdomen was performed. G-tube in place within the stomach confirmed with contrast. Cholecystectomy clips. IVC filter in place. The abdominal bowel gas pattern is normal. No abnormal masses, calcifications, or organomegaly is seen. The osseous structures are unremarkable. CONCLUSION: G-tube intraluminal within the stomach. Bowel gas pattern is normal.. Obed Pulido MD on March 31, 2017 at 17:54 Board Certified Radiologist. This report was verified electronically.
[2017-04-01] MEDS ORDERED: 0.92SYRI2 IV (09:51)
[2017-04-01] MEDS ORDERED: HEPA100I8 IV (09:51)
== END 2017-03-31 18:25 | disposition home or self-care (01) ==
LOC: NEPC 16:13
DX: Z43.4 Encounter for attention to other artificial openings of digestive tract (principal); I10 Essential (primary) hypertension; I48.91 Unspecified atrial fibrillation; I73.9 Peripheral vascular disease, unspecified; E78.00 Pure hypercholesterolemia, unspecified; D86.9 Sarcoidosis, unspecified; M32.9 Systemic lupus erythematosus, unspecified; M79.7 Fibromyalgia; M19.90 Unspecified osteoarthritis, unspecified site; F41.9 Anxiety disorder, unspecified; Z86.718 Personal history of other venous thrombosis and embolism; Z86.711 Personal history of pulmonary embolism; Z88.0 Allergy status to penicillin; Z88.2 Allergy status to sulfonamides; Z88.5 Allergy status to narcotic agent; Z88.1 Allergy status to other antibiotic agents; Z79.899 Other long term (current) drug therapy
CPT/HCPCS: 49452; 74018; 99284; Q0169; Q9963

== ENCOUNTER 2017-04-05 10:27 | Day surgery (SDC) | payer MEDICARE, OTHER ==
[~2017-04-05] VITALS: Ht 160 cm; Wt 62.7 kg
[~2017-04-05 10:27] MED LIST changes: +0.92SYRI2 IV; +HEPA100I8 IV; -OSEL75 PO
[2017-04-05] MEDS ORDERED: ALPR.5 PO (10:58)
[2017-04-05 11:00] VITALS: BP 131/85; PULSE 75; RESP 18; TEMP 98.4; O2SAT 96
[2017-04-05] MEDS ORDERED: SODIUM CHLORIDE 0.9% 1000 ML IV SCH (11:30)
[2017-04-05] MEDS ORDERED: PROMETHAZINE INJ 25 MG/ML VIAL IV-CENTRAL ONE (12:00)
[2017-04-05] MEDS ORDERED: SODIUM CHLORIDE 0.9% FLUSH 10 ML FLUSH IV FLUSH PRN (12:30)
[2017-04-05] MEDS ORDERED: HYDROmorphone HCL PF 2 MG/ML VIAL ONE (13:38)
[2017-04-05] MEDS ORDERED: LORazepam 2 MG/ML VIAL ONE (13:38)
[2017-04-05 14:25] VITALS: BP 117/76; PULSE 62; RESP 18; TEMP 98; O2SAT 94
[2017-04-05 14:40] VITALS: BP 126/79; PULSE 60; RESP 18; O2SAT 96
--- NOTE | 2017-04-05 14:54 | RADRPT ---
EXAM DATE/TIME: 04/05/2017 12:57 [facility] COMPARISON: No previous studies available for comparison. INDICATIONS : Gastroparesis. MEDICAL HISTORY : A-Fib, Lupus, DVT, GERD, Fibromyalgia, Hypothyroidism, PE, MSSA bacteremia, Endocarditis SURGICAL HISTORY : IVC filter, Port removal and replacement, T11-T12 surgery, Rectal polyp removed, Partial hysterectomy ENCOUNTER: Subsequent ACUITY: >1 year PAIN SCORE: 6/10 LOCATION: STOMACH FLUORO TIME: 6.1 minutes IMAGE SERIES: 1 CONTRAST: 30 cc Omnipaque (iohexol) 350 DEVICE(S): 1.) 22 Qatari <3.5 cm stomal length <Arron-Heaton GJ Tube>> PROCEDURE : 1. Fluoroscopically guided gastrojejunostomy tube exchange. 2. Conscious sedation with continuous EKG and oximetry monitoring. The risks, benefits and alternatives to the procedure were explained and verbal and written consent w as obtained. The site was prepped in sterile fashion. Full sterile technique was used, including ca p, mask, sterile gloves and gown and a large sterile sheet. Hand hygiene and 2% chlorhexidine and/or betadine/alcohol prep was utilized per protocol for cutaneous antisepsis. The skin and subcutaneous tissues were infiltrated with local anesthetic solution. With fluoroscopic guidance a guidewire was passed through the previous gastrojejunostomy tube and a f resh tube was placed over the guidewire. The balloon was inflated with appropriate volume of saline. Injection of positive contrast demonstrates good position of the gastric and jejunal lumens of the tube. Conscious sedation was performed with the prescribed dosages and duration as above in the presence of an independent trained radiology nurse to assist in the monitoring of the patient. EKG and oximetry remained stable throughout the procedure. The patient tolerated the procedure well and there were n o complications. The patient was sent to post anesthesia recovery in stable condition. CONCLUSION: Uncomplicated gastrojejunostomy tube exchange as above. Adilson Campbell MD on April 05, 2017 at 14:51 Board Certified Radiologist. This report was verified electronically.
[2017-04-05 15:10] VITALS: BP 106/81; PULSE 61; RESP 18; O2SAT 97
== END 2017-04-05 15:26 | disposition home or self-care (01) ==
LOC: HROP 10:27 → HRIP 10:32 → HROP 15:26
DX: K31.84 Gastroparesis (principal); I48.91 Unspecified atrial fibrillation; M79.7 Fibromyalgia; E03.9 Hypothyroidism, unspecified; I38 Endocarditis, valve unspecified; I26.99 Other pulmonary embolism without acute cor pulmonale; M32.9 Systemic lupus erythematosus, unspecified
CPT/HCPCS: 49452; C1769; J1170; J1642; J2060; J2550; J7030

== ENCOUNTER 2017-04-26 08:01 | Day surgery (SDC) | payer MEDICARE, OTHER ==
[~2017-04-26] VITALS: Ht 160 cm; Wt 63.6 kg
[~2017-04-26 08:01] MED LIST changes: +ALPR.5 PO
[2017-04-26 08:14] VITALS: BP 124/86; PULSE 75; RESP 20; TEMP 98.1; O2SAT 98
[2017-04-26] MEDS ORDERED: IMPLANTED VASCULAR ACCESS PORT - SODIUM CHLORIDE FLUSH PRN IV FLUSH (08:30)
[2017-04-26] MEDS ORDERED: SODIUM CHLORIDE 0.9% 1000 ML IV SCH (08:30)
[2017-04-26] MEDS ORDERED: IMPLANTED VASCULAR ACCESS PORT - SODIUM CHLORIDE FLUSH IV FLUSH SCH (08:30)
[2017-04-26] MEDS ORDERED: PROMETHAZINE INJ 25 MG/ML VIAL IV-CENTRAL ONE (09:45)
[2017-04-26 10:20] VITALS: BP 137/86; PULSE 58; RESP 18; TEMP 97.8; O2SAT 97
--- NOTE | 2017-04-26 10:20 | PD.RAD ---
Post Procedure Progress Note Pre Procedure Diagnosis: (1) GJ tube damaged (2) Nausea & vomiting (3) Gastroparesis Post Procedure Diagnosis: (1) GJ tube damaged (2) Nausea & vomiting (3) Gastroparesis Procedure Date: Apr 26, 2017 Supervising Radiologist: David Martin Estimated blood loss: None Anesthesia: Local Plan of Activity Patient to Unit: ROPU Patient Condition: Good Additional Comments: Successful G/J tube change through an existing tract. Tract anesthetized with viscous lidocaine 15min prior to exchange. The patient did very well with this. No complaints during the procedure The patient has multiple drug allergies to sedation medications. Pt. tolerated the procedure very well. New tube verified in position with an injection or air. Contrast not used due to possible allergy. Full dictated report to follow See PACS Report for procedural detail/treatment David Martin MD Apr 26, 2017 10:20
[2017-04-26 10:35] VITALS: BP 142/95; PULSE 60; RESP 18; O2SAT 98
--- NOTE | 2017-04-26 11:06 | RADRPT ---
EXAM DATE/TIME: 04/26/2017 09:14 [facility] COMPARISON: CHANGE OF GJ-TUBE CATHETER, April 05, 2017, 12:57. INDICATIONS : Patient with history of gastroparesis in need of gastrojejunostomy tube exchange. MEDICAL HISTORY : A-fib Lupus DVT GERD Fibromyalgia Hypothyroidism PE MSSA Endocarditis SURGICAL HISTORY : IVC filter Port placement and removal T11-T12 SX Rectal polyp Partial hysterectomy ENCOUNTER: Subsequent ACUITY: 4 - 6 days PAIN SCORE: 6/10 LOCATION: Left Abdomen FLUORO TIME: 1.1 minutes IMAGE SERIES: 3 DEVICE(S): 1.) 22 Belarusian gastrojejunostomy tube PROCEDURE : 1. Fluoroscopically guided gastrojejunostomy tube exchange. 2. Conscious sedation with continuous EKG and oximetry monitoring. Clinical history: This patient is well known to the interventional radiology service and has had a G./J-tube in for num erous years. The patient has multiple drug allergies and has had previous allergic reactions post tub e placement. The risks, benefits and alternatives to the procedure were explained and verbal and written consent w as obtained. The site was prepped in sterile fashion. Full sterile technique was used, including ca p, mask, sterile gloves and gown and a large sterile sheet. Hand hygiene and 2% chlorhexidine and/or betadine/alcohol prep was utilized per protocol for cutaneous antisepsis. 15 minutes prior to the procedure the area around the existing tube was infiltrated with 10 cc of vis cous lidocaine. This was allowed to dwell. With fluoroscopic guidance a guidewire was passed through the previous gastrojejunostomy tube and a f resh tube was placed over the guidewire. The balloon was inflated with appropriate volume of saline. Injection air demonstrated both the gastric and jejunal lumens to be in good position. There was us ed secondary to the patient's history of multiple allergies. The patient tolerated the procedure well and there were complaints during the procedure. There was no complication. The patient was sent to post anesthesia recovery in stable condition. CONCLUSION: Uncomplicated gastrojejunostomy tube exchange as above. the patient tolerated the procedure very well . David Martin MD on April 26, 2017 at 11:01 Board Certified Radiologist. This report was verified electronically.
== END 2017-04-26 10:45 | disposition home or self-care (01) ==
LOC: HROP 08:01 → HRIP 08:04 → HROP 10:45
DX: K94.23 Gastrostomy malfunction (principal); K31.84 Gastroparesis; R11.2 Nausea with vomiting, unspecified; I48.91 Unspecified atrial fibrillation; M32.9 Systemic lupus erythematosus, unspecified; I82.509 Chronic embolism and thrombosis of unspecified deep veins of unspecified lower extremity; K21.9 Gastro-esophageal reflux disease without esophagitis; M79.7 Fibromyalgia; E03.9 Hypothyroidism, unspecified; I26.99 Other pulmonary embolism without acute cor pulmonale
CPT/HCPCS: 49452; C1769; J1642; J2550; J7030

== ENCOUNTER 2017-07-26 05:19 | Inpatient (IN) | payer MEDICARE, OTHER ==
[~2017-07-26] VITALS: Ht 160 cm; Wt 67.0 kg
[~2017-07-26 05:19] MED LIST changes: -ALPR.5 PO; +APREPITANT 40 MG CAP ONE; +FAMOTIDINE 20 MG/2 ML VIAL ONE; -HEPA100I8 IV; +ONDANSETRON ODT 4 MG TAB ONE; -SILD20TA11 PO; -TOPI100 PO
[2017-07-26] MEDS ORDERED: SODIUM CHLORID 0.9% 500 ML IV PRN (05:45)
[2017-07-26] MEDS ORDERED: POVIDONE IODINE 5% (ANTISEPSIS KIT) 4 APPLICATIONS EACH NARE PRN (05:45)
[2017-07-26] MEDS ORDERED: METOPROLOL TARTRATE 25 MG TAB PO PRN (05:45)
[2017-07-26] MEDS ORDERED: LACTATED RINGER'S 1000 ML IV PRN (05:45)
[2017-07-26] MEDS ORDERED: CHLORHEXIDINE GLUCONATE 2 % 1 PACK (2 CLOTHS) TOPICAL PRN (05:45)
[2017-07-26] MEDS ORDERED: metroNIDAZOLE 500 MG INJ 100 ML IV SCH (06:00)
[2017-07-26] MEDS ORDERED: CLINDAMYCIN 300 MG/NS PREMIX 50 ML IV SCH (06:00)
[2017-07-26] MEDS ORDERED: APREPITANT 40 MG CAP PO SCH (06:00)
[2017-07-26] MEDS ORDERED: FLUCONAZOLE/NACL 400 MG/200 ML IV SCH (06:00)
[2017-07-26] MEDS ORDERED: ACETAMINOPHEN 1000 MG/100 ML 100 ML IV ONE (06:35)
[2017-07-26] MEDS ORDERED: diphenhydrAMINE HCL 50 MG/ML VIAL ONE (07:01)
[2017-07-26] MEDS ORDERED: HYDROmorphone HCL PF 2 MG/ML VIAL ONE ×2 (07:02→10:12)
[2017-07-26] MEDS ORDERED: KETAMINE HCL 50 MG/5 ML SYRINGE ONE (07:02)
[2017-07-26 07:03] LABS: AUTOMATED NEUTROPHIL # 2.9 TH/MM3 (1.8-7.7); BASOPHIL # 0.1 TH/MM3 (0-0.2); BASOPHIL % 0.9 % (0.0-2.0); EOSINOPHIL # 0.3 TH/MM3 (0-0.4); EOSINOPHIL % 5.9 % (0.0-4.0); HEMATOCRIT 41.4 % (35.0-46.0); HEMOGLOBIN 14.2 GM/DL (11.6-15.3); LYMPH % 33.1 % (9.0-44.0); LYMPHOCYTE # 1.9 TH/MM3 (1.0-4.8); MEAN CELL VOLUME 88.7 FL (80.0-100.0); MEAN CORPUSCULAR HEMOGLOBIN 30.4 PG (27.0-34.0); MEAN CORPUSCULAR HGB CONC 34.2 % (32.0-36.0); MONO % 7.6 % (0.0-8.0); MONOCYTE # 0.4 TH/MM3 (0-0.9); NEUT % 52.5 % (16.0-70.0); PLATELET COUNT 194 TH/MM3 (150-450); RED BLOOD COUNT 4.66 MIL/MM3 (4.00-5.30); RED CELL DISTRIBUTION WIDTH 13.4 % (11.6-17.2); WHITE BLOOD COUNT 5.6 TH/MM3 (4.0-11.0)
[2017-07-26 07:20] LABS: BICARBONATE 25.1 MEQ/L (21.0-32.0); CREATININE 0.72 MG/DL (0.50-1.00)
[2017-07-26] MEDS ORDERED: DO NOT ADM ANY ANTICOAGULANT DRUGS PRN (09:50)
--- NOTE | 2017-07-26 10:19 | HHI.PR ---
cc: Miguelito Flores MD Immediate Post Op Note Procedure Date: Jul 26, 2017 Pre Op Diagnosis: Malfunctioning G-J tube Post Op Diagnosis: Same Surgeon: Miguelito Flores Carpenter Labor Supervisor(s): Kwan Mcmanus MD Procedure: Removal G-J tube Laparoscopic lysis of adhesions Laparoscopic placement feeding jejunostomy tube (16fr) Revision/replacement gastrostomy tube Complications: None Estimated blood loss: 5 ml Anesthesia: General Drains: None IVF (800 ml) Patient to: PACU Patient Condition: Good Date/Time of Procedure: SEE SURGICAL CARE RECORD Miguelito Flores MD Jul 26, 2017 10:19
[2017-07-26] MEDS ORDERED: oxyCODONE/ACETAMINOPHEN 5 MG/325 MG TAB PO PRN ×2 (10:30)
[2017-07-26] MEDS ORDERED: METOCLOPRAMIDE HCL 10 MG/2 ML VIAL IVS PRN (10:30)
[2017-07-26] MEDS ORDERED: NALOXONE HCL 0.4 MG/ML AMP IV PUSH PRN (10:30)
[2017-07-26] MEDS ORDERED: ONDANSETRON ODT 4 MG TAB PO PRN (10:30)
[2017-07-26] MEDS ORDERED: Post-op Orders (for Pharmacy) XX ONE (10:30)
[2017-07-26] MEDS ORDERED: diphenhydrAMINE HCL 50 MG/ML VIAL IVP PRN (10:30)
[2017-07-26 12:00] VITALS: BP 113/66; PULSE 59; RESP 17; TEMP 97.7; O2SAT 96
[2017-07-26] MEDS ORDERED: NEOSTIGMINE 5 MG/5 ML SYRINGE IV PUSH ONE (12:00)
[2017-07-26] MEDS ORDERED: ONDANSETRON HCL 4 MG/2 ML VIAL IV PUSH ONE (12:00)
[2017-07-26] MEDS ORDERED: PROPOFOL 200 MG/20 ML AMP IV ONE (12:00)
[2017-07-26] MEDS ORDERED: LIDOCAINE HCL 1% PF 5 ML SYRINGE OTHER ONE (12:00)
[2017-07-26] MEDS ORDERED: DEXAMETHASONE SOD PHOS 4 MG/ML VIAL IV ONE (12:00)
[2017-07-26] MEDS ORDERED: GLYCOPYRROLATE 1 MG/5 ML SYRINGE IV PUSH ONE (12:00)
[2017-07-26] MEDS ORDERED: ROCURONIUM INJ 50 MG/5 ML SYRINGE IV PUSH ONE (12:00)
[2017-07-26] MEDS: PROMETHAZINE INJ 25 MG/ML VIAL IV-CENTRAL PRN ×2 (12:31→20:24)
[2017-07-26] MEDS: PCA - TOTAL MG MORPHINE DELIVERED PER SHIFT SCH ×2 (12:51→20:34)
[2017-07-26 16:00] VITALS: BP 92/58; PULSE 59; RESP 17; TEMP 97.4; O2SAT 95
[2017-07-26] MEDS: HYDROmorphone HCL 2 MG TAB PO PRN (16:04)
--- NOTE | 2017-07-26 18:17 | MP ---
cc: Miguelito Flores MD,Vicente Cameron MD, MD DATE OF OPERATION: 07/26/2017 PREOPERATIVE DIAGNOSIS: Malfunctioning G-J tube. POSTOPERATIVE DIAGNOSIS: Malfunctioning G-J tube. ANESTHESIA: General endotracheal. SURGEON: Miguelito Flores MD ASSESSMENT NURSE: Kwan Mcmanus MD ESTIMATED BLOOD LOSS: 5 mL FLUIDS: 800 mL crystalloid. COMPLICATIONS: None. DRAINS: None SPECIMEN: None. PROCEDURES: 1. Removal of G-J tube. 2. Laparoscopic lysis of adhesions. 3. Laparoscopic placement of jejunostomy feeding tube. 4. Revision gastrostomy tube with reinsertion of a simple gastrostomy tube. PROCEDURE IN DETAIL: The patient was taken to the operating room and placed on the operating table in the supine position. After an adequate level of general endotracheal anesthesia was achieved, the G-J tube was removed and the abdomen prepped and draped. A timeout was taken confirming the correct patient, site, and procedure to be performed. Three 5 mm trocars were placed with the first in the infraumbilical region. An incision was made in the skin and the abdomen was retracted upward. The peritoneal cavity was entered under direct vision uneventfully utilizing a 5 mm trocar and a 0-degree camera. When this had been accomplished, the patient was noted to have some adhesions to the anterior abdominal wall. A second 5 mm trocar was placed in the left lower quadrant and entered the abdominal cavity under direct vision uneventfully. The camera was switched to this location and the patient was noted to have omentum with filmy adhesions to the anterior abdominal wall and down in the left lower quadrant. A third 5 mm trocar was placed in the left mid abdomen and entered the abdominal cavity under direct vision uneventfully. The omentum was then retracted and the Harmonic scalpel was used to dissect the omentum off of the anterior abdominal wall. When this had been completed, the abdomen was examined and the patient was noted to have stomach adherent to the anterior abdominal wall where the gastrostomy tube was located. There were no other anterior abdominal wall adhesions. The ligament of Treitz was located and a point approximately 30-40 cm distal to this was chosen for the jejunostomy feeding tube site. An additional 5 mm trocar was placed in the right mid abdomen and entered the abdominal cavity under direct vision uneventfully. The left lateral 5 mm trocar was removed after placing a pursestring suture on the antimesenteric border of the jejunum with a 2-0 silk suture. A small opening was made in the middle of the pursestring with the Harmonic scalpel. This was further widened with the [place] dissector. A 16 Maltese kita feeding tube with a balloon was inserted into the jejunum and threaded distally. This was threaded up to the level of the balloon. It should be noted that the feeding tube was shortened slightly to allow for easier insertion and as the additional length was unnecessary as this was placed directly into the jejunum. When this had been placed, the pursestring suture was cinched down. A short Witzel tunnel was created utilizing 2-0 silk suture and 2-0 Vicryl sutures. Three sutures total were placed and, following this, an additional 2-0 silk suture was placed proximal to the feeding tube. This was fixed to the anterior abdominal wall, as was the more distal 2-0 silk suture. This allowed for fixation of the jejunum to the anterior abdominal wall. An additional 2-0 silk suture was placed distal to this on the small bowel to prevent torsion postoperatively. When this had been completed, insufflation was discontinued. A 24-Maltese Malecot catheter was placed into the already existing gastrostomy tube site and was seen to thread easily into the stomach. The tube was cinched around the anterior abdominal wall with a pursestring 2-0 nylon suture. This was placed in an effort to minimize the risk of leakage. The jejunal tube was capped and the G-tube was placed to gravity. The 5 mm trocar sites were closed in the skin with 4-0 Vicryl in an interrupted buried fashion and dressed with Steri-Strips. 4 x 4's were applied around the gastrostomy site and the jejunal feeding tube site after securing the jejunal tube to the flange with 0 silk suture into the skin with two 2-0 Prolene sutures. The patient was extubated and taken back to the recovery room in stable condition. She tolerated the procedure well. MD DEREK Marrero/ , 05:45 PM , 06:15 PM [facility]ENTERLady
[2017-07-26] MEDS ORDERED: PROMETHAZINE HCL 25 MG SUPP RECTAL PRN (19:15)
[2017-07-26 20:00] VITALS: BP 100/59; PULSE 50; RESP 18; TEMP 97.4; O2SAT 98
[2017-07-26] MEDS: LACTATED RINGER'S 1000 ML INJ 1,000 ML IV SCH (20:31)
[2017-07-27] VITALS: BP 109/67; PULSE 61; RESP 18; TEMP 97.2; O2SAT 96
[2017-07-27] MEDS: HYDROmorphone HCL 2 MG TAB PO PRN ×3 (00:08→15:00)
[2017-07-27 04:00] VITALS: BP 127/62; PULSE 68; RESP 18; TEMP 98.4; O2SAT 96
[2017-07-27] MEDS: PCA - TOTAL MG MORPHINE DELIVERED PER SHIFT SCH ×3 (04:39→21:25)
[2017-07-27] MEDS: HYDROmorphone HCL PF 2 MG/ML VIAL IV PUSH PRN ×3 (05:26→21:23)
[2017-07-27] MEDS: LACTATED RINGER'S 1000 ML INJ 1,000 ML IV SCH ×2 (05:29→15:06)
[2017-07-27 08:00] VITALS: BP 122/67; PULSE 74; RESP 18; TEMP 98.1; O2SAT 97
[2017-07-27] MEDS: PROMETHAZINE INJ 25 MG/ML VIAL IV-CENTRAL PRN ×3 (08:15→21:22)
[2017-07-27 12:00] VITALS: BP 105/60; PULSE 70; RESP 16; TEMP 97.8; O2SAT 95
[2017-07-27 16:00] VITALS: BP 134/75; PULSE 62; RESP 18; TEMP 97.9; O2SAT 100
--- NOTE | 2017-07-27 16:21 | HHI.PR ---
Subjective Subjective Notes feels well, pain ok, wants to start TF Objective Vitals/I&O Vital Signs Date Time Temp Pulse Resp B/P (MAP) Pulse Ox O2 Delivery O2 Flow Rate FiO2 07/27/17 12:00 97.8 70 16 105/60 (75) 95 07/26/17 11:00 Room Air 07/26/17 10:00 2 Cardiovascular: Regular Lungs: Clear Abdomen: Non-distended, Post-op tenderness Narrative Exam G- and J-tubes in place A/P Assessment and Plan 47 year old female POD1 lap J-tube -VSS -Pain controlled -start TF -OOB Vin Harris MD Jul 27, 2017 16:21
[2017-07-27 20:00] VITALS: BP 117/68; PULSE 65; RESP 18; TEMP 98.1; O2SAT 98
[2017-07-27] MEDS: SODIUM CHLORIDE 0.9% FLUSH 10 ML FLUSH IV FLUSH PRN (21:25)
[2017-07-28] VITALS: BP 107/63; PULSE 64; RESP 18; TEMP 97.8; O2SAT 97
[2017-07-28] MEDS: HYDROmorphone HCL 2 MG TAB PO PRN
[2017-07-28] MEDS: LACTATED RINGER'S 1000 ML INJ 1,000 ML IV SCH ×3 (00:03→20:35)
[2017-07-28] MEDS: HYDROmorphone HCL PF 2 MG/ML VIAL IV PUSH PRN ×7 (02:53→20:35)
[2017-07-28] MEDS: PCA - TOTAL MG MORPHINE DELIVERED PER SHIFT SCH ×3 (04:03→20:36)
[2017-07-28] MEDS: PROMETHAZINE INJ 25 MG/ML VIAL IV-CENTRAL PRN ×3 (05:41→21:29)
[2017-07-28 08:00] VITALS: BP 112/74; PULSE 73; RESP 16; TEMP 97.4; O2SAT 95
[2017-07-28 12:00] VITALS: BP 134/76; PULSE 76; RESP 16; TEMP 98; O2SAT 97
--- NOTE | 2017-07-28 12:19 | HHI.PR ---
Subjective Subjective Notes Patient looks well. She continues to have some discomfort. She is alternating oral pain medication with intravenous Dilaudid. Tube feeds were started yesterday 20 cc an hour. She has had no flatus or bowel movement yet. She appears comfortable. Objective Vitals/I&O Vital Signs Date Time Temp Pulse Resp B/P (MAP) Pulse Ox O2 Delivery O2 Flow Rate FiO2 07/28/17 08:00 97.4 73 16 112/74 (87) 95 07/26/17 11:00 Room Air 07/26/17 10:00 2 Abdomen: Non-distended, Other (Incision sites, G and J-tube sites, appear to be healing well. There is no erythema or significant drainage. She has few normal bowel sounds.), Post-op tenderness A/P Assessment and Plan Postop G and J-tube placements. J-tube feeding at 20 cc an hour. No flatus or bowel movement yet. Patient is stable with present pain medications as ordered. No therapy change today. Jaden Pelayo MD Jul 28, 2017 12:19
[2017-07-28 16:00] VITALS: BP 122/74; PULSE 74; RESP 16; TEMP 98.2; O2SAT 98
[2017-07-28 20:00] VITALS: BP 120/69; PULSE 77; RESP 16; TEMP 98.8; O2SAT 94
[2017-07-28] MEDS: SODIUM CHLORIDE 0.9% FLUSH 10 ML FLUSH IV FLUSH PRN (20:36)
[2017-07-29] VITALS: BP 111/61; PULSE 72; RESP 16; TEMP 97.9; O2SAT 94
[2017-07-29] MEDS: HYDROmorphone HCL PF 2 MG/ML VIAL IV PUSH PRN ×9 (01:28→22:55)
[2017-07-29] MEDS: PCA - TOTAL MG MORPHINE DELIVERED PER SHIFT SCH ×3 (04:00→20:40)
[2017-07-29] MEDS: PROMETHAZINE INJ 25 MG/ML VIAL IV-CENTRAL PRN ×3 (04:31→18:22)
[2017-07-29] MEDS: LACTATED RINGER'S 1000 ML INJ 1,000 ML IV SCH ×2 (07:00→20:40)
[2017-07-29 08:00] VITALS: BP 118/66; PULSE 87; RESP 16; TEMP 97.7; O2SAT 95
[2017-07-29 12:00] VITALS: BP 130/71; PULSE 78; RESP 16; TEMP 99; O2SAT 96
[2017-07-29 16:00] VITALS: BP 142/80; PULSE 84; RESP 16; TEMP 99.4; O2SAT 96
--- NOTE | 2017-07-29 17:15 | HHI.PR ---
Subjective Subjective Notes Wants to get out into the hallway to walk today Pain controlled Objective Vitals/I&O Vital Signs Date Time Temp Pulse Resp B/P (MAP) Pulse Ox O2 Delivery O2 Flow Rate FiO2 07/29/17 12:00 99.0 78 16 130/71 (90) 96 07/26/17 11:00 Room Air 07/26/17 10:00 2 Cardiovascular: Regular Lungs: Clear Abdomen: Other (G tube to gravity; J tube with TF ) Extremities: No edema A/P Assessment and Plan 47 year old female with gastroparesis -Clear liquids + TF -Will plan to transition to nocturnal TF -Pain control -OOB and mobilize Attending Note - Dr. Flores Still quite painful Somewhat distended; encouraged to minimize use of pain meds Wounds all clean and dry; steri strips intact. The exam, history, and the medical decision-making described in the above note were completed with the assistance of the mid-level provider. I reviewed and agree with the findings presented. I attest that I had a [id number] encounter with the patient on the same day, and personally performed and documented my assessment and findings in the medical record. Angeles MoratayaP/Rn Integrated [employer] PL[employer] MANAGER Jul 29, 2017 17:15 Miguelito Flores MD Jul 30, 2017 12:59
[2017-07-29 20:00] VITALS: BP 149/79; PULSE 88; RESP 17; TEMP 98.1; O2SAT 98
[2017-07-29] MEDS: LACTULOSE SYRUP 20 GM/30 ML CUP PO SCH (20:37)
[2017-07-30] VITALS: BP 122/78; PULSE 80; RESP 17; TEMP 97.8; O2SAT 97
[2017-07-30] MEDS: PROMETHAZINE INJ 25 MG/ML VIAL IV-CENTRAL PRN ×4 (01:32→21:38)
[2017-07-30] MEDS: HYDROmorphone HCL PF 2 MG/ML VIAL IV PUSH PRN ×7 (01:32→21:38)
[2017-07-30] MEDS: PCA - TOTAL MG MORPHINE DELIVERED PER SHIFT SCH ×3 (06:00→22:00)
[2017-07-30 07:09] LABS: BICARBONATE 29.5 MEQ/L (21.0-32.0); CALCIUM 8.4 MG/DL (8.5-10.1); CREATININE 0.66 MG/DL (0.50-1.00)
[2017-07-30 08:00] VITALS: BP 123/75; PULSE 89; RESP 18; TEMP 99.4; O2SAT 94
[2017-07-30] MEDS: BISACODYL 10 MG SUPP RECTAL SCH (08:51)
[2017-07-30] MEDS: LACTULOSE SYRUP 20 GM/30 ML CUP PO SCH ×2 (08:51→20:09)
--- NOTE | 2017-07-30 10:03 | HHI.PR ---
Subjective Subjective Notes Resting in bed Just back from walking Objective Vitals/I&O Vital Signs Date Time Temp Pulse Resp B/P (MAP) Pulse Ox O2 Delivery O2 Flow Rate FiO2 07/30/17 08:00 99.4 89 18 123/75 (91) 94 07/26/17 11:00 Room Air 07/26/17 10:00 2 Labs Laboratory Tests Test 07/30/17 06:23 Blood Urea Nitrogen 12 Creatinine 0.66 Random Glucose 96 Calcium Level 8.4 Sodium Level 141 Potassium Level 3.7 Chloride Level 105 Carbon Dioxide Level 29.5 Anion Gap 7 Estimat Glomerular Filtration Rate 96 Cardiovascular: Regular Lungs: Clear Abdomen: Other (distended; G tube to gravity; J tube clamped ) Extremities: No edema A/P Assessment and Plan 47 year old female with gastroparesis; POD4 G/J tube exchange -Clear liquids + TF -Will plan to transition to nocturnal TF -Pain control -OOB and mobilize Attending Note - Dr. Flores Still painful; little flatus or BM yet Tolerating TF; stopped for daytime Home when off IV pain meds The exam, history, and the medical decision-making described in the above note were completed with the assistance of the mid-level provider. I reviewed and agree with the findings presented. I attest that I had a [id number] encounter with the patient on the same day, and personally performed and documented my assessment and findings in the medical record. Angeles Morataya/First Lindy PHELAN Jul 30, 2017 10:03 Miguelito Flores MD Jul 30, 2017 13:01
[2017-07-30 12:00] VITALS: BP 116/77; PULSE 92; RESP 17; TEMP 99.4; O2SAT 95
[2017-07-30] MEDS ORDERED: MAGNESIUM HYDROXIDE SUSP 30 ML CUP J-TUBE ONE (13:25)
[2017-07-30] MEDS: LACTATED RINGER'S 1000 ML INJ 1,000 ML IV SCH (13:29)
[2017-07-30 15:56] VITALS: BP 110/62; PULSE 89; RESP 16; TEMP 99.9; O2SAT 97
[2017-07-30 20:00] VITALS: BP 112/73; PULSE 87; RESP 18; TEMP 99.3; O2SAT 95
[2017-07-31] VITALS: BP 110/79; PULSE 97; RESP 18; TEMP 98.4; O2SAT 94
[2017-07-31] MEDS: HYDROmorphone HCL PF 2 MG/ML VIAL IV PUSH PRN ×3 (00:44→06:36)
[2017-07-31] MEDS: LACTATED RINGER'S 1000 ML INJ 1,000 ML IV SCH ×2 (03:41→09:04)
[2017-07-31] MEDS: PROMETHAZINE INJ 25 MG/ML VIAL IV-CENTRAL PRN ×4 (03:50→22:22)
[2017-07-31] MEDS: PCA - TOTAL MG MORPHINE DELIVERED PER SHIFT SCH ×3 (06:00→22:00)
[2017-07-31 08:00] VITALS: BP 103/69; PULSE 75; RESP 16; TEMP 98.2; O2SAT 96
[2017-07-31] MEDS: LACTULOSE SYRUP 20 GM/30 ML CUP PO SCH ×2 (09:04→19:27)
[2017-07-31] MEDS: BISACODYL 10 MG SUPP RECTAL SCH (09:04)
[2017-07-31] MEDS: HYDROmorphone HCL 2 MG TAB PO PRN ×3 (10:19→22:23)
--- NOTE | 2017-07-31 10:45 | HHI.PR ---
Subjective Subjective Notes Resting in bed Feels "bloated" Objective Vitals/I&O Vital Signs Date Time Temp Pulse Resp B/P (MAP) Pulse Ox O2 Delivery O2 Flow Rate FiO2 07/31/17 08:00 98.2 75 16 103/69 (80) 96 Cardiovascular: Regular Lungs: Clear Abdomen: Other (distended; lap sites c/d/i; G tube to gravity; J tube clamped ) Extremities: No edema A/P Assessment and Plan 47 year old female with gastroparesis; POD4 G/J tube exchange -Clear liquids + TF -Tolerating nocturnal TF -Pain control ----DC IV Dilaudid this afternoon -OOB and mobilize -Bowel regimen -Hopefully home tomorrow if bowels start working and pain controlled on oral pain pills Angeles Morataya/B[employer] Jul 31, 2017 10:45
[2017-07-31 12:00] VITALS: BP 113/73; PULSE 75; RESP 16; TEMP 98.1; O2SAT 95
[2017-07-31 16:00] VITALS: BP 134/76; PULSE 92; RESP 18; TEMP 99; O2SAT 98
[2017-07-31 20:00] VITALS: BP 118/77; PULSE 82; RESP 18; TEMP 98.1; O2SAT 94
[2017-07-31] MEDS ORDERED: DILA2TAB4 PO (21:49)
[2017-08-01] VITALS: BP 119/78; PULSE 86; RESP 18; TEMP 97.9; O2SAT 95
[2017-08-01] MEDS: PROMETHAZINE INJ 25 MG/ML VIAL IV-CENTRAL PRN ×3 (04:50→17:39)
[2017-08-01] MEDS: HYDROmorphone HCL 2 MG TAB PO PRN ×3 (04:50→17:39)
[2017-08-01] MEDS: PCA - TOTAL MG MORPHINE DELIVERED PER SHIFT SCH ×2 (04:51→12:29)
[2017-08-01 08:00] VITALS: BP 117/75; PULSE 77; RESP 17; TEMP 97.4; O2SAT 96
[2017-08-01] MEDS: BISACODYL 10 MG SUPP RECTAL SCH (09:00)
[2017-08-01] MEDS: LACTULOSE SYRUP 20 GM/30 ML CUP PO SCH (09:00)
--- NOTE | 2017-08-01 11:18 | HHI.PR ---
Subjective Subjective Notes Dysuria Small bowel movement Objective Vitals/I&O Vital Signs Date Time Temp Pulse Resp B/P (MAP) Pulse Ox O2 Delivery O2 Flow Rate FiO2 08/01/17 08:00 97.4 77 17 117/75 (89) 96 Cardiovascular: Regular Lungs: Clear Abdomen: Other (less distended today; G tube clamped; J tube clamped ) Extremities: No edema A/P Assessment and Plan 47 year old female with gastroparesis; POD4 G/J tube exchange -Clear liquids + TF -Tolerating nocturnal TF -Pain control with PO Dilaudid -Check UA -OOB and mobilize -Bowel regimen -Hopefully home today vs tomorrow -Patient will go home on nocturnal TF continuos feedings Angeles Morataya/Senior Lead Project Manager ARNP Aug 01, 2017 11:18
[2017-08-01 12:00] VITALS: BP 119/78; PULSE 85; RESP 17; TEMP 98.5; O2SAT 97
[2017-08-01 16:00] VITALS: BP 111/72; PULSE 88; RESP 17; TEMP 97.8; O2SAT 97
[2017-08-01 17:15] LABS: BILIRUBIN, URINE NEG (NEG); BLOOD, URINE NEG (NEG); GLUCOSE,URINE NEG (NEG); KETONE, URINE NEG (NEG); NITRITE,URINE NEG (NEG); SQUAMOUS EPITHELIAL CELL URINE <1 /hpf (0-5); URINE COLOR YELLOW (YELLW/STRAW); URINE LEUKOCYTE ESTERASE NEG (NEG)
--- NOTE | 2017-08-01 17:27 | HHI.DS ---
Discharge Summary Admission Date Jul 26, 2017 at 10:23 Admitting Diagnosis CBC/BMP: 07/30/17 0623 Significant Findings Laboratory Tests Test 07/30/17 06:23 08/01/17 11:19 Calcium Level 8.4 MG/DL (8.5-10.1) PE at Discharge G- and J-tubes in place Pt Condition on Discharge: Good Discharge Disposition: Discharge Home Discharge Instructions DIET: Follow Instructions for: Clear Liquid Diet Additional Diet Instructions: Clear liquids + shakes through J tube Activities you can perform: Regular-No Restrictions Angeles Morataya/First Lindy PHELAN Aug 01, 2017 17:27
== END 2017-08-01 19:05 | disposition home or self-care (01) | DRG 395 ==
LOC: HSDC 05:19 → N07B 10:23
PROVIDERS: ADMIT Surgery Trauma Surgery; ATTEND Surgery Trauma Surgery
PROC: 0D20XUZ Change Feeding Device in Upper Intestinal Tract, External Approach (ICD-10-PCS; principal; 2017-07-26 07:27)
PROC: 0D2DXUZ Change Feeding Device in Lower Intestinal Tract, External Approach (ICD-10-PCS; 2017-07-26 07:27)
DX: K94.23 Gastrostomy malfunction (principal); K31.84 Gastroparesis; K94.13 Enterostomy malfunction
CPT/HCPCS: 80048; 81001; 85025; 94150; J0131; J1100; J1170; J1200; J1450; J2405; J2550; J2710; J7120; J8501